=== PATIENT | female | born 1975 | race Caucasian/White ===

== ENCOUNTER 2020-04-14 15:10 | Outpatient (REF) | payer OTHER, SELFPAY ==
--- NOTE | ~2020-04-14 | MM_ITS ---
EXAMINATION: MM DIAGNOSTIC DIGITAL BREAST TOMOSYNTHESIS, LEFT US DIAGNOSTIC ULTRASOUND BREAST, LEFT CLINICAL INFORMATION: Short interval six-month follow-up left breast for hypoechoic nodule central 12:00 position mid depth and parenchymal asymmetry lower inner left breast. The lifetime risk of breast cancer based on the Tyrer-Cuzick Model is 17%. COMPARISON: Mammography: 10/15/2019, 10/07/2019 (BI-RADS 0), 10/01/2018; targeted left breast ultrasound 10/15/2019. TECHNIQUE: Digital breast tomosynthesis is performed in both the craniocaudal and mediolateral oblique views along with computer-aided detection (CAD). Synthesized 2D images are generated from the tomosynthesis. Ultrasound ultrasound left breast is targeted to the 12:00 position. Grayscale imaging and color Doppler are performed without and with harmonics. FINDINGS: There are scattered areas of fibroglandular density (ACR BI-RADS breast composition Category b). Parenchymal pattern is similar to prior studies. Nodularity mid central 12:00 left breast is similar to prior exams. There is no developing density or interval architectural abnormality. Parenchymal pattern lower inner left breast is stable as well. There is no interval architectural abnormality or developing density. Ultrasound again demonstrates a circumscribed oval subcentimeter hypoechoic nodule. There are some fine low-level internal echoes which clear on harmonics. There is trace increased through-transmission of sound and no associated color flow. Finding most likely represents a cyst and is stable. Results are discussed with the patient at time of visit. MM/MM tomosynthesis diagnostic LT IMPRESSION: 1. Left breast parenchymal pattern similar to prior exams. 2. Probable cyst mid 12:00 left breast stable. ASSESSMENT: BI-RADS 3: Probably Benign RECOMMENDATION: Diagnostic mammography and targeted left breast ultrasound at time of annual bilateral breast imaging, due in 6 months. This patient's information was entered into a reminder system with a target due date for their next mammogram.
== END 2020-04-14 15:11 | disposition home or self-care (01) ==
LOC: HO.MAMMO 15:10
PROVIDERS: Visit Provider Nurse Practitioner Family
DX: R92.2 Inconclusive mammogram (principal)
CPT/HCPCS: 76642; 77061; 77065

== ENCOUNTER 2020-05-03 20:51 | Emergency (ER) | payer OTHER, SELFPAY ==
--- NOTE | ~2020-05-03 | XR_ITS ---
EXAMINATION: XR CHEST CLINICAL INFORMATION: Chest pain COMPARISON: Chest x-ray 05/26/2017 TECHNIQUE: Frontal portable view of the chest was obtained. 9:18 PM FINDINGS: No significant abnormality is noted involving the heart, lungs, mediastinum, bony thorax or soft tissues. XR/XR chest 1V IMPRESSION: Unremarkable examination.
[2020-05-03 20:56] VITALS: BP 154/89; PULSE 84; RESP 20; TEMP 36.7; O2SAT 97; BMI 32.3
--- NOTE | 2020-05-03 21:01 | ECG_ITS ---
Test Reason : CP Blood Pressure : / mmHG Vent. Rate : 077 BPM Atrial Rate : 077 BPM P-R Int : 160 ms QRS Dur : 084 ms QT Int : 390 ms P-R-T Axes : 049 021 016 degrees QTc Int : 441 ms Normal sinus rhythm Normal ECG When compared with ECG of 03-MAY-2020 21:02, No significant change was found Referred By: Generic ED Physician Electronically Signed By:SERVANDO KATHLEEN
--- NOTE | 2020-05-03 21:02 | ECG_ITS ---
Test Reason : CHEST PAIN Blood Pressure : / mmHG Vent. Rate : 089 BPM Atrial Rate : 089 BPM P-R Int : 178 ms QRS Dur : 084 ms QT Int : 388 ms P-R-T Axes : 053 037 038 degrees QTc Int : 472 ms Normal sinus rhythm Normal ECG No previous ECGs available Referred By: Paul Evans Electronically Signed By:SERVANDO KATHLEEN
[2020-05-03 21:22] LABS: MANUAL DIFF FLAG NO
[2020-05-03 21:25] LABS: Basophils Absolute Auto 0.1 X10*3/uL (0.0-0.2); Basophils Percent Auto 0.7 % (0-2); Eosinophils Absolute Auto 0.2 X10*3/uL (0.0-0.4); Eosinophils Percent Auto 2.5 % (0-4); Hematocrit 41.9 % (37-47); Hemoglobin 14.3 g/dl (12.0-16.0); Imm Gran Abs Auto 0.02 X10*3/uL (0.00-0.03); Imm Gran Pct Auto 0.2 % (0.0-0.4); Lymphocytes Absolute Auto 2.6 X10*3/uL (1.2-4.9); Lymphocytes Percent Auto 28.3 % (20-40); Mean Corpuscular HGB Conc 34.1 g/dl (31.0-35.0); Mean Corpuscular Hemoglobin 29.5 pg (27.0-33.0); Mean Corpuscular Volume 86.4 fL (80-98); Mean Platelet Volume 9.7 fL (9.4-12.3); Monocytes Absolute Auto 0.8 X10*3/uL (0.1-1.2); Monocytes Percent Auto 8.4 % (2-11); Neutrophils Absolute Auto 5.5 X10*3/uL (2.0-8.3); Neutrophils Percent Auto 59.9 % (45-73); Platelet Count 313 X10*3/uL (160-400); Red Blood Count 4.85 X10*6/uL (4.20-5.50); Red Cell Distribution Width 11.6 % (11.0-16.0); White Blood Count 9.2 X10*3/uL (4.8-10.8)
[2020-05-03 21:43] LABS: Anion Gap 11 (12-20); Blood Urea Nitrogen 12 mg/dL (9-16); Calcium 9.7 mg/dL (8.4-10.2); Carbon Dioxide 23 mmol/L (22-29); Chloride 107 mmol/L (96-108); Creatinine Clr Calc Pharmacy 117.2; Estimated Glomerular Filt Rate > 60; Glucose Random 115 mg/dL (60-115); Potassium 3.9 mmol/L (3.3-5.1); Sodium 137 mmol/L (135-145)
[2020-05-03 21:48] LABS: Troponin-I High Sensitivity < 3.5 ng/L (<3.5-17.0)
--- NOTE | 2020-05-04 00:54 | ED.CHESTPAIN ---
HPI - Chest Pain General Chief Complaint: Chest Pain Stated Complaint: CP Time Seen by Provider: 05/04/20 00:53 Source: patient Mode of arrival: ambulatory Limitations: no limitations History of Present Illness HPI narrative: 44-year-old female who presents emergency department for evaluation of chest pain. Patient states that she has at home at around 7:00 p.m. sitting watching television when she had a sudden onset of left breast pain. She states that the pain was a sharp pain that was intermittent. The pain would last 5-10 seconds. She did have pain that radiated to her left shoulder and down her left arm. She had nausea with no vomiting. She felt short of breath. She denied diaphoresis but she did develop chills. She states she does feel short of breath when she walks around. She states that she has continued to have intermittent chest pains while she has been waiting to be seen. Patient did notice some left knee swelling 3-4 days prior but this resolved. She has not been on any long trips. She does not take control pills but she does have a Mirena IUD. Related Data Allergies Allergy/AdvReac Type Severity Reaction Status Date / Time levofloxacin [From LEVAQUIN] Allergy Intermediate RASH Unverified 05/03/20 21:44 morphine [MORPHINE] Allergy Intermediate RASH, hives Unverified 05/03/20 21:44 benzoin Allergy Unknown Unknown Verified 05/03/20 21:44 seasonal Allergy Unknown Unknown Uncoded 05/03/20 21:44 Cats Allergy Unknown Unknown Uncoded 05/03/20 21:44 Hydrocodone-Acetaminophen Allergy Unknown blisters, Uncoded 05/03/20 21:44 rash, swelling Review of Systems Review of Systems: Yes all other systems are reviewed and are negative Neurologic: Reports Abnormal speech present [facility] Past Medical History [facility] Narrative: Patient has history of neck injury and chronic migraines, she has a Mirena IUD, she does smoke cigarettes, she occasionally drinks alcohol, she denies drug use. Medical History (Updated 05/04/20 @ 02:06 by Paul Evans MD) No known health problems Social History Social History Advance Directives: No Advance Directives Information Provided: No Physical Exam Vital Signs: Vital Signs: Last Vital Signs Temp 98.1 F 05/03/20 20:56 Pulse 84 05/03/20 20:56 Resp 20 05/03/20 20:56 BP 154/89 H 05/03/20 20:56 Pulse Ox 97 05/03/20 20:56 Body Mass Index 32.3 Const: General: cooperative and healthy appearing Orientation/consciousness: oriented to person and oriented to place Limitations: no limitations HENMT: Head: Yes normal to inspection, Yes normocephalic and Yes atraumatic Ears: external ears normal General nose exam: Normal external nose present Face and sinus: Yes normal facial exam Mouth: Normal oral and palatal mucosa present Throat: Yes posterior oropharynx normal Eyes: Periorbital: periorbital findings normal Eyelids: Yes eyelids normal Conjunctivae: conjunctivae normal Sclerae: sclerae normal Corneas: corneas normal Pupils: Equal, round and reactive pupils present Direct Ophthalmoscopy: normal light reflex Neck: Neck: Yes full ROM, Yes no lymphadenopathy, Yes no meningeal signs, Yes trachea midline and Yes supple Chest: Chest palpation & inspection: normal inspection of the chest and normal palpation of entire chest wall Resp: Effort & Inspection: normal respiratory effort and able to speak in complete sentences Auscultation: clear to auscultation bilaterally Cardio: Rate: regular rate Rhythm: regular rhythm Heart sounds: S1 normal heart sound present, S2 normal heart sound present and no murmurs GI: Inspection: Yes normal to inspection Palpation (GI): Soft to palpation, nontender, no guarding, not rigid and No hepatosplenomegaly present : General: Yes no CVA tenderness Back/Spine/Pelvis: Back: no CVA tenderness Cervical Spine: normal cervical lordosis Thoracic/Lumbar Spine: thoracic and lumbar spine normal to inspection Skin: Lesions: no lesions Rashes: no rashes Wounds: no wounds Neuro: General: oriented to person, oriented to place and no meningeal signs Cranial nerves: Yes Equal, round and reactive pupils present Cognition (Neuro): normal cognition Speech: Abnormal speech present Motor exam (neuro): 5/5 motor strength present throughout Extrem: General: Yes normal to inspection and Yes full ROM Psych: Appearance: well kempt Mental Status: mental status grossly normal Speech and movement: Normal speech and movement present Affect: normal affect Attitude: cooperative Thought process: Normal thought process present Thought content: Normal thought content present Course Course Course Narrative: 44-year-old female who presents emergency department for evaluation of sudden onset of left-sided chest pain which occurred yesterday evening at 7:00 p.m., the pain is brief, episodic but she has had multiple episodes per hour. The pain does radiate to her left shoulder and left arm and she has associated shortness of breath, dyspnea on exertion and nausea. The patient's physical examination was unremarkable. The laboratory evaluation revealed a nondetectable troponin which is reassuring. The rest of her labs were normal. Chest x-ray was unremarkable. I did add a D-dimer to the patient's laboratory evaluation this is pending. 0203: The patient's D-dimer was below detectable limits. Patient's presentation is most likely consistent with costochondritis. Patient was ordered to get ibuprofen and Tylenol for pain. She was given printed and verbal instructions and discharged home. MDM - Chest Pain Lab Data Result diagrams: 05/03/20 21:06 05/03/20 21:06 Labs: Lab Results 05/03/20 05/03/20 05/03/20 Range/Units 21:06 21:06 21:06 WBC 9.2 (4.8-10.8) X10*3/uL RBC 4.85 (4.20-5.50) X10*6/uL Hgb 14.3 (12.0-16.0) g/dl Hct 41.9 (37-47) % MCV 86.4 (80-98) fL MCH 29.5 (27.0-33.0) pg MCHC 34.1 (31.0-35.0) g/dl RDW 11.6 (11.0-16.0) % Plt Count 313 (160-400) X10*3/uL MPV 9.7 (9.4-12.3) fL Immature Gran % (Auto) 0.2 (0.0-0.4) % Neut % (Auto) 59.9 (45-73) % Lymph % (Auto) 28.3 (20-40) % [place] % (Auto) 8.4 (2-11) % Eos % (Auto) 2.5 (0-4) % Baso % (Auto) 0.7 (0-2) % Lymph # (Auto) 2.6 (1.2-4.9) X10*3/uL [place] # (Auto) 0.8 (0.1-1.2) X10*3/uL Eos # (Auto) 0.2 (0.0-0.4) X10*3/uL Baso # (Auto) 0.1 (0.0-0.2) X10*3/uL Abs Immat Gran (auto) 0.02 (0.00-0.03) X10*3/uL Absolute Neuts (auto) 5.5 (2.0-8.3) X10*3/uL Absolute Nucleated RBC 0.000 (0.0-0.012) X10*3/uL Nucleated RBC % (auto) 0.0 (0.0-0.2) /100WBC D-Dimer < 200 NG/ML Hold Blue Top SEE NOTE Sodium 137 (135-145) mmol/L Potassium 3.9 (3.3-5.1) mmol/L Chloride 107 (96-108) mmol/L Carbon Dioxide 23 (22-29) mmol/L Anion Gap 11 L (12-20) BUN 12 (9-16) mg/dL Creatinine 0.80 (0.5-1.4) mg/dL Estim Creat Clear Calc 117.2 Estimated GFR > 60 Random Glucose 115 (60-115) mg/dL Calcium 9.7 (8.4-10.2) mg/dL Troponin I High Sens (<3.5-17.0) ng/L 05/03/20 Range/Units 21:06 WBC (4.8-10.8) X10*3/uL RBC (4.20-5.50) X10*6/uL Hgb (12.0-16.0) g/dl Hct (37-47) % MCV (80-98) fL MCH (27.0-33.0) pg MCHC (31.0-35.0) g/dl RDW (11.0-16.0) % Plt Count (160-400) X10*3/uL MPV (9.4-12.3) fL Immature Gran % (Auto) (0.0-0.4) % Neut % (Auto) (45-73) % Lymph % (Auto) (20-40) % [place] % (Auto) (2-11) % Eos % (Auto) (0-4) % Baso % (Auto) (0-2) % Lymph # (Auto) (1.2-4.9) X10*3/uL [place] # (Auto) (0.1-1.2) X10*3/uL Eos # (Auto) (0.0-0.4) X10*3/uL Baso # (Auto) (0.0-0.2) X10*3/uL Abs Immat Gran (auto) (0.00-0.03) X10*3/uL Absolute Neuts (auto) (2.0-8.3) X10*3/uL Absolute Nucleated RBC (0.0-0.012) X10*3/uL Nucleated RBC % (auto) (0.0-0.2) /100WBC D-Dimer NG/ML Hold Blue Top Sodium (135-145) mmol/L Potassium (3.3-5.1) mmol/L Chloride (96-108) mmol/L Carbon Dioxide (22-29) mmol/L Anion Gap (12-20) BUN (9-16) mg/dL Creatinine (0.5-1.4) mg/dL Estim Creat Clear Calc Estimated GFR Random Glucose (60-115) mg/dL Calcium (8.4-10.2) mg/dL Troponin I High Sens < 3.5 (<3.5-17.0) ng/L ECG Data ECG #1: Interpretation: Normal sinus rhythm, rate of 70, normal GA, QRS and QTC intervals no ST segment elevation or depression, no old EKG for comparison. This is a normal EKG. ECG #2: Interpretation: 0157: Normal sinus rhythm with a rate of 77, normal GA, QRS and QTC intervals, no ST segment elevation or depression, no T-wave abnormalities, compared to EKG 1., no change. This is a normal EKG Discharge Plan Discharge Clinical Impression: Acute costochondritis Patient Disposition: Home, Self-Care Instructions: Costochondritis (ED) Additional Instructions: Your blood work was unremarkable. Your troponin (marker of heart damage) was below detectable limits. Your D-dimer (marker of making too many blood clots) was blood detectable limits. Your chest x-ray was normal. Your EKG was normal. Your presentation is consistent with costochondritis (inflammation of your chest joints). Take ibuprofen 200 mg pills, 3 pills every 6 hours as needed for pain. Take Tylenol (acetaminophen) 500 mg pills, 2 pills every 4 to 6 hours as needed for pain. Follow-up with your doctor in 2 days. Please return to the emergency department if your symptoms get worse or if you develop any symptoms that are concerning to you.
[2020-05-04 01:24] LABS: D Dimer < 200 NG/ML
[2020-05-04] MEDS: Ibuprofen 600 MG TABLET PO (02:11)
[2020-05-04] MEDS: Acetaminophen 325 MG TABLET 975 MG PO (02:12)
== END 2020-05-04 02:19 | disposition home or self-care (01) ==
PROVIDERS: Emergency Provider Emergency Medicine Emergency Medical Services; PCP Nurse Practitioner Family
DX: M94.0 Chondrocostal junction syndrome [Tietze] (principal); F17.210 Nicotine dependence, cigarettes, uncomplicated; Z71.6 Tobacco abuse counseling; Z79.899 Other long term (current) drug therapy
CPT/HCPCS: 36415; 71045; 80048; 84484; 85025; 85379; 93005; 99283

== ENCOUNTER 2020-07-25 14:28 | Outpatient (REF) | payer OTHER, SELFPAY ==
--- NOTE | ~2020-07-25 | US_ITS ---
EXAMINATION: US VENOUS ULTRASOUND WITH DOPPLER LOWER EXTREMITY, LEFT CLINICAL INFORMATION: Pain COMPARISON: Previous exam August 2017 TECHNIQUE: Ultrasound of the deep veins is performed from the hip to the calf with compression sonography and color and pulse Doppler assessment. Spectral analysis with color-flow imaging is performed. FINDINGS: There is normal venous compression and respiratory variation and augmented flow. The visualized common femoral vein, superficial femoral vein, profunda femoral vein, popliteal vein, and the trifurcation region shows no evidence of deep venous thrombosis. There is no significant popliteal fossa cyst. US/US venous duplex LE LT IMPRESSION: No DVT demonstrated in the left lower extremity.
== END 2020-07-25 14:29 | disposition home or self-care (01) ==
LOC: HO.US 14:28
PROVIDERS: PCP Nurse Practitioner Family; Visit Provider Nurse Practitioner Family
DX: M79.606 Pain in leg, unspecified (principal)
CPT/HCPCS: 93971

== ENCOUNTER 2020-08-17 09:00 | Emergency (ER) | payer OTHER, SELFPAY ==
--- NOTE | ~2020-08-17 | XR_ITS ---
EXAMINATION: XR LUMBOSACRAL SPINE CLINICAL INFORMATION: Low back pain COMPARISON: None TECHNIQUE: Three views of the lumbosacral spine. FINDINGS: There is normal lumbar lordosis. There is minimal levoscoliosis lower lumbar spine The vertebral heights, alignment and disc heights are normal. There is no visible acute fracture, dislocation or subluxation. The soft tissues are normal. XR/XR lumbar spine 2-3V IMPRESSION: Minimal levoscoliosis lower lumbar spine. No visible acute fracture or dislocation seen.
[2020-08-17 09:19] VITALS: BP 140/93; PULSE 81; RESP 18; TEMP 36.6; O2SAT 95; BMI 31.5
--- NOTE | 2020-08-17 10:09 | ED.BACK ---
HPI - Back Pain/Injury General Chief Complaint: Back Pain/Injury Stated Complaint: Back pain No injury Time Seen by Provider: 08/17/20 09:48 Source: patient Mode of arrival: ambulatory Limitations: no limitations History of Present Illness HPI Narrative: Patient states on Friday she coughed real hard and think she blew out her back. Patient states ever since the hard cough he has had back pain radiating down to her legs. Patient states coughing resolved since Friday and denies any fever, chills, chest pain, or shortness of breath. Patient states history of disc herniations. Patient denies hearing any cracking or popping sound in her back after coughing hard. Patient states pain is worse on movement. Patient denies any dysuria, hematuria, flank pain, fever, or chills. Related Data Previous Rx's Medication Instructions Recorded cyclobenzaprine 10 mg PO TID PRN #18 tab 08/17/20 naproxen 500 mg PO BID PRN #20 tab 08/17/20 tramadol 50 mg PO Q8H PRN #9 tab 08/17/20 Allergies Allergy/AdvReac Type Severity Reaction Status Date / Time levofloxacin [From LEVAQUIN] Allergy Intermediate RASH Verified 08/17/20 09:22 morphine [MORPHINE] Allergy Intermediate RASH, hives Verified 08/17/20 09:22 benzoin Allergy Unknown Unknown Verified 08/17/20 09:22 seasonal Allergy Unknown Unknown Uncoded 05/03/20 21:44 Cats Allergy Unknown Unknown Uncoded 05/03/20 21:44 Hydrocodone-Acetaminophen Allergy Unknown blisters, Uncoded 05/03/20 21:44 rash, swelling Review of Systems Review of Systems: Yes all other systems are reviewed and are negative Constitutional: Constitutional: Reports as per HPI and Reports no additional constitutional complaints Eyes: Eyes: Reports as per HPI and Reports no additional eye complaints ENT: Reports system reviewed and no additional complaints, except as documented and Reports as per HPI Cardiovascular: Cardiovascular: Reports as per HPI, Reports no additional cardiovascular complaints and Denies chest pain Respiratory: Respiratory: Reports as per HPI, Reports no additional respiratory complaints and Reports cough (Resolved) Gastrointestinal: Gastrointestinal: Reports as per HPI and Reports no additional gastrointestinal complaints Musculoskeletal: Musculoskeletal: Reports no additional musculoskeletal complaints, Reports as per HPI and Reports back pain Neurologic: Reports system reviewed and no additional complaints, except as documented and Reports as per HPI Psychiatric: Psychiatric: Reports no additional psychiatric complaints and Reports as per HPI [facility] Past Medical History Medical History (Updated 08/17/20 @ 10:48 by BENJAMIN Lake) Migraines No known health problems Social History Social History Advance Directives: No Advance Directives Information Provided: Yes Patient : No Physical Exam Vital Signs: Vital Signs: Last Vital Signs Temp 97.9 F 08/17/20 09:19 Pulse 81 08/17/20 09:19 Resp 18 08/17/20 09:19 BP 140/93 H 08/17/20 09:19 Pulse Ox 95 08/17/20 09:19 Body Mass Index 31.5 Const: General: cooperative, healthy appearing, comfortable, no acute distress, well developed, alert, awake and Physically active Orientation/consciousness: patient oriented x3 HENMT: Head: Yes normal to inspection, Yes No palpable skull fracture present, Yes normocephalic, Yes atraumatic and No abrasion Eyes: General: appearance normal, both eyes and all related structures Neck: Neck: Yes normal visual inspection, Yes full ROM, Yes no lymphadenopathy, Yes no meningeal signs, Yes trachea midline, Yes supple and No tender Chest: Chest palpation & inspection: normal inspection of the chest and normal palpation of entire chest wall Resp: Effort & Inspection: normal respiratory effort and able to speak in complete sentences Auscultation: clear to auscultation bilaterally Cardio: Jugular venous distension: no JVD Heart sounds: S1 normal heart sound present and S2 normal heart sound present GI: Inspection: Yes normal to inspection and No abdominal wall ecchymosis Palpation (GI): Soft to palpation, not firm, nontender, no guarding and not rigid : General: No CVA tenderness and Yes no CVA tenderness Back/Spine/Pelvis: Back: no CVA tenderness, No CVA tenderness and back tenderness (Lumbar tenderness) Skin: General skin exam: no rashes or lesions noted and elasticity normal Neuro: General: patient oriented x3, gait normal, no meningeal signs and CN's II-XI intact bilaterally Cranial nerves: Yes CN's II-XII intact bilaterally Extrem: General: Yes normal to inspection and Yes full ROM Psych: Appearance: grossly normal, well kempt and not disheveled Course Course Course Narrative: Pain most likely muscular but due to spine tenderness was sent for x-ray to rule out any fracture. Patient given Toradol or Robaxin. Reevaluation(s) Reevaluation #1: Lumbar x-ray came back negative. Patient will be discharged with NSAIDs and muscle relaxer. Patient states she has taken tramadol in the past with no reaction. Patient requesting tramadol. Time: 10:47 MDM - Back Pain/Injury MDM Narrative Medical decision making narrative: Back strain Discharge Plan Discharge Clinical Impression: Back strain Patient Disposition: Home, Self-Care Instructions: Low Back Strain (ED) Additional Instructions: X-ray came back negative for any fracture. Return to the ED for worsening back pain, abdominal pain, nausea, vomiting, fever, chills, dysuria, hematuria, flank pain, urinary/bowel incontinence, paralysis of lower extremities, or any other concerning symptoms. Prescriptions: New naproxen 500 mg tablet 500 mg PO BID PRN (Reason: pain) Qty: 20 RF: 0 cyclobenzaprine 10 mg tablet 10 mg PO TID PRN (Reason: pain) Qty: 18 RF: 0 tramadol 50 mg tablet 50 mg PO Q8H PRN (Reason: pain) Qty: 9 RF: 0 Referrals: Jose Maria Lemons, LABORATORY OPERATIONS COORDINATOR-BC [Primary Care Provider] - 2 days (X-ray negative for any fractures or dislocation. Muscle strain from coughing hard) Stand Alone Forms: Work/School Release Interventions: ED Discharge Assessment Last Done: 08/17/20 10:58 Discharge Date/Time: 08/17/20 11:00 Print Language: Maltese
[2020-08-17] MEDS: Cyclobenzaprine HCl 10 MG TABLET PO (10:22)
[2020-08-17] MEDS: Ketorolac Tromethamine 30 MG/ML VIAL IM (10:23)
== END 2020-08-17 11:00 | disposition home or self-care (01) ==
PROVIDERS: Emergency Provider Emergency Medicine; PCP Nurse Practitioner Family
DX: S39.012A Strain of muscle, fascia and tendon of lower back, initial encounter (principal); X58.XXXA Exposure to other specified factors, initial encounter; Y93.9 Activity, unspecified; Y92.9 Unspecified place or not applicable; Y99.9 Unspecified external cause status
CPT/HCPCS: 72100; 96372; 99283; 99284; J1885

== ENCOUNTER 2021-02-02 18:45 | Outpatient (REF) | payer OTHER, SELFPAY ==
[2021-02-02 20:22] LABS: Influenza A PCR NEGATIVE (Negative); Influenza B PCR NEGATIVE (Negative); Resp Syncy Virus RNA Qual PCR NEGATIVE (Negative); SARS COV2 PCR INHOUSE NEGATIVE (Negative)
== END 2021-02-02 18:46 | disposition home or self-care (01) ==
LOC: HO.LNP 18:45
PROVIDERS: Visit Provider Internal Medicine
DX: Z20.822 Contact with and (suspected) exposure to COVID-19 (principal); J06.9 Acute upper respiratory infection, unspecified
CPT/HCPCS: 0241U; U0003; U0005

== ENCOUNTER 2021-02-07 16:45 | Outpatient (REF) | payer OTHER, SELFPAY ==
--- NOTE | ~2021-02-07 | XR_ITS ---
EXAMINATION: XR CHEST CLINICAL INFORMATION: Acute upper respiratory infection COMPARISON: CXR from 05/03/2020 TECHNIQUE: 2 views of the chest were obtained. FINDINGS: Lungs are well-inflated and clear. Trachea is midline in position. No interstitial disease, consolidation or mass. No pulmonary edema, pleural effusion or pneumothorax. Cardiac silhouette and pulmonary vessels are normal in size. The mediastinum and joanne have normal contour. The visualized bones, and upper abdomen, are unremarkable. XR/XR chest 2V IMPRESSION: No acute cardiopulmonary abnormality.
== END 2021-02-07 16:46 | disposition home or self-care (01) ==
LOC: HO.XRAY 16:45
PROVIDERS: PCP Nurse Practitioner Family; Visit Provider Nurse Practitioner Family
DX: J06.9 Acute upper respiratory infection, unspecified (principal)
CPT/HCPCS: 71046

== ENCOUNTER 2021-03-05 10:17 | Outpatient (REF) | payer OTHER, SELFPAY ==
--- NOTE | ~2021-03-05 | MM_ITS ---
EXAMINATION: MM DIAGNOSTIC DIGITAL BREAST TOMOSYNTHESIS, BILATERAL US DIAGNOSTIC ULTRASOUND BREAST, LEFT CLINICAL INFORMATION: Due for yearly exam. Also follow-up probable benign nodule 12:00 left breast and architectural changes lower inner left breast. No known family history breast cancer. The lifetime risk of breast cancer based on the Tyrer-Cuzick Model is 13%. COMPARISON: Mammography: 04/14/2020, 10/15/2019, 10/07/2019, 10/01/2018 (baseline); ultrasound left breast 10/15/2019, 04/14/2020. TECHNIQUE: Digital breast tomosynthesis is performed in both the craniocaudal and mediolateral oblique views along with computer-aided detection (CAD). Synthesized 2D images are generated from the tomosynthesis. Ultrasound left breast is targeted to the upper and outer quadrant. Patient is imaged supine and right posterior oblique. Grayscale imaging and color Doppler are performed without and with harmonics. FINDINGS: There are scattered areas of fibroglandular density (ACR BI-RADS breast composition Category b). The breast parenchymal pattern is similar to prior studies. There are no abnormal calcifications, or developing density, or interval architectural changes. Stromal markings inferior medial left breast are stable from prior exams, stable since initial baseline 2019 and now considered to be benign. The nodule central 12:30 o'clock position is slightly larger although still under 1 cm. Ultrasound left breast demonstrates hypoechoic nodule 12:00 position 6 cm from nipple. There is no increased or decreased through transmission of sound. No associated color flow. Nodule is slightly larger measuring approximately 0.9 x 0.8 x 0.6 cm. Results are discussed with the patient at time of visit. The nodule for follow-up is slightly larger. Management options discussed. MM/MM tomosynthesis diagnostic BI IMPRESSION: 1. Left: Architectural markings lower inner quadrant stable since baseline and considered to be benign. The nodule 12:00 position mid depth is slightly larger, suggest aspiration versus sampling. 2. Right: No mammographic evidence of malignancy. ASSESSMENT: BI-RADS 4: Suspicious (subcategory 4A: Low suspicion for malignancy) RECOMMENDATION: Ultrasound-guided aspiration left breast nodule to confirm a cyst. If lesion will not aspirate, then conversion to ultrasound-guided core biopsy at same appointment. This patient's information was entered into a reminder system with a target due date for their next mammogram.
== END 2021-03-05 10:18 | disposition home or self-care (01) ==
LOC: HO.MAMMO 10:17
PROVIDERS: Visit Provider Nurse Practitioner Family
DX: N63.25 Unspecified lump in the left breast, overlapping quadrants (principal)
CPT/HCPCS: 76642; 77062; 77066

== ENCOUNTER → 2021-03-09 08:52 | Outpatient (BNVA) | payer OTHER, SELFPAY | PROVIDERS: PCP Nurse Practitioner Family; Referring Provider Nurse Practitioner Family; Visit Provider Surgery ==

== ENCOUNTER 2021-03-19 07:56 | Outpatient (REF) | payer OTHER, SELFPAY ==
--- NOTE | ~2021-03-19 | MM_ITS ---
EXAMINATION: ULTRASOUND GUIDED CORE BIOPSY BREAST, LEFT POST PROCEDURE DIGITAL BREAST TOMOSYNTHESIS, LEFT CLINICAL INFORMATION: Nodule 12:00 position slightly larger, possibly cyst. COMPARISON: Mammography and targeted left breast ultrasound 03/05/2021, mammography 04/14/2020. FINDINGS: Proper informed consent is obtained from the patient after discussion of the procedure, potential risks and complications, and alternatives. Patient was given an opportunity for questions. The patient appeared to understand. The patient consented to the procedure and signed the consent form. GUIDANCE: Ultrasound-guided; aseptic technique. LESION: Hypoechoic avascular nodule 0.9 cm 12:00 position mid depth. No definite posterior increased through transmission of sound. Assess for cystic versus solid. APPROACH: Oblique lateral medial. ANESTHESIA: 18 mL 1% lidocaine. DERMATOTOMY: Single skin chari dermatotomy performed. NEEDLE ASPIRATION: 22-gauge and 20-gauge spinal needles were used to attempt aspiration. The nodule is compressible but did not aspirate or resolved with puncture. NEEDLE CORE: 14-gauge Achieve core biopsy device with 13.5-gauge co-axial guide needle. CORES: 6. CLIP: HydroMARK; shape: butterfly. POST PROCEDURE UNILATERAL DIGITAL BREAST TOMOSYNTHESIS, LEFT: The post biopsy mammogram is performed in separate room using separate digital breast tomosynthesis equipment from the biopsy procedure. CC and ML views are obtained. Synthesized images are generated from the tomography. There are scattered areas of fibroglandular density (breast composition category: b). The clip marker is in position and corresponds to the nodule on recent imaging. No gross hematoma. The patient tolerated the procedure well. No immediate complications. Home instructions reviewed with the patient. Final pathology results are pending. MM/MM diagnostic mammo unilat LT IMPRESSION: 1. Status post ultrasound-guided core biopsy left breast. 2. Clip placed: HydroMARK; shape: butterfly. 3. Pathology pending. An addendum report will be issued.
[2021-03-19] MEDS: Lidocaine HCl 1 % 20 ML VIAL 18 ML SUBCUT (09:45)
== END 2021-03-19 07:57 | disposition home or self-care (01) ==
LOC: HO.MAMMO 07:56
PROVIDERS: PCP Nurse Practitioner Family; Visit Provider Surgery
DX: N63.25 Unspecified lump in the left breast, overlapping quadrants (principal)
CPT/HCPCS: 19083; 77065; 88305

== ENCOUNTER → 2021-03-22 13:43 | Outpatient (BNVA) | payer OTHER, SELFPAY | PROVIDERS: PCP Nurse Practitioner Family; Referring Provider Nurse Practitioner Family; Visit Provider Surgery ==

== ENCOUNTER 2021-04-02 12:11 | Outpatient (REF) | payer OTHER, SELFPAY ==
--- NOTE | ~2021-04-02 | US_ITS ---
EXAMINATION: US RETROPERITONEAL COMPLETE (RENAL) CLINICAL INFORMATION: Hematuria. COMPARISON: None TECHNIQUE: Real-time imaging of the kidneys and bladder. FINDINGS: RIGHT KIDNEY: 10.7 x 4.4 x 5.1 cm (SAG x AP x TRV). The kidney is normal in size, contour, and echogenicity. Renal cortical thickness is normal. There is a small 5 mm cyst in the upper pole. No calculi or mass. No hydronephrosis. LEFT KIDNEY: 10 x 6.3 cm (SAG x AP). The kidney is normal in size, contour, and echogenicity. Renal cortical thickness is normal. There is mild left hydronephrosis. There are 2 stones measuring 3 mm and 4 mm in the lower pole. There is a 5 mm stone in the visualized left proximal ureter. No renal mass. BLADDER: Well distended and normal. Bilateral ureteral jets are demonstrated. Prevoid bladder volume is 336 mL. There is no post void bladder residual. US/US retroperitoneal comp IMPRESSION: Mild left hydronephrosis from a 5 mm left proximal ureteral stone. Left renal stones. Small right renal cyst.
== END 2021-04-02 12:12 | disposition home or self-care (01) ==
LOC: HO.US 12:11
PROVIDERS: PCP Nurse Practitioner Family; Visit Provider Physician Assistant
DX: R31.9 Hematuria, unspecified (principal)
CPT/HCPCS: 76770

== ENCOUNTER 2021-04-08 08:18 | Emergency (ER) | payer OTHER, MEDICAID, SELFPAY ==
--- NOTE | ~2021-04-08 | CT_ITS ---
EXAMINATION: CT ABDOMEN AND PELVIS WITH CONTRAST CLINICAL INFORMATION: Left flank pain. History of calculus disease. COMPARISON: Renal ultrasound done on 04/02/2021. TECHNIQUE: Multidetector volumetric images were obtained from the superior aspect of the liver through the pubic symphysis following administration 85 mL of Omnipaque 350 intravenous contrast. Sagittal and coronal reformatted images were obtained on the technologist's workstation. Oral contrast: No This CT examination was performed using dose optimization techniques as appropriate, variously including the following: *Automated exposure control *Adjustment of mA and/or kV according to patient size (this includes techniques or standardized protocols for targeted exams where dose is matched to indication/reason for exam; i.e. extremities or head) *Use of iterative reconstruction technique DLP: 970 mGy-cm FINDINGS: LUNG BASES: The visualized lung bases are unremarkable. LIVER, GALLBLADDER, AND BILIARY TREE: The liver is normal in size, shape, and attenuation. No focal hepatic lesion or biliary ductal dilatation is present. The gallbladder is unremarkable with no evidence of radiopaque gallstones, gallbladder wall thickening, or obvious pericholecystic inflammatory changes. PANCREAS: Unremarkable. SPLEEN: Unremarkable. ADRENAL GLANDS: The right adrenal gland is unremarkable. In the region of the left adrenal fossa, there is a 2 cm circumscribed solid-appearing mass identified which is abutting the superior surface of the right adrenal gland as well as the adjacent inferior aspect of the splenic parenchyma may represent splenule/accessory splenic tissue versus less likely possibility of exophytic adrenal mass (58:7 and 58:8 and 198:4). Follow-up technetium 99m labeled sulfur colloid or technetium 99m labeled heat damaged RBC scan is recommended for further clarification. KIDNEYS AND URETERS: The right kidney is normal in size, shape, and attenuation. No hydronephrosis, hydroureter, or calculi seen. No perinephric stranding. Left-sided moderate hydroureteronephrosis is present secondary to an obstructing calculus seen within the mid part of the left ureter at the level of the pelvic inlet (581:4) measuring approximately 0.6 cm with maximum Hounsfield value of 855. The remainder of the left ureter appear decompressed. There are phleboliths present within the pelvis. Additional left renal calculi are present, the largest seen within the inferior posterior calyx measuring 0.7 cm with Hounsfield value of 456 and skin to stone distance of 8.7 cm. In addition, a few punctate 1 to 2 mm loosely arranged scattered calculi are also noted within both anterior as well as mid and posterior inferior calyces (360-366:4). No evidence of any perinephric or periureteric stranding. BLADDER: Suboptimally distended, grossly unremarkable. GASTROINTESTINAL TRACT: Colonic diverticulosis related changes are noted within the splenic flexure as well as the descending and sigmoid colon without any CT features of superimposed acute diverticulitis. The small bowel loops are decompressed. The appendix is well-visualized and is unremarkable. The stomach is decompressed. ABDOMINAL WALL: No significant hernia is appreciated. LYMPH NODES: Normal. VASCULAR: Unremarkable. PELVIC VISCERA: The uterus is unremarkable. Specific note is made of presence of intrauterine contraceptive device, appear in good position. Bilateral adnexal hypodensities likely represent enlarged follicle. No evidence of any free fluid and/or free air. OSSEOUS STRUCTURES: Moderate diffuse osteopenia. No suspicious focal osseous lesion. CT/CT abdomen pelvis w con IMPRESSION: 1. Abnormal study showing evidence of moderate left-sided hydroureteronephrosis secondary to an obstructing radiopaque calculus seen within the mid part of the left ureter at the level of the pelvic inlet measuring approximately 0.6 cm at its maximum size with Hounsfield value of 855. Note is also made of presence of additional multiple nonobstructing left renal calculi seen within the inferior calyces, the largest measures 0.7 cm with Hounsfield value of 456 and skin to stone distance of 8.[address] evidence of any right renal, right ureteric or urinary bladder calculi. 3. Incidental note is made of a 2 cm circumscribed solid-appearing mass in the left adrenal fossa, abutting the inferior aspect of the spleen and superior aspect of the left adrenal gland, indeterminate site of organ origin. Differential includes splenule/accessory splenic tissue versus exophytic adrenal mass. Nonemergent follow-up technetium 99m labeled sulfur colloid or technetium 99m labeled heat damaged RBC scan including SPECT imaging is recommended for further clarification. If the radionuclide study is negative, follow-up CT scan per adrenal mass protocol may then be considered for further clarification.
[2021-04-08 08:19] VITALS: BP 163/81; PULSE 83; RESP 18; TEMP 36.7; O2SAT 98; BMI 32.5
[2021-04-08] MEDS: Ondansetron ODT 4 MG TAB.RAPDIS TRANSLINGU (08:24)
--- NOTE | 2021-04-08 08:27 | ED_ITS ---
HPI - General Adult General Chief complaint: Abdominal Pain Stated complaint: quest kidney infection Time Seen by Provider: 04/08/21 08:26 Source: patient Mode of arrival: ambulatory Limitations: no limitations History of Present Illness HPI narrative: 45-year-old female with past medical history of kidney stone, migraine, lithotripsy, kidney stone basket retreival, presents with worsening left flank pain. Five days ago, patient went to Urgent Care, ultrasound showed mild left hydronephrosis from a 5 mm left proximal ureteral stone and left renal stones. She was given Zofran, Flomax, oxycodone. For the last 2 days patient has had worsening bilateral flank pain if feels like someone is punching her in the back on both sides. No fevers. Intermittent upper abdominal pain with nausea. She has had gross hematuria with the back pain. No dysuria, no vaginal symptoms. No vomiting or diarrhea. No past abdominal surgeries. No chest pain, no shortness of breath, Related Data Home Medications Medication Instructions Recorded Confirmed gabapentin 600 mg tablet 600 mg PO DAILY@1700 03/09/21 04/08/21 Previous Rx's Medication Instructions Recorded ondansetron 4 mg disintegrating 4 mg PO Q8H PRN 3 Days #9 tab 04/08/21 tablet oxycodone 5 mg tablet 5 mg PO Q8H PRN 3 Days #9 tab 04/08/21 Allergies Allergy/AdvReac Type Severity Reaction Status Date / Time levofloxacin [From Allergy Intermediate RASH Verified 04/08/21 08:49 LEVAQUIN] morphine Allergy Intermediate RASH, hives Verified 04/02/21 09:17 [MORPHINE] benzoin Allergy Unknown Unknown Verified 04/08/21 08:49 seasonal Allergy Unknown Unknown Uncoded 04/08/21 08:49 Cats Allergy Unknown Unknown Uncoded 04/08/21 08:49 Review of Systems Verdana 4l Constitutional: Verdana 4d Constitutional: Verdana 4d Verdana 4d Denies body ache(s), Denies chills, Denies fatigue, Denies fever(s), Denies headache(s), Denies malaise and Denies weakness Verdana 4l Eyes: Verdana 4d Verdana 4d Eyes: Verdana 4d Denies diplopia Verdana 4l ENT: Verdana 4d Denies vertigo, Denies dizziness, Denies otalgia, Denies headache(s) and Denies throat swelling Verdana 4l Cardiovascular: Verdana 4d Cardiovascular: Verdana 4d Verdana 4d Denies chest pain, Denies syncope, Denies leg edema, Denies lightheadedness, Denies Loss of Consciousness, Denies palpitations and Denies dyspnea Verdana 4l Respiratory: Verdana 4d Verdana 4d Respiratory: Verdana 4d Denies chest congestion, Denies cough and Denies dyspnea Verdana 4l Gastrointestinal: Verdana 4d Gastrointestinal: Verdana 4d Verdana 4d Reports abdominal pain, Denies hematochezia, Denies constipation, Denies diarrhea, Reports nausea and Denies vomiting Verdana 4l Genitourinary: Verdana 4d Verdana 4d Genitourinary: Verdana 4d Reports hematuria, Denies dysuria, Denies pelvic pain, Reports flank pain, Denies urinary incontinence, Denies urinary hesitancy, Denies urinary urgency and Denies vaginal discharge Verdana 4l Musculoskeletal: Verdana 4d Musculoskeletal: Verdana 4d Verdana 4d Reports no additional musculoskeletal complaints Verdana 4l Neurologic: Verdana 4d Denies confusion, Denies vertigo, Denies dizziness, Denies syncope, Denies headache(s) and Denies weakness Verdana 4l Psychiatric: Verdana 4d Verdana 4d Psychiatric: Verdana 4d Denies anxiety, Denies confusion and Denies depression Verdana 4l Endocrine: Verdana 4d Verdana 4d Endocrine: Verdana 4d Denies fatigue and Denies palpitations Verdana 4l Allergic/Immunologic: Verdana 4d Allergic/Immunologic: Verdana 4d Verdana 4d Denies throat swelling PMFSH Past Medical History Medical History Kidney stone Migraines No known health problems Surgical History History of knee surgery History of lithotripsy History of lumpectomy of left breast (2007) Family History Family History Maternal Grandmother Cancer of abdominal organ Family/Other Breast cancer, Onset Age: 30 Social History Social History Alcohol intake: current Alcohol intake frequency: holidays/special occasions only Patient Tobacco Use Status: Never used Tobacco Advance Directives: No Advance Directives Information Provided: Yes Patient : No Physical Exam Verdana 4l Vital Signs: Verdana 4d Verdana 4d Vital Signs: Verdana 4d Verdana 4Bd Last Vital Signs Verdana 4d Atg Architect New 4d Atg Architect New 4d Temp 98.6 F 04/08/21 12:48 Atg Architect New 4d Pulse 69 04/08/21 12:48 Atg Architect New 4d Resp 18 04/08/21 13:46 BP 136/88 04/08/21 12:48 Pulse Ox 98 04/08/21 12:48 BMI result Body Mass Index 32.5 Const: General: No confusion Nutritional Appearance: well nourished Orientation/consciousness: No confusion Limitations: no limitations HENMT: Head: Yes normal to inspection, Yes normocephalic and Yes atraumatic Ears: hearing grossly normal bilaterally and external ears normal General nose exam: Normal external nose present Face and sinus: Yes normal facial exam Mouth: Normal oral and palatal mucosa present Throat: Yes posterior orop harynx normal Eyes: Conjunctivae: conjunctivae normal Pupils: Equal, round and reactive pupils present EOM: EOMs intact bilaterally Neck: Neck: Yes full ROM, Yes no lymphadenopathy and Yes supple Resp: Effort & Inspection: normal respiratory effort and able to speak in complete sentences Auscultation: clear to auscultation bilaterally, no crackles, no rales, no rhonchi and no wheezes Cardio: Rate: regular rate Rhythm: regular rhythm Heart sounds: S1 normal heart sound present and S2 normal heart sound present GI: Inspection: Yes normal to inspection Palpation (GI): Soft to palpation, Tenderness to palpation present (GI) (diffusely), no guarding and not rigid Percussion: Yes normal to percussion Auscultation: normal bowel sounds : General: Yes CVA tenderness bilateral Back/Spine/Pelvis: Back: CVA tenderness Skin: General skin exam: no rashes or lesions noted Neuro: General: No confusion Cranial nerves: Yes Equal, round and reactive pupils present Extrem: General: Yes normal to inspection and Yes full ROM Psych: Appearance: grossly normal Affect: normal affect Attitude: cooperative Thought process: Normal thought process present Course Course Course Narrative: 45-year-old female presents with bilateral flank pain and gross hematuria. Patient has had significant history of kidney stones, however she has not had a stone for the last 10 years. On exam, patient is afebrile, vitals were stable, patient has bilateral CVA tenderness, diffusely tender abdomen. Patient did have an ultrasound 5 days ago at urgent care which showed 5 mm ureteral stone in her left ureter and mild hydro. Will get labs, urine, CT. Patient given Zofran in triage, will give ketorolac and fluids. Patient did complete a course of Flomax prior to arrival Lab draw for CMP hemolyzed, pt refusing another lab draw, says it is too painful. I was able to talk to patient and convince her of necessity of assessing her kidney function prior to IV dye load with CT of abdomen Reevaluation(s) Reevaluation #1: Labs within normal limits, urine shows no evidence of infection, shows hematuria 1. Abnormal study showing evidence of moderate left-sided hydroureteronephrosis secondary to an obstructing radiopaque calculus seen within the mid part of the left ureter at the level of the pelvic inlet measuring approximately 0.6 cm at its maximum size with Hounsfield value of 855. Note is also made of presence of additional multiple nonobstructing left renal calculi seen within the inferior calyces, the largest measures 0.7 cm with Hounsfield value of 456 and skin to stone distance of 8.[address] evidence of any right renal, right ureteric or urinary bladder calculi. 3. Incidental note is made of a 2 cm circumscribed solid-appearing mass in the left adrenal fossa, abutting the inferior aspect of the spleen and superior aspect of the left adrenal gland, indeterminate site of organ origin. Differential includes splenule/accessory splenic tissue versus exophytic adrenal mass. Nonemergent follow-up technetium 99m labeled sulfur colloid or technetium 99m labeled heat damaged RBC scan including SPECT imaging is recommended for further clarification. If the radionuclide study is negative, follow-up CT scan per adrenal mass protocol may then be considered for further clarification. [place] text with Dr Jim, who would like Pt admitted for Uro eval and possible procedure tomorrow Discussed with patient incidental adrenal mass is finding, and the necessity of outpatient follow-up with her PCP Admitted to hospitalist service Reevaluation #2: Hospitalist said no medical reason for admission, pt will return to OR tomorrow, Dr Jim's office will arrange. Will send home with pain medication and anti-emetics Medical Decision Making Lab Data Result diagrams: 04/08/21 09:28 04/08/21 11:16 Labs: Lab Results 04/08/21 04/08/21 04/08/21 Range/Units 09:27 09:27 09:28 WBC 5.3 (4.8-10.8) X10*3/uL RBC 4.79 (4.20-5.50) X10*6/uL Hgb 14.0 (12.0-16.0) g/dl Hct 41.2 (37.0-47.0) % MCV 86.0 (80.0-98.0) fL MCH 29.2 (27.0-33.0) pg MCHC 34.0 (31.0-35.0) g/dl RDW 11.7 (11.0-16.0) % Plt Count 259 (160-400) X10*3/uL MPV 9.8 (9.4-12.3) fL Immature Gran % (Auto) 0.4 (0.0-0.4) % Neut % (Auto) 62.8 (45-73) % Lymph % (Auto) 24.7 (20-40) % [place] % (Auto) 8.0 (2-11) % Eos % (Auto) 3.2 (0-4) % Baso % (Auto) 0.9 (0-2) % Lymph # (Auto) 1.3 (1.2-4.9) X10*3/uL [place] # (Auto) 0.4 (0.1-1.2) X10*3/uL Eos # (Auto) 0.2 (0.0-0.4) X10*3/uL Baso # (Auto) 0.1 (0.0-0.2) X10*3/uL Abs Immat Gran (auto) 0.02 (0.00-0.03) X10*3/uL Absolute Neuts (auto) 3.3 (2.0-8.3) x10*3/uL Absolute Nucleated RBC 0.000 (0.0-0.012) X10*3/uL Nucleated RBC % (auto) 0.0 (0.0-0.2) /100WBC Sodium (135-145) mmol/L Potassium (3.3-5.1) mmol/L Chloride (96-108) mmol/L Carbon Dioxide (22-29) mmol/L Anion Gap (12-20) BUN (9-16) mg/dL Creatinine (0.5-1.4) mg/dL Estim Creat Clear Calc Estimated GFR Random Glucose (60-115) mg/dL Calcium (8.4-10.2) mg/dL Total Bilirubin (0.0-1.0) mg/dL AST (5-31) U/L ALT (0-31) U/L Alkaline Phosphatase (39-117) U/L Total Protein (6.5-8.0) g/dL Albumin (3.5-5.0) g/dL Urine Color YELLOW Urine Appearance CLEAR Urine pH 6.0 (5.0-8.0) Ur Specific [place] <= 1.005 (1.005-1.025) Urine Protein NEG (NEG-TRACE) MG/DL Urine Glucose (UA) NEG (NEG) MG/DL Urine Ketones NEG (NEG) MG/DL Urine Blood 3+ H (NEG) Urine Nitrite NEG (NEG) Ur Leukocyte Esterase NEG (NEG) Urine RBC 5-9 H (0) /HPF Urine WBC 0-2 (0-4) /HPF Ur Squamous Epith Cells 1+ /LPF Urine Bacteria NONE /LPF Urine Test NEGATIVE (NEGATIVE) 04/08/21 Range/Units 11:16 WBC (4.8-10.8) X10*3/uL RBC (4.20-5.50) X10*6/uL Hgb (12.0-16.0) g/dl Hct (37.0-47.0) % MCV (80.0-98.0) fL MCH (27.0-33.0) pg MCHC (31.0-35.0) g/dl RDW (11.0-16.0) % Plt Count (160-400) X10*3/uL MPV (9.4-12.3) fL Immature Gran % (Auto) (0.0-0.4) % Neut % (Auto) (45-73) % Lymph % (Auto) (20-40) % [place] % (Auto) (2-11) % Eos % (Auto) (0-4) % Baso % (Auto) (0-2) % Lymph # (Auto) (1.2-4.9) X10*3/uL [place] # (Auto) (0.1-1.2) X10*3/uL Eos # (Auto) (0.0-0.4) X10*3/uL Baso # (Auto) (0.0-0.2) X10*3/uL Abs Immat Gran (auto) (0.00-0.03) X10*3/uL Absolute Neuts (auto) (2.0-8.3) x10*3/uL Absolute Nucleated RBC (0.0-0.012) X10*3/uL Nucleated RBC % (auto) (0.0-0.2) /100WBC Sodium 140 (135-145) mmol/L Potassium 4.2 (3.3-5.1) mmol/L Chloride 109 H (96-108) mmol/L Carbon Dioxide 26 (22-29) mmol/L Anion Gap 9 L (12-20) BUN 9 (9-16) mg/dL Creatinine 0.77 (0.5-1.4) mg/dL Estim Creat Clear Calc 117.1 Estimated GFR > 60 Random Glucose 101 (60-115) mg/dL Calcium 8.9 D (8.4-10.2) mg/dL Total Bilirubin 0.6 (0.0-1.0) mg/dL AST 13 (5-31) U/L ALT 13 (0-31) U/L Alkaline Phosphatase 47 (39-117) U/L Total Protein 6.1 L (6.5-8.0) g/dL Albumin 3.9 (3.5-5.0) g/dL Urine Color Urine Appearance Urine pH (5.0-8.0) Ur Specific [place] (1.005-1.025) Urine Protein (NEG-TRACE) MG/DL Urine Glucose (UA) (NEG) MG/DL Urine Ketones (NEG) MG/DL Urine Blood (NEG) Urine Nitrite (NEG) Ur Leukocyte Esterase (NEG) Urine RBC (0) /HPF Urine WBC (0-4) /HPF Ur Squamous Epith Cells /LPF Urine Bacteria /LPF Urine Test (NEGATIVE) Discharge Plan Discharge Clinical Impression: Kidney stone on left side, Adrenal mass Patient Disposition: Home, Self-Care Additional Instructions: Please to not eat or drink anything after dinner tonight. Nothing by mouth after midnight The operating room we will call you tomorrow morning. I prescribed oxycodone and Zofran to her pharmacy. The phone number for urologist, Dr. Jim, is [phone] Please return if you have worsening pain, fevers, vomiting Prescriptions: New oxycodone 5 mg tablet 5 mg PO Q8H PRN (Reason: pain) 3 Days Qty: 9 0RF ondansetron 4 mg tablet,disintegrating 4 mg PO Q8H PRN (Reason: nausea and vomiting) 3 Days Qty: 9 0RF No Action gabapentin 600 mg tablet 600 mg PO DAILY@1700 0RF Referrals: Lonny Jim MD [Physician] - 2 days Interventions: ED Discharge Assessment Last Done: 04/08/21 14:39
[2021-04-08] MEDS: Ketorolac Tromethamine 30 MG/ML VIAL IVPUSH (09:11)
[2021-04-08] MEDS: 0.9 % Sodium Chloride 1,000 ML 999 ML IV (09:11)
[2021-04-08 09:36] LABS: Basophils Absolute Auto 0.1 X10*3/uL (0.0-0.2); Basophils Percent Auto 0.9 % (0-2); Eosinophils Absolute Auto 0.2 X10*3/uL (0.0-0.4); Eosinophils Percent Auto 3.2 % (0-4); Hematocrit 41.2 % (37.0-47.0); Imm Gran Abs Auto 0.02 X10*3/uL (0.00-0.03); Imm Gran Pct Auto 0.4 % (0.0-0.4); Lymphocytes Absolute Auto 1.3 X10*3/uL (1.2-4.9); Lymphocytes Percent Auto 24.7 % (20-40); Mean Corpuscular Hemoglobin 29.2 pg (27.0-33.0); Mean Platelet Volume 9.8 fL (9.4-12.3); Monocytes Absolute Auto 0.4 X10*3/uL (0.1-1.2); Neutrophils Absolute Auto 3.3 x10*3/uL (2.0-8.3); Neutrophils Percent Auto 62.8 % (45-73); Platelet Count 259 X10*3/uL (160-400); Red Blood Count 4.79 X10*6/uL (4.20-5.50); Red Cell Distribution Width 11.7 % (11.0-16.0); White Blood Count 5.3 X10*3/uL (4.8-10.8)
[2021-04-08 09:37] LABS: Appearance Urine CLEAR; Color Urine YELLOW; Glucose Urine UA NEG (NEG); Leukocyte Esterase Urine NEG (NEG); Nitrite Urine NEG (NEG); Specific Gravity - Urine <= 1.005 (1.005-1.025); UACC Culture Trigger NO; Urine Blood 3+ (NEG); Urine Ketones NEG (NEG); Urine Protein NEG (NEG-TRACE)
[2021-04-08 09:39] LABS: UPreg QC Valid YES; Urine Pregnancy NEGATIVE (NEGATIVE)
[2021-04-08 09:46] LABS: Squamous Epithelial Cell Urine 1+ /LPF; WBC Urine 0-2 /HPF (0-4)
--- NOTE | 2021-04-08 10:09 | PC.NURSE ---
pt reusing redraw of chemistry. pa aware.
[2021-04-08 11:43] LABS: Alanine Aminotransferase 13 U/L (0-31); Albumin Level 3.9 g/dL (3.5-5.0); Alkaline Phosphatase 47 U/L (39-117); Anion Gap 9 (12-20); Aspartate Amino Transferase 13 U/L (5-31); Bilirubin Total 0.6 mg/dL (0.0-1.0); Blood Urea Nitrogen 9 mg/dL (9-16); Calcium 8.9 mg/dL (8.4-10.2); Carbon Dioxide 26 mmol/L (22-29); Chloride 109 mmol/L (96-108); Creatinine Clr Calc Pharmacy 117.1; Estimated Glomerular Filt Rate > 60; Glucose Random 101 mg/dL (60-115); Potassium 4.2 mmol/L (3.3-5.1); Sodium 140 mmol/L (135-145); Total Protein 6.1 g/dL (6.5-8.0)
[2021-04-08] MEDS: iohexoL 350 MG/ML 100 ML INFUS..BTL 85 ML IV (11:59)
[2021-04-08 12:48] VITALS: BP 136/88; PULSE 69; RESP 16; TEMP 37; O2SAT 98
[2021-04-08 13:46] VITALS: RESP 18
[2021-04-08] MEDS: ondansetron HCL 4 MG/2 ML VIAL IVPUSH (13:46)
[2021-04-08] MEDS: Morphine Sulfate 4 MG/ML CARTRIDGE IVPUSH (13:46)
--- NOTE | 2021-04-08 14:16 | PHA.MEDREC ---
Pharmacy Consult ? Medication Reconciliation Pharmacy has completed the medication reconciliation.
--- NOTE | 2021-04-09 19:19 | MHC.SHP ---
Pre-Procedural Eval Section A Date of Service: 04/09/21 The patient is an INPATIENT: No Changes since office visit: No Cold of Flu in the past 2 weeks, No New Medical Problems, No Changes in Medication and No Patient answered all questions The History & Physical has been completed within 30 days and I have reviewed it.: No Section B Chief Complaint: quest kidney infection Details of Present Illness: presents with mid left ureteric stone. Had attended emergency room yesterday where she was given pain medication. Imaging shows mid to distal left stone with mild hydronephrosis. Normal creatinine. Plan today for left retrograde, ureteroscopy, laser lithotripsy and stent placement. Risks and benefits have been explained to the patient. She has had prior procedures Relevant Family History (Specify if Yes): No Relevant Social History: None Present Medications: see Short Stay Collaborative assessment Medical History: Significant History History of Previous Operations: Relevant previous surgery/procedure and date(s) Allergies: Allergies Allergy/AdvReac Type Severity Reaction Status Date / Time levofloxacin [From LEVAQUIN] Allergy Intermediate RASH Verified 04/08/21 08:49 morphine [MORPHINE] Allergy Intermediate RASH, hives Verified 04/02/21 09:17 benzoin Allergy Unknown Unknown Verified 04/08/21 08:49 seasonal Allergy Unknown Unknown Uncoded 04/08/21 08:49 Cats Allergy Unknown Unknown Uncoded 04/08/21 08:49 Review of Systems Sugical H&P ROS: Negative: Constitution, Cardiovascular, Respiratory, Neurological, Psychiatric, Hem-Onc, Allergic/Immunologic, Gastrointestinal, Genitourinary, Musculoskeletal, Integumentary, Endocrine and Eyes/Ears/Nose/Throat Exam Surgical H&P Exam: Normal: HEENT, Normal: Heart, Normal: Lungs, Normal: Extremities, Normal: Abdomen, Normal: Skin and Normal: Neurological Plan Diagnosis/Plan: Unchanged ( cystoscopy, left retrograde, left ureteroscopy laser lithotripsy stent placement) I have reviewed the history and physical and performed a pertinent physical examination on my patient. No changes have occurred unless specified.
== END 2021-04-08 14:48 | disposition home or self-care (01) ==
PROVIDERS: Physician Assistant; Emergency Provider Emergency Medicine; PCP Nurse Practitioner Family
DX: N20.0 Calculus of kidney (principal); Z79.899 Other long term (current) drug therapy
CPT/HCPCS: 36415; 74177; 80053; 81001; 81025; 85025; 96360; 96361; 99285; J1885; J2270; J2405; Q9967

== ENCOUNTER 2021-04-09 10:28 | Day surgery (SDC) | payer OTHER, MEDICAID, SELFPAY ==
[2021-04-09] VITALS (7 sets, daily range): BP systolic 141–152; BP diastolic 68–98; PULSE 62–72; RESP 16–18; TEMP 36.2–36.6; O2SAT 93–98; BMI 32.5
--- NOTE | ~2021-04-09 | FL_ITS ---
EXAMINATION: FLUOROSCOPY WITH IMAGES CLINICAL INFORMATION: Left kidney stone removal with stent placement. COMPARISON: Previous CT of the abdomen and pelvis from yesterday. TECHNIQUE: Fluoroscopy performed by Dr. Lonny Jim. Fluoroscopy time: 0.75 minutes Dose: 16 mGy Images: 4 FINDINGS: Wire in the left distal ureter and contrast injection. There is a filling defect in the left distal ureter projecting over the proximal left sacrum questionable for left ureteral stone. Second image demonstrates wire in the left ureter. Third image demonstrates the distal end of an internal ureteral stent projecting over the bladder. Fourth image demonstrates the proximal end of an internal ureteral stent that is not well-visualized and may be straightened in the ureter and contrast opacification of the left renal collecting system. FL/FL guidance in OR IMPRESSION: Fluoroscopy guidance for left-sided urologic procedure.
[2021-04-09] MEDS: oxyCODONE HCl Immed Release 5 MG TABLET PO (14:29)
--- NOTE | 2021-04-09 17:45 | P.CONAN_ITS ---
[facility] Active Problems Active Problems: All Active Problems (Updated 04/09/21 @ 00:00 by Yamileth Benoit) Leg pain (Acute) Upper respiratory tract infection (Acute) Left breast lump (Acute) Fibroadenoma (Acute) Past Medical History Medical History Kidney stone Migraines No known health problems Family History Family History Maternal Grandmother Cancer of abdominal organ Family/Other Breast cancer, Onset Age: 30 Family history of problems with anesthesia: No Surgical History Surgical History History of knee surgery History of lithotripsy History of lumpectomy of left breast (2007) History of Problems with Anesthesia: No Social History Social History Alcohol intake: current Alcohol intake frequency: holidays/special occasions only Patient Tobacco Use Status: Never used Tobacco Second Hand Smoke Exposure: No Use of substances other than those prescribed or required for medical reasons: No Are you DNR?: No Advance Directives: No Advance Directives Information Provided: Yes Advance Directives on File: No Meds Allergies Allergy/AdvReac Type Severity Reaction Status Date / Time levofloxacin [From LEVAQUIN] Allergy Intermediate RASH Verified 04/08/21 08:49 morphine [MORPHINE] Allergy Intermediate RASH, hives Verified 04/02/21 09:17 benzoin Allergy Unknown Unknown Verified 04/08/21 08:49 seasonal Allergy Unknown Unknown Uncoded 04/08/21 08:49 Cats Allergy Unknown Unknown Uncoded 04/08/21 08:49 Home Medications Medication Instructions Recorded Confirmed Last Taken Type gabapentin 600 mg tablet 600 mg PO DAILY@1700 03/09/21 04/08/21 04/07/21 History Exam Exam Date and Time: April 09, [id number] Height,Weight and Vital Signs: Height 5 ft 9 in Weight 99.79 kg Last Vital Signs Temp 97.2 F 04/09/21 14:24 Pulse 72 04/09/21 14:24 Resp 16 04/09/21 14:24 BP 145/98 H 04/09/21 14:24 Pulse Ox 98 02/07/22 14:24 Airway Mallampati Class: II TM Dist: >3cm Neck ROM: Full Loose/Missing/Broken Teeth: No Heart: RRR Lungs: CTA Assessment and Plan Assessment Anesthesia Assessment: Anesthesia Plan Discussed and Chart Reviewed Final Anesthetic Review Family History of Problems with Anesthesia: No History of Problems with Anesthesia: No NPO: Yes ASA Class: II Final Preanesthetic Review: No Changes in Pt Med Stat, Meds/Allgs Chart Reviewed, Consent Obtained/Reviewed and Anes Risks/Benef Reviewed Patient Risk: Low Procedure Risk: Low Anesthetic Plan Anesthetic Plan: GA Disposition: Standard PACU
[2021-04-09] MEDS: Scopolamine 1.5 MG PATCH.TD.3 EAR-BEHIND (18:11)
[2021-04-09] MEDS: Sulfamethox/Trimeth 800/160 TABLET 1 TAB PO (19:43)
--- NOTE | 2021-04-09 20:16 | W.PM.OPN ---
Operative Note Operative Note Date of Service: 04/09/21 Narrative: PreOperative Diagnosis: left distal ureteric stone with hydronephrosis Post Operative Diagnosis: left distal ureteric stone with hydronephrosis Procedure: - cystoscopy, left retrograde - left dilatation of ureteric orifice under fluoroscopy - left ureteroscopy, laser lithotripsy, stone basketing - left stent placement Surgeon: Dr Lonny Jim Anesthesia: General Indications for procedure: 45-year-old female presents emergency room at the weekend. Distal left ureteric stone with hydronephrosis. Controlled with oral pain medication and planned for procedure today. Has previously undergone ureteroscopy and understands the risks and benefits. Procedure: After informed consent was verified patient was brought to the operating placed in supine position. Anesthesia was administered per protocol. Patient was placed in modified dorsal lithotomy position and prepped and draped in a sterile fashion. Safety pause time-out and side of surgery confirmed. Antibiotics confirmed. A 22 Barbadian cystoscope was inserted per urethra. Bladder was normal in its entirety. Both ureteric orifices were in normal position. The Left ureteric orifice was cannulated and a retrograde examination was performed. filling defects seen a junction between mid and distal left ureter and proximal hydroureteronephrosis. . A Sensor guidewire was placed up to the level of the renal pelvis under fluoroscopy. The rigid cystoscope was removed. A [place] dilator was placed over the Sensor guidewire and used to dilate the ureteric orifice under fluoroscopy. The dilator was removed. The semi rigid ureteral scope was placed alongside the Sensor guidewire. Stone was encountered the junction between the mid and distal left ureter. Using a 370 micron holmium fiber the stone was broken into small pieces. Using a flat wire basket stone fragments were removed and were sent for analysis. At the completion of the procedure decision was made to leave a stent. A 6 Barbadian by 26 cm cm double-J stent was placed into the renal pelvis and bladder under a combination of fluoroscopy and direct visualization. The bladder was emptied. The patient tolerated the procedure well and was extubated in the operating room, and transferred in stable condition to the recovery area. Pathology: stones Drains: 6 Barbadian by 26 cm stent
[2021-04-09] MEDS: Ketorolac Tromethamine 30 MG/ML VIAL 15 MG IVPUSH (20:32)
[2021-04-09] MEDS: ondansetron HCL 4 MG/2 ML VIAL IVPUSH (20:32)
[2021-04-14 02:21] LABS: Stone Source STONE
== END 2021-04-09 21:30 | disposition home or self-care (01) ==
PROVIDERS: PCP Nurse Practitioner Family; Visit Provider Urology
PROC: (CPT 52356; principal; 2021-04-09 14:40)
DX: N13.2 Hydronephrosis with renal and ureteral calculous obstruction (principal); Z87.442 Personal history of urinary calculi; G43.909 Migraine, unspecified, not intractable, without status migrainosus; Z79.899 Other long term (current) drug therapy; Z88.8 Allergy status to other drugs, medicaments and biological substances
CPT/HCPCS: 52356; 82365; 88300; C1758; C1769; C2617; J1100; J1885; J2405; J2550; J3010; Q9967

== ENCOUNTER → 2021-04-17 13:44 | Outpatient (BNVA) | payer OTHER, MEDICAID, SELFPAY | PROVIDERS: PCP Nurse Practitioner Family; Visit Provider Urology | DX: N20.0 Calculus of kidney (principal) | CPT/HCPCS: 52310 ==

== ENCOUNTER 2021-04-26 11:17 | Outpatient (REF) | payer OTHER, MEDICAID, SELFPAY ==
[2021-04-26 12:01] LABS: MANUAL DIFF FLAG NO
[2021-04-26 12:17] LABS: Hematocrit 40.5 % (37.0-47.0); Hemoglobin 13.6 g/dl (12.0-16.0); Mean Corpuscular HGB Conc 33.6 g/dl (31.0-35.0); Mean Corpuscular Hemoglobin 29.2 pg (27.0-33.0); Mean Corpuscular Volume 86.9 fL (80.0-98.0); Mean Platelet Volume 9.6 fL (9.4-12.3); Neutrophils Percent Auto 62.2 % (45-73); Platelet Count 279 X10*3/uL (160-400); Red Blood Count 4.66 X10*6/uL (4.20-5.50); White Blood Count 6.3 X10*3/uL (4.8-10.8)
[2021-04-26 12:18] LABS: Basophils Percent Auto 0.6 % (0-2); Eosinophils Absolute Auto 0.2 X10*3/uL (0.0-0.4); Eosinophils Percent Auto 2.4 % (0-4); Imm Gran Abs Auto 0.02 X10*3/uL (0.00-0.03); Imm Gran Pct Auto 0.3 % (0.0-0.4); Lymphocytes Absolute Auto 1.7 X10*3/uL (1.2-4.9); Lymphocytes Percent Auto 27.1 % (20-40); Monocytes Absolute Auto 0.5 X10*3/uL (0.1-1.2); Monocytes Percent Auto 7.4 % (2-11); Neutrophils Absolute Auto 3.9 x10*3/uL (2.0-8.3)
[2021-04-26 12:32] LABS: Appearance Urine CLEAR; Color Urine YELLOW; Glucose Urine UA NEG (NEG); Leukocyte Esterase Urine NEG (NEG); Nitrite Urine NEG (NEG); Specific Gravity - Urine 1.025 (1.005-1.025); Urine Blood NEG (NEG); Urine Ketones NEG (NEG); Urine Protein NEG (NEG-TRACE)
[2021-04-26 12:47] LABS: Alanine Aminotransferase 10 U/L (0-31); Albumin Level 4.1 g/dL (3.5-5.0); Alkaline Phosphatase 48 U/L (39-117); Anion Gap 10 (12-20); Aspartate Amino Transferase 12 U/L (5-31); Bilirubin Total 0.9 mg/dL (0.0-1.0); Blood Urea Nitrogen 9 mg/dL (9-16); Calcium 9.1 mg/dL (8.4-10.2); Carbon Dioxide 26 mmol/L (22-29); Chloride 106 mmol/L (96-108); Cholesterol 152 mg/dL; Estimated Glomerular Filt Rate > 60; Glucose Fasting 95 mg/dL (60-99); HDL Cholesterol 33 mg/dL; LDL Cholesterol Calculated 103 mg/dl; Potassium 4.1 mmol/L (3.3-5.1); Sodium 138 mmol/L (135-145); Total Protein 6.3 g/dL (6.5-8.0); Triglycerides 84 mg/dL
[2021-04-26 13:08] LABS: TSH reflex Free T4 1.04 uIU/mL (0.32-4.0)
== END 2021-04-26 11:18 | disposition home or self-care (01) ==
LOC: HO.LAB 11:17
PROVIDERS: Absent Provider Urology; PCP Nurse Practitioner Family; Visit Provider Nurse Practitioner Family
DX: Z00.00 Encounter for general adult medical examination without abnormal findings (principal)
CPT/HCPCS: 36415; 80053; 80061; 81003; 84443; 85025

== ENCOUNTER → 2021-06-06 10:59 | Outpatient (BNVA) | payer OTHER, SELFPAY | PROVIDERS: PCP Nurse Practitioner Family; Visit Provider Physician Assistant | DX: Z77.21 Contact with and (suspected) exposure to potentially hazardous body fluids (principal) | CPT/HCPCS: 36415; 84450; 84460; 84702; 85025; 86704; 86706; 86803; 87340; 87389; 99203 ==

== ENCOUNTER → 2021-06-08 07:47 | Outpatient (BNVA) | payer OTHER, SELFPAY | PROVIDERS: PCP Nurse Practitioner Family; Visit Provider Internal Medicine | DX: Z77.21 Contact with and (suspected) exposure to potentially hazardous body fluids (principal) | CPT/HCPCS: 99213 ==

== ENCOUNTER → 2021-06-20 09:26 | Outpatient (BNVA) | payer OTHER, SELFPAY | PROVIDERS: PCP Nurse Practitioner Family | DX: Z77.21 Contact with and (suspected) exposure to potentially hazardous body fluids (principal) | CPT/HCPCS: 36415; 82150; 82565; 84450; 84460; 85025; 99213 ==

== ENCOUNTER → 2021-07-09 15:12 | Outpatient (BNVA) | payer OTHER, SELFPAY | PROVIDERS: PCP Nurse Practitioner Family | DX: Z77.21 Contact with and (suspected) exposure to potentially hazardous body fluids (principal) | CPT/HCPCS: 36415; 82150; 82565; 84450; 84460; 85025; 99213 ==

== ENCOUNTER → 2021-09-14 09:12 | Outpatient (BNVA) | payer OTHER, SELFPAY | PROVIDERS: PCP Nurse Practitioner Family | DX: Z77.21 Contact with and (suspected) exposure to potentially hazardous body fluids (principal) | CPT/HCPCS: 36415; 84450; 84460; 86803; 87389; 99211 ==

== ENCOUNTER 2021-10-08 09:15 | Outpatient (REF) | payer OTHER, SELFPAY ==
[2021-10-08 11:16] LABS: MANUAL DIFF FLAG NO
[2021-10-08 11:26] LABS: Basophils Percent Auto 0.6 % (0-2); Eosinophils Absolute Auto 0.2 X10*3/uL (0.0-0.4); Eosinophils Percent Auto 3.5 % (0-4); Hematocrit 43.4 % (37.0-47.0); Hemoglobin 14.6 g/dl (12.0-16.0); Imm Gran Abs Auto 0.01 X10*3/uL (0.00-0.03); Imm Gran Pct Auto 0.2 % (0.0-0.4); Lymphocytes Absolute Auto 1.5 X10*3/uL (1.2-4.9); Lymphocytes Percent Auto 23.1 % (20-40); Mean Corpuscular HGB Conc 33.6 g/dl (31.0-35.0); Mean Corpuscular Hemoglobin 28.8 pg (27.0-33.0); Mean Corpuscular Volume 85.6 fL (80.0-98.0); Mean Platelet Volume 10.2 fL (9.4-12.3); Monocytes Absolute Auto 0.6 X10*3/uL (0.1-1.2); Monocytes Percent Auto 9.9 % (2-11); Neutrophils Absolute Auto 3.9 x10*3/uL (2.0-8.3); Neutrophils Percent Auto 62.7 % (45-73); Platelet Count 298 X10*3/uL (160-400); Red Blood Count 5.07 X10*6/uL (4.20-5.50); Red Cell Distribution Width 11.9 % (11.0-16.0); White Blood Count 6.3 X10*3/uL (4.8-10.8)
[2021-10-08 11:36] LABS: Appearance Urine CLEAR; Color Urine YELLOW; Glucose Urine UA NEG (NEG); Leukocyte Esterase Urine NEG (NEG); Nitrite Urine NEG (NEG); Specific Gravity - Urine >= 1.030 (1.005-1.025); Urine Blood NEG (NEG); Urine Ketones NEG (NEG); Urine Protein NEG (NEG-TRACE)
[2021-10-08 11:42] LABS: Alanine Aminotransferase 13 U/L (0-31); Albumin Level 4.5 g/dL (3.5-5.0); Alkaline Phosphatase 65 U/L (39-117); Anion Gap 13 (12-20); Aspartate Amino Transferase 13 U/L (5-31); Bilirubin Total 0.5 mg/dL (0.0-1.0); Blood Urea Nitrogen 13 mg/dL (9-16); Calcium 9.4 mg/dL (8.4-10.2); Carbon Dioxide 26 mmol/L (22-29); Chloride 106 mmol/L (96-108); Estimated Glomerular Filt Rate > 60; Glucose Random 89 mg/dL (60-115); Potassium 4.4 mmol/L (3.3-5.1); Sodium 141 mmol/L (135-145); Total Protein 6.9 g/dL (6.5-8.0)
== END 2021-10-08 09:16 | disposition home or self-care (01) ==
LOC: HO.HMGCLDS 09:15
PROVIDERS: PCP Nurse Practitioner Family; Visit Provider Nurse Practitioner Family
DX: N20.0 Calculus of kidney (principal)
CPT/HCPCS: 36415; 80053; 81003; 85025

== ENCOUNTER 2022-05-11 10:29 | Outpatient (REF) | payer OTHER, SELFPAY ==
--- NOTE | ~2022-05-11 | MM_ITS ---
EXAMINATION: MM SCREENING DIGITAL BREAST TOMOSYNTHESIS, BILATERAL CLINICAL INFORMATION: Screening. Asymptomatic. Benign left breast biopsy 03/19/2021 (fibroadenoma). The lifetime risk of breast cancer based on the Tyrer-Cuzick Model is 11%. COMPARISON: Mammography: 03/19/2021, 03/05/2021, 04/14/2020, 10/15/2019, 10/07/2019 TECHNIQUE: Digital breast tomosynthesis is performed in both the craniocaudal and mediolateral oblique views along with computer-aided detection (CAD). Synthesized 2D images are generated from the tomosynthesis. FINDINGS: There are scattered areas of fibroglandular density (ACR BI-RADS breast composition Category b). Fine fibronodular parenchymal pattern is similar to prior studies. There is no developing density or interval architectural abnormality or abnormal calcifications. The left breast has biopsy clip marker overlying known fibroadenoma, stable to decreased in size. The axilla are unremarkable. No significant changes. MM/MM tomosynthesis screening BI IMPRESSION: No mammographic evidence of malignancy. ASSESSMENT: BI-RADS 1: Negative RECOMMENDATION: Routine annual mammography screening. This patient's information was entered into a reminder system with a target due date for their next mammogram.
== END 2022-05-11 10:30 | disposition home or self-care (01) ==
LOC: HO.MAMMO 10:29
PROVIDERS: PCP Nurse Practitioner Family; Visit Provider Nurse Practitioner Family
DX: Z12.31 Encounter for screening mammogram for malignant neoplasm of breast (principal)
CPT/HCPCS: 77063; 77067

== ENCOUNTER 2022-05-29 15:58 | Outpatient (REF) | payer OTHER, SELFPAY ==
--- NOTE | ~2022-05-29 | US_ITS ---
EXAMINATION: US RETROPERITONEAL COMPLETE (RENAL) CLINICAL INFORMATION: Calculus of kidney. COMPARISON: CT abdomen and pelvis with contrast 04/08/2021. Ultrasound retroperitoneal complete (renal) 04/02/2021. TECHNIQUE: Real-time imaging of the kidneys and bladder. FINDINGS: RIGHT KIDNEY: 10.8 x 5.5 x 5.4 cm (SAG x AP x TRV). The kidney is normal in size, contour, and echogenicity. Renal cortical thickness is normal. There is a tiny 6 mm cyst present in the right mid kidney laterally which may have some layering milk of calcium or an adjacent stone. There is another 3 mm echogenic focus present in the mid kidney consistent with a nonobstructing stone. No hydronephrosis. No solid renal masses. LEFT KIDNEY: 10.5 x 5.6 x 5.9 cm (SAG x AP x TRV). The kidney is normal in size, contour, and echogenicity. Renal cortical thickness is normal. There are 3 echogenic foci noted in the left kidney measuring 2, 3 and 7 mm in size consistent with nonobstructing stones. No focal parenchymal lesions. Previously seen left-sided hydronephrosis caused by obstructing mid ureteral calculus is no longer present. BLADDER: Well distended and normal. Bilateral ureteral jets are demonstrated. Prevoid bladder volume is 238.5 mL. Postvoid bladder volume is 46.1 mL. US/US retroperitoneal comp IMPRESSION: Bilateral nonobstructing renal calculi. Resolved left-sided hydronephrosis secondary to mid ureteral obstructing calculus.
== END 2022-05-29 15:59 | disposition home or self-care (01) ==
LOC: HO.US 15:58
PROVIDERS: PCP Nurse Practitioner Family; Visit Provider Nurse Practitioner Family
DX: N20.0 Calculus of kidney (principal)
CPT/HCPCS: 76770

== ENCOUNTER 2022-10-12 09:59 | Outpatient (AMB) | payer OTHER, MEDICAID, SELFPAY ==
--- NOTE | 2022-10-12 10:44 | MHC.OFFWIV ---
Intake Vital Signs 10/12/22 10:45 Height 5 ft 9 in BP 128/76 Blood Pressure Location Lt brachial Position Sitting Pulse 74 Pulse Source Pulse Oximeter Temp 97.7 F Temp Source Temporal Artery Scan Pulse Oximetry (%) 98 Oxygen Delivery Method Room Air Intake Visit Reasons: EST/poison kaylen on [phone] Intake Note: pt is here for c/o rash on chest Patient Tobacco Use Status: Never used Tobacco Allergies levofloxacin [From LEVAQUIN] Allergy (Intermediate, Verified 10/12/22 10:45) RASH benzoin Allergy (Unknown, Verified 10/12/22 10:45) Unknown seasonal Allergy (Unknown, Uncoded 02/23/22 10:03) Unknown Cats Allergy (Unknown, Uncoded 02/23/22 10:03) Unknown Do you need a note to return to daycare/school/sports/work: No HPI EST/poison kaylen on [phone] HPI Details Patient is a 46-year-old female comes to the walk-in clinic complaining of rash to her chest area that has persisted despite trying to keep it dry and she trialed [id number]-[id number] steroid ointment. No history of similar rashes except for what for the fungal infection once. No underlying immuno compromising issues. She states the symptoms started after she had been working outside in the heat and had been excessively sweaty. She believed it was a heat rash at 1st. No fever chills, cough, malaise or myalgias or underlying systemic symptoms. [facility]LY [facility] Medical History Asthma Kidney stone Migraines Surgical History History of cystoscopy History of knee surgery History of lithotripsy History of lumpectomy of left breast (2007) Family History Maternal Grandmother Cancer of abdominal organ Family/Other Breast cancer, Onset Age: 30 Social History Housing: Apartment Alcohol intake: current Alcohol intake frequency: holidays/special occasions only Patient Tobacco Use Status: Never used Tobacco e-Cigarette/Vaping Use: Never Used Second Hand Smoke Exposure: No service: No Current occupational status: employed Cognitive needs: No Hearing needs: No Vision needs: Yes Female Reproductive History Menstrual Age of Menarche: 14 Review of Systems Const All systems reviewed & are unremarkable except as noted in HPI and below Physical Exam Vital Signs: Last Vital Signs Temp 97.7 F 10/12/22 10:45 Pulse 74 10/12/22 10:45 BP 128/76 10/12/22 10:45 Pulse Ox 98 10/12/22 10:45 Oxygen Delivery Method Room Air 10/12/22 10:45 Assessment & Plan Assessment & Plan (1) Dermatitis fungal: Code(s): B36.9 - Superficial mycosis, unspecified Plan: Patient likely had excessive exposure to heat that caused a rash that is becoming persistent. Topical vcic-cqp-xkacjtq steroid has not resolved it, so I will write her for ketoconazole as antifungal. If symptoms do not improve with the cream alone, she can use nystatin powder which I also prescribed. She is to follow up if symptoms persist or worsen Medications: New nystatin 1 appl topical BID 30 grams 0RF ketoconazole 2% 1 appl topical BID 30 grams 0RF Coding Level of Care Code Est Pt Level 4 (84893) Diagnoses Dermatitis fungal B36.9
[2022-10-12 10:45] VITALS: BP 128/76; PULSE 74; TEMP 36.5; O2SAT 98
== END 2022-10-12 11:22 | disposition home or self-care (01) ==
PROVIDERS: PCP Nurse Practitioner Family; Visit Provider Physician Assistant Medical
DX: B36.9 Superficial mycosis, unspecified (principal)
CPT/HCPCS: 99051; 99214

== ENCOUNTER 2022-10-26 10:46 | Outpatient (AMB) | payer OTHER, MEDICAID, SELFPAY ==
--- OUTSIDE RECORDS SUMMARY | 2022-10-26 10:48 | XMS_ITS | Continuity of Care Document ---
Author Name Unknown Organization [facility] Address [address] [place] [phone]- Care Team Providers Care Extruder Tender Name Role Phone Cristo TOLENTINO, Jose Maria Paul Primary Care Physician [phone] [place] [facility] [place] 11[place]/20 [facility] [address] [place] [phone]- Attending Physician: Admmatt, [id number] Admitting Physician: AdmtrFaviola Referring Physician: Admtr, Ar8 Allergies, Adverse Reactions, Alerts Substance Reaction Severity Status morphine Active mirtazapine depression Vomitting Active Levaquin Active Immunizations Given and Recorded Vaccine Date Status Refusal Reason SARS-CoV-2 (COVID-19) mRNA BNT-162b2 vac 06/02/20 Given SARS-CoV-2 (COVID-19) mRNA BNT-162b2 vac 05/12/20 Given Medications CPAP Machine See Instructions, # 1 each, Refills 11, Tot. Refills 11, Maintenance, BHIRS: Resmed S10 APAP [id number], Ramp and EPR PRN, w/Humidifier, Data Card, Chinstrap, Climateline Tubing, Headgear, Filters, Mask, Liners, ALL SUPPLIES 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 Start Date: 06/18/16 Status: Ordered Fioricet oral capsule 2 capsule, By Mouth, Every 4 hours, PRN as needed, not to exceed 6 capsules/day, # 12 capsule, 0 Refills, Maintenance, 05/03/19 16:39:00 EST, Capsule, [id number], 2 capsule By Mouth Every 4 hours,PRN:as needed,Instr:not to exceed 6 capsules/da... Start Date: 05/03/19 Status: Ordered gabapentin 600 mg oral tablet 1 tablet, By Mouth, Daily at bedtime, # 90 tablet, 1 Refills, Maintenance, 08/10/20 12:57:00 EDT, [id number], 177, cm, 06/22/20 14:48:00 EDT, Height Start Date: 08/10/20 Status: Ordered Mirena 52 mg intrauteral device 1 each = 52 mg, Once, 0 Refills, Maintenance, 03/02/15 9:17:40 Start Date: 03/02/15 Status: Ordered prochlorperazine 10 mg oral tablet 1 tablet = 10 mg, By Mouth, 3 times a day, PRN Vomiting, # 30 tablet, 1 Refills, Maintenance, 11/23/19 16:49:00 EDT, [id number], 177, cm, 11/23/19 16:00:00 EDT, Height Start Date: 11/23/19 Status: Ordered Problem List Condition Effective Dates Status Health Status Inform ant Facet arthropathy, cervical(Confirmed) Active Cervical radiculitis(Confirmed) Active Myofascial pain(Confirmed) Active Social History Social History Type Response Smoking Status Never smoker entered on: 12/06/14 Sex
--- OUTSIDE RECORDS SUMMARY | 2022-10-26 10:48 | XMS_ITS | Continuity of Care Document ---
Author Name Unknown Organization [facility] Address [address] [place] [id number]- Care Team Providers Care Oil Well Shooter Name Role Phone Cristo TOLENTINO, Jose Maria Paul Primary Care Physician Encounter [facility] [place] 05/16/22 - 06/15/22 [facility] [address] [place] [phone]- Attending Physician: Admmatt, [id number] Admitting Physician: AdmtrFaviola [...] Refills 11, Maintenance, BHIRS: Resmed S10 APAP [id number], Ramp and EPR PRN, w/Humidifier, Data Card, Chinstrap, Climateline Tubing, Headgear, Filters, Mask, Liners, ALL SUPPLIES 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 Start Date: 06/18/16 Status: Ordered Fioricet oral capsule 2 capsule, By Mouth, Every 4 hours, PRN as needed, not to exceed 6 capsules/day, # 30 capsule, 0 Refills, Maintenance, 05/29/21 7:11:00 EDT, Capsule, [id number], 2 capsule By Mouth Every 4 hours,PRN:as needed,Instr:not to exceed 6 capsules/day... Start Date: 05/29/21 Status: Ordered gabapentin 600 mg oral tablet 1 tablet, By Mouth, Daily at bedtime, # 90 tablet, 5 Refills, [id number], 176, cm, 07/02/21 13:36:00 EDT, Height Start Date: 07/31/21 Status: Ordered Mirena 52 mg intrauteral device 1 each = 52 mg, Once, 0 Refills, Maintenance, 03/02/15 9:17:40 Start Date: 03/02/15 Status: Ordered prochlorperazine 10 mg oral tablet 1 tablet = 10 mg, By Mouth, 3 times a day, PRN Vomiting, # 90 tablet, 11 Refills, Maintenance, 02/05/21 16:38:00 EST, [id number], 176, cm, 02/05/21 16:14:00 EST, Height Start Date: 02/05/21 Status: Ordered Problem List Condition Confirmation Course Effective Dates Status Health St atus Informant Facet arthropathy, cervical Confirmed Active Cervical radiculitis Confirmed Active Myofascial pain Confirmed Active Myofascial pain syndrome, cervical Confirmed Active Obese class I Confirmed Active Social History Social History Type Response Smoking Status Never smoker entered on: 12/06/14 Sex Patient Care team information Care Team Personnel Name: Jose Maria Lemons NP Position: Reference Physician Member Role: PCP Address: Address: [address] [place] [phone]- Care Team Related Persons Name: ELLA HANLEY Address: home [address] [place] [id number]
--- OUTSIDE RECORDS SUMMARY | 2022-10-26 10:48 | XMS_ITS | Continuity of Care Document ---
Author Name Unknown Organization [facility] Address Unknown Care Team Providers Care Human Machine Interface Engineer Name Role Phone Cristo TOLENTINO, Jose Maria Paul Primary Care Physician [phone] Encounter [facility] Date(s): 05/28/21 - 06/27/21 [facility] Allergies, Adverse Reactions, Alerts Substance Reaction Severity Status morphine Active mirtazapine depression Vomitting Active Levaquin Active Immunizations Given and Recorded Vaccine Date Status Refusal Reason SARS-CoV-2 (COVID-19) mRNA BNT-162b2 vac 06/02/20 Given SARS-CoV-2 (COVID-19) mRNA BNT-162b2 vac 05/12/20 Given Medications CPAP Machine See Instructions, # 1 each, Refills 11, Tot. Refills 11, Maintenance, BHIRS: Resmed S10 APAP [id number], Ramp and EPR PRN, w/Humidifier, Data Card, [...] at bedtime, # 90 tablet, 1 Refills, [id number], 176, cm, 12/19/20 15:07:00 EDT, Height Start Date: 02/01/21 Status: Ordered Mirena 52 mg intrauteral device 1 each = 52 mg, Once, 0 Refills, Maintenance, 03/02/15 9:17:40 Start Date: 03/02/15 Status: Ordered Mirena 52 mg intrauterine device 1 each = 52 mg, Once, 0 Refills, Maintenance, 12/19/20 15:07:00 EDT, Partial fill upon patient request if the prescription is for a schedule II opioid drug. Start Date: 12/19/20 Status: Ordered prochlorperazine 10 mg oral tablet 1 tablet = 10 mg, By Mouth, 3 times a day, PRN Vomiting, # 90 tablet, 11 Refills, Maintenance, 02/05/21 16:38:00 EST, [id number], 176, cm, 02/05/21 16:14:00 EST, Height Start Date: 02/05/21 Status: Ordered Problem List Condition Effective Dates Status Health Status Inform ant Facet arthropathy, cervical(Confirmed) Active Cervical radiculitis(Confirmed) Active Myofascial pain(Confirmed) Active Myofascial pain syndrome, cervical(Confirmed) Active Obese class I(Confirmed) Active Social History Social History Type Response Smoking Status Never smoker entered on: 12/06/14 Sex
--- OUTSIDE RECORDS SUMMARY | 2022-10-26 10:48 | XMS_ITS | Continuity of Care Document ---
Author Name Unknown Organization [facility] Address [address] [facility], [address], [address] [place] [phone]- Care Team Providers Care Janitor Cleaner Name Role Phone Cristo TOLENTINO, Jose Maria Paul Primary Care Physician [place] [facility] [place] [facility] [address], [address], [address] [place] [id number] Allergies, Adverse Reactions, Alerts Substance Reaction Severity Status morphine Active mirtazapine depression Vomitting Active Levaquin Active Medications CPAP Machine See Instructions, # 1 each, Refills 11, Tot. Refills 11, Maintenance, BHIRS: Resmed S10 APAP [id number], Ramp and EPR PRN, w/Humidifier, Data Card, [...] Ordered gabapentin 600 mg oral tablet 1 tablet = 600 mg, By Mouth, Daily at bedtime, # 30 tablet, 5 Refills, Maintenance, 12/09/19 19:57:00 EDT, Tablet, [id number], 177, cm, 11/23/19 16:00:00 EDT, Height Start Date: 12/09/19 Status: Ordered Melatonin 3 mg oral tablet 2 tablet = 6 mg, By Mouth, Daily at bedtime, PRN for insomnia, # 60 tablet, 0 Refills, Maintenance,07/17/15 15:55:01, Tablet Start Date: 07/17/15 Status: Ordered Mirena 52 mg intrauteral device 1 each = 52 mg, Once, 0 Refills, Maintenance, 03/02/15 9:17:40 Start Date: 03/02/15 Status: Ordered prochlorperazine 10 mg oral tablet 1 tablet = 10 mg, By Mouth, 3 times a day, PRN Vomiting, # 30 tablet, 1 Refills, Maintenance, 11/23/19 16:49:00 EDT, [id number], 177, cm, 11/23/19 16:00:00 EDT, Height Start Date: 11/23/19 Status: Ordered Savella 25 mg oral tablet 1 tablet = 25 mg, By Mouth, 2 times a day, # 60 tablet, 2 Refills, Maintenance, 02/17/20 15:24:00 EST, [id number], 177, cm, 02/16/20 15:14:00 EST, Height Start Date: 02/17/20 Status: Ordered Social History Social History Type Response Smoking Status Never smoker entered on: 12/06/14 Sex
--- OUTSIDE RECORDS SUMMARY | 2022-10-26 10:48 | XMS_ITS | Continuity of Care Document ---
Author Name Unknown Organization [facility] Address [address] [place] [address], [address], [address] [place] [phone]- Care Team Providers Care Digital Computer Systems Analyst Name Role Phone Cristo TOLENTINO, Jose Maria Paul Primary Care Physician Encounter [facility] Date(s): 06/14/20 - 07/14/20 [facility] [address] [facility], [address]rd Floor, [address] [place] [id number]- Allergies, Adverse Reactions, Alerts Substance Reaction Severity Status morphine Active mirtazapine depression Vomitting Active Levaquin Active Immunizations Given and Recorded Vaccine Date Status Refusal Reason SARS-CoV-2 (COVID-19) mRNA BNT-162b2 vac 06/02/20 Given SARS-CoV-2 (COVID-19) mRNA BNT-162b2 vac 05/12/20 Given Medications CPAP Machine See Instructions, # 1 each, Refills 11, Tot. Refills 11, Maintenance, BHIRS: Resmed S10 APAP [id number], Ramp and EPR PRN, w/Humidifier, Data Card, [...] tablet, By Mouth, Daily at bedtime, # 30 tablet, 0 Refills, Maintenance, 06/22/20 12:18:00 EDT, [id number], 177, cm, 04/20/20 7:44:00 EST, Height Start Date: 06/22/20 Status: Ordered Mirena 52 mg intrauteral device 1 each = 52 mg, Once, 0 Refills, Maintenance, 03/02/15 9:17:40 Start Date: 03/02/15 Status: Ordered prochlorperazine 10 mg oral tablet 1 tablet = 10 mg, By Mouth, 3 times a day, PRN Vomiting, # 30 tablet, 1 Refills, Maintenance, 11/23/19 16:49:00 EDT, [id number], 177, cm, 11/23/19 16:00:00 EDT, Height Start Date: 11/23/19 Status: Ordered Savella 25 mg oral tablet See Instructions, TAKE 1 TABLET BY MOUTH EVERY DAY AT SUPPER, # 30 tablet, 1 Refills, Maintenance, [id number], 177, cm, 02/16/20 15:14:00 EST, Height Start Date: 02/21/20 Status: Ordered Problem List Condition Effective Dates Status Health Status Inform ant Facet arthropathy, cervical(Confirmed) Active Cervical radiculitis(Confirmed) Active Myofascial pain(Confirmed) Active Social History Social History Type Response Smoking Status Never smoker entered on: 12/06/14 Sex
--- OUTSIDE RECORDS SUMMARY | 2022-10-26 10:48 | XMS_ITS | Continuity of Care Document ---
Author Name Unknown Organization [facility] Address [address] [facility], 3r d Floor, [address] [place] [address]- Care Team Providers Care Middle School French Teacher Name Role Phone Cristo TOLENTINO, Jose Maria Paul Primary Care Physician Encounter [facility] Date(s): 03/06/20 - 04/05/20 [facility] [address], [address] Floor, [address] [place] [address]- Allergies, Adverse Reactions, Alerts Substance Reaction Severity Status morphine Active mirtazapine depression Vomitting Active Levaquin Active Medications CPAP Machine See Instructions, # 1 each, Refills 11, Tot. Refills 11, Maintenance, BHIRS: Resmed S10 APAP [id number], Ramp and EPR PRN, w/Humidifier, Data Card, [...] EDT, Height Start Date: 12/09/19 Status: Ordered Medrol Dosepak 4 mg oral tablet 1 pack/packet, By Mouth, Daily, for 6 days, as directed on package labeling, # 21 tablet, 0 Refills, Acute 04/11/20 17:11:00 EST, 04/05/20 17:11:00 EST, Tablet, [facility]/pharmacy #[id number], Partial fill upon patient request if the prescription is for a schedul... Start Date: 04/05/20 Stop Date: 04/11/20 Status: Ordered Melatonin 3 mg oral tablet [...] tablet, 1 Refills, Maintenance, 11/23/19 16:49:00 EDT, [facility]/pharmacy #0373, 177, cm, 11/23/19 16:00:00 EDT, Height Start Date: 11/23/19 Status: Ordered Savella 25 mg oral tablet See Instructions, TAKE 1 TABLET BY MOUTH EVERY DAY AT SUPPER, # 30 tablet, 1 Refills, Maintenance, [facility] STORE [facility], 177, cm, 02/16/20 15:14:00 EST, Height Start Date: 02/21/20 Status: Ordered Social History Social History Type Response Smoking Status Never smoker entered on: 12/06/14 Sex
--- OUTSIDE RECORDS SUMMARY | 2022-10-26 10:48 | XMS_ITS | Continuity of Care Document ---
Author Name Unknown Organization [facility] Address [address] [place] [address]- Care Team Providers Care Conservator Artifacts Name Role Phone Cristo TOLENTINO, Jose Maria Paul Primary Care Physician [phone] Encounter [facility] [place] Date(s): 04/24/20 - 05/24/20 [facility] [address] [place] [address]- Allergies, Adverse Reactions, Alerts Substance Reaction Severity Status morphine Active mirtazapine depression Vomitting Active Levaquin Active Immunizations Given and Recorded Vaccine Date Status Refusal Reason SARS-CoV-2 (COVID-19) mRNA BNT-162b2 vac 05/12/20 Given Medications CPAP Machine See Instructions, # 1 each, Refills 11, Tot. Refills 11, Maintenance, BHIRS: Resmed S10 APAP [id number], Ramp and EPR PRN, w/Humidifier, Data Card, [...] EDT, Height Start Date: 12/09/19 Status: Ordered Mirena 52 mg intrauteral device [...] SUPPER, # 30 tablet, 1 Refills, Maintenance, [facility], 177, cm, 02/16/20 15:14:00 EST, Height Start Date: 02/21/20 Status: Ordered Problem List Condition Effective Dates Status Health Status Inform ant Facet arthropathy, cervical(Confirmed) Active Cervical radiculitis(Confirmed) Active Myofascial pain(Confirmed) Active Social History Social History Type Response Smoking Status Never smoker entered on: 12/06/14 Sex
--- OUTSIDE RECORDS SUMMARY | 2022-10-26 10:48 | XMS_ITS | Continuity of Care Document ---
Author Name Unknown Organization [facility] Address [address] [facility], 3r d Floor, [address] [place] [address]- Care Team Providers Care Horse Riding Coach Or Instructor Name Role Phone Todd CHAUDHARI, Rambo Hicks Primary Care Physician [phone] [place] [facility] [place] - 12/02/19 [facility] [address], [address] Floor, [address] [place] [address]- [facility] Allergies, Adverse Reactions, Alerts Substance Reaction Severity Status morphine Active mirtazapine depression Vomitting Active Levaquin Active Medications baclofen 10 mg oral tablet 10 mg, 1, tablet, By Mouth, 3 times a day, # 90 tablet, Refills 2, Tot. Refills 2, Maintenance, 08/27/18 13:48:14 EDT, Route to Pharmacy Electronically, [id number], [facility]/pharmacy #[id number] Start Date: 08/27/18 Stop Date: 11/25/18 Status: Ordered CPAP Machine See Instructions, # 1 each, Refills 11, Tot. 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 Start Date: 06/18/16 Status: Ordered cyclobenzaprine 10 mg oral tablet 10 mg, 1, tablet, By Mouth, Daily at supper, # 30 tablet, Refills 1, Tot. Refills 1, Maintenance, 11/23/19 16:43:00 EDT, Route to Pharmacy Electronically, [facility], 177, cm, 11/23/19 16:00:00 EDT, Height Start Date: 11/23/19 Status: Ordered Fioricet oral capsule 2 capsule, By Mouth, Every 4 hours, PRN as needed, not to exceed 6 capsules/day, # 12 capsule, 0 Refills, Maintenance, 05/03/19 16:39:00 EST, Capsule, [facility]/pharmacy #0373, 2 capsule By Mouth Every 4 hours,PRN:as needed,Instr:not to exceed 6 capsules/da... Start Date: 05/03/19 Status: Ordered gabapentin 100 mg oral capsule 200 mg, 2, capsule, By Mouth, 2 times a day, # 120 capsule, Refills 6, Tot. Refills 6, Maintenance,11/11/18 19:08:47 EDT, Route to Pharmacy Electronically, [id number], [facility]/pharmacy #[id number] Start Date: 11/11/18 Stop Date: 06/09/19 Status: Ordered gabapentin 600 mg oral tablet 1 tablet = 600 mg, By Mouth, Daily at bedtime, # 30 tablet, 5 Refills, Maintenance, 11/13/18 19:05:00 EDT, Tablet Start Date: 11/13/18 Status: Ordered lamotrigine 100 mg oral tablet 100 mg, 1, tablet, By Mouth, 2 times a day, # 60 tablet, Refills 6, Tot. Refills 6, Maintenance, 04/15/18 19:08:17 EST, Route to Pharmacy Electronically, [id number], [facility]/pharmacy #0373 Start Date: 04/15/18 Stop Date: 11/11/18 Status: Ordered Melatonin 3 mg oral tablet [...] EDT, Height Start Date: 11/23/19 Status: Ordered Social History Social History Type Response Smoking Status Never smoker entered on: 12/06/14 Sex
--- OUTSIDE RECORDS SUMMARY | 2022-10-26 10:48 | XMS_ITS | Continuity of Care Document ---
Author Name Unknown Organization [facility] Address [address] [facility], 3r d Floor, [address] [place] [address]- Care Team Providers Care Cell Installer Name Role Phone Todd CHAUDHARI, Rambo Hicks Primary Care Physician [phone] [place] [facility] [place]): [place]14[place] 06/24/19 [facility] [address] [facility], 3rd Floor, [address] [place] [address]- [facility] Attending Physician: Admtr, Ar8 Admitting Physician: Admtr, Ar8 Referring Physician: Admtr, Ar8 Allergies, Adverse Reactions, Alerts Substance Reaction Severity Status morphine Active mirtazapine depression Vomitting Active Levaquin Active Medications baclofen 10 mg oral tablet 10 mg, 1, tablet, By Mouth, 3 times a day, # 90 tablet, Refills 2, Tot. Refills 2, Maintenance, 08/27/18 13:48:14 EDT, Route to Pharmacy Electronically, [id number], [facility]/pharmacy #[id number] Start Date: 08/27/18 Stop Date: 11/25/18 Status: Ordered CPAP Machine See Instructions, # 1 each, Refills 11, Tot. 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 Start Date: 06/18/16 Status: Ordered Fioricet oral capsule 2 capsule, By Mouth, Every 4 hours, PRN as needed, not to exceed 6 capsules/day, # 12 capsule, 0 Refills, Maintenance, 05/03/19 16:39:00 EST, Capsule, [facility]/pharmacy #[id number], 2 capsule By Mouth Every 4 hours,PRN:as needed,Instr:not to exceed 6 capsules/da... Start Date: 05/03/19 Status: Ordered gabapentin 100 mg oral capsule 200 mg, 2, capsule, By Mouth, 2 times a day, # 120 capsule, Refills 6, Tot. Refills 6, Maintenance,11/11/18 19:08:47 EDT, Route to Pharmacy Electronically, [id number], [facility]/pharmacy #[id number] Start Date: 11/11/18 Stop Date: [...] 04/15/18 19:08:17 EST, Route to Pharmacy Electronically, [id number], [facility]/pharmacy #[id number] Start Date: 04/15/18 Stop Date: 11/11/18 Status: Ordered Melatonin 3 mg oral tablet 2 tablet = 6 mg, By Mouth, Daily at bedtime, PRN for insomnia, # 60 tablet, 0 Refills, Maintenance,07/17/15 15:55:01, Tablet Start Date: 07/17/15 Status: Ordered Mirena 52 mg intrauteral device 1 each = 52 mg, Once, 0 Refills, Maintenance, 03/02/15 9:17:40 Start Date: 03/02/15 Status: Ordered Social History Social History Type Response Smoking Status Never smoker entered on: 12/06/14 Sex
--- OUTSIDE RECORDS SUMMARY | 2022-10-26 10:48 | XMS_ITS | Continuity of Care Document ---
Author Name Unknown Organization [facility] Address [address] [facility], 3r d Floor, [address] [place] [address]- Care Team Providers Care Drain Tile Press Operator Name Role Phone Todd CHAUDHARI, Rambo Hicks Primary Care Physician [phone] [id number] Date[facility]s): 05/03/19 - 06/16/19 [facility] [address] [facility], 3rd Floor, [address] [place] [address]- [facility] Attending Physician: Isauro Khan MD Admitting Physician: Isauro Khan MD Allergies, Adverse Reactions, Alerts Substance Reaction Severity Status morphine Active mirtazapine depression Vomitting Active Levaquin Active Medications baclofen 10 mg oral tablet 10 mg, 1, tablet, By Mouth, 3 times a day, # 90 tablet, Refills 2, Tot. Refills 2, Maintenance, 08/27/18 13:48:14 EDT, Route to Pharmacy Electronically, [id number], [facility]/pharmacy #[id number] Start Date: 08/27/18 Stop Date: 11/25/18 Status: Ordered CPAP Machine See Instructions, # 1 each, Refills 11, Tot. 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 Start Date: 06/18/16 Status: Ordered Fioricet oral capsule 2 capsule, By Mouth, Every 4 hours, PRN as needed, not to exceed 6 capsules/day, # 12 capsule, 0 Refills, Maintenance, 05/03/19 16:39:00 EST, Capsule, [facility]/pharmacy #[id number], 2 capsule By Mouth Every 4 hours,PRN:as needed,Instr:not to exceed 6 capsules/da... Start Date: 05/03/19 Status: Ordered gabapentin 100 mg oral capsule 200 mg, 2, capsule, By Mouth, 2 times a day, # 120 capsule, Refills 6, Tot. Refills 6, Maintenance,11/11/18 19:08:47 EDT, Route to Pharmacy Electronically, [id number], [facility]/pharmacy #[id number] Start Date: 11/11/18 Stop Date: 06/09/19 [...] 04/15/18 19:08:17 EST, Route to Pharmacy Electronically, [id number], [facility]/pharmacy #[id number] Start Date: 04/15/18 Stop Date: 11/11/18 [...]
--- OUTSIDE RECORDS SUMMARY | 2022-10-26 10:48 | XMS_ITS | Continuity of Care Document ---
Author Name Unknown Organization [facility] Address [address] [place] [address]- Care Team Providers Care Supervisor Money Room Name Role Phone Cristo TOLENTINO, Jose Maria Paul Primary Care Physician [phone] Encounter [facility] [place] Date(s): 05/02/20 - 06/22/20 [facility] [address] [place], [place] [address] Attending Physician: Kell Soares DO Admitting Physician: Kell Soares DO Referring Physician: Jose Maria Lemons NP Allergies, Adverse Reactions, Alerts Substance Reaction Severity Status morphine Active mirtazapine depression Vomitting Active Levaquin Active Immunizations Given and Recorded Vaccine Date Status Refusal Reason SARS-CoV-2 (COVID-19) mRNA BNT-162b2 vac 06/02/20 Given SARS-CoV-2 (COVID-19) mRNA BNT-162b2 vac 05/12/20 Given Medications CPAP Machine See Instructions, # 1 each, Refills 11, Tot. Refills 11, Maintenance, BHIRS: Resmed S10 APAP 4-77gsH4M, Ramp and EPR PRN, w/Humidifier, Data Card, [...] tablet, 0 Refills, Maintenance, 06/22/20 12:18:00 EDT, [facility], 177, cm, 04/20/20 7:44:00 EST, Height Start Date: 06/22/20 Status: Ordered Mirena 52 mg intrauteral device 1 each = 52 mg, Once, 0 Refills, Maintenance, 03/02/15 9:17:40 Start Date: 03/02/15 Status: Ordered prochlorperazine 10 mg oral tablet 1 tablet = 10 mg, By Mouth, 3 times a day, PRN Vomiting, # 30 tablet, 1 Refills, Maintenance, 11/23/19 16:49:00 EDT, [facility]/pharmacy #[id number], 177, cm, 11/23/19 16:00:00 EDT, Height Start Date: 11/23/19 Status: Ordered Savella 25 mg oral tablet See Instructions, TAKE 1 TABLET BY MOUTH EVERY DAY AT SUPPER, # 30 tablet, 1 Refills, Maintenance, [facility], 177, cm, 02/16/20 15:14:00 EST, Height Start Date: 02/21/20 Status: Ordered Problem List Condition Effective Dates Status Health Status Inform ant Facet arthropathy, cervical(Confirmed) Active Cervical radiculitis(Confirmed) Active Myofascial pain(Confirmed) Active Social History Social History Type Response Smoking Status Never smoker entered on: 12/06/14 Sex
--- OUTSIDE RECORDS SUMMARY | 2022-10-26 10:48 | XMS_ITS | Continuity of Care Document ---
Author Name Unknown Organization [facility] Address [address] [facility], 3r d Floor, [address] [place] [address]- Care Team Providers Care Skid Worker Name Role Phone Cristo TOLENTINO, Jose Maria Paul Primary Care Physician Encounter [facility] [place] Date(s): 09/23/22 - 10/23/22 [facility] [address], [address] Floor, [address] [place] [address] Attending Physician: Faviola Box Admitting Physician: AdmtrFaviola Referring Physician: Admtr, Faviola Allergies, Adverse Reactions, Alerts Substance Reaction Severity Status morphine Active mirtazapine depression Vomitting Active Levaquin Active Immunizations Given and Recorded Vaccine Date Status Refusal Reason SARS-CoV-2 (COVID-19) mRNA BNT-162b2 vac 06/02/20 Given SARS-CoV-2 (COVID-19) mRNA BNT-162b2 vac 05/12/20 Given Medications CPAP Machine See Instructions, # 1 each, Refills 11, Tot. 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 Start Date: 06/18/16 Status: Ordered Fioricet oral capsule 2 capsule, By Mouth, Every 4 hours, PRN as needed, not to exceed 6 capsules/day, # 30 capsule, 0 Refills, Maintenance, 08/09/22 11:31:00 EDT, Capsule, [facility], 2 capsule By Mouth Every 4 hours,PRN:as needed,Instr:not to exceed 6 capsules/da... Start Date: 08/09/22 Status: Ordered gabapentin 600 mg oral tablet 1 tablet, By Mouth, Daily at bedtime, # 90 tablet, 5 Refills, [facility], 176, cm, 07/02/21 13:36:00 EDT, Height Start Date: 07/31/21 Status: Ordered Mirena 52 mg intrauteral device 1 each = 52 mg, Once, 0 Refills, Maintenance, 03/02/15 9:17:40 Start Date: 03/02/15 Status: Ordered prochlorperazine 10 mg oral tablet 1 tablet = 10 mg, By Mouth, 3 times a day, PRN Vomiting, # 90 tablet, 11 Refills, Maintenance, 02/05/21 16:38:00 EST, [facility]/pharmacy #0373, 176, cm, 02/05/21 16:14:00 EST, Height Start Date: 02/05/21 Status: Ordered Symbicort 80mcg/4.5mcg Inhaler Refills 0, Maintenance, 09/30/22 11:21:00 EDT Start Date: 09/30/22 Status: Ordered Problem List Condition Confirmation Course [...] Reference Physician Member Role: PCP Address: Address: [address] [place] [address]- Care Team Related Persons Name: ELLA HANLEY Address: home [address] [place] [address]
--- OUTSIDE RECORDS SUMMARY | 2022-10-26 10:48 | XMS_ITS | Continuity of Care Document ---
Author Name Unknown Organization [facility] Address [address] [facility], 3r d Floor, [address] [place] [address]- Care Team Providers Care Oilfield Plant And Field Operator Name Role Phone Cristo TOLENTINO, Jose Maria Paul Primary Care Physician [place] [facility] [place]s): 11/02/19 - 01/08/20 [facility] [address], 3rd Floor, [address] [place] [address]- Attending Physician: Isauro Khan MD Admitting Physician: Isauro Khan MD Allergies, Adverse Reactions, Alerts Substance Reaction Severity Status morphine Active mirtazapine depression Vomitting Active Levaquin Active Medications CPAP Machine See Instructions, # 1 each, Refills 11, Tot. Refills 11, Maintenance, BHIRS: Resmed S10 APAP [id number], Ramp and EPR PRN, w/Humidifier, Data Card, [...] 120 capsule, Refills 6, Tot. Refills 6, Maintenance,12/09/19 19:56:00 EDT, Route to Pharmacy Electronically, [facility]/pharmacy #0373, 177, cm, 11/23/19 16:00:00 EDT, Height Start Date: 12/09/19 Stop Date: 07/06/20 Status: Ordered gabapentin 600 mg oral tablet 1 tablet = 600 mg, By Mouth, Daily at bedtime, # 30 tablet, 5 Refills, Maintenance, 12/09/19 19:57:00 EDT, Tablet, [facility]/pharmacy #0373, 177, cm, 11/23/19 16:00:00 EDT, Height Start Date: 12/09/19 Status: Ordered lamotrigine 100 mg oral tablet 100 mg, 1, tablet, By Mouth, 2 times a day, # 60 tablet, Refills 6, Tot. Refills 6, Maintenance, 12/09/19 19:57:00 EDT, Route to Pharmacy Electronically, [facility]/pharmacy #0373, 177, cm, 11/23/19 16:00:00 EDT, Height Start Date: 12/09/19 Status: Ordered Melatonin 3 mg oral tablet 2 tablet = 6 mg, By Mouth, Daily at bedtime, PRN for insomnia, # 60 tablet, 0 Refills, Maintenance,07/17/15 15:55:01, Tablet Start Date: 07/17/15 Status: Ordered milnacipran 25 mg oral tablet 1 tablet = 25 mg, By Mouth, Daily at supper, # 30 tablet, 1 Refills, Maintenance, 12/22/19 16:10:00EDT, [facility]/pharmacy #0373, 177, cm, 12/22/19 15:56:00 EDT, Height Start Date: 12/22/19 Status: Ordered Mirena 52 mg intrauteral device 1 each = 52 mg, Once, 0 Refills, Maintenance, 03/02/15 9:17:40 Start Date: 03/02/15 Status: Ordered prochlorperazine 10 mg oral tablet 1 tablet = 10 mg, By Mouth, 3 times a day, PRN Vomiting, # 30 tablet, 1 Refills, Maintenance, 11/23/19 16:49:00 EDT, [facility]/pharmacy #0373, 177, cm, 11/23/19 16:00:00 EDT, Height Start Date: 11/23/19 Status: Ordered Social History Social History Type Response Smoking Status Never smoker entered on: 12/06/14 Sex
--- OUTSIDE RECORDS SUMMARY | 2022-10-26 10:48 | XMS_ITS | Continuity of Care Document ---
Author Name Unknown Organization [facility] Address Unknown Care Team Providers Care Crew Person Name Role Phone Cristo TOLENTINO, Jose Maria Paul Primary Care Physician [phone] Encounter [facility] Date(s): 05/28/21 - 06/27/21 [facility] Allergies, Adverse Reactions, Alerts Substance Reaction Severity Status morphine Active mirtazapine depression Vomitting Active Levaquin Active Immunizations Given and Recorded Vaccine Date Status Refusal Reason SARS-CoV-2 (COVID-19) mRNA BNT-162b2 vac 06/02/20 Given SARS-CoV-2 (COVID-19) mRNA BNT-162b2 vac 05/12/20 Given Medications CPAP Machine See Instructions, # 1 each, Refills 11, Tot. Refills 11, Maintenance, BHIRS: Resmed S10 APAP [id number], Ramp and EPR PRN, w/Humidifier, Data Card, [...] # 90 tablet, 1 Refills, [facility], 176, cm, 12/19/20 15:07:00 EDT, Height Start [...] tablet, 11 Refills, Maintenance, 02/05/21 16:38:00 EST, [facility]/pharmacy #0373, 176, cm, 02/05/21 16:14:00 EST, Height Start Date: 02/05/21 Status: Ordered Problem List Condition Effective Dates Status Health Status Inform ant Facet arthropathy, cervical(Confirmed) Active Cervical radiculitis(Confirmed) Active Myofascial pain(Confirmed) Active Myofascial pain syndrome, cervical(Confirmed) Active Obese class I(Confirmed) Active Social History Social History Type Response Smoking Status Never smoker entered on: 12/06/14 Sex
--- OUTSIDE RECORDS SUMMARY | 2022-10-26 10:48 | XMS_ITS | Continuity of Care Document ---
Author Name Unknown Organization [facility] Address [address] [facility], [address]r [address] Floor, [address] [place] [address]- Care Team Providers Care Transistor Tester Name Role Phone Todd CHAUDHARI, Rambo Hicks Primary Care Physician [id number]s): [facility]/25/19 - 05/21/19 [facility] [address] [facility], 3rd Floor, [address] [place] [address]- [facility] Attending Physician: Isauro Khan MD Admitting Physician: Isauro Khan MD Allergies, Adverse Reactions, Alerts Substance Reaction Severity Status morphine Active mirtazapine depression Vomitting Active Levaquin Active Medications baclofen 10 mg oral tablet 10 mg, 1, tablet, By Mouth, 3 times a day, # 90 tablet, Refills 2, Tot. Refills 2, Maintenance, 08/27/18 13:48:14 EDT, Route to Pharmacy Electronically, [id number], [facility]/pharmacy #0373 Start Date: 08/27/18 Stop Date: 11/25/18 Status: Ordered CPAP Machine See Instructions, # 1 each, Refills 11, Tot. 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 Start Date: 06/18/16 Status: Ordered Fioricet oral capsule 2 capsule, By Mouth, Every 4 hours, PRN as needed, not to exceed 6 capsules/day, # 12 capsule, 0 Refills, Maintenance, 05/03/19 16:39:00 EST, Capsule, [facility]/pharmacy #0373, 2 capsule By Mouth Every 4 hours,PRN:as needed,Instr:not to exceed 6 capsules/da... Start Date: 05/03/19 Status: Ordered gabapentin 100 mg oral capsule 200 mg, 2, capsule, By Mouth, 2 times a day, # 120 capsule, Refills 6, Tot. Refills 6, Maintenance,11/11/18 19:08:47 EDT, Route to Pharmacy Electronically, [id number], [facility]/pharmacy #0373 Start Date: 11/11/18 Stop Date: 06/09/19 [...] 04/15/18 19:08:17 EST, Route to Pharmacy Electronically, [id number], [facility]/pharmacy #0373 Start Date: 04/15/18 Stop Date: 11/11/18 [...]
--- OUTSIDE RECORDS SUMMARY | 2022-10-26 10:48 | XMS_ITS | Continuity of Care Document ---
Author Name Unknown Organization [facility] Address Unknown Care Team Providers Care Sales Professional Name Role Phone Cristo TOLENTINO, Jose Maria Paul Primary Care Physician Encounter [facility] Date(s): 11/24/20 - 12/24/20 [facility] Allergies, Adverse Reactions, Alerts Substance Reaction Severity Status morphine Active mirtazapine depression Vomitting Active Levaquin Active Immunizations Given and Recorded Vaccine Date Status Refusal Reason SARS-CoV-2 (COVID-19) mRNA BNT-162b2 vac 06/02/20 Given SARS-CoV-2 (COVID-19) mRNA BNT-162b2 vac 05/12/20 Given Medications CPAP Machine See Instructions, # 1 each, Refills 11, Tot. Refills 11, Maintenance, BHIRS: Resmed S10 APAP [id number], Ramp and EPR PRN, w/Humidifier, Data Card, [...] tablet, 1 Refills, Maintenance, 11/23/19 16:49:00 EDT, [facility]/pharmacy #0373, 177, cm, 11/23/19 16:00:00 EDT, Height Start Date: 11/23/19 Status: Ordered Problem List Condition Effective Dates Status Health Status Inform ant Facet arthropathy, cervical(Confirmed) Active Cervical radiculitis(Confirmed) Active Myofascial pain(Confirmed) Active Social History Social History Type Response Smoking Status Never smoker entered on: 12/06/14 Sex
--- OUTSIDE RECORDS SUMMARY | 2022-10-26 10:49 | XMS_ITS | Continuity of Care Document ---
Author Name Unknown Organization [facility] Address Unknown Care Team Providers Care Nurse Instructor Name Role Phone Cristo TOLENTINO, Jose Maria Paul Primary Care Physician [place] [facility] [place] 05/29/21 - 07/18/21 [facility] Attending Physician: Isauro Khan MD Admitting Physician: [...] Refills 11, Maintenance, BHIRS: Resmed S10 APAP [id number], Ramp and EPR PRN, w/Humidifier, Data Card, [...] # 90 tablet, 1 Refills, [id number], 176, cm, 12/19/20 15:07:00 EDT, Height Start [...]
--- OUTSIDE RECORDS SUMMARY | 2022-10-26 10:49 | XMS_ITS | Continuity of Care Document ---
Author Name Unknown Organization [facility] Address [address] [place] [address]- Care Team Providers Care Oiler And Greaser Name Role Phone Cristo TOLENTINO, Jose Maria Paul Primary Care Physician Encounter [facility] [place] Date(s): 02/16/21 - 03/18/21 [facility] [address] [place] [address]- Attending Physician: Admmatt, Babar8 Admitting Physician: AdmtrFaviola [...] Refills 11, Maintenance, BHIRS: Resmed S10 APAP [id number], Ramp and EPR PRN, w/Humidifier, Data Card, Chinstrap, Climateline Tubing, Headgear, Filters, Mask, Liners, ALL SUPPLIES 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 Start Date: 06/18/16 Status: Ordered Fioricet oral capsule 2 capsule, By Mouth, Every 4 hours, PRN as needed, not to exceed 6 capsules/day, # 30 capsule, 0 Refills, Maintenance, 02/05/21 16:39:00 EST, Capsule, [id number], 2 capsule By Mouth Every 4 hours,PRN:as needed,Instr:not to exceed 6 capsules/da... Start Date: 02/05/21 Status: Ordered gabapentin 600 mg oral tablet 1 tablet, By Mouth, Daily at bedtime, # 90 tablet, 1 Refills, [facility], 176, cm, 12/19/20 15:07:00 EDT, Height Start [...] tablet, 11 Refills, Maintenance, 02/05/21 16:38:00 EST, [facility]/pharmacy #0373, 176, cm, 02/05/21 16:14:00 EST, Height Start Date: 02/05/21 Status: Ordered Problem List Condition Effective Dates Status Health Status Inform ant Facet arthropathy, cervical(Confirmed) Active Cervical radiculitis(Confirmed) Active Myofascial pain(Confirmed) Active Myofascial pain syndrome, cervical(Confirmed) Active Obese class I(Confirmed) Active Social History Social History Type Response Smoking Status Never smoker entered on: 12/06/14 Sex
--- OUTSIDE RECORDS SUMMARY | 2022-10-26 10:49 | XMS_ITS | Continuity of Care Document ---
Author Name Unknown Organization [facility] Address [address] [facility], [address] Floor, [address] [place] [address]- Care Team Providers Care Machine Shop Lead Man Name Role Phone Todd CHAUDHARI, Rambo Hicks Primary Care Physician [place] [facility] [place](s[place] 03/04/19 - 03/14/19 [facility] [address] [facility], [address] Floor, [address] [place] [address]- [facility] Attending Physician: Admtr, Ar8 Admitting Physician: Admtr, Ar8 Referring Physician: Admtr, Ar8 Allergies, Adverse Reactions, Alerts Substance Reaction Severity Status morphine Active mirtazapine depression Vomitting Active Levaquin Active Medications baclofen 10 mg oral tablet 10 mg, 1, tablet, By Mouth, 3 times a day, # 90 tablet, Refills 2, Tot. Refills 2, Maintenance, 08/27/18 13:48:14 EDT, Route to Pharmacy Electronically, [id number], [facility]/pharmacy #[id number] Start Date: 08/27/18 Stop Date: 11/25/18 Status: Ordered CPAP Machine See Instructions, # 1 each, Refills 11, Tot. 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 Start Date: 06/18/16 Status: Ordered gabapentin 100 mg oral capsule 200 mg, 2, capsule, By Mouth, 2 times a day, # 120 capsule, Refills 6, Tot. Refills 6, Maintenance,11/11/18 19:08:47 EDT, Route to Pharmacy Electronically, [id number], [facility]/pharmacy #[id number] Start Date: 11/11/18 Stop Date: [...] 04/15/18 19:08:17 EST, Route to Pharmacy Electronically, [id number], [facility]/pharmacy #[id number] Start Date: 04/15/18 Stop Date: 11/11/18 Status: Ordered Melatonin 3 mg oral tablet 2 tablet = 6 mg, By Mouth, Daily at bedtime, PRN for insomnia, # 60 tablet, 0 Refills, Maintenance,07/17/15 15:55:01, Tablet Start Date: 07/17/15 Status: Ordered Mirena 52 mg intrauteral device 1 each = 52 mg, Once, 0 Refills, Maintenance, 03/02/15 9:17:40 Start Date: 03/02/15 Status: Ordered Xanax Tablet See Instructions, Maintenance, By Mouth 3 times a day, 12/06/14 10:57:25 Start Date: 12/06/14 Status: Ordered Social History Social History Type Response Smoking Status Never smoker entered on: 12/06/14 Sex
--- OUTSIDE RECORDS SUMMARY | 2022-10-26 10:49 | XMS_ITS | Continuity of Care Document ---
Author Name Unknown Organization [facility] Address [address] [facility], [address] Floor, [address] [place] [address]- Care Team Providers Care Training Development Manager Name Role Phone Cristo TOLENTINO, Jose Maria Paul Primary Care Physician [phone] Encounter [facility] Date(s): 12/09/19 - 01/08/20 [facility] [address], [address] Floor, [address] [place] [address]- Allergies, Adverse Reactions, Alerts Substance Reaction Severity Status morphine Active mirtazapine depression Vomitting Active Levaquin Active Medications CPAP Machine See Instructions, # 1 each, Refills 11, Tot. Refills 11, Maintenance, BHIRS: Resmed S10 APAP [id number], Ramp and EPR PRN, w/Humidifier, Data Card, [...] Maintenance,12/09/19 19:56:00 EDT, Route to Pharmacy Electronically, [id number], 177, cm, 11/23/19 16:00:00 EDT, Height Start Date: 12/09/19 Stop Date: 07/06/20 Status: Ordered gabapentin 600 mg oral tablet 1 tablet = 600 mg, By Mouth, Daily at bedtime, # 30 tablet, 5 Refills, Maintenance, 12/09/19 19:57:00 EDT, Tablet, [facility]/pharmacy #0373, 177, cm, 11/23/19 16:00:00 EDT, Height Start Date: 12/09/19 Status: Ordered lamotrigine 100 mg oral tablet 100 mg, 1, tablet, By Mouth, 2 times a day, # 60 tablet, Refills 6, Tot. Refills 6, Maintenance, 12/09/19 19:57:00 EDT, Route to Pharmacy Electronically, [id number], [...] 30 tablet, 1 Refills, Maintenance, 12/22/19 16:10:00EDT, [facility], 177, cm, 12/22/19 15:56:00 EDT, Height [...]
--- OUTSIDE RECORDS SUMMARY | 2022-10-26 10:49 | XMS_ITS | Continuity of Care Document ---
Author Name Unknown Organization [facility] Address [address] [facility], 3[address] d Floor, [address] [place] [address]- Care Team Providers Care Client Solutions Specialist Name Role Phone Cristo TOLENTINO, Jose Maria Paul Primary Care Physician [phone] Encounter [facility] [place] Date(s): 01/17/20 - 02/16/20 [facility] [address], [address]rd Floor, [address] [place] [address]- Allergies, Adverse Reactions, Alerts Substance Reaction Severity Status morphine Active mirtazapine depression Vomitting Active Levaquin Active Medications CPAP Machine See Instructions, # 1 each, Refills 11, Tot. Refills 11, Maintenance, BHIRS: Resmed S10 APAP [id number], Ramp and EPR PRN, w/Humidifier, Data Card, [...] 5 Refills, Maintenance, 12/09/19 19:57:00 EDT, Tablet, [facility]/pharmacy #0373, 177, cm, 11/23/19 16:00:00 EDT, Height Start Date: 12/09/19 Status: Ordered lamotrigine 100 mg oral tablet 100 mg, 1, tablet, By Mouth, 2 times a day, # 60 tablet, Refills 6, Tot. Refills 6, Maintenance, 12/09/19 19:57:00 EDT, Route to Pharmacy Electronically, [facility]/pharmacy #0373, 177, cm, 11/23/19 16:00:00 EDT, Height [...] tablet, 1 Refills, Maintenance, 11/23/19 16:49:00 EDT, [facility]/pharmacy #0373, 177, cm, 11/23/19 16:00:00 EDT, Height Start Date: 11/23/19 Status: Ordered Savella 25 mg oral tablet See Instructions, TAKE 1 TABLET BY MOUTH EVERY DAY AT SUPPER, # 30 tablet, 1 Refills, Maintenance, [facility], 177, cm, 12/22/19 15:56:00 EDT, Height Start Date: 01/21/20 Status: Ordered Social History Social History Type Response Smoking Status Never smoker entered on: 12/06/14 Sex
--- OUTSIDE RECORDS SUMMARY | 2022-10-26 10:49 | XMS_ITS | Continuity of Care Document ---
Author Name Unknown Organization [facility] Address Unknown Care Team Providers Care Clay Grinder Name Role Phone Cristo TOLENTINO, Jose Maria Paul Primary Care Physician [place] [facility] [place](s[place] 02/05/21 - 03/07/21 [facility] Attending Physician: AdmFaviola gutierrez Admitting Physician: AdmtrFaviola Referring Physician: Admtr, Ar8 [...] Refills 11, Maintenance, BHIRS: Resmed S10 APAP [id number], Ramp and EPR PRN, w/Humidifier, Data Card, [...] # 90 tablet, 1 Refills, [facility], 176, cm, 12/19/20 15:07:00 EDT, Height Start [...] tablet, 11 Refills, Maintenance, 02/05/21 16:38:00 EST, [facility]/pharmacy #0373, 176, cm, 02/05/21 16:14:00 EST, Height Start Date: 02/05/21 Status: Ordered Problem List Condition Effective Dates Status Health Status Inform ant Facet arthropathy, cervical(Confirmed) Active Cervical radiculitis(Confirmed) Active Myofascial pain(Confirmed) Active Myofascial pain syndrome, cervical(Confirmed) Active Obese class I(Confirmed) Active Social History Social History Type Response Smoking Status Never smoker entered on: 12/06/14 Sex
--- OUTSIDE RECORDS SUMMARY | 2022-10-26 10:49 | XMS_ITS | Continuity of Care Document ---
Author Name Unknown Organization [facility] Address [address] [facility], [address]r d Floor, [address] [place] [address]- Care Team Providers Care Mobile Developer Name Role Phone Cristo TOLENTINO, Jose Maria Paul Primary Care Physician [phone] Encounter [facility] Date(s): 01/18/20 - 02/17/20 [facility] [address] [place], [address] Floor, [address] [place] [address] Allergies, Adverse Reactions, Alerts Substance Reaction Severity Status morphine Active mirtazapine depression Vomitting Active Levaquin Active Medications CPAP Machine See Instructions, # 1 each, Refills 11, Tot. Refills 11, Maintenance, BHIRS: Resmed S10 APAP [id number], Ramp and EPR PRN, w/Humidifier, Data Card, [...]
--- OUTSIDE RECORDS SUMMARY | 2022-10-26 10:49 | XMS_ITS | Continuity of Care Document ---
Author Name Unknown Organization [facility] Address [address] [place] [address], [address] d Floor, [address] [place] [address]- Care Team Providers Care Propeller Mechanic Name Role Phone Cristo TOLENTINO, Jose Maria Paul Primary Care Physician [phone] Encounter [facility] [place] Date(s): 03/27/20 - 04/26/20 [facility] [address] [facility], 3rd Floor, [address] [place] [address]- Allergies, Adverse Reactions, Alerts Substance Reaction Severity Status morphine Active mirtazapine depression Vomitting Active Levaquin Active Medications CPAP Machine See Instructions, # 1 each, Refills 11, Tot. Refills 11, Maintenance, BHIRS: Resmed S10 APAP [id number], Ramp and EPR PRN, w/Humidifier, Data Card, [...] tablet, 1 Refills, Maintenance, 11/23/19 16:49:00 EDT, [facility]/pharmacy #[id number], 177, cm, 11/23/19 16:00:00 EDT, Height Start Date: 11/23/19 Status: Ordered Savella 25 mg oral tablet See Instructions, TAKE 1 TABLET BY MOUTH EVERY DAY AT SUPPER, # 30 tablet, 1 Refills, Maintenance, [facility] 707[facility], 177, cm, 02/16/20 15:14:00 EST, Height Start Date: 02/21/20 Status: Ordered Problem List Condition Effective Dates Status Health Status Inform ant Facet arthropathy, cervical(Confirmed) Active Cervical radiculitis(Confirmed) Active Myofascial pain(Confirmed) Active Social History Social History Type Response Smoking Status Never smoker entered on: 12/06/14 Sex
--- OUTSIDE RECORDS SUMMARY | 2022-10-26 10:49 | XMS_ITS | Continuity of Care Document ---
Author Name Unknown Organization [facility] Address Unknown Care Team Providers Care Kiln Burner Helper Name Role Phone Cristo TOLENTINO, Jose Maria Paul Primary Care Physician [phone] Encounter [facility] [place] Date(s): 07/02/21 - 08/01/21 [facility] Attending Physician: AdmFaviola gutierrez Admitting Physician: [...] Refills 11, Maintenance, BHIRS: Resmed S10 APAP [id number], Ramp and EPR PRN, w/Humidifier, Data Card, [...] # 90 tablet, 5 Refills, [facility], 176, cm, 07/02/21 13:36:00 EDT, Height Start [...] tablet, 11 Refills, Maintenance, 02/05/21 16:38:00 EST, [facility]/pharmacy #0373, 176, cm, 02/05/21 16:14:00 EST, Height Start Date: 02/05/21 Status: Ordered Problem List Condition Effective Dates Status Health Status Inform ant Facet arthropathy, cervical(Confirmed) Active Cervical radiculitis(Confirmed) Active Myofascial pain(Confirmed) Active Myofascial pain syndrome, cervical(Confirmed) Active Obese class I(Confirmed) Active Social History Social History Type Response Smoking Status Never smoker entered on: 12/06/14 Sex
--- OUTSIDE RECORDS SUMMARY | 2022-10-26 10:49 | XMS_ITS | Continuity of Care Document ---
Author Name Unknown Organization [facility] Address [address] [place] [address]- Care Team Providers Care Car Bracer Name Role Phone Cristo TOLENTINO, Jose Maria Paul Primary Care Physician [phone] Encounter [facility] Date(s): 11/24/20 - 12/24/20 [facility] [address] [place] [address]- Allergies, Adverse Reactions, Alerts Substance Reaction Severity Status morphine Active mirtazapine depression Vomitting Active Levaquin Active Immunizations Given and Recorded Vaccine Date Status Refusal Reason SARS-CoV-2 (COVID-19) mRNA BNT-162b2 vac 06/02/20 Given SARS-CoV-2 (COVID-19) mRNA BNT-162b2 vac 05/12/20 Given Medications CPAP Machine See Instructions, # 1 each, Refills 11, Tot. Refills 11, Maintenance, BHIRS: Resmed S10 APAP [id number], Ramp and EPR PRN, w/Humidifier, Data Card, [...] tablet, 1 Refills, Maintenance, 08/10/20 12:57:00 EDT, [facility]/pharmacy #0373, 177, cm, 06/22/20 14:48:00 EDT, Height [...] tablet, 1 Refills, Maintenance, 11/23/19 16:49:00 EDT, [facility]/pharmacy #0373, 177, cm, 11/23/19 16:00:00 EDT, Height Start Date: 11/23/19 Status: Ordered Problem List Condition Effective Dates Status Health Status Inform ant Facet arthropathy, cervical(Confirmed) Active Cervical radiculitis(Confirmed) Active Myofascial pain(Confirmed) Active Social History Social History Type Response Smoking Status Never smoker entered on: 12/06/14 Sex
--- OUTSIDE RECORDS SUMMARY | 2022-10-26 10:49 | XMS_ITS | Continuity of Care Document ---
Author Name Unknown Organization [facility] Address [address] [facility], [address] Floor, [address] [place] [address]- Care Team Providers Care Customer Service Administrator Name Role Phone Todd CHAUDHARI, Rambo Hicks Primary Care Physician [place] [facility] [place] 05/01/19 [facility] [address] [facility], [address] Floor, [address] [place] [address] [facility] Attending Physician: Admtr, Ar8 Admitting Physician: Admtr, Ar8 Referring Physician: Admtr, Ar8 Allergies, Adverse Reactions, Alerts Substance Reaction Severity Status morphine Active mirtazapine depression Vomitting Active Levaquin Active Medications baclofen 10 mg oral tablet 10 mg, 1, tablet, By Mouth, 3 times a day, # 90 tablet, Refills 2, Tot. Refills 2, Maintenance, 08/27/18 13:48:14 EDT, Route to Pharmacy Electronically, [id number], [facility]/pharmacy #0373 Start Date: 08/27/18 Stop Date: 11/25/18 Status: Ordered CPAP Machine See Instructions, # 1 each, Refills 11, Tot. 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 Start Date: 06/18/16 Status: Ordered gabapentin 100 mg oral capsule 200 mg, 2, capsule, By Mouth, 2 times a day, # 120 capsule, Refills 6, Tot. Refills 6, Maintenance,11/11/18 19:08:47 EDT, Route to Pharmacy Electronically, [id number], [facility]/pharmacy #0373 Start Date: 11/11/18 Stop Date: 06/09/19 [...] 04/15/18 19:08:17 EST, Route to Pharmacy Electronically, [id number], [facility]/pharmacy #0373 Start Date: 04/15/18 Stop Date: 11/11/18 [...]
--- OUTSIDE RECORDS SUMMARY | 2022-10-26 10:49 | XMS_ITS | Continuity of Care Document ---
Author Name Unknown Organization [facility] Address [address] [place] [address], [address] d Floor, [address] [place] [address]- Care Team Providers Care Dean Of Admissions Name Role Phone Cristo TOLENTINO, Jose Maria Paul Primary Care Physician Encounter [facility] Date(s): 06/15/20 - 07/15/20 [facility] [address] [facility], 3rd Floor, [address] [place] [address]- Allergies, Adverse Reactions, Alerts Substance Reaction Severity Status morphine Active mirtazapine depression Vomitting Active Levaquin Active Immunizations Given and Recorded Vaccine Date Status Refusal Reason SARS-CoV-2 (COVID-19) mRNA BNT-162b2 vac 06/02/20 Given SARS-CoV-2 (COVID-19) mRNA BNT-162b2 vac 05/12/20 Given Medications CPAP Machine See Instructions, # 1 each, Refills 11, Tot. Refills 11, Maintenance, BHIRS: Resmed S10 APAP [id number], Ramp and EPR PRN, w/Humidifier, Data Card, [...] tablet, 0 Refills, Maintenance, 06/22/20 12:18:00 EDT, [facility] 18[facility], 177, cm, 04/20/20 7:44:00 EST, Height Start Date: 06/22/20 Status: Ordered Mirena 52 mg intrauteral device 1 each = 52 mg, Once, 0 Refills, Maintenance, 03/02/15 9:17:40 Start Date: 03/02/15 Status: Ordered prochlorperazine 10 mg oral tablet 1 tablet = 10 mg, By Mouth, 3 times a day, PRN Vomiting, # 30 tablet, 1 Refills, Maintenance, 11/23/19 16:49:00 EDT, [facility]/pharmacy #0373, 177, cm, 11/23/19 16:00:00 EDT, Height Start Date: 11/23/19 Status: Ordered Savella 25 mg oral tablet See Instructions, TAKE 1 TABLET BY MOUTH EVERY DAY AT SUPPER, # 30 tablet, 1 Refills, Maintenance, [facility] 14768, 177, cm, 02/16/20 15:14:00 EST, Height Start Date: 02/21/20 Status: Ordered Problem List Condition Effective Dates Status Health Status Inform ant Facet arthropathy, cervical(Confirmed) Active Cervical radiculitis(Confirmed) Active Myofascial pain(Confirmed) Active Social History Social History Type Response Smoking Status Never smoker entered on: 12/06/14 Sex
--- OUTSIDE RECORDS SUMMARY | 2022-10-26 10:49 | XMS_ITS | Continuity of Care Document ---
Author Name Unknown Organization [facility] Address [address] [place] [address]- Care Team Providers Care Seat Joiner Name Role Phone Cristo TOLENTINO, Jose Maria Paul Primary Care Physician Encounter [facility] [id number] Date(s): 04/07/20 - 06/02/20 [facility] [address] [place] [address]- Attending Physician: Not on Staff, Attending MD Referring Physician: Isauro hKan MD Allergies, Adverse Reactions, Alerts Substance Reaction Severity Status morphine Active mirtazapine depression Vomitting Active Levaquin Active Immunizations Given and Recorded Vaccine Date Status Refusal Reason SARS-CoV-2 (COVID-19) mRNA BNT-162b2 vac 06/02/20 Given SARS-CoV-2 (COVID-19) mRNA BNT-162b2 vac 05/12/20 Given Medications CPAP Machine See Instructions, # 1 each, Refills 11, Tot. Refills 11, Maintenance, BHIRS: Resmed S10 APAP [id number], Ramp and EPR PRN, w/Humidifier, Data Card, [...] 5 Refills, Maintenance, 12/09/19 19:57:00 EDT, Tablet, [facility]/pharmacy #0373, 177, cm, 11/23/19 16:00:00 EDT, Height Start Date: 12/09/19 Status: Ordered Mirena 52 mg intrauteral device 1 each = 52 mg, Once, 0 Refills, Maintenance, 03/02/15 9:17:40 Start Date: 03/02/15 Status: Ordered prochlorperazine 10 mg oral tablet 1 tablet = 10 mg, By Mouth, 3 times a day, PRN Vomiting, # 30 tablet, 1 Refills, Maintenance, 11/23/19 16:49:00 EDT, [facility]/pharmacy #0373, 177, cm, 11/23/19 16:00:00 EDT, Height Start Date: 11/23/19 Status: Ordered Savella 25 mg oral tablet See Instructions, TAKE 1 TABLET BY MOUTH EVERY DAY AT SUPPER, # 30 tablet, 1 Refills, Maintenance, [facility] 29023, 177, cm, 02/16/20 15:14:00 EST, Height Start Date: 02/21/20 Status: Ordered Problem List Condition Effective Dates Status Health Status Inform ant Facet arthropathy, cervical(Confirmed) Active Cervical radiculitis(Confirmed) Active Myofascial pain(Confirmed) Active Social History Social History Type Response Smoking Status Never smoker entered on: 12/06/14 Sex
--- OUTSIDE RECORDS SUMMARY | 2022-10-26 10:49 | XMS_ITS | Continuity of Care Document ---
Author Name Unknown Organization [facility] Address [address] [place] [address]- Care Team Providers Care Bar Helper Name Role Phone Cristo TOLENTINO, Jose Maria Paul Primary Care Physician [phone] [facility] [place]20 - 05/26/20 [facility] [address] [place] [address]- Allergies, Adverse Reactions, Alerts Substance Reaction Severity Status morphine Active mirtazapine depression Vomitting Active Levaquin Active Immunizations Given and Recorded Vaccine Date Status Refusal Reason SARS-CoV-2 (COVID-19) mRNA BNT-162b2 vac 05/12/20 Given Medications CPAP Machine See Instructions, # 1 each, Refills 11, Tot. Refills 11, Maintenance, BHIRS: Resmed S10 APAP [id number], Ramp and EPR PRN, w/Humidifier, Data Card, [...] SUPPER, # 30 tablet, 1 Refills, Maintenance, [facility] 49995, 177, cm, 02/16/20 15:14:00 EST, Height Start Date: 02/21/20 Status: Ordered Problem List Condition Effective Dates Status Health Status Inform ant Facet arthropathy, cervical(Confirmed) Active Cervical radiculitis(Confirmed) Active Myofascial pain(Confirmed) Active Social History Social History Type Response Smoking Status Never smoker entered on: 12/06/14 Sex
--- OUTSIDE RECORDS SUMMARY | 2022-10-26 10:49 | XMS_ITS | Continuity of Care Document ---
Author Name Unknown Organization [facility] Address [address] [place] [address]- Care Team Providers Care Planer Tailer Name Role Phone Cristo TOLENTINO, Jose Maria Paul Primary Care Physician Encounter [facility] [place] Date(s): 11/28/20 - 02/16/21 [facility] [address] [place] [address]- Attending Physician: Lesley Bridges MD Admitting Physician: Lesley Bridges MD Allergies, Adverse Reactions, Alerts Substance Reaction Severity Status morphine Active mirtazapine depression Vomitting Active Levaquin Active Immunizations Given and Recorded Vaccine Date Status Refusal Reason SARS-CoV-2 (COVID-19) mRNA BNT-162b2 vac 06/02/20 Given SARS-CoV-2 (COVID-19) mRNA BNT-162b2 vac 05/12/20 Given Medications CPAP Machine See Instructions, # 1 each, Refills 11, Tot. Refills 11, Maintenance, BHIRS: Resmed S10 APAP [id number], Ramp and EPR PRN, w/Humidifier, Data Card, [...] # 90 tablet, 1 Refills, [facility], 176, cm, 12/19/20 15:07:00 EDT, Height Start [...] tablet, 11 Refills, Maintenance, 02/05/21 16:38:00 EST, [facility]/pharmacy #[id number], 176, cm, 02/05/21 16:14:00 [...]
--- OUTSIDE RECORDS SUMMARY | 2022-10-26 10:49 | XMS_ITS | Continuity of Care Document ---
Author Name Unknown Organization [facility] Address [address] [facility], 3r d Floor, [address] [place] [address]- Care Team Providers Care Egg Pasteurizer Name Role Phone Cristo TOLENTINO, Jose Maria Paul Primary Care Physician [phone] Encounter [facility] Date(s): 01/18/20 - 02/17/20 [facility] [address] [place], 3rd Floor, [address] [place] [address]- Allergies, Adverse Reactions, Alerts Substance Reaction Severity Status morphine Active mirtazapine depression Vomitting Active Levaquin Active Medications CPAP Machine See Instructions, # 1 each, Refills 11, Tot. Refills 11, Maintenance, BHIRS: Resmed S10 APAP [id number], Ramp and EPR PRN, w/Humidifier, Data Card, [...]
--- OUTSIDE RECORDS SUMMARY | 2022-10-26 10:49 | XMS_ITS | Continuity of Care Document ---
Author Name Unknown Organization [facility] Address [address] [place] [address], [address]r d Floor, [address] [place] [address]- Care Team Providers Care Template Cutter Name Role Phone Cristo TOLENTINO, Jose Maria Paul Primary Care Physician [phone] Encounter [facility] Date(s): 05/29/22 - 06/28/22 [facility] [address] [facility], 3rd Floor, [address] [place] [address]- Allergies, Adverse Reactions, Alerts Substance Reaction Severity Status morphine Active mirtazapine depression Vomitting Active Levaquin Active Immunizations Given and Recorded Vaccine Date Status Refusal Reason SARS-CoV-2 (COVID-19) mRNA BNT-162b2 vac 06/02/20 Given SARS-CoV-2 (COVID-19) mRNA BNT-162b2 vac 05/12/20 Given Medications CPAP Machine See Instructions, # 1 each, Refills 11, Tot. Refills 11, Maintenance, BHIRS: Resmed S10 APAP [id number], Ramp and EPR PRN, w/Humidifier, Data Card, [...] # 90 tablet, 5 Refills, [facility], 176, cm, 07/02/21 13:36:00 EDT, Height Start [...] Reference Physician Member Role: PCP Address: Address: [address] [place] [address]- Care Team Related Persons Name: ELLA HANLEY Address: home [address] [place] [address]
--- OUTSIDE RECORDS SUMMARY | 2022-10-26 10:49 | XMS_ITS | Continuity of Care Document ---
Author Name Unknown Organization [facility] Address [address] [place] [address], 3r d Floor, [address] [place] [address]- Care Team Providers Care Improvement Spec Name Role Phone Cristo TOLENTINO, Jose Maria Paul Primary Care Physician Encounter [facility] [place] Date(s): 08/09/22 - 09/08/22 [facility] [address] [facility], 3rd Floor, [address] [place] [address]- Allergies, Adverse Reactions, Alerts Substance Reaction Severity Status morphine Active mirtazapine depression Vomitting Active Levaquin Active Immunizations Given and Recorded Vaccine Date Status Refusal Reason SARS-CoV-2 (COVID-19) mRNA BNT-162b2 vac 06/02/20 Given SARS-CoV-2 (COVID-19) mRNA BNT-162b2 vac 05/12/20 Given Medications CPAP Machine See Instructions, # 1 each, Refills 11, Tot. Refills 11, Maintenance, BHIRS: Resmed S10 APAP [id number], Ramp and EPR PRN, w/Humidifier, Data Card, [...] # 90 tablet, 5 Refills, [facility], 176, cm, 07/02/21 13:36:00 EDT, Height Start [...] Reference Physician Member Role: PCP Address: Address: [address] [place] [address]- Care Team Related Persons Name: ELLA HANLEY Address: home [address] [place] [address]
--- OUTSIDE RECORDS SUMMARY | 2022-10-26 10:49 | XMS_ITS | Continuity of Care Document ---
Author Name Unknown Organization [facility] Address [address] [facility], 3r d Floor, [address] [place] [address]- Care Team Providers Care Electrician Aircraft Name Role Phone Todd CHAUDHARI, Rambo Hicks Primary Care Physician Encounter [facility] [place] [facility] R [id number] Date(s): 03/04/19 - 03/11/19 [facility] [address] [facility], 3rd Floor, [address] [place] [address]- [facility] Attending Physician: Not on Staff, Attending MD Allergies, Adverse Reactions, Alerts Substance Reaction Severity Status morphine Active mirtazapine depression Vomitting Active Levaquin Active Medications baclofen 10 mg oral tablet 10 mg, 1, tablet, By Mouth, 3 times a day, # 90 tablet, Refills 2, Tot. Refills 2, Maintenance, 08/27/18 13:48:14 EDT, Route to Pharmacy Electronically, [id number], [facility]/pharmacy #0373 Start Date: 08/27/18 Stop Date: 11/25/18 Status: Ordered CPAP Machine See Instructions, # 1 each, Refills 11, Tot. 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 Start Date: 06/18/16 Status: Ordered gabapentin 100 mg oral capsule 200 mg, 2, capsule, By Mouth, 2 times a day, # 120 capsule, Refills 6, Tot. Refills 6, Maintenance,11/11/18 19:08:47 EDT, Route to Pharmacy Electronically, [id number], [facility]/pharmacy #[id number] Start Date: 11/11/18 Stop Date: 06/09/19 [...] 04/15/18 19:08:17 EST, Route to Pharmacy Electronically, [id number], [facility]/pharmacy #[id number] Start Date: 04/15/18 Stop Date: 11/11/18 [...]
--- OUTSIDE RECORDS SUMMARY | 2022-10-26 10:49 | XMS_ITS | Continuity of Care Document ---
Author Name Unknown Organization [facility] Address [address] [facility], 3r d Floor, [address] [place] [address]- Care Team Providers Care Abrasive Grader Name Role Phone Cristo TOLENTINO, Jose Maria Paul Primary Care Physician [phone] Encounter [facility] [place] Date(s): 07/01/22 - 10/23/22 [facility] [address] [place], 3rd Floor, [address] [place] [address] Attending Physician: Isauro Khan MD Admitting Physician: Isauro Khan MD Referring Physician: Jose Maria Lemons NP Allergies, Adverse Reactions, Alerts Substance Reaction Severity Status morphine Active mirtazapine depression Vomitting Active Levaquin Active Immunizations Given and Recorded Vaccine Date Status Refusal Reason SARS-CoV-2 (COVID-19) mRNA BNT-162b2 vac 06/02/20 Given SARS-CoV-2 (COVID-19) mRNA BNT-162b2 vac 05/12/20 Given Medications CPAP Machine See Instructions, # 1 each, Refills 11, Tot. Refills 11, Maintenance, BHIRS: Resmed S10 APAP [id number], Ramp and EPR PRN, w/Humidifier, Data Card, [...] # 90 tablet, 5 Refills, [facility], 176, cm, 07/02/21 13:36:00 EDT, Height Start Date: 07/31/21 Status: Ordered Mirena 52 mg intrauteral device 1 each = 52 mg, Once, 0 Refills, Maintenance, 03/02/15 9:17:40 Start Date: 03/02/15 Status: Ordered prochlorperazine 10 mg oral tablet 1 tablet = 10 mg, By Mouth, 3 times a day, PRN Vomiting, # 90 tablet, 11 Refills, Maintenance, 02/05/21 16:38:00 EST, [facility]/pharmacy #0373, 176, cm, 02/05/21 16:14:00 EST, Height [...] Physician Member Role: PCP Address: Address: [address] [place] [address]- Care Team Related Persons Name: ELLA HANLEY Address: home [address] [place] [address]
--- OUTSIDE RECORDS SUMMARY | 2022-10-26 10:49 | XMS_ITS | Continuity of Care Document ---
Author Name Unknown Organization [facility] Address [address] [place] [address]- Care Team Providers Care Lead Pressman Roto [employer] Printing Name Role Phone Cristo TOLENTINO, Jose Maria Paul Primary Care Physician [phone] Encounter [facility] [place] Date(s): 08/22/22 - 09/21/22 [facility] [address] [place] [address]- Allergies, Adverse Reactions, Alerts Substance Reaction Severity Status morphine Active mirtazapine depression Vomitting Active Levaquin Active Immunizations Given and Recorded Vaccine Date Status Refusal Reason SARS-CoV-2 (COVID-19) mRNA BNT-162b2 vac 06/02/20 Given SARS-CoV-2 (COVID-19) mRNA BNT-162b2 vac 05/12/20 Given Medications CPAP Machine See Instructions, # 1 each, Refills 11, Tot. Refills 11, Maintenance, BHIRS: Resmed S10 APAP [id number], Ramp and EPR PRN, w/Humidifier, Data Card, [...] # 90 tablet, 5 Refills, [facility], 176, cm, 07/02/21 13:36:00 EDT, Height Start [...] Care team information Care Team Personnel Name: Cristo TOLENTINO , Jose Maria Paul Position: Reference Physician Member Role: PCP Address: Address: [address] [place] [address]- Care Team Related Persons Name: ELLA HANLEY Address: home [address] [place] [address]
--- OUTSIDE RECORDS SUMMARY | 2022-10-26 10:49 | XMS_ITS | Continuity of Care Document ---
Author Name Unknown Organization [facility] Address Unknown Care Team Providers Care Pecan Sheller Name Role Phone Cristo TOLENTINO, Jose Maria Paul Primary Care Physician Encounter [facility] Date(s): 11/24/20 - 12/24/20 [facility] Allergies, Adverse Reactions, Alerts Substance Reaction Severity Status morphine Active mirtazapine depression Vomitting Active Levaquin Active Immunizations Given and Recorded Vaccine Date Status Refusal Reason SARS-CoV-2 (COVID-19) mRNA BNT-162b2 vac 06/02/20 Given SARS-CoV-2 (COVID-19) mRNA BNT-162b2 vac 05/12/20 Given Medications CPAP Machine See Instructions, # 1 each, Refills 11, Tot. Refills 11, Maintenance, BHIRS: Resmed S10 APAP [id number], Ramp and EPR PRN, w/Humidifier, Data Card, [...]
--- OUTSIDE RECORDS SUMMARY | 2022-10-26 10:49 | XMS_ITS | Continuity of Care Document ---
Author Name Unknown Organization [facility] Address [address] [facility], 3r d Floor, [address] [place] [address]- Care Team Providers Care Resource Development Director Name Role Phone Cristo TOLENTINO, Jose Maria Paul Primary Care Physician Encounter [facility] Date(s): 08/09/22 - 09/08/22 [facility] [address] [place], 3rd Floor, [address] [place] [address]- Allergies, Adverse Reactions, Alerts Substance Reaction Severity Status morphine Active mirtazapine depression Vomitting Active Levaquin Active Immunizations Given and Recorded Vaccine Date Status Refusal Reason SARS-CoV-2 (COVID-19) mRNA BNT-162b2 vac 06/02/20 Given SARS-CoV-2 (COVID-19) mRNA BNT-162b2 vac 05/12/20 Given Medications CPAP Machine See Instructions, # 1 each, Refills 11, Tot. Refills 11, Maintenance, BHIRS: Resmed S10 APAP [id number], Ramp and EPR PRN, w/Humidifier, Data Card, [...] # 90 tablet, 5 Refills, [facility], 176, cm, 07/02/21 13:36:00 EDT, Height Start [...] Reference Physician Member Role: PCP Address: Address: [address] [place] [address]- Care Team Related Persons Name: ELLA HANLEY Address: home [address] [place] [address]
--- OUTSIDE RECORDS SUMMARY | 2022-10-26 10:49 | XMS_ITS | Continuity of Care Document ---
Author Name Unknown Organization [facility] Address [address] [place] [address]- Care Team Providers Care Mri Supervisor Name Role Phone Cristo TOLENTINO, Jose Maria Paul Primary Care Physician Encounter [facility] [place] Date(s): 05/17/20 - 06/16/20 [facility] [address] [place] [address]- Allergies, Adverse Reactions, Alerts Substance Reaction Severity Status morphine Active mirtazapine depression Vomitting Active Levaquin Active Immunizations Given and Recorded Vaccine Date Status Refusal Reason SARS-CoV-2 (COVID-19) mRNA BNT-162b2 vac 06/02/20 Given SARS-CoV-2 (COVID-19) mRNA BNT-162b2 vac 05/12/20 Given Medications CPAP Machine See Instructions, # 1 each, Refills 11, Tot. Refills 11, Maintenance, BHIRS: Resmed S10 APAP [id number], Ramp and EPR PRN, w/Humidifier, Data Card, [...] SUPPER, # 30 tablet, 1 Refills, Maintenance, [facility] 67655, 177, cm, 02/16/20 15:14:00 EST, Height Start Date: 02/21/20 Status: Ordered Problem List Condition Effective Dates Status Health Status Inform ant Facet arthropathy, cervical(Confirmed) Active Cervical radiculitis(Confirmed) Active Myofascial pain(Confirmed) Active Social History Social History Type Response Smoking Status Never smoker entered on: 12/06/14 Sex
--- OUTSIDE RECORDS SUMMARY | 2022-10-26 10:49 | XMS_ITS | Continuity of Care Document ---
Author Name Unknown Organization [facility] Address [address] [facility], [address]r d Floor, [address] [place] [address]- Care Team Providers Care Commutator Undercutter Name Role Phone Todd CHAUDHARI, Rambo Hicks Primary [id number]): [facility] - 07[facility]14/19 [facility] [address] [facility], 3rd Floor, [address] [place] [address]- [facility] Attending Physician: Isauro Khan MD Admitting Physician: Isauro Khan MD Allergies, Adverse Reactions, Alerts Substance Reaction Severity Status morphine Active mirtazapine depression Vomitting Active Levaquin Active Medications baclofen 10 mg oral tablet 10 mg, 1, tablet, By Mouth, 3 times a day, # 90 tablet, Refills 2, Tot. Refills 2, Maintenance, 08/27/18 13:48:14 EDT, Route to Pharmacy Electronically, [id number], [facility]/pharmacy #0373 Start Date: 08/27/18 Stop Date: 11/25/18 Status: Ordered CPAP Machine See Instructions, # 1 each, Refills 11, Tot. 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 Start Date: 06/18/16 Status: Ordered Fioricet oral capsule 2 capsule, By Mouth, Every 4 hours, PRN as needed, not to exceed 6 capsules/day, # 12 capsule, 0 Refills, Maintenance, 05/03/19 16:39:00 EST, Capsule, [facility]/pharmacy #0373, 2 capsule By Mouth Every 4 hours,PRN:as needed,Instr:not to exceed 6 capsules/da... Start Date: 05/03/19 Status: Ordered gabapentin 100 mg oral capsule 200 mg, 2, capsule, By Mouth, 2 times a day, # 120 capsule, Refills 6, Tot. Refills 6, Maintenance,11/11/18 19:08:47 EDT, Route to Pharmacy Electronically, [id number], [facility]/pharmacy #0373 Start Date: 11/11/18 Stop Date: [...] 04/15/18 19:08:17 EST, Route to Pharmacy Electronically, [id number], [facility]/pharmacy #0373 Start Date: 04/15/18 Stop Date: [...]
--- OUTSIDE RECORDS SUMMARY | 2022-10-26 10:49 | XMS_ITS | Continuity of Care Document ---
Author Name Unknown Organization [facility] Address [address] [place] [address]- Care Team Providers Care Regional Sales Executive Name Role Phone Cristo TOLENTINO, Jose Maria Paul Primary Care Physician Encounter [facility] [place] Date(s): 09/18/20 - 11/09/20 [facility] [address] [place] [address]- Attending Physician: Kell Soares DO Admitting Physician: Kell Soarse DO Referring Physician: Jose Maria Lemons NP [...] Refills 11, Maintenance, BHIRS: Resmed S10 APAP [id number], Ramp and EPR PRN, w/Humidifier, Data Card, [...]
--- NOTE | 2022-10-26 11:47 | AM.OFFWIN_ITS ---
Intake Vital Signs 10/26/22 11:48 Height 5 ft 9 in Weight 228 lb 2 oz BMI 33.7 BP 130/82 Blood Pressure Location Lt brachial Position Sitting Pulse 95 Pulse Source Pulse Oximeter Temp 98.3 F Temp Source Oral Pulse Oximetry (%) 96 Oxygen Delivery Method Room Air Intake Visit Reasons: Follow up Infection/Walk in 10/12/22//[phone] Intake Note: Patient is here with rash, and was treated with antibiotics, still not better after 7 day course of antibiotics. Patient Tobacco Use Status: Never used Tobacco Allergies levofloxacin [From LEVAQUIN] Allergy (Intermediate, Verified 10/26/22 12:08) RASH benzoin Allergy (Unknown, Verified 10/26/22 12:08) Unknown seasonal Allergy (Unknown, Uncoded 10/26/22 12:08) Unknown Cats Allergy (Unknown, Uncoded 10/26/22 12:08) Unknown Do you need a note to return to daycare/school/sports/work: No HPI HPI Comments History of Present Illness Details This is a 46-year-old female who presents to the office today for sick visit. Patient complaining of persistent rash between and underneath her breasts. She states she was seen here approximately 2 weeks ago when she was diagnosed with a fungal infection and sent home on ketoconazole cream. She states the rash started to worsen and she made a tele doc appointment was diagn osed with a superimposed cellulitis and she was given p.o. cephalexin 500 mg 4 times daily x7 days. Patient is supposed to take her last dose of cephalexin today and she states the rash is still persisting. She otherwise feels well without fever/chills, chest pain, shortness of breath, abdominal pain, or nausea/vomiting/diarrhea. [facility] Medical History Asthma Kidney stone Migraines Surgical History History of cystoscopy History of knee surgery History of lithotripsy History of lumpectomy of left breast (2007) Family History Maternal Grandmother Cancer of abdominal organ Family/Other Breast cancer, Onset Age: 30 Social History Housing: Apartment Alcohol intake: current Alcohol intake frequency: holidays/special occasions only Patient Tobacco Use Status: Never used Tobacco e-Cigarette/Vaping Use: Never Used Second Hand Smoke Exposure: No service: No Current occupational status: employed Cognitive needs: No Hearing needs: No Vision needs: Yes Female Reproductive History Menstrual Age of Menarche: 14 Review of Systems Const All systems reviewed & are unremarkable except as noted in HPI and below Reports no additional complaints Eyes Reports no additional complaints ENT Reports no additional complaints Card Reports no additional complaints Resp Reports no additional complaints GI Reports no additional complaints Reports no additional complaints Musc Reports no additional complaints Skin/Breast Reports system reviewed and no additional complaints, except as documented Neuro Reports no additional complaints Psych Reports no additional complaints Endo Reports no additional complaints Ayo/Lymph Reports no additional complaints Aller/Immun Reports no additional complaints Physical Exam Vital Signs: Last Vital Signs Temp 98.3 F 10/26/22 11:48 Pulse 95 10/26/22 11:48 BP 130/82 10/26/22 11:48 Pulse Ox 96 10/26/22 11:48 Oxygen Delivery Method Room Air 10/26/22 11:48 BMI result Body Mass Index 33.7 Const General: cooperative, healthy appearing, no acute distress and well developed Orientation/consciousness: patient oriented x3 HEENT Head: Yes normal to inspection Ears: hearing grossly normal bilaterally General nose exam: Normal external nose present Face and sinus: Yes normal facial exam Mouth: Normal oral and palatal mucosa present Eyes General: appearance normal, both eyes and all related structures Pupils: Equal, round and reactive pupils present EOM: EOMs intact bilaterally Resp Effort & Inspection: normal respiratory effort and no respiratory distress Auscultation: clear to auscultation bilaterally Cardio Rate: regular rate Rhythm: regular rhythm Heart sounds: no gallops, no murmurs and no rubs Peripheral pulses: Peripheral pulses 2+ throughout GI Inspection: No distended Palpation (GI): Soft to palpation and nontender Auscultation: normal bowel sounds Skin Other: Diffuse maculopapular rash with surrounding poorly circumscribed erythema located between and underneath patient's breast. Neuro General: patient oriented x3 Cranial nerves: Yes CN's II-XII intact bilaterally and Yes Equal, round and reactive pupils present Gait exam (Neuro): Normal gait present Motor exam (neuro): 5/5 motor strength present throughout Extrem General: Yes normal to inspection, Yes full ROM and Yes no clubbing, cyanosis or edema Psych Appearance: grossly normal Mental Status: mental status grossly normal Assessment & Plan Assessment & Plan (1) Candidiasis, intertrigo: Code(s): B37.2 - Candidiasis of skin and nail (2) Cellulitis of chest wall: Code(s): L03.313 - Cellulitis of chest wall Plan This is a 46-year-old female who has recently been treated for intertrigo candidiasis with superimposed cellulitis of her chest wall who presents to the office complaining of persistent rash. She states the rash has not significantly improved at all. She also states is starting to slightly spread. On physical examination, she has a diffuse maculopapular rash with poorly circumscribed surrounding erythema of her chest wall in between her breasts and underneath her breast. History and physical most consistent with intertrigo candidiasis with superimposed cellulitis, which has not responded to first-line treatments. Patient's vital signs are stable, her physical exam is otherwise benign, and she is overall nontoxic appearing. No concerns for systemic infection at this time. Patient is safe to be discharged home. She was sent home on p.o. trimethoprim sulfamethoxazole twice daily x7 days for more coverage, topical mupirocin ointment, nystatin powder, as well as p.o. fluconazole 150 mg x2 doses in case she develops a yeast infection given 2 courses of oral antibiotics. Patient is utilizing a probiotic. Patient was advised to follow-up here or go directly to the emergency room if she were to de velop systemic symptoms including fever/chills, nausea/vomiting, or worsening symptoms. Patient verbalizes her understanding and she is in agreement with the plan. Medications: New fluconazole may repeat second dose 72 hrs after first dose if symptoms persist 150 mg PO Q3D 2 tabs 0RF 2 doses sulfamethoxazole-trimethoprim 800-160 mg 1 tab PO BID 14 tabs 0RF mupirocin 2% 1 appl topical TID 15 grams 0RF nystatin 1 appl topical BID 15 grams 0RF Coding Level of Care Code Est Pt Level 3 (19411) Diagnoses Candidiasis, intertrigo B37.2 Cellulitis of chest wall L03.313
[2022-10-26 11:48] VITALS: BP 130/82; PULSE 95; TEMP 36.8; O2SAT 96; BMI 33.7
== END 2022-10-26 12:44 | disposition home or self-care (01) ==
PROVIDERS: PCP Nurse Practitioner Family; Visit Provider Physician Assistant Medical
DX: B37.2 Candidiasis of skin and nail (principal); L03.313 Cellulitis of chest wall
CPT/HCPCS: 99051; 99213

== ENCOUNTER 2023-01-06 09:24 | Emergency (ER) | payer OTHER, MEDICAID, SELFPAY ==
--- NOTE | ~2023-01-06 | XR_ITS ---
EXAMINATION: XR CHEST CLINICAL INFORMATION: Shortness of breath COMPARISON: Previous chest x-ray most recent January 2021 TECHNIQUE: Frontal view of the chest was obtained. FINDINGS: No significant abnormality is noted involving the heart, lungs, mediastinum, bony thorax or soft tissues. XR/XR chest 1V IMPRESSION: Unremarkable examination.
--- NOTE | 2023-01-06 09:29 | ECG_ITS ---
Test Reason : SOB Blood Pressure : / mmHG Vent. Rate : 070 BPM Atrial Rate : 070 BPM P-R Int : 164 ms QRS Dur : 086 ms QT Int : 418 ms P-R-T Axes : 033 039 020 degrees QTc Int : 451 ms Normal sinus rhythm Normal ECG When compared with ECG of 04-MAY-2020 00:01, No significant change was found Referred By: Generic ED Physician Electronically Signed By:BHAVYA RAMIRES MD
[2023-01-06 09:31] VITALS: BP 138/72; BP 156/87; PULSE 70; PULSE 77; RESP 12; TEMP 36.8; O2SAT 97; O2SAT 99; BMI 33.8
--- NOTE | 2023-01-06 09:54 | ED_ITS ---
HPI - SOB/Dyspnea General Chief Complaint: Dyspnea Stated Complaint: SOB,DIZZY,OWN INHALER NOT WORKING PER EMS Time Seen by Provider: 01/06/23 09:39 Source: patient and RN notes reviewed Mode of arrival: ambulatory Limitations: no limitations History of Present Illness HPI Narrative: This is a 47-year-old female, the history of asthma, kidney stones, and migraines, presenting to the emergency department via EMS, for evaluation of shortness of breath, and dizziness. Patient reports that she was at work when she suddenly felt chest tightness, shortness of breath insert to cough. She took 2 puffs of her inhaler, and her symptoms do not resolve. She states that 20 minutes later she was approached by nurse, and went to the nurse's office and patient states that she was still continuing to have chest tightness and shortness of breath. She states that at that time she had lightheadedness and dizziness. She states that since this episode that occurred at approximately 08:20, she is still feeling ?not herself?. She feels dizzy and lightheaded. She admits that she has a stressful job. And she also states that she has been doing a lot of yard work. She denies any recent illness. Denies fevers, chills, chest pain, palpitations, abdominal pain, nausea, vomiting or diarrhea. She denies any recent travel, surgeries, hospitalizations. She states that her father has a history of DVTs, unsure if she has a history of clotting disorder. She admits to having some right-sided anterior rib pain with inspiration. No other complaints or concerns at this time. MD elicited complaint: shortness of breath and cough Timing: constant Treatment prior to arrival: none Related Data Home oxygen amount: none Home Medications Medication Instructions Recorded Confirmed gabapentin 600 mg tablet 600 mg PO DAILY@1700 03/09/21 09/04/22 levonorgestrel 21 mcg/24 hours (8 intrauterine 04/25/21 09/04/22 yrs) 52 mg intrauterine device (Mirena) albuterol sulfate 90 mcg/actuation 1 puff inhalation QID PRN wheezing 05/10/21 09/04/22 aerosol inhaler xmeulivqkc-bigtjohtphiuz-xczbazuj 2 cap PO Q4H PRN 10/12/22 50 mg-300 mg-40 mg capsule Previous Rx's Medication Instructions Recorded tamsulosin 0.4 mg capsule 0.4 mg PO DAILY 30 days #30 caps 01/28/22 tizanidine 4 mg capsule 4 mg PO BEDTIME PRN muscle 01/28/22 spasticity 30 days #30 caps meloxicam 15 mg tablet 15 mg PO DAILY #14 tabs 02/23/22 phenazopyridine 200 mg tablet 200 mg PO TID 3 days #9 tabs 02/23/22 (Pyridium) ketoconazole 2 % topical cream 1 appl topical BID #30 grams 10/12/22 nystatin 100,000 unit/gram topical 1 appl topical BID #30 grams 10/12/22 powder fluconazole 150 mg tablet 150 mg PO Q3D 2 doses #2 tabs 10/26/22 mupirocin 2 % topical ointment 1 appl topical TID #15 grams 10/26/22 nystatin 100,000 unit/gram topical 1 appl topical BID #15 grams 10/26/22 powder sulfamethoxazole 800 1 tab PO BID #14 tabs 10/26/22 mg-trimethoprim 160 mg tablet budesonide-formoterol HFA 80 1 inh inhalation BID #10.2 grams 12/30/22 mcg-4.5 mcg/actuation aerosol inhaler (Symbicort) Allergies Allergy/AdvReac Type Severity Reaction Status Date / Time levofloxacin [From LEVAQUIN] Allergy Intermediate RASH Verified 10/26/22 12:08 benzoin Allergy Unknown Unknown Verified 10/26/22 12:08 seasonal Allergy Unknown Unknown Uncoded 10/26/22 12:08 Cats Allergy Unknown Unknown Uncoded 10/26/22 12:08 Review of Systems 2 Review of Systems: Yes all other systems are reviewed and are negative Constitutional: Constitutional: Reports as per [facility] Past Medical History Attestation statement: The following information was validated with the patient. Medical History Asthma Kidney stone Migraines Surgical History History of cystoscopy History of knee surgery History of lithotripsy History of lumpectomy of left breast (2007) Family History Family History Maternal Grandmother Cancer of abdominal organ Family/Other Breast cancer, Onset Age: 30 Social History Social History Housing: Apartment Alcohol intake: current Alcohol intake frequency: a few times a month Patient Tobacco Use Status: Never used Tobacco Smoked in Last 30 Days: No e-Cigarette/Vaping Use: Never Used Second Hand Smoke Exposure: No Use of substances other than those prescribed or required for medical reasons: No Advance Directives: No Advance Directives Information Provided: Yes service: No Current occupational status: employed Cognitive needs: No Hearing needs: No Vision needs: Yes Physical Exam 2 Vital Signs: Vital Signs: Last Vital Signs Temp 98.2 F 01/06/23 09:31 Pulse 70 01/06/23 14:58 Resp 20 01/06/23 14:58 BP 146/86 H 01/06/23 14:58 Pulse Ox 97 01/06/23 14:58 O2 Del Method Room Air 01/06/23 14:58 BMI result Body Mass Index 33.8 Const: General: cooperative, comfortable and no acute distress O rientation/consciousness: patient oriented x3 Limitations: no limitations HEENT: Head: Yes normal to inspection, Yes normocephalic and Yes atraumatic Ears: hearing grossly normal bilaterally General nose exam: Normal external nose present Face and sinus: Yes normal facial exam Mouth: Normal oral and palatal mucosa present, oropharynx normal and moist mucous membranes Throat: Yes posterior oropharynx normal Eyes: General: appearance normal, both eyes and all related structures E yelids: Yes eyelids normal Conjunctivae: conjunctivae normal Sclerae: s clerae normal Pupils: Equal, round and reactive pupils present EOM: EOMs intact bilaterally Neck: Neck: Yes normal visual inspection, Yes full ROM and Yes no lymphadenopathy Lymphatic: no lymphadenopathy noted Chest: Chest palpation & inspection: normal inspection of the chest Resp: Effort & Inspection: normal respiratory effort and able to speak in complete sentences Auscultation: clear to auscultation bilaterally, no crackles, no rales, no rhonchi and no wheezes Cardio: Rate: regular rate Rhythm: regular rhythm Heart sounds: S1 normal heart sound present and S2 normal heart sound present GI: Other: Abdomen soft, nontender, nondistended Inspection: Yes normal to inspection Skin: General skin exam: no rashes or lesions noted Trauma: no lacerations or abrasions Wounds: no wounds Neuro: General: patient oriented x3 and moves all extremities Cranial nerves: Yes Equal, round and reactive pupils present Extrem: General: Yes normal to inspection Right upper extremity: normal to inspection Left upper extremity: normal to inspection Right lower extremity: normal to inspection Left lower extremity: normal to inspection Course Reevaluation(s) Reevaluation #1: Patient feeling well, no leukocytosis, stable H&H, 1st troponin negative. Negative for flu, RSV, COVID. Pending chest x-ray. EKG, sinus rhythm with no acute ischemic changes noted. Will await 2nd troponin to be down at 14:00 and chest x-ray report. Time: 13:26 Reevaluation #2: second troponin negative. Sxs likely due to reactive airway disease. Lungs still CTA bilaterally. Discussed negative workup with patient. No questions or concerns. Pt understands and agrees with plan. given return precautions. Stable for d/c/ Medical Decision Making Medical Decision Making [facility] Narrative: This is a 47-year-old female, with a history of asthma, presenting to the emergency department with complaints of sudden lightheadedness, chest tightness, and cough. Patient states that this started at 08:15 this morning. She has taken multiple puffs of her inhaler without any relief. She states that her chest tightness has improved however still reporting lightheadedness and dizziness. Patient denies any chest pain on arrival, mildly hypertensive at 156/87, all other vital signs within normal limits. Father has a history of clotting problems, patient has no history of blood clotting disorder. No calf tenderness, or any risk factors for blood clots. My suspicion for PE is low, will order D-dimer for further evaluation. Plan: X-ray, EKG, labs, viral swabs Differential Diagnosis Differential Diagnoses: The differential diagnosis associated with the presentation includes Reactive airway disease, asthma exacerbation, ACS Admission/Observation Consideration of admission/observation: Escalation of care including admission/observation considered Patient would have been admitted to the hospital had her work up had any findings where hospital admission was appropriate and her clinical presentation warranted hospital admission. Lab Data [facility] Lab Attestation statement: I reviewed the patient's lab results. 01/06/23 10:17 01/06/23 10:17 Labs: Lab Results 01/06/23 01/06/23 Range/Units 10:17 15:19 WBC 6.0 (4.8-10.8) X10*3/uL RBC 4.92 (4.20-5.50) X10*6/uL Hgb 14.3 (12.0-16.0) g/dl Hct 42.4 (37.0-47.0) % MCV 86.2 (80.0-98.0) fL MCH 29.1 (27.0-33.0) pg MCHC 33.7 (31.0-35.0) g/dl RDW 11.8 (11.0-16.0) % Plt Count 255 (160-400) X10*3/uL MPV 9.8 (9.4-12.3) fL Immature Gran % (Auto) 0.3 (0.0-0.4) % Neut % (Auto) 66.8 (45-73) % Lymph % (Auto) 21.9 (20-40) % [place] % (Auto) 8.5 (2-11) % Eos % (Auto) 1.7 (0-4) % Baso % (Auto) 0.8 (0-2) % Lymph # (Auto) 1.3 (1.2-4.9) X10*3/uL [place] # (Auto) 0.5 (0.1-1.2) X10*3/uL Eos # (Auto) 0.1 (0.0-0.4) X10*3/uL Baso # (Auto) 0.1 (0.0-0.2) X10*3/uL Abs Immat Gran (auto) 0.02 (0.00-0.03) X10*3/uL Absolute Neuts (auto) 4.0 (2.0-8.3) x10*3/uL Absolute Nucleated RBC 0.000 (0.0-0.012) X10*3/uL Nucleated RBC % (auto) 0.0 (0.0-0.2) /100WBC D-Dimer High Sensitivty < 150 NG/ML Sodium 140 (135-145) mmol/L Potassium 3.4 D (3.3-5.1) mmol/L Chloride 111 H (96-108) mmol/L Carbon Dioxide 24 (22-29) mmol/L Anion Gap 8 L (12-20) BUN 10 (9-16) mg/dL Creatinine 0.83 (0.5-1.4) mg/dL Estim Creat Clear Calc 108.5 Estimated GFR > 60 Random Glucose 133 H (60-115) mg/dL Calcium 9.3 (8.4-10.2) mg/dL Total Bilirubin 0.5 (0.0-1.0) mg/dL Direct Bilirubin 0.2 (0.0-0.5) mg/dL AST 14 (5-31) U/L ALT 12 (0-31) U/L Alkaline Phosphatase 55 (39-117) U/L Troponin I High Sens < 2.7 < 2.7 (<3.5-17.0) ng/L Total Protein 6.6 (6.5-8.0) g/dL Albumin 4.2 (3.5-5.0) g/dL Influenza Type A (PCR) NEGATIVE (Negative) Influenza Type B (PCR) NEGATIVE (Negative) RSV RNA Qual (PCR) NEGATIVE (Negative) SARS-CoV-2 RNA (RT-PCR) NEGATIVE (Negative) Independent Interpretation I performed an independent interpretation of an: EKG Interpretation: NSR with a ventricular rate of 70bpm, no st elevation or depression. Radiology Impression Discussion of test interpretation with radiology: I have reviewed the radiologist's reading. Radiologist Impression: EXAMINATION: XR CHEST CLINICAL INFORMATION: Shortness of breath COMPARISON: Previous chest x-ray most recent January 2021 TECHNIQUE: Frontal view of the chest was obtained. FINDINGS: No significant abnormality is noted involving the heart, lungs, mediastinum, bony thorax or soft tissues. XR/XR chest 1V IMPRESSION: Unremarkable examination. Dictated By: Kavya Santiago MD Discharge Plan Discharge Clinical Impression: Reactive airway disease Patient Disposition: Home, Self-Care Instructions: Asthma (ED), How Your Lungs Work (ED) Additional Instructions: You tested negative for COVID,RSV, flu today. Please continue using albuterol inhaler as needed. Your chest x-ray was normal. Your EKG was reassuring. Your labs were reassuring. It is unclear what caused you to have your symptoms today. Please follow up with your primary care physician regarding this visit. I am giving you a referral to a recovery operator helper, call to make an appointment. If any new or worsening symptoms occur, including chest pain, shortness of breath, please return for re-evaluation. Prescriptions: No Action tamsulosin 0.4 mg capsule 0.4 mg PO DAILY 30 Days Qty: 30 0RF tizanidine 4 mg capsule 4 mg PO BEDTIME PRN (Reason: muscle spasticity) 30 Days Qty: 30 0RF budesonide-formoterol [Symbicort] 80-4.5 mcg/actuation HFA aerosol inhaler 1 inh inhalation BID Qty: 10.2 1RF albuterol sulfate 90 mcg/actuation HFA aerosol inhaler 1 puff inhalation QID PRN (Reason: wheezing) Mirena 20 mcg/24 hours (7 yrs) 52 mg intrauterine device intrauterine figufxmwtk-njkulbjhpizcy-fudw 50-300-40 mg capsule 2 cap PO Q4H PRN nystatin 100,000 unit/gram powder 1 appl topical BID Qty: 30 0RF ketoconazole 2 % cream 1 appl topical BID Qty: 30 0RF phenazopyridine [Pyridium] 200 mg tablet 200 mg PO TID 3 Days Qty: 9 0RF meloxicam 15 mg tablet 15 mg PO DAILY Qty: 14 0RF fluconazole 150 mg tablet 150 mg PO Q3D Qty: 2 0RF Rx Instructions: may repeat second dose 72 hrs after first dose if symptoms persist sulfamethoxazole-trimethoprim 800-160 mg tablet 1 tab PO BID Qty: 14 0RF mupirocin 2 % ointment 1 appl topical TID Qty: 15 0RF nystatin 100,000 unit/gram powder 1 appl topical BID Qty: 15 0RF gabapentin 600 mg tablet 600 mg PO DAILY@1700 Referrals: [facility] [Provider Group]
[2023-01-06 10:29] LABS: MANUAL DIFF FLAG NO
[2023-01-06 10:30] LABS: Basophils Absolute Auto 0.1 X10*3/uL (0.0-0.2); Basophils Percent Auto 0.8 % (0-2); Eosinophils Absolute Auto 0.1 X10*3/uL (0.0-0.4); Eosinophils Percent Auto 1.7 % (0-4); Hematocrit 42.4 % (37.0-47.0); Hemoglobin 14.3 g/dl (12.0-16.0); Imm Gran Abs Auto 0.02 X10*3/uL (0.00-0.03); Imm Gran Pct Auto 0.3 % (0.0-0.4); Lymphocytes Absolute Auto 1.3 X10*3/uL (1.2-4.9); Lymphocytes Percent Auto 21.9 % (20-40); Mean Corpuscular HGB Conc 33.7 g/dl (31.0-35.0); Mean Corpuscular Hemoglobin 29.1 pg (27.0-33.0); Mean Corpuscular Volume 86.2 fL (80.0-98.0); Mean Platelet Volume 9.8 fL (9.4-12.3); Monocytes Absolute Auto 0.5 X10*3/uL (0.1-1.2); Monocytes Percent Auto 8.5 % (2-11); Neutrophils Percent Auto 66.8 % (45-73); Platelet Count 255 X10*3/uL (160-400); Red Blood Count 4.92 X10*6/uL (4.20-5.50); Red Cell Distribution Width 11.8 % (11.0-16.0)
[2023-01-06 10:44] LABS: D Dimer High Sensitivity < 150 NG/ML
[2023-01-06 10:47] VITALS: BP 127/76; BP 145/88; PULSE 67; PULSE 78
[2023-01-06 10:47] LABS: Alanine Aminotransferase 12 U/L (0-31); Albumin Level 4.2 g/dL (3.5-5.0); Alkaline Phosphatase 55 U/L (39-117); Anion Gap 8 (12-20); Aspartate Amino Transferase 14 U/L (5-31); Bilirubin Direct 0.2 mg/dL (0.0-0.5); Bilirubin Total 0.5 mg/dL (0.0-1.0); Blood Urea Nitrogen 10 mg/dL (9-16); Calcium 9.3 mg/dL (8.4-10.2); Carbon Dioxide 24 mmol/L (22-29); Chloride 111 mmol/L (96-108); Creatinine Clr Calc Pharmacy 108.5; Estimated Glomerular Filt Rate > 60; Glucose Random 133 mg/dL (60-115); Potassium 3.4 mmol/L (3.3-5.1); Sodium 140 mmol/L (135-145); Total Protein 6.6 g/dL (6.5-8.0)
[2023-01-06 10:49] VITALS: BP 145/82; PULSE 75
[2023-01-06 10:52] LABS: Troponin-I High Sensitivity < 2.7 ng/L (<3.5-17.0)
[2023-01-06 11:07] LABS: Influenza A PCR NEGATIVE (Negative); Influenza B PCR NEGATIVE (Negative); Resp Syncy Virus RNA Qual PCR NEGATIVE (Negative); SARS COV2 PCR INHOUSE NEGATIVE (Negative)
[2023-01-06 14:58] VITALS: BP 146/86; PULSE 70; RESP 20; O2SAT 97
[2023-01-06 16:00] LABS: Troponin-I High Sensitivity < 2.7 ng/L (<3.5-17.0)
== END 2023-01-06 17:22 | disposition home or self-care (01) ==
PROVIDERS: Physician Assistant Medical; Emergency Provider Emergency Medicine; PCP Nurse Practitioner Family
DX: J45.909 Unspecified asthma, uncomplicated (principal); R06.02 Shortness of breath; R42 Dizziness and giddiness; R07.89 Other chest pain; R07.81 Pleurodynia; R05.9 Cough, unspecified; Z20.822 Contact with and (suspected) exposure to COVID-19; Z20.828 Contact with and (suspected) exposure to other viral communicable diseases; Z79.899 Other long term (current) drug therapy
CPT/HCPCS: 0241U; 36415; 71045; 80048; 80076; 84484; 85025; 85379; 93005; 99283; 99285

== ENCOUNTER 2023-01-08 08:49 | Outpatient (AMB) | payer OTHER, MEDICAID, SELFPAY ==
[2023-01-08 09:29] VITALS: BP 130/90; PULSE 82; TEMP 36.5; O2SAT 97; BMI 33.6
--- NOTE | 2023-01-08 09:29 | AM.OFFWIN_ITS ---
Intake Vital Signs 01/08/23 09:29 Height 5 ft 9 in Weight 227 lb 6 oz BMI 33.6 BP 130/90 H Blood Pressure Location Rt brachial Position Sitting Pulse 82 Pulse Source Pulse Oximeter Temp 97.7 F Temp Source Temporal Artery Scan Pulse Oximetry (%) 97 Oxygen Delivery Method Room Air Intake Visit Reasons: EST/ chest tightness/ dizzy / headache(lobby) Intake Note: pt is here for c/o chest tightness, dizziness, headache. was at ER on friday and feels like they didnt do anything to help her Patient Tobacco Use Status: Never used Tobacco Allergies levofloxacin [From LEVAQUIN] Allergy (Intermediate, Verified 01/08/23 09:30) RASH benzoin Allergy (Unknown, Verified 01/08/23 09:30) Unknown seasonal Allergy (Unknown, Uncoded 10/26/22 12:08) Unknown Cats Allergy (Unknown, Uncoded 10/26/22 12:08) Unknown Do you need a note to return to daycare/school/sports/work: Yes HPI HPI Comments History of Present Illness Details Patient is a 47-year-old female in today for sick visit. Patient was recently seen in the emergency department 2 days prior to appointment. Patient states that prior to her emergency room visit she started to feel chest tightness, cough, shortness of breath. She used her coworkers albuterol inhaler with 4 puffs that had no effect. Patient was then sent to the emergency room. Patient was discharged from the emergency room with a pulmonary referral, no medication. She presents today with dry cough, headache, chest tightness, wheeze. Patient has not taken her Symbicort as she believes it set off her reaction that the center to the emergency room. Patient states son at home has not been feeling well. Patient offers subjective fever. Patient's head is normocephalic. Patient has slight expiratory wheeze, with some diminished breath sounds. Dry cough. Sinuses nontender. Normal heart rate rhythm. No lymphadenopathy. Patient likely has asthma exacerbation. Unlikely to be pulmonary embolism, pneumonia or pneumothorax. Will prescribe prednisone for 5 days, will prescribe benzonatate on today for cough, And will switch the patient's Symbicort to Advair Diskus. Patient is agreeable to these changes. She has been instructed to make her appointment with her executive communications manager in to complete her pulmonary function tests. Patient has been educated on signs of worsening symptoms and when to return to the walk-in clinic or when to present to the emergency room. [facility] Medical History Asthma Kidney stone Migraines Surgical History History of cystoscopy History of knee surgery History of lithotripsy History of lumpectomy of left breast (2007) Family History Maternal Grandmother Cancer of abdominal organ Family/Other Breast cancer, Onset Age: 30 Social History Housing: Apartment Alcohol intake: current Alcohol intake frequency: a few times a month Patient Tobacco Use Status: Never used Tobacco e-Cigarette/Vaping Use: Never Used Second Hand Smoke Exposure: No service: No Current occupational status: employed Cognitive needs: No Hearing needs: No Vision needs: Yes Female Reproductive History Menstrual Age of Menarche: 14 Review of Systems Const All systems reviewed & are unremarkable except as noted in HPI and below Reports headache(s) ENT Denies dizziness, Reports headache(s), Reports nasal congestion, Reports sinus pressure and Reports sore throat Card Denies chest pain and Denies dyspnea Resp Reports cough, Denies dyspnea and Reports wheezing Neuro Denies confusion, Denies dizziness and Reports headache(s) Psych Denies confusion Aller/Immun Reports wheezing Physical Exam Vital Signs: Last Vital Signs Temp 97.7 F 01/08/23 09:29 Pulse 82 01/08/23 09:29 BP 130/90 H 01/08/23 09:29 Pulse Ox 97 01/08/23 09:29 Oxygen Delivery Method Room Air 01/08/23 09:29 BMI result Body Mass Index 33.6 Vital signs reviewed and are stable Const General: cooperative and no acute distress; No confusion Orientation/consciousness: patient oriented x3 and No confusion Limitations: no limitations HEENT Head: Yes normocephalic Ears: external ears normal Face and sinus: Yes sinus tenderness Neck Neck: Yes no lymphadenopathy Resp Effort & Inspection: normal respiratory effort and Actively coughing Auscultation: wheezes expiratory wheezes ( bilaterally) and upper bilaterally Cardio Rate: regular rate Rhythm: regular rhythm Neuro General: patient oriented x3 and No confusion Cognition (Neuro): normal cognition Assessment & Plan Assessment & Plan (1) Asthma exacerbation: Code(s): J45.901 - Unspecified asthma with (acute) exacerbation Qualifiers: Asthma severity: moderate Asthma persistence: unspecified Qualified Code(s): J45.901 - Unspecified asthma with (acute) exacerbation Plan: patient will be prescribed prednisone 50 mg to be taken for 5 days. Patient will be prescribed benzonatate for dry cough. Will change for Symbicort inhaler to Advair Diskus. she will make an appointment with executive communications manager. She has been educated on signs of worsening symptoms and when to return to the walk-in or when to present to the emergency room. Patient is agreeable to this plan. Patient tolerated DuoNeb treatment well while in office. Orders: Orders SARS-CoV2/FLU/RSV Today J06.9 - Acute upper respiratory infection, unspecified AMB Nebulizer Treatment Today J45.909 - Unspecified asthma, uncomplicated Medications: New ipratropium-albuterol 0.5 mg-3 mg(2.5 mg base)/3 mL 3 mL inhalation ONCE 3 mL 0RF J45.909 - Unspecified asthma, uncomplicated benzonatate 100 mg PO BID PRN 10 caps 0RF cough fluticasone propion-salmeterol 100-50 mcg/dose (Advair Diskus) 1 inh inhalation Q12H 60 ea 0RF prednisone 50 mg PO DAILY 5 tabs 0RF albuterol sulfate for up to 3 doses 2.5 mg (0.5 mL) inhalation Q8H PRN 30 ea 0RF shortness of breath or wheezing Discontinued budesonide-formoterol 80-4.5 mcg/actuation (Symbicort) Discontinued Reason: Patient no longer taking 1 inh inhalation BID 10.2 grams 1RF Coding Level of Care Code Est Pt Level 3 (14249) Diagnoses Moderate asthma with exacerbation, unspecified whether persistent J45.901 Asthma severity: moderate Asthma persistence: unspecified Time Spent (min) 20
== END 2023-01-08 11:23 | disposition home or self-care (01) ==
PROVIDERS: PCP Nurse Practitioner Family; Visit Provider Nurse Practitioner Primary Care
DX: J45.901 Unspecified asthma with (acute) exacerbation (principal)
CPT/HCPCS: 94640; 99214; 99499; J7620

== ENCOUNTER 2023-01-08 11:02 | Outpatient (REF) | payer OTHER, MEDICAID, SELFPAY ==
[2023-01-08 14:37] LABS: Influenza A PCR NEGATIVE (Negative); Influenza B PCR NEGATIVE (Negative); Resp Syncy Virus RNA Qual PCR NEGATIVE (Negative); SARS COV2 PCR INHOUSE NEGATIVE (Negative)
== END 2023-01-08 11:03 | disposition home or self-care (01) ==
LOC: HO.LAB 11:02
PROVIDERS: Visit Provider Nurse Practitioner Primary Care
DX: Z11.52 Encounter for screening for COVID-19 (principal); J06.9 Acute upper respiratory infection, unspecified
CPT/HCPCS: 0241U

== ENCOUNTER 2023-02-03 16:39 | Outpatient (REF) | payer OTHER, SELFPAY ==
--- NOTE | ~2023-02-03 | XR_ITS ---
EXAMINATION: XR CHEST CLINICAL INFORMATION: Wheezing COMPARISON: 01/06/2023 TECHNIQUE: 2 views of the chest were obtained. FINDINGS: Lung volumes are slightly decreased compared to prior. There is a small area of left basilar atelectasis. No significant abnormality is noted involving the heart, lungs, mediastinum, bony thorax or soft tissues. XR/XR chest 2V IMPRESSION: No acute intrathoracic disease. Left basilar atelectasis.
== END 2023-02-03 16:40 | disposition home or self-care (01) ==
LOC: HO.XRAY 16:39
PROVIDERS: PCP Nurse Practitioner Family; Visit Provider Nurse Practitioner Family
DX: R06.2 Wheezing (principal)
CPT/HCPCS: 71046

== ENCOUNTER 2023-02-11 15:28 | Outpatient (AMB) | payer OTHER, MEDICAID, SELFPAY ==
[2023-02-11 15:44] VITALS: BP 126/72; PULSE 94; O2SAT 98; BMI 34.4
--- NOTE | 2023-02-11 15:44 | A.OFFVIS_ITS ---
Intake Vital Signs 02/11/23 15:44 Height 5 ft 9 in Weight 233 lb BMI 34.4 BP 126/72 Blood Pressure Location Rt brachial Position Sitting Pulse 94 Pulse Source Pulse Oximeter Pulse Oximetry (%) 98 Oxygen Delivery Method Room Air Intake Visit Reasons: Cough [employer]ing [employer] Supervisor Required: No Trimming Inspector: Trimming Inspector offered & declined Accompanied by: Self / Same As Patient Allergies levofloxacin [From LEVAQUIN] Allergy (Intermediate, Verified 02/11/23 15:51) RASH benzoin Allergy (Unknown, Verified 02/11/23 15:51) Unknown seasonal Allergy (Unknown, Uncoded 02/11/23 15:51) Unknown Cats Allergy (Unknown, Uncoded 02/11/23 15:51) Unknown lactose Adverse Reaction (Severe, Uncoded 02/11/23 15:57) leg cramping Medication List - Last Reconciled 02/11/23 by Harmony Townsend LPN albuterol sulfate 90 mcg/actuation 1 puff inhalation QID PRN albuterol sulfate 2.5 mg (3 mL) inhalation Q6H benzonatate 100 mg PO BID PRN etwvqcyham-mpviwijvoimby-piga 50-300-40 mg 2 caps PO Q4H PRN fluconazole 150 mg PO Q3D 2 doses fluticasone propionate 220 mcg/actuation (Flovent HFA) 2 puffs inhalation BID gabapentin 600 mg PO DAILY@1700 ketoconazole 2% 1 appl topical BID levonorgestrel (Mirena) intrauterine mupirocin 2% 1 appl topical TID nystatin 1 appl topical BID nystatin 1 appl topical BID phenazopyridine (Pyridium) 200 mg PO TID 3 days prednisone 4 tabl qd for 4 days, then 3 tabl qd for 4 days, then 2 tabl qd for 4 days, then 1 tabl qd for 4 days orally daily; prednisone 50 mg PO DAILY tamsulosin 0.4 mg PO DAILY 30 days tizanidine 4 mg PO BEDTIME PRN 30 days HPI Cough HPI Details Edi is a pleasant 47 year old female, never smoker, with underlying history of asthma. She was referred for pulmonary evaluation by [facility]. She was evaluated at the ED on 01/06/23 with sudden onset cough, chest tightness and dyspnea, examination, Respiratory panel negative and CXR unremarkable, so was discharged on albuterol PRN. She was seen yesterday at [facility] for continued symptoms and was started on prednisone. Reportedly CXR revealed bibasilar atelectasis. She contracted COVID in July and feels symptoms of reactive airway started shortly after. PCP recently prescribed Flovent, however due to insurance issues was only able to start yesterday. Previously she was on symbicort since August but developed adverse effects due to lactose intolerance. She notes her son has asthma and father, smoker, with COPD. She denies any occupational exposures. She does note as a child having a mold allergy that trigger respiratory symptoms. She denies any recent allergy testing. [facility] Medical History Asthma Kidney stone Migraines Surgical History History of cystoscopy History of knee surgery History of lithotripsy History of lumpectomy of left breast (2007) Family History Maternal Grandmother Cancer of abdominal organ Family/Other Breast cancer, Onset Age: 30 Social History (Updated 02/11/23 @ 15:56 by Harmony Townsend LPN) Housing: Apartment Alcohol intake: current Alcohol intake frequency: a few times a month Patient Tobacco Use Status: Never used Tobacco e-Cigarette/Vaping Use: Never Used Second Hand Smoke Exposure: No service: No Current occupational status: employed Cognitive needs: No Hearing needs: No Vision needs: Yes Female Reproductive History Menstrual Age of Menarche: 14 Review of Systems Const Denies chills, Denies excessive sweating, Denies fever(s), Denies headache(s) and Denies night sweats Eyes Denies dry eyes, Denies irritation and Denies itchy eyes ENT Reports Normal hearing present, Denies headache(s), Denies nasal congestion, Denies nasal discharge, Denies post nasal drip and Denies sore throat Card Denies chest pain, Denies chest pain at rest, Denies chest pain with activity, Denies claudication, Denies leg edema, Denies dyspnea, Denies dyspnea on exertion, Denies orthopnea and Denies paroxysmal nocturnal dyspnea Resp Reports chest congestion, Reports cough, Denies excessive phlegm production, Denies pain on inspiration, Denies pain with cough, Denies dyspnea, Denies dyspnea on exertion, Denies stridor and Denies wheezing Musc Denies myalgias Neuro Reports Normal hearing present and Denies headache(s) Endo Denies excessive sweating Ayo/Lymph Denies lymphadenopathy Aller/Immun Denies itchy eyes, Denies seasonal rhinorrhea and Denies wheezing Physical Exam Vital Signs: Last Vital Signs Pulse 94 02/11/23 15:44 BP 126/72 02/11/23 15:44 Pulse Ox 98 02/11/23 15:44 Oxygen Delivery Method Room Air 02/11/23 15:44 BMI result Body Mass Index 34.4 Const General: cooperative, healthy appearing, comfortable, no acute distress, well developed and alert Orientation/consciousness: patient oriented x3 Limitations: no limitations HEENT Head: Yes normal to inspection, Yes normocephalic and Yes atraumatic Ears: hearing grossly normal bilaterally and external ears normal Eyes General: appearance normal, both eyes and all related structures Eyelids: Yes eyelids normal Sclerae: sclerae normal EOM: EOMs intact bilaterally Neck Neck: Yes normal visual inspection and Yes no lymphadenopathy Lymphatic: no lymphadenopathy noted Chest Chest palpation & inspection: normal inspection of the chest Resp Other: persistent harsh cough throughout visit, mildly improved after duoneb Effort & Inspection: normal respiratory effort, able to speak in complete sentences, no audible wheezes, Actively coughing, no stridor, not tachypneic, no tripod positioning and no use of accessory muscles Auscultation: no crackles, no rhonchi, no wheezes and diminished lung sounds Cardio Jugular venous distension: no JVD Rate: regular rate Rhythm: regular rhythm Skin Other: warm, dry General skin exam: no rashes or lesions noted Neuro General: patient oriented x3 Cranial nerves: Yes Normal hearing present Cognition (Neuro): normal cognition Gait exam (Neuro): Normal gait present Extrem General: Yes normal to inspection, Yes capillary refill normal, Yes no clubbing, cyanosis or edema and Yes no pedal edema Psych Appearance: grossly normal and well kempt Speech and movement: Normal speech and movement present and Clear speech present Affect: normal affect Attitude: cooperative Thought process: Normal thought process present Thought content: Normal thought content present Insight: Good insight present (Psych) Judgement: Good judgement present (Psych) Office Procedures Nebulizer Treatment Nebulizer Treatment [id number]-Inyfhpbvn/MDI RX initial, or Nebulizer Subsequent Treatment Office Meds ipratropium 0.5 mg-albuterol 3 mg (2.5 mg base)/3 mL nebulization josen Performing Provider: Krystle Hood NP Performing Location: [facility] Administered by: Harmony Townsend LPN on 02/11/23 16:40 Dose Route Admin Location Dispensed Lot Number Expiration Date [facility] Marketing Database Coordinator 3 mL inhalation 3 mL [id number] 11/30/24 83339-621-76 [employer] Marketing Assessment & Plan Assessment & Plan (1) Cough: Code(s): R05.9 - Cough, unspecified (2) Asthma: Comment: has rescue inhaler only Code(s): J45.909 - Unspecified asthma, uncomplicated (3) Environmental allergies: Code(s): Z91.09 - Other allergy status, other than to drugs and biological substances Plan Edi's symptoms are likely related to underlying asthma with an allergic component. Will send for PFT and RAST to evaluate. Nebulizer treatment given in office, with symptomatic improvements. Nebulizer machine given in office and will send in duoneb to use PRN. Given patient has had continued symptoms despite prednisone, will empirically prescribe doxycycline. Patient reports inadequate effect with azithromycin in the past. Will also send in ICS/LABA. Patient with lactose intolerance and can not tolerate dry powder inhalers, will switch Flovent to Advair HFA. If symptoms persist after antibiotics and prednisone, will send for chest CT, All questions were answered and patient is in agreement of plan. Will follow up to review results. Orders: Orders Rast Allergen Today Z91.09 - Other allergy status, other than to drugs and biological substances AMB Nebulizer Treatment 02/11/23 J45.909 - Unspecified asthma, uncomplicated, R05.9 - Cough, unspecified Complete Blood Count Auto Diff Today Z91.09 - Other allergy status, other than to drugs and biological substances Immunoglobulin E Today Z91.09 - Other allergy status, other than to drugs and biological substances PFT pulmonary function test Today R05.9 - Cough, unspecified Medications: New doxycycline hyclate 100 mg PO BID 20 caps 0RF fluticasone propion-salmeterol 115-21 mcg/actuation (Advair HFA) 2 puffs inhalation Q12H 12 grams 3RF Coding Level of Care Code New Pt Level 4 (04761) Diagnoses Cough R05.9 Asthma J45.909 Environmental allergies Z91.09 CPT Codes Nebulizer Treatment - Nebulizer Treatment, initial or subsequent: 88995- Nebulizer/MDI RX initial, or Nebulizer Subsequent Treatment ([id number])
== END 2023-02-11 16:43 | disposition home or self-care (01) ==
PROVIDERS: PCP Nurse Practitioner Family; Referring Provider Nurse Practitioner Family; Visit Provider Nurse Practitioner Family
DX: R05.9 Cough, unspecified (principal); J45.909 Unspecified asthma, uncomplicated; Z91.09 Other allergy status, other than to drugs and biological substances
CPT/HCPCS: 99204

== ENCOUNTER → 2023-02-11 15:28 | Outpatient (BNVA) | payer OTHER, MEDICAID, SELFPAY | PROVIDERS: PCP Nurse Practitioner Family; Referring Provider Nurse Practitioner Family; Visit Provider Nurse Practitioner Family | DX: R05.9 Cough, unspecified (principal); J45.909 Unspecified asthma, uncomplicated; Z91.09 Other allergy status, other than to drugs and biological substances | CPT/HCPCS: 94640 ==

== ENCOUNTER 2023-02-27 16:02 | Outpatient (REF) | payer OTHER, MEDICAID, SELFPAY | END 2023-02-27 16:03 | disposition home or self-care (01) | LOC: HO.LAB 16:02 | PROVIDERS: PCP Nurse Practitioner Family; Visit Provider Nurse Practitioner Family | DX: Z91.09 Other allergy status, other than to drugs and biological substances (principal) | CPT/HCPCS: 36415; 82785; 86003 ==

== ENCOUNTER 2023-03-06 15:47 | Outpatient (AMB) | payer OTHER, MEDICAID, SELFPAY ==
--- NOTE | 2023-03-06 15:49 | MHC.PC.OV ---
Vital Signs 03/06/23 15:52 Height 5 ft 9 in Weight 236 lb BMI 34.8 BP 130/90 H Blood Pressure Location Rt brachial Position Sitting Pulse 102 H Pulse Source Pulse Oximeter Pulse Oximetry (%) 95 Oxygen Delivery Method Room Air Intake Visit Reasons: PE Intake Note: Patient here for physical exam. pt would like to talk about ongoing respiratory issues. Mammo: 2022 Pap: 2021-[facility] Allergies levofloxacin [From LEVAQUIN] Allergy (Intermediate, Verified 03/06/23 17:48) RASH benzoin Allergy (Unknown, Verified 03/06/23 17:48) Unknown seasonal Allergy (Unknown, Uncoded 03/06/23 17:48) Unknown Cats Allergy (Unknown, Uncoded 03/06/23 17:48) Unknown lactose Adverse Reaction (Severe, Uncoded 03/06/23 17:48) leg cramping Medication List - Last Reconciled 03/06/23 by Jose Maria Lemons, BUTTER GRADER- albuterol sulfate 90 mcg/actuation 1 puff inhalation QID PRN albuterol sulfate 2.5 mg (3 mL) inhalation Q6H pvnmrfklez-texululsvayks-rpes 50-300-40 mg 2 caps PO Q4H PRN cetirizine (Zyrtec) 10 mg PO DAILY PRN fluticasone propion-salmeterol 115-21 mcg/actuation (Advair HFA) 2 puffs inhalation Q12H gabapentin 600 mg PO DAILY@1700 ipratropium-albuterol 0.5 mg-3 mg(2.5 mg base)/3 mL 3 mL inhalation Q6H PRN ketoconazole 2% 1 appl topical BID levonorgestrel (Mirena) intrauterine mupirocin 2% 1 appl topical TID nystatin 1 appl topical BID nystatin 1 appl topical BID tamsulosin 0.4 mg PO DAILY 30 days tizanidine 4 mg PO BEDTIME PRN 30 days Tobacco use date assessed: 03/06/23 Dental Screening Dental Screen Date: 03/06/23 Did you have a dental visit in the last 12 months?: Yes Did you have a dental problem in the last 6 months where you did not have access to dental care?: No Was dental information given to patient?: Patient has dentist HPI PE HPI Details Pt is here for a PE. Will order labs. Mammo is up to date. 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 Pt reports ongoing muscle cramps, especially after starting symbicort, which stopped after stopping this inhaler. She started advair, and reported similar symptoms returning. She is following up with pulmonary next week. I will order a CPK level. Pt will call GI to reschedule a colonoscopy. For allergies, will have her increase cetirizine from 10mg daily to 20mg daily, up to 20mg BID depending on symptoms. Pt still has this barking cough, though lungs were clear, ? more upper airway spasms. Pt will follow up with pulmonary next week. left knee pain, ? arthritis, ordering a XR [facility] Medical History Asthma Kidney stone Migraines Surgical History History of cystoscopy History of lithotripsy History of knee surgery History of lumpectomy of left breast (2007) Family History Maternal Grandmother Cancer of abdominal organ Family/Other Breast cancer, Onset Age: 30 Father Parkinson disease Social History Housing: Apartment Alcohol intake: current Alcohol intake frequency: a few times a month Patient Tobacco Use Status: Never used Tobacco e-Cigarette/Vaping Use: Never Used Second Hand Smoke Exposure: No service: No Current occupational status: employed Cognitive needs: No Hearing needs: No Vision needs: Yes Female Reproductive History Menstrual Age of Menarche: 14 Questionnaire PHQ-9 Over the last 2 weeks, how often have you been bothered by any of the following problems? 1. Little interest or pleasure in doing things: not at all 2. Feeling down, depressed, or hopeless: not at all 3. Trouble falling or staying asleep, or sleeping too much: several days 4. Feeling tired or having little energy: several days 5. Poor appetite or overeating: not at all 6. Feeling bad about yourself - or that you are a failure or have let yourself or your family down: not at all 7. Trouble concentrating on things, such as reading the newspaper or watching television: not at all 8. Moving or speaking so slowly that other people could have noticed. Or the opposite - being so fidgety or restless that you have been moving around a lot more than usual: not at all 9. Thoughts that you would be better off or of hurting yourself in some way: not at all Total score: 2 Depression Screening Interpretation: Negative Depression Screening Done: Yes 56114 - PHQ-9 Billing: Yes Source: Developed by Drs. Yassine Rivera, Renee Abarca, Arnaud Riojas and colleagues, with an educational flaco from [employer]. Thrive Questionnaire Date Thrive assessed: 03/06/23 I am a: Patient What is your living situation today?: I have a steady place to live Within the past 12 months, did the food you bought not last and you didn't have the money to get more?: Never true Within the past 12 months, did you worry whether your food would run out before you got money to buy more?: Never true Do you have trouble paying for medicines?: No Do you have trouble getting transportation to medical appointments?: No Do you have trouble paying your heating and electricity bill?: No Do you have trouble taking care of your child, family member or friend?: No Do you have trouble with day-to-day activities such as bathing, preparing meals, shopping, managing finances, etc.?: No Are you currently unemployed and looking for a job?: No Are you interested in more education?: No AUDIT C Alcohol Use Questionnaire (AUDIT-C) 1. How often do you have a drink containing alcohol?: Monthly or less 2. How many drinks containing alcohol do you have on a typical day when you are drinking?: 1 or 2 3. How often do you have six or more drinks on one occasion?: Never Total Score: 1 Score Reviewed/Action Taken: No ZENAIDA-7 AMB Questionnaire ZENAIDA-7 Date ZENAIDA - 7 assessed: 03/06/23 Feeling nervous, anxious, or on edge: 0 = Not at all Not being able to stop or control worryin = Not at all Worrying too much about different things: 0 = Not at all Trouble relaxin = Not at all Being so restless that it is hard to sit still: 0 = Not at all Becoming easily annoyed or irritable: 0 = Not at all Feeling afraid as if something awful might happen: 0 = Not at all Total ZENAIDA-7 score (0-4 normal; 5-9 mild; 10-14 moderate; 15-21 severe): 0 Source: Developed by Drs. Yassine Rivera, Renee Abarca, Arnaud Riojas and colleagues, with an educational flaco from [employer]. ZENAIDA-7 Assessment Billing ZENAIDA-7 Assessment Tool: ZENAIDA-7 Assessment 05082 Review of Systems Const Denies chills and Denies fever(s) Eyes Denies blurry vision ENT Denies vertigo, Denies dizziness and Denies sore throat Card Denies chest pain at rest, Denies chest pain with activity, Denies diaphoresis, Denies dyspnea and Denies dyspnea on exertion Resp Denies cough, Denies dyspnea, Denies dyspnea on exertion and Denies wheezing GI Denies abdominal pain, Denies melena, Denies hematochezia, Denies constipation, Denies diarrhea and Denies loose stools Denies hematuria Musc Denies numbness and Denies tingling Skin/Breast Denies lesions Neuro Denies vertigo, Denies dizziness, Denies numbness and Denies tingling Psych Denies anxiety, Denies depression, Denies homicidal ideation, Denies suicidal ideation and Denies other (substance abuse) Aller/Immun Denies wheezing Physical exam (Primary Care) Vital Signs: Last Vital Signs Pulse 102 H 03/06/23 15:52 BP 130/90 H 03/06/23 15:52 Pulse Ox 95 03/06/23 15:52 Oxygen Delivery Method Room Air 03/06/23 15:52 BMI result Body Mass Index 34.8 Tobacco/Smoking Status: Tobacco use Status Tobacco use date assessed 03/06/23 03/06/23 16:00 Patient Tobacco Use Status Never used Tobacco 03/06/23 15:51 e-Cigarette/Vaping Use Never Used 03/06/23 15:51 Depression Screening Interpretation: Negative Const General: cooperative Nutritional Appearance: well nourished and obese Orientation/consciousness: patient oriented x3 HENMT Head: Yes normal to inspection, Yes normocephalic and Yes atraumatic Ears: TM's normal bilaterally Eyes General: appearance normal, both eyes and all related structures Alignment and Position: alignment normal and position normal Neck Neck: Yes normal visual inspection and Yes no lymphadenopathy Thyroid: Thyroid normal Resp Effort & Inspection: normal respiratory effort Auscultation: clear to auscultation bilaterally Cardio Rate: regular rate Rhythm: regular rhythm Heart sounds: S1 normal heart sound present, S2 normal heart sound present and no murmurs GI Palpation (GI): Soft to palpation and nontender Auscultation: normal bowel sounds Skin Rashes: no rashes Neuro General: patient oriented x3, moves all extremities, no focal motor deficits and deep tendon reflexes 2+ bilaterally Romberg Test: Negative Extrem Left lower extremity: knee (neg lachmans, able to flex and extend with minimal discomfort) Details: no tenderness, no swelling and Saleem's Test not performed Psych Appearance: grossly normal Mental Status: mental status grossly normal Speech and movement: Normal speech and movement present Affect: normal affect Attitude: cooperative Thought process: Normal thought process present Thought content: Normal thought content present Insight: Good insight present (Psych) Judgement: Good judgement present (Psych) Assessment and Plan Assessment & Plan (1) Encounter for routine adult physical exam with abnormal findings: Code(s): Z00. - Encounter for general adult medical examination with abnormal findings (2) Muscle pain: Code(s): M79.10 - Myalgia, unspecified site Plan: CPK ordered, following up with pulmonary (3) Left knee pain: Code(s): M25.562 - Pain in left knee Orders: Orders Comprehensive [place]. Panel Fast Today Z00. - Encounter for general adult medical examination with abnormal findings UA CC w/rflx Micro + Cult Today Z00. - Encounter for general adult medical examination with abnormal findings Lipid Panel Today Z00.01 - Encounter for general adult medical examination with abnormal findings XR knee LT 2V Today M25.562 - Pain in left knee Complete Blood Count Auto Diff Today Z00. - Encounter for general adult medical examination with abnormal findings TSH reflex Free T4 Today Z00.01 - Encounter for general adult medical examination with abnormal findings Creatine Kinase Total Today M79.10 - Myalgia, unspecified site Medications: Discontinued fluticasone propionate 220 mcg/actuation (Flovent HFA) Discontinued Reason: Doctor's Order 2 puffs inhalation BID 12 grams 0RF Coding Level of Care Code Est Pt Prev Care 40-64y(37342) Diagnoses Encounter for routine adult physical exam with abnormal findings Z00.01 Muscle pain M79.10 Left knee pain M25.562 Additional Codes ZENAIDA-7 Assessment Billing - ZENAIDA-7 Assessment Tool: ZENAIDA-7 Assessment 72097 ([id number])
[2023-03-06 15:52] VITALS: BP 130/90; PULSE 102; O2SAT 95; BMI 34.8
== END 2023-03-06 16:55 | disposition home or self-care (01) ==
PROVIDERS: PCP Nurse Practitioner Family; Visit Provider Nurse Practitioner Family
DX: Z00.01 Encounter for general adult medical examination with abnormal findings (principal); M79.10 Myalgia, unspecified site; M25.562 Pain in left knee
CPT/HCPCS: 99213; 99396

== ENCOUNTER 2023-03-12 15:27 | Outpatient (AMB) | payer OTHER, MEDICAID, SELFPAY ==
--- NOTE | 2023-03-12 15:31 | A.OFFVIS_ITS ---
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 Allergies levofloxacin [From LEVAQUIN] Allergy (Intermediate, Verified 03/17/23 13:33) RASH benzoin Allergy (Unknown, Verified 03/17/23 13:33) Unknown seasonal Allergy (Unknown, Uncoded 03/12/23 15:37) Unknown Cats Allergy (Unknown, Uncoded 03/12/23 15:37) Unknown lactose Adverse Reaction (Severe, Uncoded 03/12/23 15:37) leg cramping Medication List - Last Reconciled 03/12/23 by Harmony Townsend LPN albuterol sulfate 90 mcg/actuation 1 puff inhalation QID PRN albuterol sulfate 2.5 mg (3 mL) inhalation Q6H efvysyjwtj-dtufzbutomksj-fgyf 50-300-40 mg 2 caps PO Q4H PRN cetirizine (Zyrtec) 20 mg PO DAILY PRN fluticasone propion-salmeterol 115-21 mcg/actuation (Advair HFA) 2 puffs inhalation Q12H gabapentin 600 mg PO DAILY@1700 ipratropium-albuterol 0.5 mg-3 mg(2.5 mg base)/3 mL 3 mL inhalation Q6H PRN ketoconazole 2% 1 appl topical BID levonorgestrel (Mirena) intrauterine nystatin 1 appl topical BID nystatin 1 appl topical BID tamsulosin 0.4 mg PO DAILY 30 days tizanidine 4 mg PO BEDTIME PRN 30 days HPI cough: 4 week f/u HPI Details Edi is a pleasant 47 year old female, never smoker, with underlying history of asthma. She reports worsening asthma symptoms after contracted COVID in July. She was last seen in the ED on 01/06/23 with sudden onset cough, chest tightness and dyspnea and symptoms have persisted. Her PCP placed her on Flovent and at the last visit we switched to Advair. Unfortunately she reports muscle cramps which she attributes to Advair and reported same symptoms while on Symbicort. She continues with persistent dry cough and intermittent dyspnea, mildly improved from doxycyline prescribed at last visit. She denies wheezing. She denies fevers, chills. 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 [facility] Medical History Asthma Kidney stone Migraines Surgical History History of cystoscopy History of lithotripsy History of knee surgery History of lumpectomy of left breast (2007) Family History Maternal Grandmother Cancer of abdominal organ Family/Other Breast cancer, Onset Age: 30 Father Parkinson disease Social History Housing: Apartment Alcohol intake: current Alcohol intake frequency: a few times a month Patient Tobacco Use Status: Never used Tobacco e-Cigarette/Vaping Use: Never Used Second Hand Smoke Exposure: No service: No Current occupational status: employed Cognitive needs: No Hearing needs: No Vision needs: Yes Female Reproductive History Menstrual Age of Menarche: 14 Review of Systems Const Denies chills, Denies excessive sweating, Denies fever(s), Denies headache(s) and Denies night sweats Eyes Denies dry eyes, Denies irritation and Denies itchy eyes ENT Reports Normal hearing present, Denies headache(s), Denies nasal congestion, Denies nasal discharge, Denies post nasal drip and Denies sore throat Card Denies chest pain, Denies chest pain at rest, Denies chest pain with activity, Denies claudication, Denies leg edema, Denies orthopnea and Denies paroxysmal nocturnal dyspnea Resp Reports chest congestion, Reports cough, Denies excessive phlegm production, Denies pain on inspiration, Denies pain with cough, Denies stridor and Denies wheezing Musc Denies myalgias Neuro Reports Normal hearing present and Denies headache(s) Endo Denies excessive sweating Ayo/Lymph Denies lymphadenopathy Aller/Immun Denies itchy eyes, Denies seasonal rhinorrhea and Denies wheezing Physical Exam Vital Signs: Last Vital Signs Pulse 108 H 03/12/23 15:32 BP 140/80 H 03/12/23 15:32 Pulse Ox 96 03/12/23 15:32 Oxygen Delivery Method Room Air 03/12/23 15:32 BMI result Body Mass Index 35.3 Const General: cooperative, healthy appearing, comfortable, well developed and alert Orientation/consciousness: patient oriented x3 Limitations: no limitations HEENT Head: Yes normal to inspection, Yes normocephalic and Yes atraumatic Ears: hearing grossly normal bilaterally and external ears normal Eyes General: appearance normal, both eyes and all related structures Eyelids: Yes eyelids normal Sclerae: sclerae normal EOM: EOMs intact bilaterally Neck Neck: Yes normal visual inspection and Yes no lymphadenopathy Lymphatic: no lymphadenopathy noted Chest Chest palpation & inspection: normal inspection of the chest Resp Effort & Inspection: normal respiratory effort, able to speak in complete sentences, no audible wheezes, Actively coughing, no stridor, not tachypneic, no tripod positioning and no use of accessory muscles Auscultation: no crackles, no rhonchi, no wheezes and diminished lung sounds Cardio Jugular venous distension: no JVD Rate: regular rate Rhythm: regular rhythm Skin Other: warm, dry General skin exam: no rashes or lesions noted Neuro General: patient oriented x3 Cranial nerves: Yes Normal hearing present Cognition (Neuro): normal cognition Gait exam (Neuro): Normal gait present Extrem General: Yes normal to inspection, Yes capillary refill normal, Yes no clubbing, cyanosis or edema and Yes no pedal edema Psych Appearance: grossly normal and well kempt Speech and movement: Normal speech and movement present and Clear speech present Affect: normal affect Attitude: cooperative Thought process: Normal thought process present Thought content: Normal thought content present Insight: Good insight present (Psych) Judgement: Good judgement present (Psych) Assessment & Plan Assessment & Plan (1) Cough: Code(s): R05.9 - Cough, unspecified (2) Asthma: Comment: has rescue inhaler only Code(s): J45.909 - Unspecified asthma, uncomplicated (3) Environmental allergies: Code(s): Z91.09 - Other allergy status, other than to drugs and biological substances Plan Edi's symptoms are minimally changed since switching Flovent to Advair and finishing course of doxycycline. She continues to report persistent dry cough and intermittent dyspnea. Unfortunately she has developed significant muscle cramps with use of LABA, from Advair and previously with symbicort. Advised to trial discontinuing and if cramping resolves to switch back to high dose Flovent and use Duoneb PRN. CXR unremarkable, will send for chest CT. PFT has already been scheduled. All questions were answered and patient is in agreement of plan. Will follow up to review results. Orders: Orders CT chest wo IV con 03/12/23 R05.9 - Cough, unspecified Medications: Refilled ipratropium-albuterol 0.5 mg-3 mg(2.5 mg base)/3 mL 3 mL inhalation Q6H PRN 180 mL 0RF wheezing Discontinued fluticasone propion-salmeterol 115-21 mcg/actuation (Advair HFA) Discontinued Reason: Patient Completed Course 2 puffs inhalation Q12H 12 grams 3RF Coding Level of Care Code Est Pt Level 4 (50121) Diagnoses Cough R05.9 Asthma J45.909 Environmental allergies Z91.09
[2023-03-12 15:32] VITALS: BP 140/80; PULSE 108; O2SAT 96; BMI 35.3
== END 2023-03-12 16:14 | disposition home or self-care (01) ==
PROVIDERS: PCP Nurse Practitioner Family; Visit Provider Nurse Practitioner Family
DX: R05.9 Cough, unspecified (principal); J45.909 Unspecified asthma, uncomplicated; Z91.09 Other allergy status, other than to drugs and biological substances
CPT/HCPCS: 99214

== ENCOUNTER 2023-03-12 15:27 | Outpatient (REF) | payer OTHER, SELFPAY ==
--- NOTE | ~2023-03-12 | XR_ITS ---
EXAMINATION: XR KNEE, LEFT CLINICAL INFORMATION: Pain in the knee. COMPARISON: None available. TECHNIQUE: 2 views of the left knee. FINDINGS: Chondrocalcinosis is present. Screws from orthopedic tendon repair are seen. Mild tricompartmental narrowing is seen consistent with degenerative changes. No joint effusion, fractures or dislocations. XR/XR knee LT 2V IMPRESSION: Mild tricompartmental degenerative changes with chondrocalcinosis.
== END 2023-03-12 15:28 | disposition home or self-care (01) ==
LOC: HO.XRAY 15:27
PROVIDERS: Absent Provider Nurse Practitioner Family; PCP Nurse Practitioner Family; Visit Provider Nurse Practitioner Family
DX: M25.562 Pain in left knee (principal)
CPT/HCPCS: 73560

== ENCOUNTER 2023-03-14 06:41 | Outpatient (REF) | payer OTHER, SELFPAY ==
[2023-03-14 06:56] LABS: MANUAL DIFF FLAG NO
[2023-03-14 07:14] LABS: Basophils Absolute Auto 0.1 X10*3/uL (0.0-0.2); Basophils Percent Auto 0.9 % (0-2); Eosinophils Absolute Auto 0.2 X10*3/uL (0.0-0.4); Eosinophils Percent Auto 2.9 % (0-4); Hematocrit 44.2 % (37.0-47.0); Hemoglobin 14.9 g/dl (12.0-16.0); Imm Gran Abs Auto 0.01 X10*3/uL (0.00-0.03); Imm Gran Pct Auto 0.2 % (0.0-0.4); Mean Corpuscular HGB Conc 33.7 g/dl (31.0-35.0); Mean Platelet Volume 9.2 fL (9.4-12.3); Monocytes Absolute Auto 0.7 X10*3/uL (0.1-1.2); Neutrophils Absolute Auto 3.7 x10*3/uL (2.0-8.3); Platelet Count 305 X10*3/uL (160-400); Red Blood Count 5.14 X10*6/uL (4.20-5.50); Red Cell Distribution Width 12.3 % (11.0-16.0); White Blood Count 5.6 X10*3/uL (4.8-10.8)
[2023-03-14 07:42] LABS: Alanine Aminotransferase 28 U/L (0-31); Albumin Level 4.2 g/dL (3.5-5.0); Alkaline Phosphatase 76 U/L (39-117); Anion Gap 11 (12-20); Aspartate Amino Transferase 19 U/L (5-31); Bilirubin Total 0.4 mg/dL (0.0-1.0); Blood Urea Nitrogen 10 mg/dL (9-16); Calcium 9.1 mg/dL (8.4-10.2); Carbon Dioxide 24 mmol/L (22-29); Chloride 109 mmol/L (96-108); Cholesterol 180 mg/dL (<200); Estimated Glomerular Filt Rate > 60; Glucose Fasting 138 mg/dL (60-99); HDL Cholesterol 37 mg/dL (>40); LDL Cholesterol Calculated 125 mg/dL (<100); Sodium 140 mmol/L (135-145); Triglycerides 94 mg/dL (<150)
[2023-03-14 07:58] LABS: TSH reflex Free T4 1.16 uIU/mL (0.32-4.0)
[2023-03-14 08:59] LABS: Appearance Urine Clear; Color Urine Yellow; Glucose Urine UA Negative (Negative); Leukocyte Esterase Urine Moderate (2+) (Negative); Nitrite Urine Negative (Negative); PH 6.5 (5.0-9.0); UMIC TRIGGER UACC YES; Urine Blood Trace (Negative); Urine Ketones Negative (Negative); Urine Protein Negative (Neg-Trace)
[2023-03-14 09:04] LABS: Bacteria Urine Trace (None Seen); RBC Urine 0-2 /HPF (0-2); UACC Culture Trigger YES
[2023-03-24 23:24] LABS: Class Alternaria alternata 0; Class Aspergillus fumigatus 0; Class Bermuda Grass 0; Class Birch 0; Class Cat Dander 0/1; Class Cladosporium herbarum 0; Class Cockroach 0/1; Class Common Ragweed 0; Class Cottonwood 0; Class Derm. pterony 0; Class Dermatophagoides farinae 0; Class Dog Dander 0; Class Elm 0; Class Maple Box Elder 0; Class Mountain Cedar 0; Class Mouse Urine Protein 0; Class Mugwort 0; Class Oak 0; Class Penicillium crysogenum 0; Class Rough Pigweed 0; Class Sheep Sorrel 0; Class Sycamore 0; Class Timothy Grass 0; Class Walnut Tree 0; Class White Ash 0; Class White Mulberry 0; D001 IgE D pteronyssinus <0.10 kU/L; D002 - IgE D farinae <0.10 kU/L; E001 - IgE Cat Dander 0.16 kU/L; E005 - IgE Dog Dander <0.10 kU/L; E072-IgE Mouse Urine <0.10 kU/L; G002 IgE Bermuda Grass <0.10 kU/L; G006 - IgE Timothy Grass <0.10 kU/L; I006-IgE Cockroach, German 0.16 kU/L; Immunoglobulin E 14 kU/L (<OR=114); M001 IgE Penicillium chrysogen <0.10 kU/L; M002 - IgE Cladosporium herbar <0.10 kU/L; M003 - IgE Aspergillus fumigat <0.10 kU/L; M006 - IgE Alternaria alternat <0.10 kU/L; T001 IgE Maple/Box Elder <0.10 kU/L; T003 IgE Common Silver Birch <0.10 kU/L; T006 - IgE Cedar, Mountain <0.10 kU/L; T007 - IgE Oak, White <0.10 kU/L; T008 IgE Elm, American <0.10 kU/L; T010 - IgE Walnut <0.10 kU/L; T011 - IgE Maple Leaf Sycamore <0.10 kU/L; T014 - IgE Cottonwood <0.10 kU/L; T015 - IgE Ash, White <0.10 kU/L; T070 - IgE White Mulberry <0.10 kU/L; W001 - IgE Ragweed, Short <0.10 kU/L; W006 - IgE Mugwort <0.10 kU/L; W014 IgE Pigweed, Common <0.10 kU/L; W018 IgE Sheep Sorrel <0.10 kU/L
== END 2023-03-14 06:42 | disposition home or self-care (01) ==
LOC: HO.LAB 06:41
PROVIDERS: Nurse Practitioner Family; PCP Nurse Practitioner Family; Visit Provider Nurse Practitioner Family
DX: Z00.01 Encounter for general adult medical examination with abnormal findings (principal); M79.10 Myalgia, unspecified site; Z91.09 Other allergy status, other than to drugs and biological substances; R31.29 Other microscopic hematuria
CPT/HCPCS: 36415; 80053; 80061; 81001; 82550; 82785; 84443; 85025; 86003; 87086

== ENCOUNTER 2023-03-17 11:36 | Outpatient (AMB) | payer OTHER, MEDICAID, SELFPAY ==
[2023-03-17 13:25] VITALS: BP 140/96; PULSE 98; TEMP 36.3; O2SAT 96; BMI 34.7
--- NOTE | 2023-03-17 13:25 | MHC.OFFWIV ---
Intake Vital Signs 03/17/23 13:25 Height 5 ft 9 in Weight 106.594 kg BMI 34.7 BP 140/96 H Blood Pressure Location Rt brachial Position Sitting Pulse 98 Pulse Source Pulse Oximeter Temp 97.4 F Temp Source Oral Pulse Oximetry (%) 96 Oxygen Delivery Method Room Air Intake Visit Reasons: Asthma/Respiratory Intake Note: Pt is here today for cough, asthma and respiratory concerns Patient Tobacco Use Status: Never used Tobacco Allergies levofloxacin [From LEVAQUIN] Allergy (Intermediate, Verified 03/17/23 13:33) RASH benzoin Allergy (Unknown, Verified 03/17/23 13:33) Unknown seasonal Allergy (Unknown, Uncoded 03/12/23 15:37) Unknown Cats Allergy (Unknown, Uncoded 03/12/23 15:37) Unknown lactose Adverse Reaction (Severe, Uncoded 03/12/23 15:37) leg cramping Do you need a note to return to daycare/school/sports/work: No HPI HPI Comments History of Present Illness Details 1352 47-year-old female presents with fatigue, malaise, sinus pressure, cough, wheezing patient has a significant history of asthma and is followed by pulmonology, has nebulizing treatments at home do not seem to be making a difference. The symptoms started approximately 4-5 days ago. 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 Denies chest pain, shortness of breath, nausea, vomiting, abdominal pain, diarrhea, headache, vision changes, dizziness and weakness Physical exam benign History and physical exam concerning for sinusitis versus asthma versus viral illness. Unlikely PE, pneumonia, ACS, acute respiratory distress. Patient PERC negative Plan at this time will discharge on Augmentin for sinusitis, prednisone. Patient has inhalers and nebulizing treatments at home. Educated patient on diagnosis and treatment plan, answered all question, patient verbalizes understanding. At this time patient will be discharged home, advised to return with new or worsening symptoms. Educated on worrisome signs and symptoms and when to return. At this time I feel comfortable discharge home. [facility] Medical History Asthma Kidney stone Migraines Surgical History History of cystoscopy History of lithotripsy History of knee surgery History of lumpectomy of left breast (2007) Family History Maternal Grandmother Cancer of abdominal organ Family/Other Breast cancer, Onset Age: 30 Father Parkinson disease Social History Housing: Apartment Alcohol intake: current Alcohol intake frequency: a few times a month Patient Tobacco Use Status: Never used Tobacco e-Cigarette/Vaping Use: Never Used Second Hand Smoke Exposure: No service: No Current occupational status: employed Cognitive needs: No Hearing needs: No Vision needs: Yes Female Reproductive History Menstrual Age of Menarche: 14 Review of Systems Const All systems reviewed & are unremarkable except as noted in HPI and below Physical Exam Vital Signs: Last Vital Signs Temp 97.4 F 03/17/23 13:25 Pulse 98 03/17/23 13:25 BP 140/96 H 03/17/23 13:25 Pulse Ox 96 03/17/23 13:25 Oxygen Delivery Method Room Air 03/17/23 13:25 BMI result Body Mass Index 34.7 vss Appearance: Alert.? Oriented X3.? No acute distress.? Head: Normocephalic, atraumatic, no step-offs or deformities Eyes: Pupils equal, round and reactive to light.? Neck: Normal inspection.? Neck supple.? CVS: Normal heart rate and rhythm.? Pulses normal.? Respiratory: No respiratory distress.? Breath sounds normal.? Abdomen: Soft and nontender.? Skin: Skin warm and dry.? Normal skin color.? Normal skin turgor.? Extremities: No lower extremity edema.? No calf ttp. 5/5 strength to bilateral upper and lower extremities Neuro: Oriented X 3.? No motor deficit.? No sensory deficit. CN 2-12 intact Assessment & Plan Assessment & Plan (1) Sinusitis: Code(s): J32.9 - Chronic sinusitis, unspecified Plan Take your medications as prescribed. If you were prescribed antibiotics today, it is important that you take your medication to their entirety, do not skip any doses, do not finish them early. Follow-up with your primary care provider this week. Return to the emergency department with new or worsening symptoms. Such as fevers, chills, chest pain, shortness of breath, nausea, vomiting, dizziness, headache, vision changes, lethargy In case of emergency call 911 Medications: New prednisone 40 mg (2 x 20 mg) PO DAILY 10 tabs 0RF 5 days amoxicillin-pot clavulanate 875-125 mg 1 tab PO BID 20 tabs 0RF 10 days Coding Level of Care Code Est Pt Level 3 (66270) Diagnoses Sinusitis J32.9
== END 2023-03-17 13:51 | disposition home or self-care (01) ==
PROVIDERS: PCP Nurse Practitioner Family; Visit Provider Physician Assistant
DX: J32.9 Chronic sinusitis, unspecified (principal)
CPT/HCPCS: 99213

== ENCOUNTER 2023-03-17 13:09 | Outpatient (REF) | payer OTHER, SELFPAY ==
[2023-03-17 15:44] LABS: Urine Cytology See Pathology rpt
[2023-03-17 15:46] LABS: MANUAL DIFF FLAG NO
[2023-03-17 15:48] LABS: Basophils Absolute Auto 0.1 X10*3/uL (0.0-0.2); Eosinophils Absolute Auto 0.3 X10*3/uL (0.0-0.4); Eosinophils Percent Auto 4.9 % (0-4); Hemoglobin 15.5 g/dl (12.0-16.0); Imm Gran Abs Auto 0.01 X10*3/uL (0.00-0.03); Imm Gran Pct Auto 0.2 % (0.0-0.4); Lymphocytes Absolute Auto 1.7 X10*3/uL (1.2-4.9); Lymphocytes Percent Auto 28.8 % (20-40); Mean Corpuscular HGB Conc 33.7 g/dl (31.0-35.0); Mean Corpuscular Hemoglobin 29.1 pg (27.0-33.0); Mean Corpuscular Volume 86.3 fL (80.0-98.0); Mean Platelet Volume 9.8 fL (9.4-12.3); Monocytes Absolute Auto 0.7 X10*3/uL (0.1-1.2); Monocytes Percent Auto 10.9 % (2-11); Neutrophils Absolute Auto 3.2 x10*3/uL (2.0-8.3); Neutrophils Percent Auto 54.2 % (45-73); Platelet Count 327 X10*3/uL (160-400); Red Blood Count 5.33 X10*6/uL (4.20-5.50)
[2023-03-17 15:49] LABS: Appearance Urine Clear; Color Urine Yellow; Glucose Urine UA Negative (Negative); Leukocyte Esterase Urine Small (1+) (Negative); Nitrite Urine Negative (Negative); Specific Gravity - Urine 1.025 (1.005-1.025); UMIC TRIGGER UACC YES; Urine Blood Negative (Negative); Urine Ketones Negative (Negative); Urine Protein Negative (Neg-Trace)
[2023-03-17 16:14] LABS: Bacteria Urine 1+ (None Seen); Calcium Oxalate Crystals Urine Present; Hyaline Casts Urine 0-2 /LPF (0-2); RBC Urine 0-2 /HPF (0-2); UACC Culture Trigger YES; WBC Urine 0-5 /HPF (0-5)
== END 2023-03-17 13:10 | disposition home or self-care (01) ==
LOC: HO.HMGCLDS 13:09
PROVIDERS: PCP Nurse Practitioner Family; Visit Provider Nurse Practitioner Family
DX: Z00.01 Encounter for general adult medical examination with abnormal findings (principal); R31.29 Other microscopic hematuria
CPT/HCPCS: 36415; 81001; 85025; 87086; 88112

== ENCOUNTER 2023-03-22 | Outpatient (REF) | payer OTHER, SELFPAY ==
--- NOTE | 2023-03-22 14:24 | PFT_ITS ---
Flows: FEV1: 97 % of predicted at 3.26 L FVC: 96 % of predicted at 4.05 L FEV1/FVC: 80 % Bronchodilator response: Absent Volumes: Total lung capacity: 88 % of predicted at 5.42 L Residual volume: 74 % of predicted at 1.25 L Slow vital capacity: 93 % of predicted at 4.17 L Expiratory reserve volume: 54 % of predicted at 0.74 L Diffusion capacity: Normal Impression: No obstructive or restrictive ventilatory defect. No bronchodilator response. Decreased expiratory reserve volume suggests extrathoracic restriction likely secondary to abdominal obesity. MTDD
== END 2023-03-22 00:01 | disposition home or self-care (01) ==
LOC: HO.RESP
PROVIDERS: PCP Nurse Practitioner Family; Visit Provider Nurse Practitioner Family
DX: R05.9 Cough, unspecified (principal)
CPT/HCPCS: 94010; 94727; 94729

== ENCOUNTER → 2023-03-22 14:24 | Outpatient (BNV) | payer OTHER, SELFPAY | PROVIDERS: PCP Nurse Practitioner Family; Visit Provider Internal Medicine Pulmonary Disease | DX: R05.9 Cough, unspecified (principal) | CPT/HCPCS: 94060; 94727; 94729 ==

== ENCOUNTER 2023-03-24 11:56 | Emergency (ER) | payer OTHER, SELFPAY ==
--- NOTE | ~2023-03-24 | CT_ITS ---
EXAMINATION: CT ANGIOGRAM OF THE CHEST WITH CONTRAST (CT PULMONARY ANGIOGRAM FOR PE) CT ABDOMEN PELVIS WITH CONTRAST CLINICAL INFORMATION: Reason for Exam shortness of breath. Left adrenal mass, accelerated htn COMPARISON: CT abdomen pelvis dated 04/08/2021 TECHNIQUE: Multidetector volumetric imaging was performed from the thoracic inlet to the pubic symphysis through the chest, abdomen, and pelvis following the administration of 85 mL Omnipaque 350 intravenous contrast. No contrast reaction reported Sagittal, coronal, and MIP oblique sagittal (through the chest only) reformatted images were obtained on the CT workstation, uploaded to PACS, and reviewed. Total exam dose-length product: 788 mGy-cm This CT examination was performed using dose optimization techniques as appropriate, variously including the following: *Automated exposure control *Adjustment of mA and/or kV according to patient size (this includes techniques or standardized protocols for targeted exams where dose is matched to indication/reason for exam; i.e. extremities or head) *Use of iterative reconstruction technique FINDINGS: QUALITY OF STUDY/CONTRAST BOLUS: Satisfactory. PULMONARY ARTERIES: No central or segmental pulmonary emboli. THORACIC AORTA: No aneurysm or dissection. LUNG: No focal consolidation, nodules or masses. Dependent atelectasis is present in both lungs. Central airways are clear. PLEURA: No pleural effusion or pneumothorax. MEDIASTINUM: Normal heart size. No pericardial effusion. No hilar or mediastinal lymphadenopathy. No evidence of septal bowing or right heart strain. CHEST WALL/AXILLA: No axillary or internal mammary lymphadenopathy. ABDOMEN/PELVIS: LIVER, GALLBLADDER AND BILIARY TREE: The liver measures 21 cm craniocaudal, consistent with cardiomegaly. Liver is otherwise normal in contour.. No focal lesions. The gallbladder is unremarkable with no evidence of radiopaque gallstones, gallbladder wall thickening, or obvious pericholecystic inflammatory changes. PANCREAS: Normal; no mass or surrounding fluid. SPLEEN: Normal size. No focal lesion. ADRENAL GLANDS: The right adrenal gland is normal in appearance. Adjacent to the left adrenal gland is a 2 mm nodule which is isointense to the adjacent spleen on both the CTA chest images and the subsequent portal venous phase abdominal images, most consistent with a splenule. This is unchanged as compared to the prior CT from 2021. No recommended imaging follow-up. KIDNEYS AND URETERS: The kidneys are normal in size, shape, and attenuation. Multiple bilateral nonobstructing renal calculi are noted, the majority of which is situated in the lower pole calyces in the left kidney. There is a dominant cluster of multiple calculi within a left lower pole calyx measuring 6 mm in aggregate, though each individual calculus likely measures no more than 3 mm. In the right kidney, there are 2 nonobstructing calculi within a calyx in the interpolar region. Small subcentimeter focus of cortical hypoattenuation in the left kidney is too small to characterize, though statistically favored to correspond to a simple cyst. No recommended imaging follow-up. GASTROINTESTINAL TRACT: Stomach, small bowel, and colon are normal in caliber. No bowel wall thickening or surrounding inflammatory changes. Appendix is normal. No intraperitoneal free fluid or free air. Minimal colonic diverticulosis without evidence of acute diverticulitis. ABDOMINAL WALL: Small fat-containing umbilical hernia. No bowel involvement. LYMPHOVASCULAR STRUCTURES: No lymphadenopathy. The aorta is unremarkable. BLADDER: No focal mass or wall thickening seen. No bladder calculi. PELVIC VISCERA: An IUD is appropriately situated within the uterus. Uterus is normal in size. No adnexal lesions. OSSEOUS STRUCTURES: Yzmt-oz-dssaoozv multilevel degenerative disc disease is present in the thoracic spine. More mild degenerative disc disease is present in the lumbar spine. 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 No aggressive osseous lesions. CT/CT abdomen pelvis w IV con IMPRESSION: 1. No acute abnormalities are identified in chest, abdomen, and pelvis. 2. Unchanged 2 cm nodule between the spleen and left adrenal gland is strongly favored to correspond to a splenule as opposed to primary adrenal nodule. 3. Bilateral nonobstructing renal calculi. 4. Mild hepatomegaly. 5. Minimal colonic diverticulosis without evidence of acute diverticulitis. VTE: negative.
--- NOTE | ~2023-03-24 | XR_ITS ---
EXAMINATION: XR CHEST CLINICAL INFORMATION: Shortness of breath COMPARISON: 02/03/2023 TECHNIQUE: 2 views of the chest were obtained. FINDINGS: No significant abnormality is noted involving the heart, lungs, mediastinum, bony thorax or soft tissues. 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 XR/XR chest 2V IMPRESSION: No acute intrathoracic disease.
[2023-03-24 12:14] VITALS: BP 191/112; PULSE 100; RESP 19; TEMP 36.6; O2SAT 99; BMI 35.3
--- NOTE | 2023-03-24 12:14 | ED.GENADULT ---
HPI - General Adult General Chief complaint: General Medical Stated complaint: HBP/Asthma Time Seen by Provider: 03/24/23 21:21 Source: patient Mode of arrival: ambulatory Limitations: no limitations History of Present Illness HPI narrative: Patient history of asthma recent COVID about 11 weeks ago been sick since then taken 2 courses of antibiotics and prednisone noticed to have blood pressure fluctuating between 191/112, 173/119 and when examined was 145/98 patient had incidental left adrenal mass in 2021 plan to see a specialist for further evaluation also complaining of increased shortness of breath and cough 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 Patient does have a family history of hypertension in her mother Related Data Home Medications Medication Instructions Recorded Confirmed gabapentin 600 mg tablet 600 mg PO DAILY@1700 03/09/21 03/12/23 levonorgestrel 21 mcg/24 hours (8 intrauterine 04/25/21 03/12/23 yrs) 52 mg intrauterine device (Mirena) albuterol sulfate 90 mcg/actuation 1 puff inhalation QID PRN wheezing 05/10/21 03/12/23 aerosol inhaler lbdgytforn-gkxmkjpjrgntt-ebnsvwzo 2 cap PO Q4H PRN 10/12/22 03/12/23 50 mg-300 mg-40 mg capsule cetirizine 10 mg tablet (Zyrtec) 20 mg PO DAILY PRN 03/12/23 03/12/23 Previous Rx's Medication Instructions Recorded tamsulosin 0.4 mg capsule 0.4 mg PO DAILY 30 days #30 caps 01/28/22 tizanidine 4 mg capsule 4 mg PO BEDTIME PRN muscle 01/28/22 spasticity 30 days #30 caps ketoconazole 2 % topical cream 1 appl topical BID #30 grams 10/12/22 nystatin 100,000 unit/gram topical 1 appl topical BID #30 grams 10/12/22 powder nystatin 100,000 unit/gram topical 1 appl topical BID #15 grams 10/26/22 powder albuterol sulfate 2.5 mg/3 mL 2.5 mg (3 mL) inhalation Q6H #75 mL 01/14/23 (0.083 %) solution for nebulization amoxicillin 875 mg-potassium 1 tab PO BID 10 days #20 tabs 03/17/23 clavulanate 125 mg tablet prednisone 20 mg tablet 40 mg (2 x 20 mg) PO DAILY 5 days 03/17/23 #10 tabs ipratropium 0.5 mg-albuterol 3 mg 3 ml inhalation Q6H PRN wheezing 03/18/23 (2.5 mg base)/3 mL nebulization #180 mL soln losartan 50 mg-hydrochlorothiazide 1 tab PO DAILY #30 tabs 03/25/23 12.5 mg tablet Allergies Allergy/AdvReac Type Severity Reaction Status Date / Time levofloxacin [From LEVAQUIN] Allergy Intermediate RASH Verified 03/24/23 12:14 benzoin Allergy Unknown Unknown Verified 03/24/23 12:14 seasonal Allergy Unknown Unknown Uncoded 03/24/23 12:14 Cats Allergy Unknown Unknown Uncoded 03/24/23 12:14 lactose AdvReac Severe leg Uncoded 03/24/23 12:14 cramping Review of Systems Review of Systems: Yes all other systems are reviewed and are negative PMFSH Past Medical History Medical History Left adrenal mass Asthma Kidney stone Migraines Surgical History History of cystoscopy History of lithotripsy History of knee surgery History of lumpectomy of left breast (2007) Family History Family History Maternal Grandmother Cancer of abdominal organ Family/Other Breast cancer, Onset Age: 30 Father Parkinson disease Social History Social History Housing: Apartment Alcohol intake: current Alcohol intake frequency: holidays/special occasions only Patient Tobacco Use Status: Never used Tobacco e-Cigarette/Vaping Use: Never Used Second Hand Smoke Exposure: No service: No Current occupational status: employed Cognitive needs: No Hearing needs: No Vision needs: Yes Physical Exam ED Vital Signs: Vital Signs - 24 hr 03/24/23 12:14 03/24/23 18:12 03/24/23 19:44 Temperature 98 F 97.6 F 96.9 F Pulse Rate 100 94 96 Respiratory Rate 19 18 18 Blood Pressure 191/112 H 161/102 H 149/94 H Pulse Oximetry 99 98 98 Oxygen Delivery Method Room Air Room Air Room Air 03/24/23 21:36 03/24/23 23:39 03/25/23 00:58 Temperature 97.7 F 97.9 F Pulse Rate 93 86 89 Respiratory Rate 18 18 16 Blood Pressure 145/98 H 145/89 H 122/70 Pulse Oximetry 97 95 97 Oxygen Delivery Method Room Air Room Air Room Air BMI result Body Mass Index 35.3 Appearance: Alert. Oriented X3. No acute distress. Eyes: PERRLA, No Nystagmus ENT: Pharynx normal. Oral Mucosa moist Neck: Normal inspection. Neck supple. CVS: Normal heart rate and rhythm. Pulses normal. Respiratory: No respiratory distress. Equal air entry bilateral, no wheezing/rales/rhonchi Abdomen: Soft and nontender. Bowel sounds are present, no mass palpable, no CVA tenderness Skin: Skin warm and dry. Normal skin color. Normal skin turgor. Extremities: No lower extremity edema. No calf tenderness Neuro: Oriented X 3. No motor deficit. No sensory deficit.No cerebellar signs , cranial nerves II-XII intact Course Course Course Narrative: RME performed by Laura Altamirano PA-C. Patient is a 47 year old assigned female at presenting to the emergency department with high blood pressure. Detailed physical exam and review of systems are deferred to the kayak maker. Labs ordered. Patient placed back in the waiting room pending room availability and results. Medications Administered Discontinued Medications Generic Name Dose Route Start Last Admin Trade Name Freq PRN Reason Stop Dose Admin Iohexol 85 ml 03/24/23 23:20 03/24/23 23:21 Iohexol 350 Mg/Ml 100 Ml Infus..Btl IV 03/24/23 23:21 85 ml ONCE ONE Administration Losartan Potassium 50 mg 03/24/23 21:38 03/24/23 21:45 Losartan Potassium 50 Mg Tablet PO 03/24/23 21:39 50 mg ONCE ONE Administration Protocol Medical Decision Making Medical Decision Making [facility] Narrative: Patient does have elevated blood pressure , will start on losartan and advised to follow with PCP. Patient did have CT scan of the abdomen and chest which is negative except for unchanged L adrenal mass blood pressure improved after losartan was given in the ER Differential Diagnosis Differential Diagnoses: The differential diagnosis associated with the presentation includes Essential Hypertension/ secondary hypertension Lab Data [facility] Lab Attestation statement: I reviewed the patient's lab results. 03/24/23 14:03 03/24/23 14:03 Labs: Lab Results 03/24/23 Range/Units 14:03 WBC 10.1 (4.8-10.8) X10*3/uL RBC 5.31 (4.20-5.50) X10*6/uL Hgb 15.7 (12.0-16.0) g/dl Hct 46.9 (37.0-47.0) % MCV 88.3 (80.0-98.0) fL MCH 29.6 (27.0-33.0) pg MCHC 33.5 (31.0-35.0) g/dl RDW 12.4 (11.0-16.0) % Plt Count 404 H (160-400) X10*3/uL MPV 9.1 L (9.4-12.3) fL Immature Gran % (Auto) 0.7 H (0.0-0.4) % Neut % (Auto) 68.5 (45-73) % Lymph % (Auto) 21.4 (20-40) % [place] % (Auto) 6.2 (2-11) % Eos % (Auto) 2.3 (0-4) % Baso % (Auto) 0.9 (0-2) % Lymph # (Auto) 2.2 (1.2-4.9) X10*3/uL [place] # (Auto) 0.6 (0.1-1.2) X10*3/uL Eos # (Auto) 0.2 (0.0-0.4) X10*3/uL Baso # (Auto) 0.1 (0.0-0.2) X10*3/uL Abs Immat Gran (auto) 0.07 H (0.00-0.03) X10*3/uL Absolute Neuts (auto) 6.9 (2.0-8.3) x10*3/uL Absolute Nucleated RBC 0.000 (0.0-0.012) X10*3/uL Nucleated RBC % (auto) 0.0 (0.0-0.2) /100WBC Sodium 143 (135-145) mmol/L Potassium 4.1 (3.3-5.1) mmol/L Chloride 102 (96-108) mmol/L Carbon Dioxide 30 H (22-29) mmol/L Anion Gap 15 (12-20) BUN 14 (9-16) mg/dL Creatinine 0.88 (0.5-1.4) mg/dL Estim Creat Clear Calc 104.7 Estimated GFR > 60 Random Glucose 107 (60-115) mg/dL Calcium 9.7 D (8.4-10.2) mg/dL Magnesium 2.2 (1.6-2.6) mg/dL Total Bilirubin 0.5 (0.0-1.0) mg/dL AST 18 (5-31) U/L ALT 29 (0-31) U/L Alkaline Phosphatase 69 (39-117) U/L Troponin I High Sens < 2.7 (<3.5-17.0) ng/L Total Protein 7.3 (6.5-8.0) g/dL Albumin 4.4 (3.5-5.0) g/dL TSH 1.28 (0.32-4.0) uIU/mL Beta HCG, Quant < 2 mIU/mL COVID-19 (GAL) Negative (Negative) COVID-19 Clin Com See Note Influenza Type A ([facility]ONOR) Negative (Negative) Influenza Type B ([facility]ON[facility]) Negative (Negative) Influenza A & B Note See Note Independent Interpretation I performed an independent interpretation of an: EKG, Plain X-Ray and CT Scan Interpretation: Normal sinus rhythm heart rate 90 beats normal axis no acute ST-T changes no acute ischemia Radiology Impression Discussion of test interpretation with radiology: I have reviewed the radiologist's reading. Discharge Plan Discharge Clinical Impression: Hypertension Patient Disposition: Home, Self-Care Instructions: Hypertension (ED) Additional Instructions: Likely you have hypertension Decrease the salt intake Start taking losartan HCTZ 1 tablet daily Check blood pressure before taking the medicine before point it should be less than 135/85 Follow with PCP for further management Prescriptions: New losartan-hydrochlorothiazide 50-12.5 mg tablet 1 tab PO DAILY Qty: 30 0RF No Action tamsulosin 0.4 mg capsule 0.4 mg PO DAILY 30 Days Qty: 30 0RF tizanidine 4 mg capsule 4 mg PO BEDTIME PRN (Reason: muscle spasticity) 30 Days Qty: 30 0RF albuterol sulfate 2.5 mg /3 mL (0.083 %) solution for nebulization 2.5 mg inhalation Q6H Qty: 75 0RF albuterol sulfate 90 mcg/actuation HFA aerosol inhaler 1 puff inhalation QID PRN (Reason: wheezing) Mirena 20 mcg/24 hours (7 yrs) 52 mg intrauterine device intrauterine catrtzfryi-showhdkkzvedg-unnj 50-300-40 mg capsule 2 cap PO Q4H PRN nystatin 100,000 unit/gram powder 1 appl topical BID Qty: 30 0RF ketoconazole 2 % cream 1 appl topical BID Qty: 30 0RF cetirizine [Zyrtec] 10 mg tablet 20 mg PO DAILY PRN nystatin 100,000 unit/gram powder 1 appl topical BID Qty: 15 0RF prednisone 20 mg tablet 40 mg PO DAILY 5 Days Qty: 10 0RF amoxicillin-pot clavulanate 875-125 mg tablet 1 tab PO BID 10 Days Qty: 20 0RF gabapentin 600 mg tablet 600 mg PO DAILY@1700 ipratropium-albuterol 0.5 mg-3 mg(2.5 mg base)/3 mL solution for nebulization 3 ml inhalation Q6H PRN (Reason: wheezing) Qty: 180 0RF Interventions: ED Discharge Assessment Last Done: 03/25/23 01:45 Discharge Date/Time: 03/25/23 01:49
--- NOTE | 2023-03-24 12:15 | ECG_ITS ---
Test Reason : HTN Blood Pressure : / mmHG Vent. Rate : 090 BPM Atrial Rate : 090 BPM P-R Int : 156 ms QRS Dur : 078 ms QT Int : 374 ms P-R-T Axes : 037 006 007 degrees QTc Int : 457 ms Normal sinus rhythm Normal ECG When compared with ECG of 06-JAN-2023 09:32, No significant change was found Referred By: Laura Altamirano Electronically Signed By:Idris Thomson
[2023-03-24 14:10] LABS: MANUAL DIFF FLAG NO
[2023-03-24 14:11] LABS: Basophils Absolute Auto 0.1 X10*3/uL (0.0-0.2); Basophils Percent Auto 0.9 % (0-2); Eosinophils Absolute Auto 0.2 X10*3/uL (0.0-0.4); Eosinophils Percent Auto 2.3 % (0-4); Hematocrit 46.9 % (37.0-47.0); Hemoglobin 15.7 g/dl (12.0-16.0); Imm Gran Abs Auto 0.07 X10*3/uL (0.00-0.03); Imm Gran Pct Auto 0.7 % (0.0-0.4); Lymphocytes Absolute Auto 2.2 X10*3/uL (1.2-4.9); Lymphocytes Percent Auto 21.4 % (20-40); Mean Corpuscular HGB Conc 33.5 g/dl (31.0-35.0); Mean Corpuscular Hemoglobin 29.6 pg (27.0-33.0); Mean Corpuscular Volume 88.3 fL (80.0-98.0); Mean Platelet Volume 9.1 fL (9.4-12.3); Monocytes Absolute Auto 0.6 X10*3/uL (0.1-1.2); Monocytes Percent Auto 6.2 % (2-11); Neutrophils Absolute Auto 6.9 x10*3/uL (2.0-8.3); Neutrophils Percent Auto 68.5 % (45-73); Platelet Count 404 X10*3/uL (160-400); Red Blood Count 5.31 X10*6/uL (4.20-5.50); Red Cell Distribution Width 12.4 % (11.0-16.0); White Blood Count 10.1 X10*3/uL (4.8-10.8)
[2023-03-24 14:26] LABS: Alanine Aminotransferase 29 U/L (0-31); Albumin Level 4.4 g/dL (3.5-5.0); Alkaline Phosphatase 69 U/L (39-117); Anion Gap 15 (12-20); Aspartate Amino Transferase 18 U/L (5-31); Bilirubin Total 0.5 mg/dL (0.0-1.0); Blood Urea Nitrogen 14 mg/dL (9-16); Calcium 9.7 mg/dL (8.4-10.2); Carbon Dioxide 30 mmol/L (22-29); Chloride 102 mmol/L (96-108); Creatinine Clr Calc Pharmacy 104.7; Estimated Glomerular Filt Rate > 60; Glucose Random 107 mg/dL (60-115); Magnesium 2.2 mg/dL (1.6-2.6); Potassium 4.1 mmol/L (3.3-5.1); Sodium 143 mmol/L (135-145); Total Protein 7.3 g/dL (6.5-8.0)
[2023-03-24 14:31] LABS: Troponin-I High Sensitivity < 2.7 ng/L (<3.5-17.0)
[2023-03-24 14:35] LABS: COVID-19 Test Negative (Negative); IDNOW Serial# 08D9AD1C
[2023-03-24 14:37] LABS: IDNOW Serial# 9DB6401D; Influenza A Negative (Negative); Influenza B2 Negative (Negative)
[2023-03-24 14:46] LABS: HCG Quantitative < 2 mIU/mL; TSH reflex Free T4 1.28 uIU/mL (0.32-4.0)
[2023-03-24 18:12] VITALS: BP 161/102; PULSE 94; RESP 18; TEMP 36.4; O2SAT 98
[2023-03-24 19:44] VITALS: BP 149/94; PULSE 96; RESP 18; TEMP 36.1; O2SAT 98
[2023-03-24 21:36] VITALS: BP 145/98; PULSE 93; RESP 18; TEMP 36.5; O2SAT 97
[2023-03-24] MEDS: Losartan Potassium 50 MG TABLET PO (21:45)
--- NOTE | 2023-03-24 21:59 | PC.NURSE ---
Pt ca&ox4, no signs of distress. Pt medicated per may. IV placed. Pt ambulated to the restroom with a steady gait. Pt repositioned back into bed. Plan of care ongoing.
[2023-03-24] MEDS: iohexoL 350 MG/ML 100 ML INFUS..BTL 85 ML IV (23:21)
[2023-03-24 23:39] VITALS: BP 145/89; PULSE 86; RESP 18; TEMP 36.6; O2SAT 95
[2023-03-25 00:58] VITALS: BP 122/70; PULSE 89; RESP 16; O2SAT 97
== END 2023-03-25 01:49 | disposition home or self-care (01) ==
PROVIDERS: Physician Assistant Medical; Emergency Provider Internal Medicine; PCP Nurse Practitioner Family
DX: I10 Essential (primary) hypertension (principal); R06.02 Shortness of breath; Z11.52 Encounter for screening for COVID-19; E27.9 Disorder of adrenal gland, unspecified
CPT/HCPCS: 36415; 71046; 71275; 74177; 80053; 83735; 84443; 84484; 84702; 85025; 87502; 87635; 93005; 99284; Q9967

== ENCOUNTER → 2023-03-24 12:15 | Outpatient (BNV) | payer OTHER, SELFPAY | PROVIDERS: PCP Nurse Practitioner Family; Visit Provider Internal Medicine Cardiovascular Disease | DX: I10 Essential (primary) hypertension (principal) | CPT/HCPCS: 93010 ==

== ENCOUNTER 2023-03-25 10:04 | Outpatient (AMB) | payer OTHER, MEDICAID, SELFPAY ==
--- NOTE | 2023-03-25 10:08 | MHC.OFFVIS ---
Intake Vital Signs 03/25/23 10:09 Height 5 ft 9 in Weight 232 lb BMI 34.3 BP 112/68 Blood Pressure Location Lt brachial Position Sitting Pulse 108 H Pulse Source Pulse Oximeter Pulse Oximetry (%) 97 Oxygen Delivery Method Room Air Intake Visit Reasons: increased shortness of breath, cough Baccarat Dealer Required: No Hunter: Hunter offered & declined Accompanied by: Self / Same As Patient Allergies levofloxacin [From LEVAQUIN] Allergy (Intermediate, Verified 03/25/23 10:14) RASH benzoin Allergy (Unknown, Verified 03/25/23 10:14) Unknown seasonal Allergy (Unknown, Uncoded 03/25/23 10:14) Unknown Cats Allergy (Unknown, Uncoded 03/25/23 10:14) Unknown lactose Adverse Reaction (Severe, Uncoded 03/25/23 10:14) leg cramping Medication List - Last Reconciled 03/25/23 by Harmony Townsend LPN albuterol sulfate 90 mcg/actuation 1 puff inhalation QID PRN albuterol sulfate 2.5 mg (3 mL) inhalation Q6H amoxicillin-pot clavulanate 875-125 mg 1 tab PO BID 10 days pkzdfnkbot-tzpgugqvbjeas-nrsr 50-300-40 mg 2 caps PO Q4H PRN cetirizine (Zyrtec) 20 mg PO DAILY PRN gabapentin 600 mg PO DAILY@1700 ipratropium-albuterol 0.5 mg-3 mg(2.5 mg base)/3 mL 3 mL inhalation Q6H PRN ketoconazole 2% 1 appl topical BID levonorgestrel (Mirena) intrauterine losartan-hydrochlorothiazide 50-12.5 mg 1 tab PO DAILY nystatin 1 appl topical BID nystatin 1 appl topical BID tamsulosin 0.4 mg PO DAILY 30 days tizanidine 4 mg PO BEDTIME PRN 30 days HPI increased shortness of breath, cough HPI Details Edi is a pleasant 47 year old female, never smoker, with underlying history of asthma. She reports worsening asthma symptoms after cassidy COVID in July. At the last visit she was placed on Advair and developed significant muscle cramping so was switched to Flovent. She continues with persistent dry cough and intermittent dyspnea, initially improved with doxy/predn however developed sinusitis last week and was treated with augmentin and prednisone. Nasal drainage now clear, prior yellow but dry cough still present. She feels as though her PND is triggering cough. She denies wheezing, fevers, or chills. 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 Today she presents to review chest CT. [facility] Medical History Left adrenal mass Asthma Kidney stone Migraines Surgical History History of cystoscopy History of lithotripsy History of knee surgery History of lumpectomy of left breast (2007) Family History Maternal Grandmother Cancer of abdominal organ Family/Other Breast cancer, Onset Age: 30 Father Parkinson disease Social History (Updated 03/25/23 @ 10:16 by Harmony Townsend LPN) Housing: Apartment Alcohol intake: current Alcohol intake frequency: holidays/special occasions only Patient Tobacco Use Status: Never used Tobacco e-Cigarette/Vaping Use: Never Used Second Hand Smoke Exposure: No service: No Current occupational status: employed Cognitive needs: No Hearing needs: No Vision needs: Yes Female Reproductive History Menstrual Age of Menarche: 14 Review of Systems Const Denies chills, Denies excessive sweating, Denies fever(s), Denies headache(s) and Denies night sweats Eyes Denies dry eyes, Denies irritation and Denies itchy eyes ENT Reports Normal hearing present, Denies headache(s), Denies nasal congestion and Denies sore throat Card Denies chest pain, Denies chest pain at rest, Denies chest pain with activity, Denies claudication, Denies leg edema, Denies orthopnea and Denies paroxysmal nocturnal dyspnea Resp Reports cough, Denies excessive phlegm production, Denies pain on inspiration, Denies stridor and Denies wheezing Musc Denies myalgias Neuro Reports Normal hearing present and Denies headache(s) Endo Denies excessive sweating Ayo/Lymph Denies lymphadenopathy Aller/Immun Denies itchy eyes, Denies seasonal rhinorrhea and Denies wheezing Physical Exam Vital Signs: Last Vital Signs Pulse 108 H 03/25/23 10:09 BP 112/68 03/25/23 10:09 Pulse Ox 97 03/25/23 10:09 Oxygen Delivery Method Room Air 03/25/23 10:09 BMI result Body Mass Index 34.3 Const General: cooperative, healthy appearing, comfortable, well developed and alert Orientation/consciousness: patient oriented x3 Limitations: no limitations HEENT Head: Yes normal to inspection, Yes normocephalic and Yes atraumatic Ears: hearing grossly normal bilaterally and external ears normal Eyes General: appearance normal, both eyes and all related structures Eyelids: Yes eyelids normal Sclerae: sclerae normal EOM: EOMs intact bilaterally Neck Neck: Yes normal visual inspection and Yes no lymphadenopathy Lymphatic: no lymphadenopathy noted Chest Chest palpation & inspection: normal inspection of the chest Resp Effort & Inspection: normal respiratory effort, able to speak in complete sentences, no audible wheezes, Actively coughing, no stridor, not tachypneic, no tripod positioning and no use of accessory muscles Auscultation: no crackles, no rhonchi and no wheezes Cardio Jugular venous distension: no JVD Rate: regular rate Rhythm: regular rhythm Skin Other: warm, dry General skin exam: no rashes or lesions noted Neuro General: patient oriented x3 Cranial nerves: Yes Normal hearing present Cognition (Neuro): normal cognition Gait exam (Neuro): Normal gait present Extrem General: Yes normal to inspection, Yes capillary refill normal, Yes no clubbing, cyanosis or edema and Yes no pedal edema Psych Appearance: grossly normal and well kempt Speech and movement: Normal speech and movement present and Clear speech present Affect: normal affect Attitude: cooperative Thought process: Normal thought process present Thought content: Normal thought content present Insight: Good insight present (Psych) Judgement: Good judgement present (Psych) Results Reviewed Results Reviewed: [address] [address] [address] Scan Report Signed Patient: Edi Han MR#: [id number] : 1975 Acct:[id number] Age/Sex: 47 / F ADM Date: 03/24/23 Loc: HO.ED Attending Dr: Ordering Physician: Oswaldo Pisano MD Date of Service: 03/24/23 Procedure(s): CT angio chest PE protocol Accession Number(s): [id number] cc: Jose Maria Lemons-BC; Oswaldo Pisano MD~ EXAMINATION: CT ANGIOGRAM OF THE CHEST WITH CONTRAST (CT PULMONARY ANGIOGRAM FOR PE) CT ABDOMEN PELVIS WITH CONTRAST CLINICAL INFORMATION: Reason for Exam shortness of breath. Left adrenal mass, accelerated htn COMPARISON: CT abdomen pelvis dated 04/08/2021 TECHNIQUE: Multidetector volumetric imaging was performed from the thoracic inlet to the pubic symphysis through the chest, abdomen, and pelvis following the administration of 85 mL Omnipaque 350 intravenous contrast. No contrast reaction reported Sagittal, coronal, and MIP oblique sagittal (through the chest only) reformatted images were obtained on the CT workstation, uploaded to PACS, and reviewed. Total exam dose-length product: 788 mGy-cm This CT examination was performed using dose optimization techniques as appropriate, variously including the following: *Automated exposure control *Adjustment of mA and/or kV according to patient size (this includes techniques or standardized protocols for targeted exams where dose is matched to indication/reason for exam; i.e. extremities or head) *Use of iterative reconstruction technique FINDINGS: QUALITY OF STUDY/CONTRAST BOLUS: Satisfactory. PULMONARY ARTERIES: No central or segmental pulmonary emboli. THORACIC AORTA: No aneurysm or dissection. LUNG: No focal consolidation, nodules or masses. Dependent atelectasis is present in both lungs. Central airways are clear. PLEURA: No pleural effusion or pneumothorax. MEDIASTINUM: Normal heart size. No pericardial effusion. No hilar or mediastinal lymphadenopathy. No evidence of septal bowing or right heart strain. CHEST WALL/AXILLA: No axillary or internal mammary lymphadenopathy. ABDOMEN/PELVIS: LIVER, GALLBLADDER AND BILIARY TREE: The liver measures 21 cm craniocaudal, consistent with cardiomegaly. Liver is otherwise normal in contour.. No focal lesions. The gallbladder is unremarkable with no evidence of radiopaque gallstones, gallbladder wall thickening, or obvious pericholecystic inflammatory changes. PANCREAS: Normal; no mass or surrounding fluid. SPLEEN: Normal size. No focal lesion. ADRENAL GLANDS: The right adrenal gland is normal in appearance. Adjacent to the left adrenal gland is a 2 mm nodule which is isointense to the adjacent spleen on both the CTA chest images and the subsequent portal venous phase abdominal images, most consistent with a splenule. This is unchanged as compared to the prior CT from 2021. No recommended imaging follow-up. KIDNEYS AND URETERS: The kidneys are normal in size, shape, and attenuation. Multiple bilateral nonobstructing renal calculi are noted, the majority of which is situated in the lower pole calyces in the left kidney. There is a dominant cluster of multiple calculi within a left lower pole calyx measuring 6 mm in aggregate, though each individual calculus likely measures no more than 3 mm. In the right kidney, there are 2 nonobstructing calculi within a calyx in the interpolar region. Small subcentimeter focus of cortical hypoattenuation in the left kidney is too small to characterize, though statistically favored to correspond to a simple cyst. No recommended imaging follow-up. GASTROINTESTINAL TRACT: Stomach, small bowel, and colon are normal in caliber. No bowel wall thickening or surrounding inflammatory changes. Appendix is normal. No intraperitoneal free fluid or free air. Minimal colonic diverticulosis without evidence of acute diverticulitis. ABDOMINAL WALL: Small fat-containing umbilical hernia. No bowel involvement. LYMPHOVASCULAR STRUCTURES: No lymphadenopathy. The aorta is unremarkable. BLADDER: No focal mass or wall thickening seen. No bladder calculi. PELVIC VISCERA: An IUD is appropriately situated within the uterus. Uterus is normal in size. No adnexal lesions. OSSEOUS STRUCTURES: Qzif-jm-vbtgjkoy multilevel degenerative disc disease is present in the thoracic spine. More mild degenerative disc disease is present in the lumbar spine. 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 No aggressive osseous lesions. CT/CT angio chest PE protocol IMPRESSION: 1. No acute abnormalities are identified in chest, abdomen, and pelvis. 2. Unchanged 2 cm nodule between the spleen and left adrenal gland is strongly favored to correspond to a splenule as opposed to primary adrenal nodule. 3. Bilateral nonobstructing renal calculi. 4. Mild hepatomegaly. 5. Minimal colonic diverticulosis without evidence of acute diverticulitis. VTE: negative. Dictated By: n Signed By: <Electronically signed by n in OV> 03/25/23 0009 DD/ 2310 TD/TT: Press Operator Automatic: CESAR Assessment & Plan Assessment & Plan (1) Cough: Code(s): R05.9 - Cough, unspecified (2) Asthma: Code(s): J45.909 - Unspecified asthma, uncomplicated (3) Environmental allergies: Code(s): Z91.09 - Other allergy status, other than to drugs and biological substances Plan Patient continues with persistent cough despite Flovent and duoneb BID. She was recently prescribed antibiotics and prednisone for sinusitis as well as bronchitic symptoms. She notes sinus symptoms are improved however continues with constant clear nasal drainage and PND. Will trial nasal spray. Will also send in prednisone as patient had improvements on prednisone prior and still with persistent cough as well as post exhalation cough on exam. Also notable inflammation on chest CT. She is aware if symptoms persist to call office or if worsen seek emergent care. All questions were answered and patient is in agreement of plan. Will follow up in 3 months or sooner if needed. Medications: New ipratropium bromide administer into each nostril 2 sprays intranasal BID 30 mL 1RF prednisone see taper instructions Take 4 pills daily for 5 days, then go down by 1 pill every 5 days; 20 days 50 tabs 0RF 10 mg PO DIRECTED 50 tabs 0RF Coding Level of Care Code Est Pt Level 4 (01778) Diagnoses Cough R05.9 Asthma J45.909 Environmental allergies Z91.09
[2023-03-25 10:09] VITALS: BP 112/68; PULSE 108; O2SAT 97; BMI 34.3
== END 2023-03-25 11:00 | disposition home or self-care (01) ==
PROVIDERS: PCP Nurse Practitioner Family; Visit Provider Nurse Practitioner Family
DX: R05.9 Cough, unspecified (principal); J45.909 Unspecified asthma, uncomplicated; Z91.09 Other allergy status, other than to drugs and biological substances
CPT/HCPCS: 99214

== ENCOUNTER → 2023-03-25 10:04 | Outpatient (BNVA) | payer OTHER, SELFPAY | PROVIDERS: PCP Nurse Practitioner Family; Visit Provider Nurse Practitioner Family ==

== ENCOUNTER 2023-04-15 08:44 | Outpatient (AMB) | payer OTHER, MEDICAID, SELFPAY ==
--- NOTE | 2023-04-15 08:47 | MHC.OFFVIS ---
Intake Vital Signs 04/15/23 08:49 BP 134/68 Blood Pressure Location Rt brachial Position Sitting Pulse 97 Pulse Source Pulse Oximeter Pulse Oximetry (%) 97 Oxygen Delivery Method Room Air Intake Visit Reasons: cough: f/u on results Portable Track Line Marker Required: No Certified Neurodiagnostic Technologist: Certified Neurodiagnostic Technologist offered & declined Accompanied by: Self / Same As Patient Allergies levofloxacin [From LEVAQUIN] Allergy (Intermediate, Verified 04/15/23 08:53) RASH benzoin Allergy (Unknown, Verified 04/15/23 08:53) Unknown seasonal Allergy (Unknown, Uncoded 04/15/23 08:53) Unknown Cats Allergy (Unknown, Uncoded 04/15/23 08:53) Unknown lactose Adverse Reaction (Severe, Uncoded 04/15/23 08:53) leg cramping Medication List - Last Reconciled 04/15/23 by Harmony Townsend LPN albuterol sulfate 90 mcg/actuation 1 puff inhalation QID PRN albuterol sulfate 2.5 mg (3 mL) inhalation Q6H amlodipine 2.5 mg PO DAILY [id number]-yloflvxdzgopq-tyyb 50-300-40 mg 2 caps PO Q4H PRN cetirizine (Zyrtec) 20 mg PO DAILY PRN gabapentin 600 mg PO DAILY@1700 ipratropium bromide 2 sprays intranasal BID ipratropium-albuterol 0.5 mg-3 mg(2.5 mg base)/3 mL 3 mL inhalation Q6H PRN ketoconazole 2% 1 appl topical BID levonorgestrel (Mirena) intrauterine losartan-hydrochlorothiazide 50-12.5 mg 1 tab PO DAILY nystatin 1 appl topical BID nystatin 1 appl topical BID tamsulosin 0.4 mg PO DAILY 30 days tizanidine 4 mg PO BEDTIME PRN 30 days HPI cough: f/u on results HPI Details Edi is a pleasant 47 year old female, never smoker, with underlying history of asthma. She reports worsening asthma symptoms after cassidy COVID in July. At the last visit she was placed on Advair and developed significant muscle cramping so was switched to Flovent. She continues with persistent dry cough and intermittent dyspnea, initially improved with doxy/predn however developed sinusitis then treated with augmentin and prednisone, with minimal improvement in symptoms. She does report occasional productive cough with yellow to green sputum and wheezing. [facility] Medical History Left adrenal mass Asthma Kidney stone Migraines Surgical History History of cystoscopy History of lithotripsy History of knee surgery History of lumpectomy of left breast (2007) Family History Maternal Grandmother Cancer of abdominal organ Family/Other Breast cancer, Onset Age: 30 Father Parkinson disease Social History (Updated 04/15/23 @ 08:55 by Harmony Townsend LPN) Housing: Apartment Alcohol intake: current Alcohol intake frequency: holidays/special occasions only Patient Tobacco Use Status: Never used Tobacco Smoked in Last 30 Days: No e-Cigarette/Vaping Use: Never Used Second Hand Smoke Exposure: No service: No Current occupational status: employed Cognitive needs: No Hearing needs: No Vision needs: Yes Female Reproductive History Menstrual Age of Menarche: 14 Review of Systems Const Denies chills, Denies excessive sweating, Denies fever(s), Denies headache(s) and Denies night sweats Eyes Denies dry eyes, Denies irritation and Denies itchy eyes ENT Reports Normal hearing present, Denies headache(s), Denies nasal congestion and Denies sore throat Card Denies chest pain, Denies chest pain at rest, Denies chest pain with activity, Denies claudication, Denies leg edema, Denies orthopnea and Denies paroxysmal nocturnal dyspnea Resp Reports cough, Denies excessive phlegm production, Denies pain on inspiration and Denies stridor Musc Denies myalgias Neuro Reports Normal hearing present and Denies headache(s) Endo Denies excessive sweating Ayo/Lymph Denies lymphadenopathy Aller/Immun Denies itchy eyes and Denies seasonal rhinorrhea Physical Exam Vital Signs: Last Vital Signs Pulse 97 04/15/23 08:49 BP 134/68 04/15/23 08:49 Pulse Ox 97 04/15/23 08:49 Oxygen Delivery Method Room Air 04/15/23 08:49 Const General: cooperative, healthy appearing, comfortable, well developed and alert Orientation/consciousness: patient oriented x3 Limitations: no limitations HEENT Head: Yes normal to inspection, Yes normocephalic and Yes atraumatic Ears: hearing grossly normal bilaterally and external ears normal Eyes General: appearance normal, both eyes and all related structures Eyelids: Yes eyelids normal Sclerae: sclerae normal EOM: EOMs intact bilaterally Neck Neck: Yes normal visual inspection and Yes no lymphadenopathy Lymphatic: no lymphadenopathy noted Chest Chest palpation & inspection: normal inspection of the chest Resp Effort & Inspection: normal respiratory effort, able to speak in complete sentences, no audible wheezes, Actively coughing, no stridor, not tachypneic, no tripod positioning and no use of accessory muscles Auscultation: no crackles, no rhonchi and no wheezes Cardio Jugular venous distension: no JVD Rate: regular rate Rhythm: regular rhythm Skin Other: warm, dry General skin exam: no rashes or lesions noted Neuro General: patient oriented x3 Cranial nerves: Yes Normal hearing present Cognition (Neuro): normal cognition Gait exam (Neuro): Normal gait present Extrem General: Yes normal to inspection, Yes capillary refill normal, Yes no clubbing, cyanosis or edema and Yes no pedal edema Psych Appearance: grossly normal and well kempt Speech and movement: Normal speech and movement present and Clear speech present Affect: normal affect Attitude: cooperative Thought process: Normal thought process present Thought content: Normal thought content present Insight: Good insight present (Psych) Judgement: Good judgement present (Psych) Assessment & Plan Assessment & Plan (1) Cough: Code(s): R05.9 - Cough, unspecified (2) Asthma: Code(s): J45.909 - Unspecified asthma, uncomplicated Plan Will treat bronchitic symptoms with bactrim. She is aware if symptoms persist to call office or if worsen seek emergent care. All questions were answered and patient is in agreement of plan. Will follow up in 4-6 weeks or sooner if needed. Medications: New sulfamethoxazole-trimethoprim 800-160 mg (Bactrim DS) 1 tab PO BID 14 tabs 0RF albuterol sulfate 90 mcg/actuation 1 puff inhalation QID PRN 1 ea 3RF wheezing fluticasone propionate 220 mcg/actuation 2 puffs inhalation BID 12 grams 6RF Refilled ipratropium-albuterol 0.5 mg-3 mg(2.5 mg base)/3 mL 3 mL inhalation Q6H PRN 180 mL 0RF wheezing Coding Level of Care Code Est Pt Level 4 (23960) Diagnoses Cough R05.9 Asthma J45.909
[2023-04-15 08:49] VITALS: BP 134/68; PULSE 97; O2SAT 97
== END 2023-04-15 09:27 | disposition home or self-care (01) ==
PROVIDERS: PCP Nurse Practitioner Family; Visit Provider Nurse Practitioner Family
DX: R05.9 Cough, unspecified (principal); J45.909 Unspecified asthma, uncomplicated
CPT/HCPCS: 99214

== ENCOUNTER → 2023-04-15 08:44 | Outpatient (BNVA) | payer OTHER, SELFPAY | PROVIDERS: PCP Nurse Practitioner Family; Visit Provider Nurse Practitioner Family ==

== ENCOUNTER 2023-05-02 08:34 | Outpatient (AMB) | payer OTHER, MEDICAID, SELFPAY ==
--- NOTE | 2023-05-02 08:37 | A.OFFVIS_ITS ---
Intake Vital Signs 05/02/23 08:49 Height 5 ft 9 in Weight 242 lb 8.136 oz BMI 35.8 BP 135/77 Blood Pressure Location Lt brachial Position Sitting Pulse 86 Intake Visit Reasons: Colonscopy Screening Intake Note: Patient presents to in office today as a new patient for colonoscopy screening. CC: Patient report abdominal bloating and gas. Per patient she recently had imaging done that showed something about her intestines being lifted or compressing her diaphragm . Pt reports shortness of breath and cough since January. Stone Decorator Required: No Allergies levofloxacin [From LEVAQUIN] Allergy (Intermediate, Verified 05/09/23 11:49) RASH benzoin Allergy (Unknown, Verified 05/09/23 11:49) Unknown seasonal Allergy (Unknown, Uncoded 04/15/23 08:53) Unknown Cats Allergy (Unknown, Uncoded 04/15/23 08:53) Unknown lactose Adverse Reaction (Severe, Uncoded 04/15/23 08:53) leg cramping HPI Colonscopy Screening HPI Details 47-year-old female here for preprocedura l meeting to discuss a screening colonoscopy. She is referred by Jose Maria Lemons of [facility] [place] [place] primary care. PMX Asthma Hypertension Left adrenal mass Nephrolithiasis Migraines Chronic UTI Fibroadenomas Allergic rhinitis * SURGICAL HISTORY Cystoscopy Lithotripsy Bilateral knee surgery - meniscus repair and hardware/reconstuctions osteochondritis desicans Lumpectomy of the left breast * ALLERGIES Levaquin Benzoin Lactose - intolerance * Image Socket LABS: Laboratory Tests 03/24/23 14:03 WBC 10.1 Hgb 15.7 Hct 46.9 Plt Count 404 H Estimated GFR > 60 Total Bilirubin 0.5 AST 18 ALT 29 Alkaline Phosphata se 69 CXR 03/24/23 FINDINGS: No significant abnormality is noted involving the heart, lungs, mediastinum, bony thorax or soft tissues. 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 XR/XR chest 2V IMPRESSION: No acute intrathoracic disease. i CT ABD AND PELVIS 03/25/23 FINDINGS: QUALITY OF STUDY/CONTRAST BOLUS: Satisfactory. PULMONARY ARTERIES: No central or segmental pulmonary emboli. THORACIC AORTA: No aneurysm or dissection. LUNG: No focal consolidation, nodules or masses. Dependent atelectasis is present in both lungs. Central airways are clear. PLEURA: No pleural effusion or pneumothorax. MEDIASTINUM: Normal heart size. No pericardial effusion. No hilar or mediastinal lymphadenopathy. No evidence of septal bowing or right heart strain. CHEST WALL/AXILLA: No axillary or internal mammary lymphadenopathy. ABDOMEN/PELVIS: LIVER, GALLBLADDER AND BILIARY TREE: The liver measures 21 cm craniocaudal, consistent with cardiomegaly. Liver is otherwise normal in contour.. No focal lesions. The gallbladder is unremarkable with no evidence of radiopaque gallstones, gallbladder wall thickening, or obvious pericholecystic inflammatory changes. PANCREAS: Normal; no mass or surrounding fluid. SPLEEN: Normal size. No focal lesion. ADRENAL GLANDS: The right adrenal gland is normal in appearance. Adjacent to the left adrenal gland is a 2 mm nodule which is isointense to the adjacent spleen on both the CTA chest images and the subsequent portal venous phase abdominal images, most consistent with a splenule. This is unchanged as compared to the prior CT from 2021. No recommended imaging follow-up. KIDNEYS AND URETERS: The kidneys are normal in size, shape, and attenuation. Multiple bilateral nonobstructing renal calculi are noted, the majority of which is situated in the lower pole calyces in the left kidney. There is a dominant cluster of multiple calculi within a left lower pole calyx measuring 6 mm in aggregate, though each individual calculus likely measures no more than 3 mm. In the right kidney, there are 2 nonobstructing calculi within a calyx in the interpolar region. Small subcentimeter focus of cortical hypoattenuation in the left kidney is too small to characterize, though statistically favored to correspond to a simple cyst. No recommended imaging follow-up. GASTROINTESTINAL TRACT: Stomach, small bowel, and colon are normal in caliber. No bowel wall thickening or surrounding inflammatory changes. Appendix is normal. No intraperitoneal free fluid or free air. Minimal colonic diverticulosis without evidence of acute diverticulitis. ABDOMINAL WALL: Small fat-containing umbilical hernia. No bowel involvement. LYMPHOVASCULAR STRUCTURES: No lymphadenopathy. The aorta is unremarkable. BLADDER: No focal mass or wall thickening seen. No bladder calculi. PELVIC VISCERA: An IUD is appropriately situated within the uterus. Uterus is normal in size. No adnexal lesions. OSSEOUS STRUCTURES: [id number] multilevel degenerative disc disease is present in the thoracic spine. More mild degenerative disc disease is present in the lumbar spine. 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 No aggressive osseous lesions. CT/CT abdomen pelvis w IV con IMPRESSION: 1. No acute abnormalities are identifie d in chest, abdomen, and pelvis. 2. Unchanged 2 cm nodule between the sp sarah and left adrenal gland is strongly favored to correspond to a splenule as opposed to primary adrenal nodule. 3. Bilateral nonobstructing renal calcu li. 4. Mild hepatomegaly. 5. Minimal colonic diverticulosis witho ut evidence of acute diverticulitis. VTE: negative. CHEST CT 03/25/23 FINDINGS: QUALITY OF STUDY/CONTRAST BOLUS: Satisfactory. PULMONARY ARTERIES: No central or segmental pulmonary emboli. THORACIC AORTA: No aneurysm or dissection. LUNG: No focal consolidation, nodules or masses. Dependent atelectasis is present in both lungs. Central airways are clear. PLEURA: No pleural effusion or pneumothorax. MEDIASTINUM: Normal heart size. No pericardial effusion. No hilar or mediastinal lymphadenopathy. No evidence of septal bowing or right heart strain. CHEST WALL/AXILLA: No axillary or internal mammary lymphadenopathy. ABDOMEN/PELVIS: LIVER, GALLBLADDER AND BILIARY TREE: The liver measures 21 cm craniocaudal, consistent with cardiomegaly. Liver is otherwise normal in contour.. No focal lesions. The gallbladder is unremarkable with no evidence of radiopaque gallstones, gallbladder wall thickening, or obvious pericholecystic inflammatory changes. PANCREAS: Normal; no mass or surrounding fluid. SPLEEN: Normal size. No focal lesion. ADRENAL GLANDS: The right adrenal gland is normal in appearance. Adjacent to the left adrenal gland is a 2 mm nodule which is isointense to the adjacent spleen on both the CTA chest images and the subsequent portal venous phase abdominal images, most consistent with a splenule. This is unchanged as compared to the prior CT from 2021. No recommended imaging follow-up. KIDNEYS AND URETERS: The kidneys are normal in size, shape, and attenuation. Multiple bilateral nonobstructing renal calculi are noted, the majority of which is situated in the lower pole calyces in the left kidney. There is a dominant cluster of multiple calculi within a left lower pole calyx measuring 6 mm in aggregate, though each individual calculus likely measures no more than 3 mm. In the right kidney, there are 2 nonobstructing calculi within a calyx in the interpolar region. Small subcentimeter focus of cortical hypoattenuation in the left kidney is too small to characterize, though statistically favored to correspond to a simple cyst. No recommended imaging follow-up. GASTROINTESTINAL TRACT: Stomach, small bowel, and colon are normal in caliber. No bowel wall thickening or surrounding inflammatory changes. Appendix is normal. No intraperitoneal free fluid or free air. Minimal colonic diverticulosis without evidence of acute diverticulitis. ABDOMINAL WALL: Small fat-containing umbilical hernia. No bowel involvement. LYMPHOVASCULAR STRUCTURES: No lymphadenopathy. The aorta is unremarkable. BLADDER: No focal mass or wall thickening seen. No bladder calculi. PELVIC VISCERA: An IUD is appropriately situated within the uterus. Uterus is normal in size. No adnexal lesions. OSSEOUS STRUCTURES: [id number]-[id number] multilevel degenerative disc disease is present in the thoracic spine. More mild degenerative disc disease is present in the lumbar spine. 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 No aggressive osseous lesions. CT/CT angio chest PE protocol IMPRESSION: 1. No acute abnormalities are identifie d in chest, abdomen, and pelvis. 2. Unchanged 2 cm nodule between the sp sarah and left adrenal gland is strongly favored to correspond to a splenule as opposed to primary adrenal nodule. 3. Bilateral nonobstructing renal calcu li. 4. Mild hepatomegaly. 5. Minimal colonic diverticulosis witho ut evidence of acute diverticulitis. VTE: negative. TODAY'S VISIT She has ongoing nausea and discomfort with gurgling in the right UQ with deep breath. She has ongoing SOB over the past year with persistent cough. CXR showing Chilaiditi anatomy - Occasional diarrhea no CIC but a lot of bloating and gas. She may be lactose intolerance. Son has food allergies, but this seems to run in her son's fathers family BUT there is a allergy to crab in her family. No med changes before this, no diet changes, she had COVID before this no other illness. She has gained wt recently, 15-20lbs. Has been on prednisone, however. Because Chilaiditi can cause scope problems needs to tease this out and the cardiac status prior to procedures. Her industrial boilermaker wants us to explore possible GERD in diff dx for SOB. ? definitive study Small bowel follow through. Certainly the chest CT and the CT scan of the abdomen and pelvis did not seem to verify the proposed anatomic abnormality. She has N/V from general anesthesia no other problems. She has ongoing asthma ? SOB and source, She has recent HTN and palpitations/tachycardia - she has not yet seen a financial services internship. No ID problems. There is polyps on both sides mother and father, maternal grandmother passed with abdomen full of ca of undetermined origin. [facility] Medical History (Updated 05/14/23 @ 10:08 by WILLIAM Bolden) Upper respiratory tract infection Viral illness Left knee pain Muscle pain Encounter for routine adult physical exam with abnormal findings Environmental allergies Cough Wheezing Screening for colon cancer Pharyngitis Physical exam Kidney stone Leg pain Left adrenal mass Asthma Migraines Surgical History History of cystoscopy History of lithotripsy History of knee surgery History of lumpectomy of left breast (2007) Family History Maternal Grandmother Cancer of abdominal organ Family/Other Breast cancer, Onset Age: 30 Father Parkinson disease Squamous cell skin cancer Social History Housing: Apartment Alcohol intake: current Alcohol intake frequency: holidays/special occasions only Patient Tobacco Use Status: Never used Tobacco e-Cigarette/Vaping Use: Never Used Second Hand Smoke Exposure: No service: No Current occupational status: employed Cognitive needs: No Hearing needs: No Vision needs: Yes Female Reproductive History Menstrual Age of Menarche: 14 Review of Systems Const Denies fatigue, Denies fever(s), Reports headache(s), Denies night sweats, Denies poor appetite, Reports weight gain and Denies weight loss ENT Reports Normal hearing present, Denies dental pain, Denies dysphagia, Reports headache(s), Denies hearing loss, Denies mouth pain, Denies odynophagia, Denies throat swelling, Denies tongue swelling and Reports other (Dentition adequate) Card Reports palpitations and Reports dyspnea Resp Reports cough and Reports dyspnea GI Details: Reports abdominal pain, Denies melena, Reports bloating, Denies hematochezia, Denies constipation, Denies GI cramping, Denies dysphagia, Reports excessive fla tus, Denies early satiety, Reports heartburn, Denies diarrhea, Reports loose stools, Reports nausea, Denies odynophagia, Denies vomiting and Denies hematemesis Musc Reports myalgias and Reports arthralgias Skin/Breast Denies pruritus, Denies lesions, Denies rash and Denies jaundice Neuro Reports Normal hearing present, Denies Abnormal speech present and Reports headache(s) Endo Denies fatigue and Reports palpitations Aller/Immun Denies throat swelling and Denies tongue swelling Physical Exam Vital Signs: Last Vital Signs Pulse 86 05/02/23 08:49 BP 135/77 05/02/23 08:49 BMI result Body Mass Index 35.8 Const General: cooperative, no acute distress, well developed and well groomed Nutritional Appearance: well nourished and obese Orientation/consciousness: oriented to person, oriented to place and oriented to time Limitations: No language barrier HEENT Head: Yes normocephalic and Yes atraumatic Eyes General: appearance normal, both eyes and all related structures Pupils: Equal, round and reactive pupils present Neck Neck: Yes normal visual inspection and Yes no lymphadenopathy Thyroid: Thyroid normal Resp Effort & Inspection: normal respiratory effort and able to speak in complete sentences Auscultation: clear to auscultation bilaterally Cardio Rate: regular rate Rhythm: regular rhythm Heart sounds: Normal, physiologic split S2 sound present Peripheral pulses: radial pulses present and posterior tibial pulses present GI Inspection: No distended, No Abdominal panniculus present and Yes obesity Palpation (GI): Soft to palpation, nontender, no guarding, not rigid and No hepatosplenomegaly present Percussion: Yes normal to percussion Auscultation: normal bowel sounds Rectal Exam - Female: deferred Skin General skin exam: no rashes or lesions noted, turgor normal, skin not dry, no jaundice, No spider nevi and no striae Rashes: no rashes Nails: normal Neuro General: oriented to person, oriented to place and oriented to time Cranial nerves: Yes Equal, round and reactive pupils present and Yes Normal hearing present Speech: No Abnormal speech present Extrem General: Yes normal to inspection, No clubbing, No cyanosis and No edema Psych Appearance: grossly normal and well kempt Mental Status: mental status grossly normal Speech and movement: Normal speech and movement present Affect: normal affect Attitude: cooperative Thought process: Normal thought process present and not confabulating Thought content: Normal thought content present Insight: Fair insight present (Psych) Judgement: Fair judgement present (Psych) Results Reviewed Results Reviewed: Laboratory Tests 03/24/23 14:03 WBC 10.1 Hgb 15.7 Hct 46.9 Plt Count 404 H Estimated GFR > 60 Total Bilirubin 0.5 AST 18 ALT 29 Alkaline Phosphatase 69 CXR 03/24/23 FINDINGS: No significant abnormality is noted involving the heart, lungs, mediastinum, bony thorax or soft tissues. 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 XR/XR chest 2V IMPRESSION: No acute intrathoracic disease. i CT ABD AND PELVIS 03/25/23 FINDINGS: QUALITY OF STUDY/CONTRAST BOLUS: Satisfactory. PULMONARY ARTERIES: No central or segmental pulmonary emboli. THORACIC AORTA: No aneurysm or dissection. LUNG: No focal consolidation, nodules or masses. Dependent atelectasis is present in both lungs. Central airways are clear. PLEURA: No pleural effusion or pneumothorax. MEDIASTINUM: Normal heart size. No pericardial effusion. No hilar or mediastinal lymphadenopathy. No evidence of septal bowing or right heart strain. CHEST WALL/AXILLA: No axillary or internal mammary lymphadenopathy. ABDOMEN/PELVIS: LIVER, GALLBLADDER AND BILIARY TREE: The liver measures 21 cm craniocaudal, consistent with cardiomegaly. Liver is otherwise normal in contour.. No focal lesions. The gallbladder is unremarkable with no evidence of radiopaque gallstones, gallbladder wall thickening, or obvious pericholecystic inflammatory changes. PANCREAS: Normal; no mass or surrounding fluid. SPLEEN: Normal size. No focal lesion. ADRENAL GLANDS: The right adrenal gland is normal in appearance. Adjacent to the left adrenal gland is a 2 mm nodule which is isointense to the adjacent spleen on both the CTA chest images and the subsequent portal venous phase abdominal images, most consistent with a splenule. This is unchanged as compared to the prior CT from 2021. No recommended imaging follow-up. KIDNEYS AND URETERS: The kidneys are normal in size, shape, and attenuation. Multiple bilateral nonobstructing renal calculi are noted, the majority of which is situated in the lower pole calyces in the left kidney. There is a dominant cluster of multiple calculi within a left lower pole calyx measuring 6 mm in aggregate, though each individual calculus likely measures no more than 3 mm. In the right kidney, there are 2 nonobstructing calculi within a calyx in the interpolar region. Small subcentimeter focus of cortical hypoattenuation in the left kidney is too small to characterize, though statistically favored to correspond to a simple cyst. No recommended imaging follow-up. GASTROINTESTINAL TRACT: Stomach, small bowel, and colon are normal in caliber. No bowel wall thickening or surrounding inflammatory changes. Appendix is normal. No intraperitoneal free fluid or free air. Minimal colonic diverticulosis without evidence of acute diverticulitis. ABDOMINAL WALL: Small fat-containing umbilical hernia. No bowel involvement. LYMPHOVASCULAR STRUCTURES: No lymphadenopathy. The aorta is unremarkable. BLADDER: No focal mass or wall thickening seen. No bladder calculi. PELVIC VISCERA: An IUD is appropriately situated within the uterus. Uterus is normal in size. No adnexal lesions. OSSEOUS STRUCTURES: [id number] multilevel degenerative disc disease is present in the thoracic spine. More mild degenerative disc disease is present in the lumbar spine. 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 No aggressive osseous lesions. CT/CT abdomen pelvis w IV con IMPRESSION: 1. No acute abnormalities are identified in chest, abdomen, and pelvis. 2. Unchanged 2 cm nodule between the spleen and left adrenal gland is strongly favored to correspond to a splenule as opposed to primary adrenal nodule. 3. Bilateral nonobstructing renal calculi. 4. Mild hepatomegaly. 5. Minimal colonic diverticulosis without evidence of acute diverticulitis. VTE: negative. CHEST CT 03/25/23 FINDINGS: QUALITY OF STUDY/CONTRAST BOLUS: Satisfactory. PULMONARY ARTERIES: No central or segmental pulmonary emboli. THORACIC AORTA: No aneurysm or dissection. LUNG: No focal consolidation, nodules or masses. Dependent atelectasis is present in both lungs. Central airways are clear. PLEURA: No pleural effusion or pneumothorax. MEDIASTINUM: Normal heart size. No pericardial effusion. No hilar or mediastinal lymphadenopathy. No evidence of septal bowing or right heart strain. CHEST WALL/AXILLA: No axillary or internal mammary lymphadenopathy. ABDOMEN/PELVIS: LIVER, GALLBLADDER AND BILIARY TREE: The liver measures 21 cm craniocaudal, consistent with cardiomegaly. Liver is otherwise normal in contour.. No focal lesions. The gallbladder is unremarkable with no evidence of radiopaque gallstones, gallbladder wall thickening, or obvious pericholecystic inflammatory changes. PANCREAS: Normal; no mass or surrounding fluid. SPLEEN: Normal size. No focal lesion. ADRENAL GLANDS: The right adrenal gland is normal in appearance. Adjacent to the left adrenal gland is a 2 mm nodule which is isointense to the adjacent spleen on both the CTA chest images and the subsequent portal venous phase abdominal images, most consistent with a splenule. This is unchanged as compared to the prior CT from 2021. No recommended imaging follow-up. KIDNEYS AND URETERS: The kidneys are normal in size, shape, and attenuation. Multiple bilateral nonobstructing renal calculi are noted, the majority of which is situated in the lower pole calyces in the left kidney. There is a dominant cluster of multiple calculi within a left lower pole calyx measuring 6 mm in aggregate, though each individual calculus likely measures no more than 3 mm. In the right kidney, there are 2 nonobstructing calculi within a calyx in the interpolar region. Small subcentimeter focus of cortical hypoattenuation in the left kidney is too small to characterize, though statistically favored to correspond to a simple cyst. No recommended imaging follow-up. GASTROINTESTINAL TRACT: Stomach, small bowel, and colon are normal in caliber. No bowel wall thickening or surrounding inflammatory changes. Appendix is normal. No intraperitoneal free fluid or free air. Minimal colonic diverticulosis without evidence of acute diverticulitis. ABDOMINAL WALL: Small fat-containing umbilical hernia. No bowel involvement. LYMPHOVASCULAR STRUCTURES: No lymphadenopathy. The aorta is unremarkable. BLADDER: No focal mass or wall thickening seen. No bladder calculi. PELVIC VISCERA: An IUD is appropriately situated within the uterus. Uterus is normal in size. No adnexal lesions. OSSEOUS STRUCTURES: [id number] multilevel degenerative disc disease is present in the thoracic spine. More mild degenerative disc disease is present in the lumbar spine. 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 No aggressive osseous lesions. CT/CT angio chest PE protocol IMPRESSION: 1. No acute abnormalities are identified in chest, abdomen, and pelvis. 2. Unchanged 2 cm nodule between the spleen and left adrenal gland is strongly favored to correspond to a splenule as opposed to primary adrenal nodule. 3. Bilateral nonobstructing renal calculi. 4. Mild hepatomegaly. 5. Minimal colonic diverticulosis without evidence of acute diverticulitis. VTE: negative. 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 She has ongoing SOB over the past year with persistent cough. CXR showing Chilaiditi anatomy - Occasional diarrhea no CIC but a lot of bloating and gas. She may be lactose intolerance. Son has food allergies, but this seems to run in her son's fathers family BUT there is a allergy to crab in her family. No med changes before this, no diet changes, she had COVID before this no other illness. She has gained wt recently, 15-20lbs. Has been on prednisone, however. Because Chilaiditi can cause scope problems needs to tease this out and the cardiac status prior to procedures. Her industrial boilermaker wants us to explore possible GERD in diff dx for SOB. ? definitive study Small bowel follow through. Certainly the chest CT and the CT scan of the abdomen and pelvis did not seem to verify the proposed anatomic abnormality. She has N/V from general anesthesia no other problems. She has ongoing asthma ? SOB and source, She has recent HTN and palpitations/tachycardia - she has not yet seen a financial services internship. No ID problems. There is polyps on both sides mother and father, maternal grandmother passed with abdomen full of ca of undetermined origin. Orders: Orders Colonoscopy - GI Use Only 05/02/23 Z01.818 - Encounter for other preprocedural examination, J45.909 - Unspecified asthma, uncomplicated, I10 - Essential (primary) hypertension Referrals Cardiology Referral R00.0 - Tachycardia, unspecified, Z01.818 - Encounter for other preprocedural examination, R06.02 - Shortness of breath Medications: New bisacodyl (Dulcolax (bisacodyl)) 10 mg (2 x 5 mg) PO BEDTIME 4 tabs 0RF 2 days sodium,potassium,mag sulfates 17.5-3.13-1.6 gram (Suprep Bowel Prep Kit) 480 mL PO ONCE 354 mL 0RF Z01.818 - Encounter for other preprocedural examination Coding Level of Care Code New Pt Level 3 (39300) Diagnoses Pre-op examination Z01.818 Asthma J45.909 Uncontrolled hypertension I10 Tachycardia R00.0 SOB (shortness of breath) 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
[2023-05-02 08:49] VITALS: BP 135/77; PULSE 86; BMI 35.8
== END 2023-05-02 09:45 | disposition home or self-care (01) ==
PROVIDERS: PCP Nurse Practitioner Family; Visit Provider Nurse Practitioner
DX: Z01.818 Encounter for other preprocedural examination (principal); J45.909 Unspecified asthma, uncomplicated; I10 Essential (primary) hypertension; R00.0 Tachycardia, unspecified; R06.02 Shortness of breath; Q43.3 Congenital malformations of intestinal fixation
CPT/HCPCS: 99203

== ENCOUNTER → 2023-05-02 08:34 | Outpatient (BNVA) | payer OTHER, SELFPAY | PROVIDERS: PCP Nurse Practitioner Family; Visit Provider Nurse Practitioner ==

== ENCOUNTER 2023-05-06 09:49 | Outpatient (AMB) | payer OTHER, SELFPAY ==
[2023-05-06 10:51] VITALS: BP 120/70; PULSE 99; TEMP 36.5; O2SAT 98; BMI 36.0
--- NOTE | 2023-05-06 10:51 | MHC.OFFWIV ---
Intake Vital Signs 05/06/23 10:51 Height 5 ft 9 in Weight 244 lb BMI 36.0 BP 120/70 Blood Pressure Location Lt brachial Position Sitting Pulse 99 Pulse Source Pulse Oximeter Temp 97.7 F Temp Source Temporal Artery Scan Pulse Oximetry (%) 98 Oxygen Delivery Method Room Air Intake Visit Reasons: EST/body ache sore throat ([phone] ) Intake Note: pt is here today for body aches sore throat started yesterday Patient Tobacco Use Status: Never used Tobacco Allergies levofloxacin [From LEVAQUIN] Allergy (Intermediate, Verified 05/06/23 10:52) RASH benzoin Allergy (Unknown, Verified 05/06/23 10:52) Unknown seasonal Allergy (Unknown, Uncoded 04/15/23 08:53) Unknown Cats Allergy (Unknown, Uncoded 04/15/23 08:53) Unknown lactose Adverse Reaction (Severe, Uncoded 04/15/23 08:53) leg cramping Do you need a note to return to daycare/school/sports/work: Yes HPI HPI Comments History of Present Illness Details Patient is a 47-year-old female in today for sick visit. Patient has a past medical history significant for recurrent asthma exacerbations, migraines. She has a of pulmonary appointment next week. She states that for the past several days she has developed symptoms of cough, malaise, sore throat, headache. She has sick contacts at home. Denies chest pain, shortness a breath, dizziness, numbness, nausea, vomiting, diarrhea. Will obtain upper respiratory swab, will obtain in office strep test [facility] Medical History (Updated 05/06/23 @ 11:45 by DALILA Shen) Upper respiratory tract infection Viral illness Left knee pain Muscle pain Encounter for routine adult physical exam with abnormal findings Environmental allergies Cough Wheezing Screening for colon cancer Pharyngitis Physical exam Kidney stone Leg pain Left adrenal mass Asthma Migraines Surgical History History of cystoscopy History of lithotripsy History of knee surgery History of lumpectomy of left breast (2007) Family History Maternal Grandmother Cancer of abdominal organ Family/Other Breast cancer, Onset Age: 30 Father Parkinson disease Squamous cell skin cancer Social History Housing: Apartment Alcohol intake: current Alcohol intake frequency: holidays/special occasions only Patient Tobacco Use Status: Never used Tobacco e-Cigarette/Vaping Use: Never Used Second Hand Smoke Exposure: No service: No Current occupational status: employed Cognitive needs: No Hearing needs: No Vision needs: Yes Female Reproductive History Menstrual Age of Menarche: 14 Review of Systems Const Details: Constitutional : No Weight loss, No Fever, Admits Chills, No Fatigue, Admits Malaise ENT/Mouth : Admits sore throat, No Rhinorrhea Eyes: No Eye Pain, No Swelling, No Redness Cardiovascular : No Chest Pain, No SOB, No Dyspnea on Exertion, No Orthopnea, No Edema, No Palpitations Respiratory : Admits Cough, No Sputum, No Wheezing Gastrointestinal : No Nausea, No Vomiting, No Diarrhea, No Constipation, No abdominal Pain, No Hematochezia, No Melena Genitourinary : No Dysuria, No Urinary Frequency, No Hematuria, Musculoskeletal : No joint pain, No Myalgias, No Joint Swelling Skin : No Skin Lesions, No rash Neuro : No Weakness, No Numbness, No Dizziness, No Headache Psych : No Anxiety/Panic, No Depression Heme/Lymph: No Bruising, No Bleeding,No Lymphadenopathy Endocrine : No Polyuria, No Polydipsia All other systems reviewed and are negative Physical Exam Vital Signs: Last Vital Signs Temp 97.7 F 05/06/23 10:51 Pulse 99 05/06/23 10:51 BP 120/70 05/06/23 10:51 Pulse Ox 98 05/06/23 10:51 Oxygen Delivery Method Room Air 05/06/23 10:51 BMI result Body Mass Index 36.0 Patient's vital signs reviewed and stable. Const Other: Appearance: Alert.? Oriented X3.? No acute distress.? Head: Normocephalic, atraumatic. Eyes: Pupils equal, round and reactive to light.? ENT: Pharynx cobblestoned. TM intact and pearly rico. ? Neck: Normal inspection.? Neck supple.? CVS: Normal heart rate and rhythm.? Pulses normal.? Respiratory: No respiratory distress.? Breath sounds normal.? Neuro: Oriented X 3.? No motor deficit.? No sensory deficit. CN 2-12 intact Results AMB Rapid Strep AMB Rapid Strep Negative Last Edit by Purnima James on 05/06/23 11:24 Results Reviewed Results Reviewed: Laboratory Last Values Strep Scn Rapid Clinic Negative 05/06/23 11:24 Assessment & Plan Assessment & Plan (1) Upper respiratory tract infection: Comment: Patient likely has upper respiratory tract infection, viral. Will give patient codeine guanfacine cough medicine to be taken at night. Patient has been educated not take this with gabapentin or tizanidine. Patient was educated not to take this prior to driving motor vehicle. She has been educated on side effects of this medication Code(s): J06.9 - Acute upper respiratory infection, unspecified Qualifiers: URI type: unspecified URI Qualified Code(s): J06.9 - Acute upper respiratory infection, unspecified Plan: Take your medications as prescribed. If you were prescribed antibiotics today, it is important that you take your medication to their entirety, do not skip any doses, do not finish them early. Follow-up with your primary care provider this week. Return to the emergency department with new or worsening symptoms. Such as fevers, chills, chest pain, shortness of breath, nausea, vomiting, dizziness, headache, vision changes, lethargy In case of emergency call 911 Orders: Orders SARS-CoV2/FLU/RSV Today J06.9 - Acute upper respiratory infection, unspecified Medications: New codeine-guaifenesin 10-100 mg/5 mL Do not taking currently with tizanidine or gabapentin. Do not take prior to driving motor vehicle 5 mL PO Q6H PRN 118 mL 0RF allergy symptoms Patient Instructions: Follow-up with PCP. Coding Level of Care Code Est Pt Level 3 (02384) Diagnoses Upper respiratory tract infection, unspecified type J06.9 URI type: unspecified URI Time Spent (min) 23
== END 2023-05-06 11:47 | disposition home or self-care (01) ==
PROVIDERS: PCP Nurse Practitioner Family; Visit Provider Nurse Practitioner Primary Care
DX: J06.9 Acute upper respiratory infection, unspecified (principal); J02.9 Acute pharyngitis, unspecified
CPT/HCPCS: 87880; 99213

== ENCOUNTER 2023-05-06 13:51 | Outpatient (REF) | payer OTHER, SELFPAY ==
[2023-05-06 14:38] LABS: Influenza A PCR NEGATIVE (Negative); Influenza B PCR NEGATIVE (Negative); Resp Syncy Virus RNA Qual PCR NEGATIVE (Negative); SARS COV2 PCR INHOUSE NEGATIVE (Negative)
== END 2023-05-06 13:52 | disposition home or self-care (01) ==
LOC: HO.HMGCLNP 13:51
PROVIDERS: Visit Provider Nurse Practitioner Primary Care
DX: Z11.52 Encounter for screening for COVID-19 (principal); Z20.822 Contact with and (suspected) exposure to COVID-19; J06.9 Acute upper respiratory infection, unspecified
CPT/HCPCS: 0241U

== ENCOUNTER 2023-05-09 10:40 | Outpatient (AMB) | payer OTHER, SELFPAY ==
--- NOTE | 2023-05-09 11:43 | MHC.OFFWIV ---
Intake Vital Signs 05/09/23 11:44 Height 5 ft 9 in Weight 241 lb BMI 35.6 BP 110/76 Blood Pressure Location Lt brachial Position Sitting Pulse 98 Pulse Source Pulse Oximeter Temp 97.0 F Temp Source Temporal Artery Scan Pulse Oximetry (%) 98 Oxygen Delivery Method Room Air Intake Visit Reasons: EST/weak/ nausea (lobby masked) Intake Note: pt is here today for weak nausea started Friday Patient Tobacco Use Status: Never used Tobacco Allergies levofloxacin [From LEVAQUIN] Allergy (Intermediate, Verified 05/09/23 11:49) RASH benzoin Allergy (Unknown, Verified 05/09/23 11:49) Unknown seasonal Allergy (Unknown, Uncoded 04/15/23 08:53) Unknown Cats Allergy (Unknown, Uncoded 04/15/23 08:53) Unknown lactose Adverse Reaction (Severe, Uncoded 04/15/23 08:53) leg cramping Do you need a note to return to daycare/school/sports/work: Yes HPI HPI Comments History of Present Illness Details 47 y/o female pt who presents to walk in clinic with c/o generalized weakness, fatigue and nausea. Pt was seen last Friday for similar symptoms. SARs was negative. [facility] Medical History (Updated 05/09/23 @ 12:13 by Kathi Hopkins NP) Upper respiratory tract infection Viral illness Left knee pain Muscle pain Encounter for routine adult physical exam with abnormal findings Environmental allergies Cough Wheezing Screening for colon cancer Pharyngitis Physical exam Kidney stone Leg pain Left adrenal mass Asthma Migraines Surgical History History of cystoscopy History of lithotripsy History of knee surgery History of lumpectomy of left breast (2007) Family History Maternal Grandmother Cancer of abdominal organ Family/Other Breast cancer, Onset Age: 30 Father Parkinson disease Squamous cell skin cancer Social History Housing: Apartment Alcohol intake: current Alcohol intake frequency: holidays/special occasions only Patient Tobacco Use Status: Never used Tobacco e-Cigarette/Vaping Use: Never Used Second Hand Smoke Exposure: No service: No Current occupational status: employed Cognitive needs: No Hearing needs: No Vision needs: Yes Female Reproductive History Menstrual Age of Menarche: 14 Review of Systems Const All systems reviewed & are unremarkable except as noted in HPI and below Physical Exam Vital Signs: Last Vital Signs Temp 97.0 F 05/09/23 11:44 Pulse 98 05/09/23 11:44 BP 110/76 05/09/23 11:44 Pulse Ox 98 05/09/23 11:44 Oxygen Delivery Method Room Air 05/09/23 11:44 BMI result Body Mass Index 35.6 Const General: comfortable and no acute distress Nutritional Appearance: obese Orientation/consciousness: patient oriented x3 HEENT Head: Yes normocephalic Ears: external ears normal and TM's normal bilaterally General nose exam: Normal nasal mucous membranes and turbinates present Face and sinus: Yes sinuses nontender Mouth: moist mucous membranes Throat: Yes posterior oropharynx normal GI Inspection: Yes normal to inspection and No distended Palpation (GI): Soft to palpation, not firm, nontender, no guarding, not rigid and No hepatosplenomegaly present Auscultation: normal bowel sounds Rectal Exam - Female: deferred Neuro General: patient oriented x3 Assessment & Plan Assessment & Plan (1) Upper respiratory tract infection: Code(s): J06.9 - Acute upper respiratory infection, unspecified Qualifiers: URI type: unspecified URI Qualified Code(s): J06.9 - Acute upper respiratory infection, unspecified Plan: - Rest and hydrate with warm fluids - Acetaminophen for pain relief (2) Nausea: Code(s): R11.0 - Nausea Plan: -BLAND diet - Take medicine as prescribed. Orders: Orders SARS-CoV2/FLU/RSV Today J06.9 - Acute upper respiratory infection, unspecified AMB Ondansetron Adult Dose Today R11.0 - Nausea Medications: New ondansetron 8 mg PO Q8H 30 tabs 0RF R11.0 - Nausea ondansetron 4 mg translingual ONCE 1 tab 0RF nausea and vomiting R11.0 - Nausea metoclopramide HCl (Reglan) 10 mg PO Q6H PRN 30 tabs 0RF nausea and vomiting R11.0 - Nausea Coding Level of Care Code Est Pt Level 3 (65032) Diagnoses Upper respiratory tract infection, unspecified type J06.9 URI type: unspecified URI Nausea R11.0 Time Spent (min) 15
[2023-05-09 11:44] VITALS: BP 110/76; PULSE 98; TEMP 36.1; O2SAT 98; BMI 35.6
== END 2023-05-09 12:20 | disposition home or self-care (01) ==
PROVIDERS: PCP Nurse Practitioner Family; Visit Provider Nurse Practitioner Family
DX: J06.9 Acute upper respiratory infection, unspecified (principal); R11.0 Nausea
CPT/HCPCS: 99213

== ENCOUNTER 2023-05-09 12:14 | Outpatient (REF) | payer OTHER, SELFPAY ==
[2023-05-09 16:08] LABS: Influenza A PCR NEGATIVE (Negative); Influenza B PCR NEGATIVE (Negative); Resp Syncy Virus RNA Qual PCR NEGATIVE (Negative); SARS COV2 PCR INHOUSE NEGATIVE (Negative)
== END 2023-05-09 12:15 | disposition home or self-care (01) ==
LOC: HO.LAB 12:14
PROVIDERS: Visit Provider Nurse Practitioner Family
DX: Z11.52 Encounter for screening for COVID-19 (principal); Z20.822 Contact with and (suspected) exposure to COVID-19; J06.9 Acute upper respiratory infection, unspecified
CPT/HCPCS: 0241U

== ENCOUNTER 2023-05-14 15:36 | Outpatient (AMB) | payer OTHER, MEDICAID, SELFPAY ==
[2023-05-14 15:46] VITALS: BP 134/80; PULSE 91; O2SAT 96; BMI 36.6
--- NOTE | 2023-05-14 15:46 | MHC.OFFVIS ---
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 Operator Required: No Peanut Blancher: Peanut Blancher offered & declined Accompanied by: Self / Same As Patient Allergies levofloxacin [From LEVAQUIN] Allergy (Intermediate, Verified 05/16/23 08:19) RASH benzoin Allergy (Unknown, Verified 05/16/23 08:19) Unknown seasonal Allergy (Unknown, Uncoded 05/16/23 08:19) Unknown Cats Allergy (Unknown, Uncoded 05/16/23 08:19) Unknown lactose Adverse Reaction (Severe, Uncoded 05/16/23 08:19) leg cramping Medication List - Last Reconciled 05/14/23 by Harmony Townsend LPN albuterol sulfate 2.5 mg (3 mL) inhalation Q6H albuterol sulfate 90 mcg/actuation 1 puff inhalation QID PRN benzonatate 200 mg PO BID PRN bisacodyl (Dulcolax (bisacodyl)) 10 mg (2 x 5 mg) PO BEDTIME 2 days swznuinbvv-kljzhdsalgeyj-eqlq 50-300-40 mg 2 caps PO Q4H PRN cetirizine (Zyrtec) 20 mg PO DAILY PRN codeine-guaifenesin 10-100 mg/5 mL 5 mL PO Q6H PRN gabapentin 600 mg PO DAILY@1700 ipratropium bromide 2 sprays intranasal BID ipratropium-albuterol 0.5 mg-3 mg(2.5 mg base)/3 mL 3 mL inhalation Q6H PRN ketoconazole 2% 1 appl topical BID levonorgestrel (Mirena) intrauterine losartan-hydrochlorothiazide 50-12.5 mg 1 tab PO DAILY metoprolol succinate ER 25 mg PO DAILY nystatin 1 appl topical BID sodium,potassium,mag sulfates 17.5-3.13-1.6 gram (Suprep Bowel Prep Kit) 480 mL PO ONCE tamsulosin 0.4 mg PO DAILY 30 days tizanidine 4 mg PO BEDTIME PRN 30 days HPI asthma 4 wk follow up HPI Details Edi is a pleasant 47 year old female, never smoker, with underlying history of asthma. She reports worsening asthma symptoms after cassidy COVID in July. She has had multiple URI since January and once symptoms begin to improve symptoms return. PFT normal and Chest CT unremarkable. She was placed on Advair and developed significant muscle cramping so was switched to Flovent, thought to be related to the LABA. After last visit, she seemed to have improvements in dry cough and intermittent dyspnea, however last week started with worsening symptoms, flu like in nature. 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 She was seen in urgent care on 05/05 given cough medicine, COVID,RSV,FLU negative. She reports slowly resolving symptoms continues with productive cough and wheezing. Of note, patient has been without Flovent due to insurance coverage. [facility] Medical History Upper respiratory tract infection Viral illness Left knee pain Muscle pain Encounter for routine adult physical exam with abnormal findings Environmental allergies Cough Wheezing Screening for colon cancer Pharyngitis Physical exam Kidney stone Leg pain Left adrenal mass Asthma Migraines Surgical History History of cystoscopy History of lithotripsy History of knee surgery History of lumpectomy of left breast (2007) Family History (Updated 05/16/23 @ 10:41 by Pauly Fagan, OPERATIONS RECRUITER-C) Maternal Grandmother Cancer of abdominal organ Family/Other Breast cancer, Onset Age: 30 Father Parkinson disease Squamous cell skin cancer Atrial fibrillation Mother Hypertension Social History Housing: Apartment Alcohol intake: current Alcohol intake frequency: holidays/special occasions only Patient Tobacco Use Status: Never used Tobacco e-Cigarette/Vaping Use: Never Used Second Hand Smoke Exposure: No service: No Current occupational status: employed Cognitive needs: No Hearing needs: No Vision needs: Yes Female Reproductive History Menstrual Age of Menarche: 14 Review of Systems Const Denies chills, Denies excessive sweating, Denies fever(s), Denies headache(s) and Denies night sweats Eyes Denies dry eyes, Denies irritation and Denies itchy eyes ENT Reports Normal hearing present, Denies headache(s), Denies nasal congestion, Denies nasal discharge, Denies post nasal drip and Denies sore throat Card Denies chest pain, Denies chest pain at rest, Denies chest pain with activity, Denies claudication, Denies leg edema, Denies orthopnea and Denies paroxysmal nocturnal dyspnea Resp Denies chest congestion, Denies pain on inspiration, Denies pain with cough and Denies stridor Musc Denies myalgias Neuro Reports Normal hearing present and Denies headache(s) Endo Denies excessive sweating Ayo/Lymph Denies lymphadenopathy Aller/Immun Denies itchy eyes and Denies seasonal rhinorrhea Physical Exam Vital Signs: Last Vital Signs Pulse 91 05/14/23 15:46 BP 134/80 05/14/23 15:46 Pulse Ox 96 05/14/23 15:46 Oxygen Delivery Method Room Air 05/14/23 15:46 BMI result Body Mass Index 36.6 Const General: cooperative, healthy appearing, comfortable, no acute distress, well developed and alert Nutritional Appearance: obese Orientation/consciousness: patient oriented x3 Limitations: no limitations HEENT Head: Yes normal to inspection, Yes normocephalic and Yes atraumatic Ears: hearing grossly normal bilaterally and external ears normal Eyes General: appearance normal, both eyes and all related structures Eyelids: Yes eyelids normal Sclerae: sclerae normal EOM: EOMs intact bilaterally Neck Neck: Yes normal visual inspection and Yes no lymphadenopathy Lymphatic: no lymphadenopathy noted Chest Chest palpation & inspection: normal inspection of the chest Resp Effort & Inspection: normal respiratory effort, able to speak in complete sentences, no audible wheezes, no stridor, not tachypneic, no tripod positioning and no use of accessory muscles Auscultation: clear to auscultation bilaterally Cardio Jugular venous distension: no JVD Rate: regular rate Rhythm: regular rhythm Skin Other: warm, dry General skin exam: no rashes or lesions noted Neuro General: patient oriented x3 Cranial nerves: Yes Normal hearing present Cognition (Neuro): normal cognition Gait exam (Neuro): Normal gait present Extrem General: Yes normal to inspection, Yes capillary refill normal, Yes no clubbing, cyanosis or edema and Yes no pedal edema Psych Appearance: grossly normal and well kempt Speech and movement: Normal speech and movement present and Clear speech present Affect: normal affect Attitude: cooperative Thought process: Normal thought process present Thought content: Normal thought content present Insight: Good insight present (Psych) Judgement: Good judgement present (Psych) Assessment & Plan Assessment & Plan (1) Cough: Code(s): R05.9 - Cough, unspecified (2) Asthma: Code(s): J45.909 - Unspecified asthma, uncomplicated Plan Nakaia with recent URI with resolving symptoms without antibiotics or prednisone. At this time would hold off on any antibiotics. Respiratory exam unremarkable. She is aware to call the office if symptoms begin to worsen. She has been without Flovent due to insurance coverage and has noticed an increase in symptoms. Will send in Alvesco, as patient can not tolerate dry powder inhalers. All questions were answered and patient is in agreement of plan. Will follow up in 6-8 weeks or sooner if needed. Medications: New ciclesonide 160 mcg/actuation (Alvesco) 1 puff inhalation BID 6.1 grams 6RF Coding Level of Care Code Est Pt Level 4 (23761) Diagnoses Cough R05.9 Asthma J45.909
== END 2023-05-14 16:37 | disposition home or self-care (01) ==
PROVIDERS: PCP Nurse Practitioner Family; Visit Provider Nurse Practitioner Family
DX: R05.9 Cough, unspecified (principal); J45.909 Unspecified asthma, uncomplicated
CPT/HCPCS: 99214

== ENCOUNTER → 2023-05-14 15:36 | Outpatient (BNVA) | payer OTHER, SELFPAY | PROVIDERS: PCP Nurse Practitioner Family; Visit Provider Nurse Practitioner Family ==

== ENCOUNTER 2023-05-16 08:10 | Outpatient (AMB) | payer OTHER, MEDICAID, SELFPAY ==
[2023-05-16 08:16] VITALS: BP 120/90; PULSE 87; BMI 36.1
--- NOTE | 2023-05-16 08:16 | A.OFFVIS_ITS ---
Intake Vital Signs 05/16/23 08:16 Height 5 ft 9 in Weight 244 lb 4.355 oz BMI 36.1 BP 120/90 H Blood Pressure Location Lt brachial Position Sitting Pulse 87 Pulse Source Pulse Oximeter Intake Visit Reasons: / June Sarkar/ Tachy Operations Officer Required: No Allergies levofloxacin [From LEVAQUIN] Allergy (Intermediate, Verified 05/16/23 08:19) RASH benzoin Allergy (Unknown, Verified 05/16/23 08:19) Unknown seasonal Allergy (Unknown, Uncoded 05/16/23 08:19) Unknown Cats Allergy (Unknown, Uncoded 05/16/23 08:19) Unknown lactose Adverse Reaction (Severe, Uncoded 05/16/23 08:19) leg cramping Medication List - Last Reconciled 05/16/23 by LUCA Mendiola albuterol sulfate 2.5 mg (3 mL) inhalation Q6H albuterol sulfate 90 mcg/actuation 1 puff inhalation QID PRN benzonatate 200 mg PO BID PRN bisacodyl (Dulcolax (bisacodyl)) 10 mg (2 x 5 mg) PO BEDTIME 2 days qckzaxzjnn-wtetpallmsizl-hwqj 50-300-40 mg 2 caps PO Q4H PRN cetirizine (Zyrtec) 20 mg PO DAILY PRN ciclesonide 160 mcg/actuation (Alvesco) 1 puff inhalation BID gabapentin 600 mg PO DAILY@1700 ipratropium bromide 2 sprays intranasal BID ipratropium-albuterol 0.5 mg-3 mg(2.5 mg base)/3 mL 3 mL inhalation Q6H PRN ketoconazole 2% 1 appl topical BID levonorgestrel (Mirena) intrauterine losartan-hydrochlorothiazide 50-12.5 mg 1 tab PO DAILY metoprolol succinate ER 25 mg PO DAILY nystatin 1 appl topical BID sodium,potassium,mag sulfates 17.5-3.13-1.6 gram (Suprep Bowel Prep Kit) 480 mL PO ONCE tamsulosin 0.4 mg PO DAILY 30 days tizanidine 4 mg PO BEDTIME PRN 30 days HPI / June Mello/ Geni HPI Details Edi is a 47-year-old female with past medical history of asthma who presents for cardiology consultation for tachycardia and preop cardiovascular clearance for colonoscopy. Today she presents for cardiology consultation. She reports that she has no known history of heart disease. She does not experience any chest discomfort at rest or with activity. She does have a history of asthma with issues this past year following COVID infection July 2022. She has been on various inhalers however continues to have issues with wheezing and shortness of breath. No PND, orthopnea or edema. She does notice heart palpitations, rapid heartbeats. No lightheadedness, presyncope, syncope, falls. 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 She does not engage in routine exercise. Her blood pressure had been running mildly elevated then in March she presented to the ER with report of not feeling well and blood pressure was as high as 170/120. At that time she was put on losartan and hydrochlorothiazide. More recently she was started on metoprolol for elevated heart rates. She did not notice a worsening of her breathing after starting low-dose metoprolol. Her father has a history of atrial fibrillation, mother has history of hypertension. No history of smoking and occasional alcohol use. No personal history of hyperlipidemia, diabetes, obesity with BMI 36. PFSH Medical History Upper respiratory tract infection Viral illness Left knee pain Muscle pain Encounter for routine adult physical exam with abnormal findings Environmental allergies Cough Wheezing Screening for colon cancer Pharyngitis Physical exam Kidney stone Leg pain Left adrenal mass Asthma Migraines Surgical History History of cystoscopy History of lithotripsy History of knee surgery History of lumpectomy of left breast (2007) Family History (Updated 05/16/23 @ 10:41 by Pauly Fagan, RANDA-C) Maternal Grandmother Cancer of abdominal organ Family/Other Breast cancer, Onset Age: 30 Father Parkinson disease Squamous cell skin cancer Atrial fibrillation Mother Hypertension Social History Housing: Apartment Alcohol intake: current Alcohol intake frequency: holidays/special occasions only Patient Tobacco Use Status: Never used Tobacco e-Cigarette/Vaping Use: Never Used Second Hand Smoke Exposure: No service: No Current occupational status: employed Cognitive needs: No Hearing needs: No Vision needs: Yes Female Reproductive History Menstrual Age of Menarche: 14 Review of Systems Const All systems reviewed & are unremarkable except as noted in HPI and below ENT Denies dizziness Card Denies chest pain, Denies chest pain at rest, Denies chest pain with activity, Reports rapid heart rate, Denies pedal edema, Denies edema, Denies leg edema, Denies lightheadedness, Denies palpitations, Reports dyspnea, Reports dyspnea on exertion and Denies orthopnea Resp Denies cough, Reports dyspnea and Reports dyspnea on exertion GI Denies hematochezia and Denies change in stool character Musc Denies abnormal gait, Denies limited range of motion, Denies muscle cramps, Denies muscle weakness, Denies numbness, Denies radiating pain into limb, Denies stiffness and Denies tingling Neuro Denies abnormal gait, Denies dizziness, Denies numbness and Denies tingling Endo Denies palpitations Physical Exam Vital Signs: Last Vital Signs Pulse 87 05/16/23 08:16 BP 120/90 H 05/16/23 08:16 BMI result Body Mass Index 36.1 Const General: cooperative, healthy appearing, comfortable and no acute distress Orientation/consciousness: patient oriented x3 Neck Neck: Yes normal visual inspection and Yes no JVD Resp Effort & Inspection: normal respiratory effort Auscultation: clear to auscultation bilaterally, no crackles, no rales, no rhonchi and no wheezes Cardio Jugular venous distension: no JVD Rate: regular rate Rhythm: regular rhythm Heart sounds: S1 normal heart sound present, S2 normal heart sound present, no murmurs and no rubs Neuro General: patient oriented x3 Extrem General: Yes normal to inspection, No no pedal edema and No calf tenderness Psych Appearance: grossly normal Mental Status: mental status grossly normal Speech and movement: Normal speech and movement present Assessment & Plan Assessment & Plan (1) Tachycardia: Comment: intermittent at rest, needs this clarified before colonoscopy/egd Code(s): R00.0 - Tachycardia, unspecified Plan: Reports of intermittent heart palpitations and elevated heart rates. She does have a history of asthma and has been using albuterol and other inhalers. EKG done 03/24/2023 showed normal sinus rhythm, rate 90. For her symptom of palpitation and elevated rates her PCP started metoprolol XL 25 mg daily. She has not noticed a change in her breathing with the addition of this medication. She continues to report heart palpitations. She may need higher dose rate slowing agent to help control symptoms. At this time will change her over to diltiazem as she has had recent history asthma that is not well controlled. Would prefer to avoid medications that can add to bronchospasm. Will check a Holter monitor to assess average heart rate and for any arrhythmia. Will check echocardiogram to assess for any structural heart disease. Her father does have history of atrial fibrillation. Heart rate is in normal range today time pulse is regular on exam. Recommend reduction in caffeinated beverages. Informed that use of asthma treatment including albuterol and updrafts can cause sinus tachycardia. Cardiology follow up in 4-6 weeks, sooner if needed. Emergency care if ever needed for any sustained rapid heart palpitations. (2) SOB (shortness of breath): Code(s): R06.02 - Shortness of breath Plan: Asthma as above. Follows with pulmonology. No signs of heart failure on examination (3) Hypertension: Code(s): I10 - Essential (primary) hypertension Plan: Newer finding of elevated blood pressures and diagnosis of hypertension. She is currently on losartan and hydrochlorothiazide. Will be changing her metoprolol over to diltiazem. Being followed by PCP. Plan for recheck next visit as well (4) Pre-op examination: Code(s): Z01.818 - Encounter for other preprocedural examination Plan: Preop for a colonoscopy. No date yet. Will be checking echo and Holter. Then cardiology clearance will be addressed. Plan Time spent on chart review, documentation, interview and assessment Orders: Orders ECG 3 day holter monitor Today R00.0 - Tachycardia, unspecified, R00.2 - Palpitations CA echo transthoracic complete Today R00.0 - Tachycardia, unspecified, R00.2 - Palpitations, R06.02 - Shortness of breath Medications: New diltiazem HCl 120 mg PO DAILY 30 caps 2RF Discontinued metoprolol succinate ER Discontinued Reason: Doctor's Order 25 mg PO DAILY 30 tabs 1RF Coding Level of Care Code New Pt Level 4 (75840) Diagnoses Tachycardia R00.0 SOB (shortness of breath) R06.02 Hypertension I10 Pre-op examination Z01.818 Time Spent (min) 30
== END 2023-05-16 08:54 | disposition home or self-care (01) ==
PROVIDERS: PCP Nurse Practitioner Family; Visit Provider Nurse Practitioner Family
DX: R00.0 Tachycardia, unspecified (principal); R06.02 Shortness of breath; I10 Essential (primary) hypertension; Z01.818 Encounter for other preprocedural examination
CPT/HCPCS: 99204

== ENCOUNTER → 2023-05-16 08:10 | Outpatient (BNVA) | payer OTHER, SELFPAY | PROVIDERS: PCP Nurse Practitioner Family; Visit Provider Nurse Practitioner Family ==

== ENCOUNTER → 2023-05-29 15:01 | Outpatient (REF) | payer OTHER, SELFPAY ==
--- NOTE | 2023-05-29 15:04 | HM_ITS ---
* Total monitoring time 3 days. * Underlying rhythm is sinus with an average rate of 89/Min. * Occasional ventricular ectopy with a burden of 1.2%. Rare couplets, trigeminy. One morphology. * Rare supraventricular ectopy. * No significant pauses or high-grade AV blocks. * Patient marker used several times in association with PVCs. * Palpitations in patient diary correlates with sinus PVCs. MTDD
== END ==
LOC: HO.CARD 15:01
PROVIDERS: PCP Nurse Practitioner Family; Visit Provider Nurse Practitioner Family
DX: R00.2 Palpitations (principal); R00.0 Tachycardia, unspecified
CPT/HCPCS: 93242

== ENCOUNTER → 2023-05-29 15:04 | Outpatient (BNV) | payer OTHER, MEDICAID, SELFPAY | PROVIDERS: PCP Nurse Practitioner Family; Visit Provider Internal Medicine | DX: I49.3 Ventricular premature depolarization (principal); R00.0 Tachycardia, unspecified | CPT/HCPCS: 93244 ==

== ENCOUNTER → 2023-06-12 14:58 | Outpatient (REF) | payer OTHER, SELFPAY ==
--- NOTE | 2023-06-12 15:01 | CA_ITS ---
Transthoracic Echocardiogram Patient (Last, First, Middle): Edi Han E Gender: Female Date of : 1975 Age: 47 Procedure Date: 06/12/2023 Procedure Type: Transthoracic Echocardiogram Location: OP Height: 175.26 cm Weight: 108.86 kg BSA: 2.23 m2 Heart Rate: 63 bpm BP: 105 / 75 mmHg Quality Cloth Tester: NA Referring MD: Pauly Fagan [employer] Symptoms: R00.0 - Tachycardia, unspecified Study Quality: Adequate ECG Rhythm: Sinus Conclusions: - Normal left ventricular cavity size. There is mildly increased left ventricular wall thickness. The left ventricular systolic function is low normal. The visually estimated ejection fraction is between 50-55%. There is no evidence of regional wall motion abnormalities. Diastolic function is normal for age. - Normal right ventricular cavity size. There is low normal right ventricular systolic function. - There is mild dilatation of the sinuses of Valsalva measuring 3.80 cm and mild dilatation of the ascending aorta measuring 3.60 cm. - Mildly reduced GLS -17%. Findings Left Ventricle Normal left ventricular cavity size. There is mildly increased left ventricular wall thickness. The left ventricular systolic function is low normal. The visually estimated ejection fraction is between 50-55%. There is no evidence of regional wall motion abnormalities. Diastolic function is normal for age. Right Ventricle Normal right ventricular cavity size. There is low normal right ventricular systolic function. Atria The left atrium is normal in size. Aortic Valve Normal aortic valve structure and function. There is no aortic valve stenosis. There is no aortic valve regurgitation. Mitral Valve The mitral valve appears normal. There is no mitral valve regurgitation. There is no mitral valve stenosis. Pulmonic Valve The pulmonic valve is normal. There is no pulmonic valve regurgitation. Tricuspid Valve Normal tricuspid valve structure. There is no tricuspid valve regurgitation. Normal right atrial pressure. There is no evidence of pulmonary hypertension. Great Vessels There is mild dilatation of the sinuses of Valsalva measuring 3.80 cm and mild dilatation of the ascending aorta measuring 3.60 cm. The visualized portions of the pulmonary artery and branches are normal. Venous The inferior vena cava is normal in size and collapses greater than 50% with inspiration. Pericardium/Pleural There is no evidence of pericardial effusion. Prior Study Comparison No prior study available for comparison. Measurements 2D Linear Measurements IVSd: 1.09 0.6-0.9/0.6-1.0 cm LVIDd: 4.82 3.9-5.3/4.2-5.9 cm LVIDd Index: 2.16 2.4-3.2/2.2-3.1 cm/m2 LVIDs: 3.00 2.0-3.6 cm LVPWd: 1.10 0.7-1.1 cm LA Diam: 3.20 2.7-3.8/3.0-4.0 cm LAIDs Index: 1.43 1.5-2.3 cm/m2 LV Mass: 241.79 67-162/88-224 g LV Mass Index: 108.43 43-95/49-115 g/m2 LVOT Diam: 2.50 3.0+(-)1.3 cm 2D Systolic Function EF 4C: 48.60 >55% EF 2C: 60.30 >55% EF BiP: 55.40 >55% Mitral Valve MV Pk E: 0.55 MV PK A: 0.70 MV Decel Time: 313.00 E/A: 0.80 E'Lateral: 7.94 E'Medial: 6.96 E/E' Med: 7.90 E/E' Lat: 6.90 PHT: 92.00 MVA PHT: 2.39 Decel [place]: 1.75 Aortic Valve AoV Pk Gilson: 1.12 AoV Mn Gilson: 0.83 AoV VTI: 0.23 AoV Pk Grad: 5.00 Aov Mn Grad: 3.00 SIMRAN Cont.VTI: 4.28 LVOT LVOT Pk Gilson: 0.97 LVOT Mn Gilson: 0.69 LVOT VTI: 0.20 LVOT Pk Grad: 4.00 LVOT Mn Grad: 2.00 LVOT Diam: 2.50 LVOT Area: 4.91 Diastolic Function MV Pk E: 0.55 MV Pk A: 0.70 E/A: 0.80 E'Medial: 6.96 E/E' Med: 7.90 E' Laterial: 7.94 E/E' Lat: 6.90 Right Ventricle TAPSE (mm): 24.00 TVS' Gilson: 9.90 Tricuspid Valve TR Pk Gilson: 1.99 TR Pk Grad: 16.00 RA Press: 3.00 RVSP: 19.00 Great Vessels Aorta Sinus of Valsalva: 3.80 2.0-3.5 cm Ao Asc: 3.60 2.1-3.4 cm Pulmonary Valve PV Pk Gilson: 0.65 Peak PV Grad: 2.00 Updated in Other Vendor System with Status of Final Idris Thomson MD electronically signed on 06/12/2023 7:25:37 PM with status of Final
== END ==
LOC: HO.CARD 14:58
PROVIDERS: PCP Nurse Practitioner Family; Visit Provider Nurse Practitioner Family
DX: R00.0 Tachycardia, unspecified (principal); R00.2 Palpitations; R06.02 Shortness of breath
CPT/HCPCS: 93306

== ENCOUNTER → 2023-06-12 15:01 | Outpatient (BNV) | payer OTHER, MEDICAID, SELFPAY | PROVIDERS: PCP Nurse Practitioner Family; Visit Provider Internal Medicine Cardiovascular Disease | DX: I71.21 Aneurysm of the ascending aorta, without rupture (principal); R93.1 Abnormal findings on diagnostic imaging of heart and coronary circulation | CPT/HCPCS: 93306; 93356 ==

== ENCOUNTER 2023-06-13 08:19 | Outpatient (AMB) | payer OTHER, MEDICAID, SELFPAY ==
[2023-06-13 08:33] VITALS: BP 114/82; PULSE 86; BMI 35.8
--- NOTE | 2023-06-13 08:33 | MHC.OFFVIS ---
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: No Allergies levofloxacin [From LEVAQUIN] Allergy (Intermediate, Verified 06/13/23 08:36) RASH benzoin Allergy (Unknown, Verified 06/13/23 08:36) Unknown seasonal Allergy (Unknown, Uncoded 06/13/23 08:36) Unknown Cats Allergy (Unknown, Uncoded 06/13/23 08:36) Unknown lactose Adverse Reaction (Severe, Uncoded 06/13/23 08:36) leg cramping Medication List - Last Reconciled 06/13/23 by Pauly Fagan NP-C albuterol sulfate 2.5 mg (3 mL) inhalation Q6H albuterol sulfate 90 mcg/actuation 1 puff inhalation QID PRN benzonatate 200 mg PO BID PRN bisacodyl (Dulcolax (bisacodyl)) 10 mg (2 x 5 mg) PO BEDTIME 2 days zeervwheru-ibnkixljwwmet-pedd 50-300-40 mg 2 caps PO Q4H PRN cetirizine (Zyrtec) 20 mg PO DAILY PRN ciclesonide 160 mcg/actuation (Alvesco) 1 puff inhalation BID diltiazem HCl CD 180 mg PO DAILY gabapentin 600 mg PO DAILY@1700 ipratropium bromide 2 sprays intranasal BID ketoconazole 2% 1 appl topical BID levonorgestrel (Mirena) intrauterine losartan-hydrochlorothiazide 50-12.5 mg 1 tab PO DAILY nystatin 1 appl topical BID sodium,potassium,mag sulfates 17.5-3.13-1.6 gram (Suprep Bowel Prep Kit) 480 mL PO ONCE tamsulosin 0.4 mg PO DAILY 30 days tizanidine 4 mg PO BEDTIME PRN 30 days HPI 4 week follow up HPI Details Edi is a 47-year-old female with past medical history of asthma, hypertension who is being evaluated for shortness of breath and tachycardia. She underwent a Holter monitor and echocardiogram and now presents for follow-up. Today she reports that she continues to have some mild shortness of breath. She does have a history of asthma and does use her inhalers with improvement. She says she was diagnosed with sleep apnea in 2016. She was not set up with CPAP at that time and it was never addressed further. She can feel her heart palpitations mostly when she lays down to rest. She describes it as a thump and a pause. No presyncope, syncope, falls. No chest discomfort at rest or with activity. No PND, orthopnea or edema. She did not notice improvement in her breathing when changing from metoprolol to diltiazem. She tells me her diltiazem dose was recently increased by her PCP. [facility] Medical History Upper respiratory tract infection Viral illness Left knee pain Muscle pain Encounter for routine adult physical exam with abnormal findings Environmental allergies Cough Wheezing Screening for colon cancer Pharyngitis Physical exam Kidney stone Leg pain Left adrenal mass Asthma Migraines Surgical History History of cystoscopy History of lithotripsy History of knee surgery History of lumpectomy of left breast (2007) Family History Maternal Grandmother Cancer of abdominal organ Family/Other Breast cancer, Onset Age: 30 Father Parkinson disease Squamous cell skin cancer Atrial fibrillation Mother Hypertension Social History Housing: Apartment Alcohol intake: current Alcohol intake frequency: holidays/special occasions only Patient Tobacco Use Status: Never used Tobacco e-Cigarette/Vaping Use: Never Used Second Hand Smoke Exposure: No service: No Current occupational status: employed Cognitive needs: No Hearing needs: No Vision needs: Yes Female Reproductive History Menstrual Age of Menarche: 14 Review of Systems Const All systems reviewed & are unremarkable except as noted in HPI and below ENT Denies dizziness Card Denies chest pain, Denies chest pain at rest, Denies chest pain with activity, Denies rapid heart rate, Denies pedal edema, Denies edema, Denies leg edema, Denies lightheadedness, Denies palpitations, Reports dyspnea, Reports dyspnea on exertion and Denies orthopnea Resp Denies cough, Reports dyspnea and Reports dyspnea on exertion GI Denies hematochezia and Denies change in stool character Musc Denies abnormal gait, Denies limited range of motion, Denies muscle cramps, Denies muscle weakness, Denies numbness, Denies radiating pain into limb, Denies stiffness and Denies tingling Neuro Denies abnormal gait, Denies dizziness, Denies numbness and Denies tingling Endo Denies palpitations Physical Exam Vital Signs: Last Vital Signs Pulse 86 06/13/23 08:33 BP 114/82 06/13/23 08:33 BMI result Body Mass Index 35.8 Const General: cooperative, healthy appearing, comfortable and no acute distress Orientation/consciousness: patient oriented x3 Neck Neck: Yes normal visual inspection and Yes no JVD Resp Effort & Inspection: normal respiratory effort Auscultation: clear to auscultation bilaterally, no crackles, no rales, no rhonchi and no wheezes Cardio Jugular venous distension: no JVD Rate: regular rate Rhythm: regular rhythm Heart sounds: S1 normal heart sound present, S2 normal heart sound present, no murmurs and no rubs Neuro General: patient oriented x3 Extrem General: Yes normal to inspection, No no pedal edema and No calf tenderness Psych Appearance: grossly normal Mental Status: mental status grossly normal Speech and movement: Normal speech and movement present Assessment & Plan Assessment & Plan (1) Tachycardia: Comment: intermittent at rest, needs this clarified before colonoscopy/egd Code(s): R00.0 - Tachycardia, unspecified Plan: Reports of intermittent heart palpitations and elevated heart rates. She does have a history of asthma and has been using albuterol and other inhalers. EKG done 03/24/2023 showed normal sinus rhythm, rate 90. For her symptom of palpitation and elevated rates her PCP started metoprolol XL 25 mg daily which was changed over to diltiazem on last visit. Since then her dose has been increased up to 180 mg daily. At this time she continues to report some heart palpitations. A Holter monitor was done on 05/29/2023 for 3 days which showed sinus rhythm with average heart rate 89, occasional PVCs, 1.2%, her symptoms correlated with PVCs. An echocardiogram was done on 06/12/2023 showing EF 50-55%, mild LVH, sinus of Valsalva dilated 3.8 cm, ascending aorta dilated at 3.6 cm . Test results reviewed with her in detail. Pathophysiology of PVCs discussed. She does have low normal EF for unclear reason. She does mention possibility of sleep apnea. Will order home sleep study for further evaluation. Will also order an exercise stress test to evaluate for any ischemia. At present no anginal sounding symptoms. Continue to recommend reduction in caffeinated beverages. Informed that use of asthma treatment including albuterol and updrafts can cause sinus tachycardia and increased PVC. Cardiology follow up in 4-6 weeks, sooner if needed. Emergency care if ever needed for symptoms. (2) SOB (shortness of breath): Code(s): R06.02 - Shortness of breath Plan: Asthma as above. Follows with pulmonology. No signs of heart failure on examination (3) Hypertension: Code(s): I10 - Essential (primary) hypertension Plan: Newer finding of elevated blood pressures and diagnosis of hypertension. She is currently on losartan/ hydrochlorothiazide and diltiazem. Echo does show mild LVH. The importance of this finding reviewed with her. Blood pressure well controlled at present. No med changes made. (4) Pre-op examination: Code(s): Z01.818 - Encounter for other preprocedural examination Plan: Preop for a colonoscopy. No date yet. Based on echo and Holter she can proceed with colonoscopy which is a low risk procedure. Low cardiac risk. Exercise stress test is pending however she has no anginal symptoms. It is being done due to low normal EF and will likely be completed prior to a colonoscopy being scheduled. Plan Time spent on chart review, documentation, interview and assessment Orders: Orders RT home sleep study Today G47.10 - Hypersomnia, unspecified, G47.30 - Sleep apnea, unspecified CA stress test Today R06.02 - Shortness of breath, R93.1 - Abnormal findings on diagnostic imaging of heart and coronary circulation Coding Level of Care Code Est Pt Level 4 (29369) Diagnoses Tachycardia R00.0 SOB (shortness of breath) R06.02 Hypertension I10 Pre-op examination Z01.818 Time Spent (min) 28
== END 2023-06-13 09:07 | disposition home or self-care (01) ==
PROVIDERS: PCP Nurse Practitioner Family; Visit Provider Nurse Practitioner Family
DX: R00.0 Tachycardia, unspecified (principal); R06.02 Shortness of breath; I10 Essential (primary) hypertension; Z01.818 Encounter for other preprocedural examination
CPT/HCPCS: 99214

== ENCOUNTER → 2023-06-13 08:19 | Outpatient (BNVA) | payer OTHER, SELFPAY | PROVIDERS: PCP Nurse Practitioner Family; Visit Provider Nurse Practitioner Family ==

== ENCOUNTER 2023-06-19 14:49 | Outpatient (AMB) | payer OTHER, MEDICAID, SELFPAY ==
--- NOTE | 2023-06-19 14:56 | MHC.PC.OV ---
Vital Signs 06/19/23 15:04 Weight 241 lb BP 124/80 Blood Pressure Location Lt brachial Position Sitting Pulse 78 Pulse Source Pulse Oximeter Pulse Oximetry (%) 97 Oxygen Delivery Method Room Air Intake Visit Reasons: 3 Month follow up Intake Note: Patient here to f/u on arthritis,knee pain and hip pain, pt states pain has been about the same Allergies levofloxacin [From LEVAQUIN] Allergy (Intermediate, Verified 06/19/23 15:05) RASH benzoin Allergy (Unknown, Verified 06/19/23 15:05) Unknown seasonal Allergy (Unknown, Uncoded 06/19/23 15:05) Unknown Cats Allergy (Unknown, Uncoded 06/19/23 15:05) Unknown lactose Adverse Reaction (Severe, Uncoded 06/19/23 15:05) leg cramping Tobacco use date assessed: 03/06/23 Dental Screening Dental Screen Date: 03/06/23 HPI 3 Month follow up HPI Details HTN: Blood pressure is stable. Pt reports that it is stable at home as well. BP is managed with diltiazem 180mg and losartan-hydrochlorothiazide 50-12.5mg. Will continue to monitor BP. Denies chest pain, shortness of breath, headache, dizziness, and blurred vision. Pt is following up with pulmonology. [facility] Medical History Upper respiratory tract infection Viral illness Left knee pain Muscle pain Encounter for routine adult physical exam with abnormal findings Environmental allergies Cough Wheezing Screening for colon cancer Pharyngitis Physical exam Kidney stone Leg pain Left adrenal mass Asthma Migraines Surgical History History of cystoscopy History of lithotripsy History of knee surgery History of lumpectomy of left breast (2007) Family History Maternal Grandmother Cancer of abdominal organ Family/Other Breast cancer, Onset Age: 30 Father Parkinson disease Squamous cell skin cancer Atrial fibrillation Mother Hypertension Social History Housing: Apartment Alcohol intake: current Alcohol intake frequency: holidays/special occasions only Patient Tobacco Use Status: Never used Tobacco e-Cigarette/Vaping Use: Never Used Second Hand Smoke Exposure: No service: No Current occupational status: employed Cognitive needs: No Hearing needs: No Vision needs: Yes Female Reproductive History Menstrual Age of Menarche: 14 Questionnaire Thrive Questionnaire Date Thrive assessed: 03/06/23 ZENAIDA-7 AMB Questionnaire ZENAIDA-7 Date ZENAIDA - 7 assessed: 03/06/23 Source: Developed by Drs. Yassine Rivera, Renee Abarca, Arnaud Riojas and colleagues, with an educational flaco from [employer]. Review of Systems Const Reports as per HPI Physical exam (Primary Care) Vital Signs: Last Vital Signs Pulse 78 06/19/23 15:04 BP 124/80 06/19/23 15:04 Pulse Ox 97 06/19/23 15:04 Oxygen Delivery Method Room Air 06/19/23 15:04 Tobacco/Smoking Status: Tobacco use Status Tobacco use date assessed 03/06/23 06/19/23 14:56 Patient Tobacco Use Status Never used Tobacco 06/19/23 14:56 e-Cigarette/Vaping Use Never Used 06/19/23 14:56 Thrive Assessment: Date of Thrive Assessment Date Thrive assessed 03/06/23 06/19/23 14:56 Const General: cooperative Nutritional Appearance: obese Orientation/consciousness: patient oriented x3 Resp Effort & Inspection: normal respiratory effort Auscultation: clear to auscultation bilaterally Cardio Rate: regular rate Rhythm: regular rhythm Heart sounds: S1 normal heart sound present and S2 normal heart sound present Neuro General: patient oriented x3 Psych Appearance: grossly normal Mental Status: mental status grossly normal Speech and movement: Normal speech and movement present Affect: normal affect Attitude: cooperative Thought process: Normal thought process present Thought content: Normal thought content present Insight: Good insight present (Psych) Judgement: Good judgement present (Psych) Assessment and Plan Assessment & Plan (1) Uncontrolled hypertension: Code(s): I10 - Essential (primary) hypertension Plan: Stable, continue current meds, labs ordered (2) Uncontrolled hypertension: Code(s): I10 - Essential (primary) hypertension Plan: stable Plan The patient agreed to the use of a medical technologist prn for this encounter. Scribed for DEEJAY Monique by kayy Sharp scribe, on 06/19/2023 at 15:25 EST. Orders: Orders Complete Blood Count Auto Diff Today I10 - Essential (primary) hypertension Lipid Panel Today I10 - Essential (primary) hypertension Comprehensive [place]. Panel Fast Today I10 - Essential (primary) hypertension TSH reflex Free T4 Today I10 - Essential (primary) hypertension UA CC w/rflx Micro + Cult Today I10 - Essential (primary) hypertension Follicle Stimulating Hormone Today I10 - Essential (primary) hypertension Lutenizing Hormone Today I10 - Essential (primary) hypertension Estradiol Ultra Sensitive Today I10 - Essential (primary) hypertension Coding Level of Care Code Est Pt Level 3 (14314) Diagnoses Uncontrolled hypertension I10
[2023-06-19 15:04] VITALS: BP 124/80; PULSE 78; O2SAT 97
== END 2023-06-19 16:06 | disposition home or self-care (01) ==
PROVIDERS: PCP Nurse Practitioner Family; Visit Provider Nurse Practitioner Family
DX: I10 Essential (primary) hypertension (principal)
CPT/HCPCS: 99213

== ENCOUNTER 2023-06-20 10:40 | Outpatient (REF) | payer OTHER, SELFPAY ==
[2023-06-20 10:57] LABS: MANUAL DIFF FLAG NO
[2023-06-20 11:55] LABS: Basophils Percent Auto 0.8 % (0-2); Eosinophils Absolute Auto 0.2 X10*3/uL (0.0-0.4); Eosinophils Percent Auto 3.6 % (0-4); Hematocrit 42.6 % (37.0-47.0); Hemoglobin 14.5 g/dl (12.0-16.0); Imm Gran Abs Auto 0.01 X10*3/uL (0.00-0.03); Imm Gran Pct Auto 0.2 % (0.0-0.4); Lymphocytes Absolute Auto 1.7 X10*3/uL (1.2-4.9); Mean Corpuscular Hemoglobin 29.1 pg (27.0-33.0); Mean Corpuscular Volume 85.4 fL (80.0-98.0); Mean Platelet Volume 9.8 fL (9.4-12.3); Monocytes Absolute Auto 0.5 X10*3/uL (0.1-1.2); Monocytes Percent Auto 8.9 % (2-11); Neutrophils Absolute Auto 2.9 x10*3/uL (2.0-8.3); Neutrophils Percent Auto 54.5 % (45-73); Platelet Count 318 X10*3/uL (160-400); Red Blood Count 4.99 X10*6/uL (4.20-5.50); Red Cell Distribution Width 11.9 % (11.0-16.0); White Blood Count 5.3 X10*3/uL (4.8-10.8)
[2023-06-20 12:30] LABS: Alanine Aminotransferase 30 U/L (0-31); Albumin Level 4.2 g/dL (3.5-5.0); Alkaline Phosphatase 53 U/L (39-117); Anion Gap 12 (12-20); Aspartate Amino Transferase 21 U/L (5-31); Bilirubin Total 0.6 mg/dL (0.0-1.0); Blood Urea Nitrogen 11 mg/dL (9-16); Calcium 9.6 mg/dL (8.4-10.2); Carbon Dioxide 25 mmol/L (22-29); Chloride 109 mmol/L (96-108); Cholesterol 174 mg/dL (<200); Estimated Glomerular Filt Rate > 60; Glucose Fasting 118 mg/dL (60-99); HDL Cholesterol 31 mg/dL (>40); LDL Cholesterol Calculated 112 mg/dL (<100); Potassium 3.7 mmol/L (3.3-5.1); Sodium 142 mmol/L (135-145); Total Protein 6.8 g/dL (6.5-8.0); Triglycerides 156 mg/dL (<150)
[2023-06-20 12:33] LABS: Monotest Negative (Negative)
[2023-06-20 12:48] LABS: Appearance Urine Clear; Color Urine Yellow; Glucose Urine UA Negative (Negative); Leukocyte Esterase Urine Small (1+) (Negative); Nitrite Urine Negative (Negative); PH 6.5 (5.0-9.0); UMIC TRIGGER UACC YES; Urine Blood Trace (Negative); Urine Ketones Negative (Negative); Urine Protein Negative (Neg-Trace)
[2023-06-20 12:52] LABS: TSH reflex Free T4 1.16 uIU/mL (0.32-4.0)
[2023-06-20 12:58] LABS: Bacteria Urine 1+ (None Seen); Hyaline Casts Urine 0-2 /LPF (0-2); RBC Urine 0-2 /HPF (0-2); UACC Culture Trigger YES
[2023-06-20 15:15] LABS: Cortisol Random 9.6 ug/dL
[2023-06-21 09:04] LABS: Follicle Stimulating Hormone 7.7 mIU/mL; Lutenizing Hormone 5.5 mIU/mL
[2023-06-27 01:14] LABS: Estradiol Ultra Sensitive 23 pg/mL
== END 2023-06-20 10:41 | disposition home or self-care (01) ==
LOC: HO.LAB 10:40
PROVIDERS: PCP Nurse Practitioner Family; Visit Provider Nurse Practitioner Family
DX: B34.9 Viral infection, unspecified (principal); I10 Essential (primary) hypertension; R31.29 Other microscopic hematuria
CPT/HCPCS: 36415; 80053; 80061; 81001; 82533; 82670; 83001; 83002; 84443; 85025; 86308; 87086

== ENCOUNTER → 2023-06-25 08:10 | Outpatient (REF) | payer OTHER, SELFPAY ==
--- NOTE | 2023-06-25 09:59 | CA_ITS ---
Acquisition Time: 2023-06-25 08:21:22 Total Exercise Time: 00:06:34 Test Indications: SOB, PREOP Medications: SEE H Protocol: TINY Max HR: 155 BPM 89% of Pred: 174 BPM Max BP: 174/074 mmHG Max Work Load: 7.8 METS Exercise stress test exercise 6 min 34 sec of Tiny protocol achieving 91% MPHR and 7.8 METS, with mild to moderate SOB, no chest discomfort, without arrhythmias, with normotensive resposne to exercise, without EKG changes. Breathing returned to baseline with rest. Test reviewed with Dr. Bauer Referred By: Pauly Fagan Overread By: Yessy Reeves
== END ==
LOC: HO.CARD 08:10
PROVIDERS: PCP Nurse Practitioner Family; Visit Provider Nurse Practitioner Family
DX: R06.02 Shortness of breath (principal); R93.1 Abnormal findings on diagnostic imaging of heart and coronary circulation
CPT/HCPCS: 93017

== ENCOUNTER → 2023-06-25 09:59 | Outpatient (BNV) | payer OTHER, MEDICAID, SELFPAY | PROVIDERS: PCP Nurse Practitioner Family; Visit Provider Nurse Practitioner | DX: R06.02 Shortness of breath (principal) | CPT/HCPCS: 93016; 93018 ==

== ENCOUNTER 2023-07-15 15:23 | Outpatient (AMB) | payer OTHER, MEDICAID, SELFPAY ==
--- NOTE | 2023-07-15 15:24 | A.OFFVIS_ITS ---
Vital Signs 07/15/23 15:25 Height 5 ft 9 in Weight 244 lb 8 oz BMI 36.1 BP 120/68 Blood Pressure Location Rt brachial Position Sitting Pulse 86 Pulse Source Pulse Oximeter Pulse Oximetry (%) 97 Oxygen Delivery Method Room Air Intake Visit Reasons: asthma 8 week f/u Allergies levofloxacin [From LEVAQUIN] Allergy (Intermediate, Verified 07/15/23 15:28) RASH benzoin Allergy (Unknown, Verified 07/15/23 15:28) Unknown seasonal Allergy (Unknown, Uncoded 07/15/23 15:28) Unknown Cats Allergy (Unknown, Uncoded 07/15/23 15:28) Unknown lactose Adverse Reaction (Severe, Uncoded 07/15/23 15:28) leg cramping HPI HPI asthma 8 week f/u: Details: Edi is a pleasant 47 year old female, never smoker, with underlying history of asthma. She reports worsening asthma symptoms after cassidy COVID in July 2022 then developed URI since January. Today she presents for routine follow up. She has been suboptimally controlled on Alvesco 1 inhalation twice daily and albuterol MDI. She reports allergens triggering symptoms, moderately controlled on zyrtec. She continues to report dyspnea on exertion, moderately improved with regimen and occasional dry cough. Denies wheezing or chest tightness. Since the last visit, she underwent cardiology evaluation, stress test unremarkable, echo revealed EF of 50-55% and mild LVH. She has had difficulty with BP control and reports prior sleep study revealed moderate BRIDGET. Cardiology has placed order for home sleep study which is scheduled for next week. [facility] Medical History Upper respiratory tract infection Viral illness Left knee pain Muscle pain Encounter for routine adult physical exam with abnormal findings Environmental allergies Cough Wheezing Screening for colon cancer Pharyngitis Physical exam Kidney stone Leg pain Left adrenal mass Asthma Migraines Surgical History History of cystoscopy History of lithotripsy History of knee surgery History of lumpectomy of left breast (2007) Family History Maternal Grandmother Cancer of abdominal organ Family/Other Breast cancer, Onset Age: 30 Father Parkinson disease Squamous cell skin cancer Atrial fibrillation Mother Hypertension Social History Housing: Apartment Alcohol intake: current Alcohol intake frequency: holidays/special occasions only Patient Tobacco Use Status: Never used Tobacco e-Cigarette/Vaping Use: Never Used Second Hand Smoke Exposure: No service: No Current occupational status: employed Cognitive needs: No Hearing needs: No Vision needs: Yes Female Reproductive History Menstrual Age of Menarche: 14 Review of Systems Const Denies chills, Denies excessive sweating, Denies fever(s), Denies headache(s) and Denies night sweats Eyes Denies dry eyes, Denies irritation and Denies itchy eyes ENT Reports Normal hearing present, Denies headache(s), Denies nasal congestion, Denies nasal discharge and Denies sore throat Card Denies chest pain, Denies chest pain at rest, Denies chest pain with activity, Denies claudication, Denies leg edema, Denies orthopnea and Denies paroxysmal nocturnal dyspnea Resp Denies chest congestion, Denies pain on inspiration, Denies pain with cough and Denies stridor Musc Denies myalgias Neuro Reports Normal hearing present and Denies headache(s) Endo Denies excessive sweating Ayo/Lymph Denies lymphadenopathy Aller/Immun Denies itchy eyes and Denies seasonal rhinorrhea Physical Exam Vital Signs: Last Vital Signs Pulse 86 07/15/23 15:25 BP 120/68 07/15/23 15:25 Pulse Ox 97 07/15/23 15:25 Oxygen Delivery Method Room Air 07/15/23 15:25 BMI result Body Mass Index 36.1 Const General: cooperative, healthy appearing, comfortable, no acute distress, well developed and alert Nutritional Appearance: obese Orientation/consciousness: patient oriented x3 Limitations: no limitations HEENT Head: Yes normal to inspection, Yes normocephalic and Yes atraumatic Ears: hearing grossly normal bilaterally and external ears normal Eyes General: appearance normal, both eyes and all related structures Eyelids: Yes eyelids normal Sclerae: sclerae normal EOM: EOMs intact bilaterally Neck Neck: Yes normal visual inspection and Yes no lymphadenopathy Lymphatic: no lymphadenopathy noted Chest Chest palpation & inspection: normal inspection of the chest Resp Effort & Inspection: normal respiratory effort, able to speak in complete sentences, no audible wheezes, no stridor, not tachypneic, no tripod positioning and no use of accessory muscles Auscultation: clear to auscultation bilaterally Cardio Jugular venous distension: no JVD Rate: regular rate Rhythm: regular rhythm Skin Other: warm, dry General skin exam: no rashes or lesions noted Neuro General: patient oriented x3 Cranial nerves: Yes Normal hearing present Cognition (Neuro): normal cognition Gait exam (Neuro): Normal gait present Extrem General: Yes normal to inspection, Yes capillary refill normal, Yes no clubbing, cyanosis or edema and Yes no pedal edema Psych Appearance: grossly normal and well kempt Speech and movement: Normal speech and movement present and Clear speech present Affect: normal affect Attitude: cooperative Thought process: Normal thought process present Thought content: Normal thought content present Insight: Good insight present (Psych) Judgement: Good judgement present (Psych) Assessment & Plan Assessment & Plan (1) Cough: Code(s): R05.9 - Cough, unspecified Category: Medical (2) Asthma: Code(s): J45.909 - Unspecified asthma, uncomplicated Category: Medical (3) Allergic rhinitis: Code(s): J30.9 - Allergic rhinitis, unspecified Category: Medical Plan Edi reports suboptimal control with Alvesco 1 inhalation twice daily, will increase to 2 inhalations twice daily, as she can not tolerate the LAMA component of inhalers. Will also trial singulair. Will follow up after home sleep study. All questions were answered and patient is in agreement of plan. Will follow up in 3 months or sooner if needed. Medications: New montelukast (Singulair) 10 mg PO BEDTIME 30 tabs 3RF Changed From ciclesonide 160 mcg/actuation (Alvesco) 1 puff inhalation BID 6.1 grams 6RF To ciclesonide 160 mcg/actuation (Alvesco) 2 puffs inhalation BID 6.1 grams 3RF Coding Level of Care Code Est Pt Level 4 (06277) Diagnoses Cough R05.9 Asthma J45.909 Allergic rhinitis J30.9
[2023-07-15 15:25] VITALS: BP 120/68; PULSE 86; O2SAT 97; BMI 36.1
== END 2023-07-15 16:06 | disposition home or self-care (01) ==
PROVIDERS: PCP Nurse Practitioner Family; Visit Provider Nurse Practitioner Family
DX: R05.9 Cough, unspecified (principal); J45.909 Unspecified asthma, uncomplicated; J30.9 Allergic rhinitis, unspecified
CPT/HCPCS: 99214

== ENCOUNTER → 2023-07-15 15:23 | Outpatient (BNVA) | payer OTHER, SELFPAY | PROVIDERS: PCP Nurse Practitioner Family; Visit Provider Nurse Practitioner Family ==

== ENCOUNTER → 2023-07-22 07:44 | Outpatient (REF) | payer OTHER, MEDICAID, SELFPAY | LOC: HO.SL 07:44 | PROVIDERS: PCP Nurse Practitioner Family; Visit Provider Nurse Practitioner Family | DX: G47.10 Hypersomnia, unspecified (principal); G47.30 Sleep apnea, unspecified | CPT/HCPCS: 95806 ==

== ENCOUNTER → 2023-07-22 07:59 | Outpatient (BNV) | payer OTHER, MEDICAID, SELFPAY | PROVIDERS: PCP Nurse Practitioner Family; Visit Provider Internal Medicine | DX: G47.33 Obstructive sleep apnea (adult) (pediatric) (principal) | CPT/HCPCS: 95806 ==

== ENCOUNTER 2023-08-05 15:33 | Outpatient (AMB) | payer OTHER, MEDICAID, SELFPAY ==
[2023-08-05 15:36] VITALS: BP 108/64; PULSE 85; O2SAT 97; BMI 35.3
--- NOTE | 2023-08-05 15:36 | A.OFFVIS_ITS ---
Vital Signs 08/05/23 15:36 Height 5 ft 9 in Weight 239 lb 2 oz BMI 35.3 BP 108/64 Blood Pressure Location Rt brachial Position Sitting Pulse 85 Pulse Source Pulse Oximeter Pulse Oximetry (%) 97 Oxygen Delivery Method Room Air Intake Visit Reasons: Asthma/Discuss CPAP Allergies levofloxacin [From LEVAQUIN] Allergy (Intermediate, Verified 08/05/23 15:38) RASH benzoin Allergy (Unknown, Verified 08/05/23 15:38) Unknown seasonal Allergy (Unknown, Uncoded 08/05/23 15:38) Unknown Cats Allergy (Unknown, Uncoded 08/05/23 15:38) Unknown lactose Adverse Reaction (Severe, Uncoded 08/05/23 15:38) leg cramping HPI HPI Asthma/Discuss CPAP: Details: Edi is a pleasant 47 year old female, never smoker, with underlying asthma. Since the last visit, patient reports significant improvement in respiratory symptoms with alvesco BID and singulair. She reports decrease in dry cough as well as chest tightness and denies dyspnea and wheezing. Today she presents to review recent home sleep study ordered by cardiology. [facility] Medical History Upper respiratory tract infection Viral illness Left knee pain Muscle pain Encounter for routine adult physical exam with abnormal findings Environmental allergies Cough Wheezing Screening for colon cancer Pharyngitis Physical exam Kidney stone Leg pain Left adrenal mass Asthma Migraines Surgical History History of cystoscopy History of lithotripsy History of knee surgery History of lumpectomy of left breast (2007) Family History Maternal Grandmother Cancer of abdominal organ Family/Other Breast cancer, Onset Age: 30 Father Parkinson disease Squamous cell skin cancer Atrial fibrillation Mother Hypertension Social History Housing: Apartment Alcohol intake: current Alcohol intake frequency: holidays/special occasions only Patient Tobacco Use Status: Never used Tobacco e-Cigarette/Vaping Use: Never Used Second Hand Smoke Exposure: No service: No Current occupational status: employed Cognitive needs: No Hearing needs: No Vision needs: Yes Female Reproductive History Menstrual Age of Menarche: 14 Review of Systems Const Denies chills, Denies excessive sweating, Denies fever(s), Denies headache(s) and Denies night sweats Eyes Denies dry eyes, Denies irritation and Denies itchy eyes ENT Reports Normal hearing present and Denies headache(s) Card Denies chest pain, Denies chest pain at rest, Denies chest pain with activity, Denies claudication, Denies leg edema, Denies orthopnea and Denies paroxysmal nocturnal dyspnea Resp Denies chest congestion, Denies pain on inspiration, Denies pain with cough and Denies stridor Musc Denies myalgias Neuro Reports Normal hearing present and Denies headache(s) Endo Denies excessive sweating Ayo/Lymph Denies lymphadenopathy Aller/Immun Denies itchy eyes and Denies seasonal rhinorrhea Physical Exam Vital Signs: Last Vital Signs Pulse 85 08/05/23 15:36 BP 108/64 08/05/23 15:36 Pulse Ox 97 08/05/23 15:36 Oxygen Delivery Method Room Air 08/05/23 15:36 BMI result Body Mass Index 35.3 Const General: cooperative, healthy appearing, comfortable, no acute distress, well developed and alert Nutritional Appearance: obese Orientation/consciousness: patient oriented x3 Limitations: no limitations HEENT Head: Yes normal to inspection, Yes normocephalic and Yes atraumatic Ears: hearing grossly normal bilaterally and external ears normal Eyes General: appearance normal, both eyes and all related structures Eyelids: Yes eyelids normal Sclerae: sclerae normal EOM: EOMs intact bilaterally Neck Neck: Yes normal visual inspection and Yes no lymphadenopathy Lymphatic: no lymphadenopathy noted Chest Chest palpation & inspection: normal inspection of the chest Resp Effort & Inspection: normal respiratory effort, able to speak in complete sentences, no audible wheezes, no stridor, not tachypneic, no tripod positioning and no use of accessory muscles Auscultation: clear to auscultation bilaterally Cardio Jugular venous distension: no JVD Rate: regular rate Rhythm: regular rhythm Skin Other: warm, dry General skin exam: no rashes or lesions noted Neuro General: patient oriented x3 Cranial nerves: Yes Normal hearing present Cognition (Neuro): normal cognition Gait exam (Neuro): Normal gait present Extrem General: Yes normal to inspection, Yes capillary refill normal, Yes no clubbing, cyanosis or edema and Yes no pedal edema Psych Appearance: grossly normal and well kempt Speech and movement: Normal speech and movement present and Clear speech present Affect: normal affect Attitude: cooperative Thought process: Normal thought process present Thought content: Normal thought content present Insight: Good insight present (Psych) Judgement: Good judgement present (Psych) Assessment & Plan Assessment & Plan (1) Cough: Code(s): R05.9 - Cough, unspecified Category: Medical (2) Asthma: Code(s): J45.909 - Unspecified asthma, uncomplicated Category: Medical (3) Allergic rhinitis: Code(s): J30.9 - Allergic rhinitis, unspecified Category: Medical (4) Obstructive sleep apnea: Code(s): G47.33 - Obstructive sleep apnea (adult) (pediatric) Category: Medical (5) Nocturnal hypoxemia: Code(s): G47.34 - Idiopathic sleep related nonobstructive alveolar hypoventilation Category: Medical Plan Tamikorodriguez reports good control of respiratory symptoms using Alvesco and singulair. Advised to continue. Reviewed sleep study results with patient which revealed an AHI of 11 with nocturnal hypoxemia for 20 minutes. Since patient is quite symptomatic, will start CPAP therapy. Will send in prescription for APAP mode and pressure settings of 6-20 cm with close monitoring for compliance and benefi ts. Sleep hygiene education reviewed. She is aware if there are any issues with the mask or CPAP machine, she will call the office. Once patient has been using regularly, will send for overnight oximetry to ensure hypoxemia has been corrected. All questions were answered and patient is in agreement of plan. Will follow up in 8-10 weeks or sooner if needed. Coding Level of Care Code Est Pt Level 4 (77880) Diagnoses Cough R05.9 Asthma J45.909 Allergic rhinitis J30.9 Obstructive sleep apnea G47.33 Nocturnal hypoxemia G47.34
== END 2023-08-05 16:01 | disposition home or self-care (01) ==
PROVIDERS: PCP Nurse Practitioner Family; Visit Provider Nurse Practitioner Family
DX: R05.9 Cough, unspecified (principal); J45.909 Unspecified asthma, uncomplicated; J30.9 Allergic rhinitis, unspecified; G47.33 Obstructive sleep apnea (adult) (pediatric); G47.34 Idiopathic sleep related nonobstructive alveolar hypoventilation
CPT/HCPCS: 99214

== ENCOUNTER → 2023-08-05 15:33 | Outpatient (BNVA) | payer OTHER, SELFPAY | PROVIDERS: PCP Nurse Practitioner Family; Visit Provider Nurse Practitioner Family ==

== ENCOUNTER 2023-08-29 08:21 | Outpatient (AMB) | payer OTHER, SELFPAY ==
[2023-08-29 08:23] VITALS: BP 120/60; PULSE 91; BMI 35.4
--- NOTE | 2023-08-29 08:23 | A.OFFVIS_ITS ---
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 Accompanied by: Self / Same As Patient Allergies levofloxacin [From LEVAQUIN] Allergy (Intermediate, Verified 08/05/23 15:38) RASH benzoin Allergy (Unknown, Verified 08/05/23 15:38) Unknown seasonal Allergy (Unknown, Uncoded 08/05/23 15:38) Unknown Cats Allergy (Unknown, Uncoded 08/05/23 15:38) Unknown lactose Adverse Reaction (Severe, Uncoded 08/05/23 15:38) leg cramping Medication List - Last Reconciled 08/29/23 by Pauly Fagan LEAD CUSTODIAN-C albuterol sulfate 2.5 mg (3 mL) inhalation Q6H albuterol sulfate 90 mcg/actuation 1 puff inhalation QID PRN bisacodyl (Dulcolax (bisacodyl)) 10 mg (2 x 5 mg) PO BEDTIME 2 days uhiwcrvsvv-yarpntulbgrai-ufds 50-300-40 mg 2 caps PO Q4H PRN cetirizine (Zyrtec) 20 mg PO DAILY PRN ciclesonide 160 mcg/actuation ([place]) 2 puffs inhalation BID diltiazem HCl CD 180 mg PO DAILY gabapentin 600 mg PO DAILY@1700 ipratropium bromide 2 sprays intranasal BID ketoconazole 2% 1 appl topical BID levonorgestrel (Mirena) intrauterine losartan-hydrochlorothiazide 50-12.5 mg 1 tab PO DAILY montelukast (Singulair) 10 mg PO BEDTIME nystatin 1 appl topical BID sodium,potassium,mag sulfates 17.5-3.13-1.6 gram (Suprep Bowel Prep Kit) 480 mL PO ONCE tamsulosin 0.4 mg PO DAILY 30 days tizanidine 4 mg PO BEDTIME PRN 30 days HPI HPI f/u after sleep study ETT: Details: Edi is a 47-year-old female with past medical history of asthma, hypertension who underwent cardiac evaluation for symptoms of shortness of breath and tachycardia, with findings of PVCs and low normal EF. She recently had an exercise stress test and sleep study and now presents for follow-up. Today she reports that she continues to have some mild shortness of breath. She does have a history of asthma and does use her inhalers with improvement. 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 She is waiting for her CPAP mask to get approved. She also was diagnosed with sleep apnea in 2016. She was not set up with CPAP at that time and it was never addressed further on till now. Her heart palpitations have lessened over time. She has not had any lightheadedness, presyncope, syncope, falls. No chest discomfort at rest or with activity. No PND, orthopnea or edema. Taking meds as directed. Trying to increase her physical activity but is limited by chronic issues with neck pain. [facility] Medical History Upper respiratory tract infection Viral illness Left knee pain Muscle pain Encounter for routine adult physical exam with abnormal findings Environmental allergies Cough Wheezing Screening for colon cancer Pharyngitis Physical exam Kidney stone Leg pain Left adrenal mass Asthma Migraines Surgical History History of cystoscopy History of lithotripsy History of knee surgery History of lumpectomy of left breast (2007) Family History Maternal Grandmother Cancer of abdominal organ Family/Other Breast cancer, Onset Age: 30 Father Parkinson disease Squamous cell skin cancer Atrial fibrillation Mother Hypertension Social History Housing: Apartment Alcohol intake: current Alcohol intake frequency: holidays/special occasions only Patient Tobacco Use Status: Never used Tobacco e-Cigarette/Vaping Use: Never Used Second Hand Smoke Exposure: No service: No Current occupational status: employed Cognitive needs: No Hearing needs: No Vision needs: Yes Female Reproductive History Menstrual Age of Menarche: 14 Review of Systems Const All systems reviewed & are unremarkable except as noted in HPI and below Denies chills, Denies fatigue, Denies fever(s), Denies frequent falls, Denies weakness, Denies weight gain and Denies weight loss ENT Denies dizziness Card Details: occassional palpitations - less than prior Denies chest pain, Denies leg edema, Denies lightheadedness, Denies p alpitations, Denies dyspnea and Reports dyspnea on exertion Resp Denies cough, Denies dyspnea and Reports dyspnea on exertion GI Denies hematochezia Musc Denies abnormal gait, Denies muscle weakness, Denies numbness, Denies radiating pain into limb and Denies tingling Neuro Denies abnormal gait, Denies dizziness, Denies frequent falls, Denies numbness, Denies tingling and Denies weakness Endo Denies fatigue and Denies palpitations Physical Exam Vital Signs: Last Vital Signs Pulse 91 08/29/23 08:23 BP 120/60 08/29/23 08:23 BMI result Body Mass Index 35.4 Const General: cooperative, healthy appearing, comfortable and no acute distress Orientation/consciousness: patient oriented x3 Neck Neck: Yes normal visual inspection and Yes no JVD Resp Effort & Inspection: normal respiratory effort Auscultation: clear to auscultation bilaterally, no crackles, no rales, no rhonchi and no wheezes Cardio Jugular venous distension: no JVD Rate: regular rate Rhythm: regular rhythm Heart sounds: S1 normal heart sound present, S2 normal heart sound present, no murmurs and no rubs Neuro General: patient oriented x3 Extrem General: Yes normal to inspection, No no pedal edema and No calf tenderness Psych Appearance: grossly normal Mental Status: mental status grossly normal Speech and movement: Normal speech and movement present Assessment & Plan Assessment & Plan (1) Tachycardia: Comment: intermittent at rest, needs this clarified before colonoscopy/egd Code(s): R00.0 - Tachycardia, unspecified Category: Medical Plan: Prior Reports of intermittent heart palpitations and elevated heart rates. She does have a history of asthma and has been using albuterol and other inhalers which can contribute. EKG done 03/24/2023 showed normal sinus rhythm, rate 90. For her symptom of palpitation and elevated rates her PCP started metoprolol XL 25 mg daily which was changed over to diltiazem on follow-up visit. A Holter monitor was done on 05/29/2023 for 3 days which showed sinus rhythm with average heart rate 89, occasional PVCs, 1.2%, her symptoms correlated with PVCs. An echocardiogram was done on 06/12/2023 showing EF 50-55%, mild LVH, sinus of Valsalva dilated 3.8 cm, ascending aorta dilated at 3.6 cm . Her diltiazem dose was then increased due to ongoing palpitations. She does have low normal EF. For further evaluation she underwent a exercise stress test on 06/25/2023 with exercise 6.5 minutes with [id number] shortness of breath, no EKG changes of ischemia. A sleep study was done on 07/29/2023 showing mild obstructive sleep apnea with hypoxemia, lowest sat 81%. CPAP was recommended. She does follow with pulmonology and has already bed at evaluated for CPAP mask and is waiting its arrival. Today she reports that she has been feeling generally well. Her palpitations have now lessened. Her breathing has been stable. No reports of anginal sounding symptoms. She continues to follow a reduction in caffeinated beverages. Will plan for repeat echo in 1 year prior to a 1 year follow-up. Instructed to call if any concerning symptoms over the next year. Emergency care if ever needed for symptoms. (2) SOB (shortness of breath): Code(s): R06.02 - Shortness of breath Category: Medical Plan: Asthma as above. Follows with pulmonology. No signs of heart failure on exami nation (3) Hypertension: Code(s): I10 - Essential (primary) hypertension Category: Medical Plan: Newer finding of elevated blood pressures and diagnosis of hypertension. She is currently on losartan/ hydrochlorothiazide and diltiazem. Echo does show mild LVH. The importance of this finding reviewed with her. Blood pressure well controlled at present. No med changes made. (4) Pre-op examination: Code(s): Z01.818 - Encounter for other preprocedural examination Category: Medical Plan: Preop for a colonoscopy. No date yet. She can proceed with Low cardiac risk. Plan Time spent on chart review, documentation, interview and assessment Orders: Orders CA echo transthoracic complete 08/01/24 R00.0 - Tachycardia, unspecified, R0 6.02 - Shortness of breath, R93.1 - Abnormal findings on diagnostic imaging of heart and coronary circulation Coding Level of Care Code Est Pt Level 3 (25862) Diagnoses Tachycardia R00.0 SOB (shortness of breath) R06.02 Hypertension I10 Pre-op examination Z01.818 Time Spent (min) 24
== END 2023-08-29 09:30 | disposition home or self-care (01) ==
PROVIDERS: PCP Nurse Practitioner Family; Visit Provider Nurse Practitioner Family
DX: R00.0 Tachycardia, unspecified (principal); R06.02 Shortness of breath; I10 Essential (primary) hypertension; Z01.818 Encounter for other preprocedural examination
CPT/HCPCS: 99213

== ENCOUNTER → 2023-08-29 08:21 | Outpatient (BNVA) | payer OTHER, SELFPAY | PROVIDERS: PCP Nurse Practitioner Family; Visit Provider Nurse Practitioner Family ==

== ENCOUNTER 2023-11-05 12:22 | Outpatient (AMB) | payer BC, SELFPAY ==
[2023-11-05 12:32] VITALS: BP 118/70; PULSE 86; O2SAT 95; BMI 34.6
--- NOTE | 2023-11-05 12:32 | MHC.PC.OV ---
Vital Signs 11/05/23 12:32 Height 5 ft 9 in Weight 234 lb 4 oz BMI 34.6 BP 118/70 Blood Pressure Location Rt brachial Position Sitting Pulse 86 Pulse Source Pulse Oximeter Pulse Oximetry (%) 95 Intake Visit Reasons: 4M F/U Intake Note: pt is here for 4 month follow up [employer] Consultant Required: No Accompanied by: Self / Same As Patient Allergies levofloxacin [From LEVAQUIN] Allergy (Intermediate, Verified 11/05/23 13:15) RASH benzoin Allergy (Unknown, Verified 11/05/23 13:15) Unknown seasonal Allergy (Unknown, Uncoded 11/05/23 13:15) Unknown Cats Allergy (Unknown, Uncoded 11/05/23 13:15) Unknown lactose Adverse Reaction (Severe, Uncoded 11/05/23 13:15) leg cramping Medication List - Last Reconciled 11/05/23 by Jose Maria Lemons, EARLY CHILDHOOD COORDINATOR- albuterol sulfate 2.5 mg (3 mL) inhalation Q6H albuterol sulfate 90 mcg/actuation 1 puff inhalation QID PRN cylsnxvjwu-lzuqparzefvtm-rgoi 50-300-40 mg 2 caps PO Q4H PRN cetirizine (Zyrtec) 20 mg PO DAILY PRN diltiazem HCl CD 180 mg PO DAILY fluticasone propionate 220 mcg/actuation 2 puffs inhalation BID gabapentin 600 mg PO DAILY@1700 ipratropium bromide 2 sprays intranasal BID ketoconazole 2% 1 appl topical BID levonorgestrel (Mirena) intrauterine losartan-hydrochlorothiazide 50-12.5 mg 1 tab PO DAILY montelukast (Singulair) 10 mg PO BEDTIME nystatin 1 appl topical BID tamsulosin 0.4 mg PO DAILY 30 days tizanidine 4 mg PO BEDTIME PRN 30 days Tobacco use date assessed: 03/06/23 Dental Screening Dental Screen Date: 03/06/23 HPI 4M F/U HPI Details HTN: Blood pressure is stable, managed with losartan-hydrochlorothiazide 50-12.5mg. Denies chest pain, shortness of breath, headache, dizziness, and blurred vision. Pt is following up with pulmonology due to asthma and sleep apnea. She reports that she has not been needing her fluticasone inhaler as well, she does use it for approximately 2 days when her symptoms worsen, though she knows it is a maintenance inhaler. [facility] Medical History Screening for colon cancer Upper respiratory tract infection Viral illness Left knee pain Muscle pain Encounter for routine adult physical exam with abnormal findings Environmental allergies Cough Wheezing Pharyngitis Physical exam Kidney stone Leg pain Left adrenal mass Asthma Migraines Surgical History History of cystoscopy History of lithotripsy History of knee surgery History of lumpectomy of left breast (2007) Family History Maternal Grandmother Cancer of abdominal organ Family/Other Breast cancer, Onset Age: 30 Father Parkinson disease Squamous cell skin cancer Atrial fibrillation Mother Hypertension Social History Housing: Apartment Alcohol intake: current Alcohol intake frequency: holidays/special occasions only Patient Tobacco Use Status: Never used Tobacco e-Cigarette/Vaping Use: Never Used Second Hand Smoke Exposure: No service: No Current occupational status: employed Cognitive needs: No Hearing needs: No Vision needs: Yes Female Reproductive History Menstrual Age of Menarche: 14 Questionnaire PHQ-9 Over the last 2 weeks, how often have you been bothered by any of the following problems? 1. Little interest or pleasure in doing things: not at all 2. Feeling down, depressed, or hopeless: not at all 3. Trouble falling or staying asleep, or sleeping too much: not at all 4. Feeling tired or having little energy: not at all 5. Poor appetite or overeating: not at all 6. Feeling bad about yourself - or that you are a failure or have let yourself or your family down: not at all 7. Trouble concentrating on things, such as reading the newspaper or watching television: not at all 8. Moving or speaking so slowly that other people could have noticed. Or the opposite - being so fidgety or restless that you have been moving around a lot more than usual: not at all 9. Thoughts that you would be better off or of hurting yourself in some way: not at all Total score: 0 Depression Screening Interpretation: Negative Depression Screening Done: Yes 98926 - PHQ-9 Billing: Yes Source: Developed by Drs. Yassine Rivera, Renee Abarca, Arnaud Riojas and colleagues, with an educational flaco from [employer]. Thrive Questionnaire Date Thrive assessed: 11/05/23 I am a: Patient What is your living situation today?: I have a steady place to live Within the past 12 months, did the food you bought not last and you didn't have the money to get more?: Never true Within the past 12 months, did you worry whether your food would run out before you got money to buy more?: Never true Do you have trouble paying for medicines?: No Do you have trouble getting transportation to medical appointments?: No Do you have trouble paying your heating and electricity bill?: No Do you have trouble taking care of your child, family member or friend?: No Do you have trouble with day-to-day activities such as bathing, preparing meals, shopping, managing finances, etc.?: No Are you currently unemployed and looking for a job?: No Are you interested in more education?: No Please select the resources that you would like help with: None Currently or been in a relationship where the following occur: No concerns reported THRIVE Score: 0 AUDIT C Alcohol Use Questionnaire (AUDIT-C) 1. How often do you have a drink containing alcohol?: Monthly or less 2. How many drinks containing alcohol do you have on a typical day when you are drinking?: 1 or 2 3. How often do you have six or more drinks on one occasion?: Never Total Score: 1 Score Reviewed/Action Taken: Yes ZENAIDA-7 AMB Questionnaire ZENAIDA-7 Date ZENAIDA - 7 assessed: 11/05/23 Feeling nervous, anxious, or on edge: 0 = Not at all Not being able to stop or control worryin = Not at all Worrying too much about different things: 0 = Not at all Trouble relaxin = Not at all Being so restless that it is hard to sit still: 0 = Not at all Becoming easily annoyed or irritable: 0 = Not at all Feeling afraid as if something awful might happen: 0 = Not at all Total ZENAIDA-7 score (0-4 normal; 5-9 mild; 10-14 moderate; 15-21 severe): 0 Source: Developed by Drs. Yassine Rivera, Renee Abarca, Arnaud Riojas and colleagues, with an educational flaco from [employer]. ZENAIDA-7 Assessment Billing ZENAIDA-7 Assessment Tool: ZENAIDA-7 Assessment 22270 Review of Systems Const Reports as per HPI Physical exam (Primary Care) Vital Signs: Last Vital Signs Pulse 86 11/05/23 12:32 BP 118/70 11/05/23 12:32 Pulse Ox 95 11/05/23 12:32 BMI result Body Mass Index 34.6 Tobacco/Smoking Status: Tobacco use Status Tobacco use date assessed 03/06/23 11/05/23 12:37 Patient Tobacco Use Status Never used Tobacco 11/05/23 12:37 e-Cigarette/Vaping Use Never Used 11/05/23 12:37 PHQ-9: PHQ-9 Score PHQ-9: Total score 0 11/05/23 12:49 Depression Screening Interpretation: Negative Thrive Assessment: Date of Thrive Assessment Date Thrive assessed 11/05/23 11/05/23 12:37 Currently or been in a relationship where the following occur: No concerns reported Const General: cooperative Nutritional Appearance: obese Orientation/consciousness: patient oriented x3 Resp Effort & Inspection: normal respiratory effort Auscultation: clear to auscultation bilaterally Cardio Rate: regular rate Rhythm: regular rhythm Heart sounds: S1 normal heart sound present and S2 normal heart sound present Neuro General: patient oriented x3 Extrem Left lower extremity: edema (trace) Psych Appearance: grossly normal Mental Status: mental status grossly normal Speech and movement: Normal speech and movement present Affect: normal affect Attitude: cooperative Thought process: Normal thought process present Thought content: Normal thought content present Insight: Good insight present (Psych) Judgement: Good judgement present (Psych) Assessment and Plan Assessment & Plan (1) Asthma: Code(s): J45.909 - Unspecified asthma, uncomplicated Plan: Following up with pulmonology (2) Hypertension: Code(s): I10 - Essential (primary) hypertension Plan: Continue current med Plan The patient agreed to the use of a mobile paramedical examiner for this encounter. Scribed for DEEJAY Monique by kayy Sharp scribe, on 11/05/2023 at 12:45 EST. Orders: Orders TSH reflex Free T4 Today I10 - Essential (primary) hypertension, J45.909 - Unspecified asthma, uncomplicated UA CC w/rflx Micro + Cult Today I10 - Essential (primary) hypertension, J45.909 - Unspecified asthma, uncomplicated Lipid Panel Today I10 - Essential (primary) hypertension, J45.909 - Unspecified asthma, uncomplicated MM screening mammo BI Today Z12.31 - Encounter for screening mammogram for malignant neoplasm of breast Complete Blood Count Auto Diff Today I10 - Essential (primary) hypertension, J45.909 - Unspecified asthma, uncomplicated Comprehensive [place]. Panel Fast Today I10 - Essential (primary) hypertension, J45.909 - Unspecified asthma, uncomplicated Coding Level of Care Code Est Pt Level 3 (84560) Diagnoses Asthma J45.909 Hypertension I10 Additional Codes ZENAIDA-7 Assessment Billing - ZENAIDA-7 Assessment Tool: ZENAIDA-7 Assessment 12981 ([id number])
== END 2023-11-05 13:05 | disposition home or self-care (01) ==
PROVIDERS: PCP Nurse Practitioner Family; Visit Provider Nurse Practitioner Family
DX: J45.909 Unspecified asthma, uncomplicated (principal); I10 Essential (primary) hypertension
CPT/HCPCS: 99213

== ENCOUNTER 2023-11-12 16:05 | Outpatient (AMB) | payer BC, SELFPAY ==
--- NOTE | 2023-11-12 16:06 | MHC.OFFVIS ---
Vital Signs 11/12/23 16:07 Height 5 ft 9 in Weight 235 lb 4 oz BMI 34.7 BP 108/76 Blood Pressure Location Rt brachial Position Sitting Pulse 89 Pulse Source Pulse Oximeter Pulse Oximetry (%) 95 Oxygen Delivery Method Room Air Intake Visit Reasons: Asthma Allergies levofloxacin [From LEVAQUIN] Allergy (Intermediate, Verified 11/12/23 16:09) RASH benzoin Allergy (Unknown, Verified 11/12/23 16:09) Unknown seasonal Allergy (Unknown, Uncoded 11/12/23 16:09) Unknown Cats Allergy (Unknown, Uncoded 11/12/23 16:09) Unknown lactose Adverse Reaction (Severe, Uncoded 11/12/23 16:09) leg cramping HPI HPI Asthma: Details: Edi is a pleasant 47 year old female, never smoker, with underlying asthma. She has been well controlled on current regimen, denying any respiratory symptoms at this time. At the last visit, she was started on CPAP therapy and reports some difficulty adjusting but is motivated to be compliant. Today she presents to review compliance report. [facility] Medical History Screening for colon cancer Upper respiratory tract infection Viral illness Left knee pain Muscle pain Encounter for routine adult physical exam with abnormal findings Environmental allergies Cough Wheezing Pharyngitis Physical exam Kidney stone Leg pain Left adrenal mass Asthma Migraines Surgical History History of cystoscopy History of lithotripsy History of knee surgery History of lumpectomy of left breast (2007) Family History Maternal Grandmother Cancer of abdominal organ Family/Other Breast cancer, Onset Age: 30 Father Parkinson disease Squamous cell skin cancer Atrial fibrillation Mother Hypertension Social History Housing: Apartment Alcohol intake: current Alcohol intake frequency: holidays/special occasions only Patient Tobacco Use Status: Never used Tobacco e-Cigarette/Vaping Use: Never Used Second Hand Smoke Exposure: No service: No Current occupational status: employed Cognitive needs: No Hearing needs: No Vision needs: Yes Female Reproductive History Menstrual Age of Menarche: 14 Review of Systems Const Denies chills, Denies excessive sweating, Denies fever(s), Denies headache(s) and Denies night sweats Eyes Denies dry eyes, Denies irritation and Denies itchy eyes ENT Reports Normal hearing present, Denies headache(s), Denies nasal congestion, Denies nasal discharge, Denies post nasal drip and Denies sore throat Card Denies chest pain, Denies chest pain at rest, Denies chest pain with activity, Denies claudication, Denies leg edema, Denies dyspnea, Denies dyspnea on exertion, Denies orthopnea and Denies paroxysmal nocturnal dyspnea Resp Denies chest congestion, Denies cough, Denies excessive phlegm production, Denies pain on inspiration, Denies pain with cough, Denies dyspnea, Denies dyspnea on exertion, Denies stridor and Denies wheezing Musc Denies myalgias Neuro Reports Normal hearing present and Denies headache(s) Endo Denies excessive sweating Ayo/Lymph Denies lymphadenopathy Aller/Immun Denies itchy eyes, Denies seasonal rhinorrhea and Denies wheezing Physical Exam Vital Signs: Last Vital Signs Pulse 89 11/12/23 16:07 BP 108/76 11/12/23 16:07 Pulse Ox 95 11/12/23 16:07 Oxygen Delivery Method Room Air 11/12/23 16:07 BMI result Body Mass Index 34.7 Const General: cooperative, healthy appearing, comfortable, no acute distress, well developed and alert Nutritional Appearance: obese Orientation/consciousness: patient oriented x3 Limitations: no limitations HEENT Head: Yes normal to inspection, Yes normocephalic and Yes atraumatic Ears: hearing grossly normal bilaterally and external ears normal Eyes General: appearance normal, both eyes and all related structures Eyelids: Yes eyelids normal Sclerae: sclerae normal EOM: EOMs intact bilaterally Neck Neck: Yes normal visual inspection and Yes no lymphadenopathy Lymphatic: no lymphadenopathy noted Chest Chest palpation & inspection: normal inspection of the chest Resp Effort & Inspection: normal respiratory effort, able to speak in complete sentences, no audible wheezes, no cough, no stridor, not tachypneic, no tripod positioning and no use of accessory muscles Auscultation: clear to auscultation bilaterally Cardio Jugular venous distension: no JVD Rate: regular rate Rhythm: regular rhythm Skin Other: warm, dry General skin exam: no rashes or lesions noted Neuro General: patient oriented x3 Cranial nerves: Yes Normal hearing present Cognition (Neuro): normal cognition Gait exam (Neuro): Normal gait present Extrem General: Yes normal to inspection, Yes capillary refill normal, Yes no clubbing, cyanosis or edema and Yes no pedal edema Psych Appearance: grossly normal and well kempt Speech and movement: Normal speech and movement present and Clear speech present Affect: normal affect Attitude: cooperative Thought process: Normal thought process present Thought content: Normal thought content present Insight: Good insight present (Psych) Judgement: Good judgement present (Psych) Assessment & Plan Assessment & Plan (1) Asthma: Code(s): J45.909 - Unspecified asthma, uncomplicated Category: Medical (2) Allergic rhinitis: Code(s): J30.9 - Allergic rhinitis, unspecified Category: Medical (3) Obstructive sleep apnea: Code(s): G47.33 - Obstructive sleep apnea (adult) (pediatric) Category: Medical Plan Edi reports good control of respiratory symptoms on current regimen, advised to continue. Reviewed compliance report which revealed AHI 3.1, using >4 hours for 73% of the time. There was some leaking noted advised to trial different mask. She is in the process of this. All questions were answered and patient is in agreement of plan. Will follow up in three months or sooner if needed. Coding Level of Care Code Est Pt Level 3 (08280) Diagnoses Asthma J45.909 Allergic rhinitis J30.9 Obstructive sleep apnea G47.33
[2023-11-12 16:07] VITALS: BP 108/76; PULSE 89; O2SAT 95; BMI 34.7
== END 2023-11-12 16:32 | disposition home or self-care (01) ==
PROVIDERS: PCP Nurse Practitioner Family; Visit Provider Nurse Practitioner Family
DX: J45.909 Unspecified asthma, uncomplicated (principal); J30.9 Allergic rhinitis, unspecified; G47.33 Obstructive sleep apnea (adult) (pediatric)
CPT/HCPCS: 99213

== ENCOUNTER → 2023-11-12 16:05 | Outpatient (BNVA) | payer BC, SELFPAY | PROVIDERS: PCP Nurse Practitioner Family; Visit Provider Nurse Practitioner Family ==

== ENCOUNTER 2023-12-02 08:09 | Outpatient (AMB) | payer BC, SELFPAY ==
--- NOTE | 2023-12-02 08:16 | A.OFFVIS_ITS ---
Intake Visit Reasons: bilateral nephrolithiasis Intake Note: Patient presents today for follow up on: nephrolithiasis Urology Medications: tamsulosin (prn) Blood Thinner: none Weights And Measures Sealer Required: No Accompanied by: Self / Same As Patient Allergies levofloxacin [From LEVAQUIN] Allergy (Intermediate, Verified 12/02/23 08:37) RASH benzoin Allergy (Unknown, Verified 12/02/23 08:37) Unknown seasonal Allergy (Unknown, Uncoded 12/02/23 08:37) Unknown Cats Allergy (Unknown, Uncoded 12/02/23 08:37) Unknown lactose Adverse Reaction (Severe, Uncoded 12/02/23 08:37) leg cramping Medication List - Last Reconciled 12/02/23 by DALILA Danielle- albuterol sulfate 2.5 mg (3 mL) inhalation Q6H albuterol sulfate 90 mcg/actuation 1 puff inhalation QID PRN rbdgfbxznk-egnrvvqwpauap-iugb 50-300-40 mg 2 caps PO Q4H PRN cetirizine (Zyrtec) 20 mg PO DAILY PRN diltiazem HCl CD 180 mg PO DAILY fluticasone propionate 220 mcg/actuation 2 puffs inhalation BID gabapentin 600 mg PO DAILY@1700 ipratropium bromide 2 sprays intranasal BID ketoconazole 2% 1 appl topical BID levonorgestrel (Mirena) intrauterine losartan-hydrochlorothiazide 50-12.5 mg 1 tab PO DAILY montelukast (Singulair) 10 mg PO BEDTIME nystatin 1 appl topical BID tamsulosin 0.4 mg PO DAILY 30 days tizanidine 4 mg PO BEDTIME PRN 30 days HPI Comments Details: Edi is a pleasant 47-year-old female patient of Dr. Vasquez. She has a past medical history of nephrolithiasis, left adrenal mass, asthma, and migraines. She presents to the office today for follow-up of her nephrolithiasis. In discussion with the patient today she reports to be doing and feeling well. She discusses having lost her follow-up here due to insurance reasons however has since reestablish insurance and would like to continue to follow-up regarding her nephrolithiasis. She reports having seeked emergency room care earlier this year for blood pressure issues she had been having in the setting of a left adrenal mass at which time a CT was ordered and performed and patient was noted to have nonobstructing nephrolithiasis and therefore recommendations was made for urology referral. She currently denies any bothersome urinary issues or concerns. She discusses her longstanding history of nephrolithiasis since the age of 19. She does have a history of a left distal ureteroscopy with Dr. Jim in 01/2021. Recent CT results reviewed with the patient today. Multiple bilateral nonobstructing renal calculi are noted. There is a dominant cluster of multiple calculi within the left lower pole of the calyx measuring 6 mm, the each individual calculus measures no more than 3 mm. In the right there is a 2 mm nonobstructing calculi. She reports having had multiple 24 hour urine collections and despite increase in fluid intake as well as diet modifications she continues with nephrolithiasis. When asked she denies urinary urgency, urinary frequency, incontinence, nocturia, hematuria, dysuria, foul smelling urine, changes to urinary stream, flank pain, fever, and or chills. She is happy with her current voiding parameters. In office urinalysis results reviewed with the patient today 2+ leukocytes. When asked she denies any UTI like symptoms. She otherwise offers no other issues or concerns at this time. [facility] Medical History Screening for colon cancer Upper respiratory tract infection Viral illness Left knee pain Muscle pain Encounter for routine adult physical exam with abnormal findings Environmental allergies Cough Wheezing Pharyngitis Physical exam Kidney stone Leg pain Left adrenal mass Asthma Migraines Surgical History History of cystoscopy History of lithotripsy History of knee surgery History of lumpectomy of left breast (2007) Family History Maternal Grandmother Cancer of abdominal organ Family/Other Breast cancer, Onset Age: 30 Father Parkinson disease Squamous cell skin cancer Atrial fibrillation Mother Hypertension Social History Housing: Apartment Alcohol intake: current Alcohol intake frequency: holidays/special occasions only Patient Tobacco Use Status: Never used Tobacco e-Cigarette/Vaping Use: Never Used Second Hand Smoke Exposure: No service: No Current occupational status: employed Cognitive needs: No Hearing needs: No Vision needs: Yes Female Reproductive History Menstrual Age of Menarche: 14 Review of Systems Const All systems reviewed & are unremarkable except as noted in HPI and below Physical Exam Const General: cooperative, healthy appearing, comfortable, no acute distress, well developed, alert and awake Orientation/consciousness: patient oriented x3 Limitations: no limitations HEENT Head: Yes normal to inspection, Yes normocephalic and Yes atraumatic Ears: hearing grossly normal bilaterally Eyes General: appearance normal, both eyes and all related structures Neck Neck: Yes normal visual inspection and Yes trachea midline Chest Chest palpation & inspection: normal inspection of the chest Resp Effort & Inspection: normal respiratory effort and able to speak in complete sentences Cardio Rate: regular rate GI Inspection: Yes normal to inspection General: Yes no CVA tenderness Back/Spine/Pelvis Back: no CVA tenderness Skin General skin exam: no rashes or lesions noted Neuro General: patient oriented x3 Extrem General: Yes normal to inspection Psych Appearance: grossly normal and well kempt Mental Status: mental status grossly normal Speech and movement: Normal speech and movement present and Clear speech present Affect: normal affect Attitude: cooperative Thought process: Normal thought process present Thought content: Normal thought content present Insight: Fair insight present (Psych) Judgement: Fair judgement present (Psych) Results AMB Urinalysis, Automated UA Leukoctes 125 Cade/uL Last Edit by Marla Frias on 12/02/23 08:29 UA Nitrite Last Edit by Marla Frias on 12/02/23 08:29 UA Urobilinogen 0.2 mg/dL Last Edit by Marla Frias on 12/02/23 08:29 UA Protein 15 mg/dL Last Edit by Marla Frias on 12/02/23 08:29 UA pH 6.0 Last Edit by Marla Frias on 12/02/23 08:29 UA Blood 0 Kahlil/uL Last Edit by Marla Frias on 12/02/23 08:29 UA Specific Pettigrew 1.020 Last Edit by [place] Miriamholly on 12/02/23 08:29 UA Ketone Last Edit by [place] Miriamholly on 12/02/23 08:29 UA Bilirubin 0 mg/dL Last Edit by Marla Miriamholly on 12/02/23 08:29 UA Glucose 0 mg/dL Last Edit by Marla Miriamholly on 12/02/23 08:29 Results Reviewed Results Reviewed: Laboratory Last Values Urine pH (Auto) 6.0 12/02/23 08:27 Specific Pettigrew (Auto) 1.020 12/02/23 08:27 Urine Protein (Auto) 15 mg/dL 12/02/23 08:27 Glucose (UA)(Auto) 0 mg/dL 12/02/23 08:27 Urine Blood (Auto) 0 Kahlil/uL 12/02/23 08:27 Urine Bilirubin (Auto) 0 mg/dL 12/02/23 08:27 Urine Urobilinogen (Auto) 0.2 mg/dL 12/02/23 08:27 Leukocyte Esterase (Auto) 125 Cade/uL 12/02/23 08:27 Date of Service: 03/24/23 EXAMINATION: CT ANGIOGRAM OF THE CHEST WITH CONTRAST (CT PULMONARY ANGIOGRAM FOR PE) CT ABDOMEN PELVIS WITH CONTRAST FINDINGS: QUALITY OF STUDY/CONTRAST BOLUS: Satisfactory. PULMONARY ARTERIES: No central or segmental pulmonary emboli. THORACIC AORTA: No aneurysm or dissection. LUNG: No focal consolidation, nodules or masses. Dependent atelectasis is present in both lungs. Central airways are clear. PLEURA: No pleural effusion or pneumothorax. MEDIASTINUM: Normal heart size. No pericardial effusion. No hilar or mediastinal lymphadenopathy. No evidence of septal bowing or right heart strain. CHEST WALL/AXILLA: No axillary or internal mammary lymphadenopathy. ABDOMEN/PELVIS: LIVER, GALLBLADDER AND BILIARY TREE: The liver measures 21 cm craniocaudal, consistent with cardiomegaly. Liver is otherwise normal in contour.. No focal lesions. The gallbladder is unremarkable with no evidence of radiopaque gallstones, gallbladder wall thickening, or obvious pericholecystic inflammatory changes. PANCREAS: Normal; no mass or surrounding fluid. SPLEEN: Normal size. No focal lesion. ADRENAL GLANDS: The right adrenal gland is normal in appearance. Adjacent to the left adrenal gland is a 2 mm nodule which is isointense to the adjacent spleen on both the CTA chest images and the subsequent portal venous phase abdominal images, most consistent with a splenule. This is unchanged as compared to the prior CT from 2021. No recommended imaging follow-up. KIDNEYS AND URETERS: The kidneys are normal in size, shape, and attenuation. Multiple bilateral nonobstructing renal calculi are noted, the majority of which is situated in the lower pole calyces in the left kidney. There is a dominant cluster of multiple calculi within a left lower pole calyx measuring 6 mm in aggregate, though each individual calculus likely measures no more than 3 mm. In the right kidney, there are 2 nonobstructing calculi within a calyx in the interpolar region. Small subcentimeter focus of cortical hypoattenuation in the left kidney is too small to characterize, though statistically favored to correspond to a simple cyst. No recommended imaging follow-up. GASTROINTESTINAL TRACT: Stomach, small bowel, and colon are normal in caliber. No bowel wall thickening or surrounding inflammatory changes. Appendix is normal. No intraperitoneal free fluid or free air. Minimal colonic diverticulosis without evidence of acute diverticulitis. ABDOMINAL WALL: Small fat-containing umbilical hernia. No bowel involvement. LYMPHOVASCULAR STRUCTURES: No lymphadenopathy. The aorta is unremarkable. BLADDER: No focal mass or wall thickening seen. No bladder calculi. PELVIC VISCERA: An IUD is appropriately situated within the uterus. Uterus is normal in size. No adnexal lesions. OSSEOUS STRUCTURES: Cmia-pq-holdbgae multilevel degenerative disc disease is present in the thoracic spine. More mild degenerative disc disease is present in the lumbar spine. 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 No aggressive osseous lesions. IMPRESSION: 1. No acute abnormalities are identified in chest, abdomen, and pelvis. 2. Unchanged 2 cm nodule between the spleen and left adrenal gland is strongly favored to correspond to a splenule as opposed to primary adrenal nodule. 3. Bilateral nonobstructing renal calculi. 4. Mild hepatomegaly. 5. Minimal colonic diverticulosis without evidence of acute diverticulitis. VTE: negative. Assessment & Plan Assessment & Plan (1) Nephrolithiasis: Code(s): N20.0 - Calculus of kidney Category: Medical Plan In office urinalysis results reviewed with the patient today; as noted above. We discussed at length potential causes of nephrolithiasis as well as further workup Will continue with surveillance monitoring at this time. Patient currently denies any bothersome urinary issues or concerns. She reports be happy with current voiding parameters. Will obtain renal ultrasound. Continue drinking plenty of water daily. Continue adding 1 oz of lemon juice to water daily. Previous CT results reviewed with the patient today; as noted above. Follow-up in 6 months with imaging to be completed prior; or sooner with any issues, concerns, and or questions. Orders: Orders AMB Urinalysis Automated Today Z13.9 - Encounter for screening, unspecified US renal BI 6 Months N20.0 - Calculus of kidney Medications: New ondansetron HCl 4 mg PO Q8H 9 tabs 0RF 3 days Discontinued ondansetron Discontinued Reason: Order 4 mg translingual ONCE 1 tab 0RF nausea and vomiting R11.0 - Nausea Patient Instructions: The patient had an opportunity to ask questions regarding the treatment plan. All questions were answered. Physical exam, labs, and imaging were discussed and reviewed in detail. As well as risks, benefits, and discussion of treatment choices. No major barriers to understanding were identified. The patient expressed understanding and agreement with the above treatment plan. The patient was made aware they should contact our office by phone for worsening of their current condition, the appearance of new symptoms, or with any questions or concerns. Compliance is encouraged with any medications and follow up testing that is ordered. It is a privilege to be allowed the opportunity to participate in? your urological care.? Again, if you have any questions or concerns If you have any questions or concerns please do not hesitate to contact me. The office is [phone]. This note is constructed using voice recognition software. While every effort has been made to ensure accuracy supervisor pipe joints errors may have been included. Yours sincerely, DEEJAY Danielle Coding Level of Care Code Est Pt Level 3 (61879) Diagnoses Nephrolithiasis N20.0
== END 2023-12-02 08:37 | disposition home or self-care (01) ==
PROVIDERS: PCP Nurse Practitioner Family; Visit Provider Nurse Practitioner Family
DX: N20.0 Calculus of kidney (principal); Z13.9 Encounter for screening, unspecified
CPT/HCPCS: 99213

== ENCOUNTER → 2023-12-02 08:09 | Outpatient (BNVA) | payer BC, SELFPAY | PROVIDERS: PCP Nurse Practitioner Family; Visit Provider Nurse Practitioner Family | DX: N20.0 Calculus of kidney (principal) | CPT/HCPCS: 81003 ==

== ENCOUNTER → 2023-12-19 16:00 | Outpatient (BNV) | payer BC, SELFPAY | PROVIDERS: PCP Nurse Practitioner Family; Visit Provider Internal Medicine | DX: Z12.31 Encounter for screening mammogram for malignant neoplasm of breast (principal) | CPT/HCPCS: 77063; 77067 ==

== ENCOUNTER 2023-12-19 16:11 | Outpatient (REF) | payer BC, SELFPAY ==
--- NOTE | ~2023-12-19 | MM_ITS ---
EXAMINATION: MM SCREENING DIGITAL BREAST TOMOSYNTHESIS, BILATERAL CLINICAL INFORMATION: Screening. Asymptomatic. COMPARISON: Mammography: Comparison is made with available priors TECHNIQUE: Digital breast mammography with tomosynthesis is performed in both the craniocaudal and mediolateral oblique views along with computer-aided detection (CAD). FINDINGS: There are scattered areas of fibroglandular density (ACR BI-RADS breast composition Category b). Left marker clip. Bilateral circumscribed oval masses which wax and wane consistent with benign fibrocystic changes. There are no significant masses, abnormal calcifications, or other abnormalities. MM/MM tomosynthesis screening BI IMPRESSION: No mammographic evidence of malignancy. ASSESSMENT: BI-RADS BI-RADS 2 - Benign Findings RECOMMENDATION: Routine annual mammography screening. 1 year F/U This examination should not preclude the clinical evaluation of a suspicious palpable abnormality. This patient's information was entered into a reminder system with a target due date for their next mammogram. Electronically signed by: Vera Ceja DO 12/31/2023 04:03 PM EDT
== END 2023-12-19 16:12 | disposition home or self-care (01) ==
LOC: HO.MAMMO 16:11
PROVIDERS: PCP Nurse Practitioner Family; Visit Provider Nurse Practitioner Family
DX: Z12.31 Encounter for screening mammogram for malignant neoplasm of breast (principal)
CPT/HCPCS: 77063; 77067

== ENCOUNTER 2023-12-23 12:19 | Outpatient (AMB) | payer BC, SELFPAY ==
--- NOTE | 2023-12-23 12:23 | MHC.OFFVIS ---
Vital Signs 12/23/23 12:35 Height 5 ft 9 in Weight 233 lb 11.04 oz BMI 34.5 BP 103/68 Blood Pressure Location Rt brachial Position Sitting Pulse 93 Intake Visit Reasons: wants to speak with june Intake Note: Edi presents to in office visit today in follow up cardiac clearance for colonoscopy. CC: Per patient her blood pressure is more controlled and she is on two medications for BP now. She states that she is doing better overall but sometimes she still feels like air moving inside of her mostly, when she is seating. 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 Accompanied by: Self / Same As Patient Allergies levofloxacin [From LEVAQUIN] Allergy (Intermediate, Verified 12/02/23 08:37) RASH benzoin Allergy (Unknown, Verified 12/02/23 08:37) Unknown seasonal Allergy (Unknown, Uncoded 12/02/23 08:37) Unknown Cats Allergy (Unknown, Uncoded 12/02/23 08:37) Unknown lactose Adverse Reaction (Severe, Uncoded 12/02/23 08:37) leg cramping HPI HPI wants to speak with ruthann: Details: Assessment & Plan (1) Pre-op examination: Code(s): Z01.818 - Encounter for other preprocedural examination (2) Asthma: Code(s): J45.909 - Unspecified asthma, uncomplicated (3) Uncontrolled hypertension: Code(s): I10 - Essential (primary) hypertension (4) Tachycardia: Comment: intermittent at rest, needs this clarified before colonoscopy/egd Code(s): R00.0 - Tachycardia, unspecified (5) SOB (shortness of breath): Code(s): R06.02 - Shortness of breath (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 She has ongoing SOB over the past year with persistent cough. CXR showing Chilaiditi anatomy - Occasional diarrhea no CIC but a lot of bloating and gas. She may be lactose intolerance. Son has food allergies, but this seems to run in her son's fathers family BUT there is a allergy to crab in her family. No med changes before this, no diet changes, she had COVID before this no other illness. She has gained wt recently, 15-20lbs. Has been on prednisone, however. Because Chilaiditi can cause scope problems needs to tease this out and the cardiac status prior to procedures. Her mental health specialist wants us to explore possible GERD in diff dx for SOB. ? definitive study Small bowel follow through. Certainly the chest CT and the CT scan of the abdomen and pelvis did not seem to verify the proposed anatomic abnormality. She has N/V from general anesthesia no other problems. She has ongoing asthma ? SOB and source, She has recent HTN and palpitations/tachycardia - she has not yet seen a pc technician. No ID problems. There is polyps on both sides mother and father, maternal grandmother passed with abdomen full of ca of undetermined origin. Orders: Orders Colonoscopy - GI Use Only 05/02/23 Z01.818 - Encounter for other preprocedural examination, J45.909 - Unspecified asthma, uncomplicated, I10 - Essential (primary) hypertension Referrals Cardiology Referral R00.0 - Tachycardia, unspecified, Z01.818 - Encounter for other preprocedural examination, R06.02 - Shortness of breath Medications: New bisacodyl (Dulcolax (bisacodyl)) 10 mg (2 x 5 mg) PO BEDTIME 4 tabs 0RF 2 days sodium,potassium,mag sulfates 17.5-3.13-1.6 gram (Suprep Bowel Prep Kit) 480 mL PO ONCE 354 mL 0RF Z01.818 - Encounter for other preprocedural examination COLONOSCOPY Awaiting Cardiology clearance BIOPSY CORRESPONDENCE On 05/29/23 @ 08:07 Ruthann Sarkar Wrote To Edi Han Yes I think it makes sense to push this out a bit. I will be eager to find out what cardiology thinks of this. On 05/28/23 @ 19:42 Edi Han (Regarding Self / Same As Patient) Wrote To Ruthann Sarkar Paulo Whittaker, [employer] to let you know that I saw Cardiology on the . She switched up one of my BP meds and put in an order for a Holter and Echo. Just got a call today from scheduling. Does it make sense to push my follow up with you out a bit? I?m due to see you again on the . Picking up the Holter tomorrow, Echo is on the and follow up with Cardio on the . TODAY'S VISIT She had a fairly normal work up, her BP is now controlled on 2 meds and she also was dx with BRIDGET and she started on CPAP which is going okay. Her ROUSE's are improved as is her fatigue. Her PCP is working on medication adjustments jaret with jarocho. Her SOB is also improved. She is ready to progress to EGD/colonoscopy Because Chilaiditi syndrome? definitive study Small bowel follow through. Certainly the chest CT and the CT scan of the abdomen and pelvis did not seem to verify the proposed anatomic abnormality. She has N/V from general anesthesia no other problems. She has ongoing asthma now controlled and a new dx of BRIDGET, she has a mildly reduced EF and has had a cardiac work up. . No ID problems. There is polyps on both sides mother and father, maternal grandmother passed with abdomen full of ca of undetermined origin. ROV after colonoscopy [facility] Medical History (Updated 12/23/23 @ 13:35 by WILLIAM Bolden) Uncontrolled hypertension Chronic UTI (urinary tract infection) Palpitation Upper respiratory tract infection Sleep apnea Screening for colon cancer Viral illness Left knee pain Muscle pain Encounter for routine adult physical exam with abnormal findings Environmental allergies Cough Wheezing Pharyngitis Physical exam Kidney stone Leg pain Left adrenal mass Asthma Migraines Surgical History History of cystoscopy History of lithotripsy History of knee surgery History of lumpectomy of left breast (2007) Family History Maternal Grandmother Cancer of abdominal organ Family/Other Breast cancer, Onset Age: 30 Father Parkinson disease Squamous cell skin cancer Atrial fibrillation Mother Hypertension Social History Housing: Apartment Alcohol intake: current Alcohol intake frequency: holidays/special occasions only Patient Tobacco Use Status: Never used Tobacco e-Cigarette/Vaping Use: Never Used Second Hand Smoke Exposure: No service: No Current occupational status: employed Cognitive needs: No Hearing needs: No Vision needs: Yes Female Reproductive History Menstrual Age of Menarche: 14 Review of Systems Const Denies fatigue, Denies fever(s), Denies night sweats, Denies poor appetite, Reports snoring and Denies weight loss ENT Reports Normal hearing present, Denies dental pain, Denies dysphagia, Denies hearing loss, Denies mouth pain, Denies odynophagia, Denies throat swelling, Denies tongue swelling and Reports other (Dentition adequate) Card Reports no additional complaints Resp Reports snoring GI Details: Denies abdominal pain, Denies melena, Denies bloating, Denies hematochezia, Denies constipation, Denies GI cramping, Denies dysphagia, Denies excessive flatus, Denies early satiety, Denies heartburn, Denies diarrhea, Denies nausea, Denies odynophagia, Denies vomiting and Denies hematemesis Skin/Breast Denies pruritus, Denies lesions, Denies rash and Denies jaundice Neuro Reports Normal hearing present and Denies Abnormal speech present Endo Denies fatigue Aller/Immun Denies throat swelling and Denies tongue swelling Physical Exam Vital Signs: Last Vital Signs Pulse 93 12/23/23 12:35 BP 103/68 12/23/23 12:35 BMI result Body Mass Index 34.5 Const General: cooperative, no acute distress, well developed and well groomed Nutritional Appearance: well nourished and obese Orientation/consciousness: oriented to person, oriented to place and oriented to time Limitations: No language barrier HEENT Head: Yes normocephalic and Yes atraumatic Eyes General: appearance normal, both eyes and all related structures Pupils: Equal, round and reactive pupils present Neck Neck: Yes normal visual inspection and Yes no lymphadenopathy Thyroid: Thyroid normal Resp Effort & Inspection: normal respiratory effort and able to speak in complete sentences Auscultation: clear to auscultation bilaterally Cardio Rate: regular rate Rhythm: regular rhythm Heart sounds: Normal, physiologic split S2 sound present Peripheral pulses: radial pulses present and posterior tibial pulses present GI Inspection: No distended, No Abdominal panniculus present and Yes obesity Palpation (GI): Soft to palpation, nontender, no guarding, not rigid and No hepatosplenomegaly present Percussion: Yes normal to percussion Auscultation: normal bowel sounds Rectal Exam - Female: deferred Skin General skin exam: no rashes or lesions noted, turgor normal, skin not dry, no jaundice, No spider nevi and no striae Rashes: no rashes Nails: normal Neuro General: oriented to person, oriented to place and oriented to time Cranial nerves: Yes Equal, round and reactive pupils present and Yes Normal hearing present Speech: No Abnormal speech present Extrem General: Yes normal to inspection, No clubbing, No cyanosis and No edema Psych Appearance: grossly normal and well kempt Mental Status: mental status grossly normal Speech and movement: Normal speech and movement present Affect: normal affect Attitude: cooperative Thought process: Normal thought process present and not confabulating Thought content: Normal thought content present Insight: Fair insight present (Psych) Judgement: Fair judgement present (Psych) Results Reviewed Results Reviewed: Laboratory Tests 06/20/23 10:52 WBC 5.3 Hgb 14.5 Hct 42.6 Plt Count 318 Estimated GFR > 60 Total Bilirubin 0.6 AST 21 ALT 30 Alkaline Phosphatase 53 TSH 1.16 Assessment & Plan Assessment & Plan (1) Pre-op examination: Code(s): Z01.818 - Encounter for other preprocedural examination Category: Medical (2) 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 Code(s): Z83.719 - Family history of colon polyps, unspecified Category: Medical (4) GERD (gastroesophageal reflux disease): Code(s): K21.9 - Gastro-esophageal reflux disease without esophagitis Category: Medical (5) Upper abdominal pain: Code(s): R10.10 - Upper abdominal pain, unspecified Category: Medical (6) Abnormal echocardiogram: Comment: Mildly decreased LV EF of 50-55% and some left ventricle thickening Code(s): R93.1 - Abnormal findings on diagnostic imaging of heart and coronary circulation Category: Medical (7) Obstructive sleep apnea: Code(s): G47.33 - Obstructive sleep apnea (adult) (pediatric) Category: Medical (8) Asthma: Code(s): J45.909 - Unspecified asthma, uncomplicated Category: Medical Plan She had a fairly normal work up, her BP is now controlled on 2 meds and she also was dx with BRIDGET and she started on CPAP which is going okay. Her ROUSE's are improved as is her fatigue. Her PCP is working on medication adjustments jaret with jarocho. Her SOB is also improved. She is ready to progress to EGD/colonoscopy Because Chilaiditi syndrome? definitive study Small bowel follow through. Certainly the chest CT and the CT scan of the abdomen and pelvis did not seem to verify the proposed anatomic abnormality. She has N/V from general anesthesia no other problems. She has ongoing asthma now controlled and a new dx of BRIDGET, she has a mildly reduced EF and has had a cardiac work up. . No ID problems. There is polyps on both sides mother and father, maternal grandmother passed with abdomen full of ca of undetermined origin. 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
[2023-12-23 12:35] VITALS: BP 103/68; PULSE 93; BMI 34.5
== END 2023-12-23 13:39 | disposition home or self-care (01) ==
LOC: HO.HGI 12:19
PROVIDERS: PCP Nurse Practitioner Family; Visit Provider Nurse Practitioner
DX: Z01.818 Encounter for other preprocedural examination (principal); Z12.11 Encounter for screening for malignant neoplasm of colon; Q43.3 Congenital malformations of intestinal fixation; Z83.719 Family history of colon polyps, unspecified
CPT/HCPCS: S0285

== ENCOUNTER → 2023-12-23 12:19 | Outpatient (BNVA) | payer BC, SELFPAY | PROVIDERS: PCP Nurse Practitioner Family; Visit Provider Nurse Practitioner ==

== ENCOUNTER 2024-02-11 16:00 | Outpatient (AMB) | payer BC, SELFPAY ==
[2024-02-11 16:04] VITALS: BP 112/84; PULSE 103; O2SAT 97; BMI 36.8
--- NOTE | 2024-02-11 16:04 | MHC.OFFVIS ---
Vital Signs 02/11/24 16:04 Height 5 ft 9 in Weight 249 lb 4 oz BMI 36.8 BP 112/84 Blood Pressure Location Lt brachial Position Sitting Pulse 103 H Pulse Source Pulse Oximeter Pulse Oximetry (%) 97 Oxygen Delivery Method Room Air Intake Visit Reasons: Asthma Allergies levofloxacin [From LEVAQUIN] Allergy (Intermediate, Verified 02/11/24 16:07) RASH benzoin Allergy (Unknown, Verified 02/11/24 16:07) Unknown seasonal Allergy (Unknown, Uncoded 02/11/24 16:07) Unknown Cats Allergy (Unknown, Uncoded 02/11/24 16:07) Unknown lactose Adverse Reaction (Severe, Uncoded 02/11/24 16:07) leg cramping HPI HPI Asthma: Details: Edi is a pleasant 47 year old female, never smoker, with underlying asthma. She has been well controlled on current regimen, of Flovent, Singulair and albuterol nebulizer/MDI. Previously had trialed ICS/LABA however developed significant muscle cramping due to LABA component and has been doing well on ICS only. She reports asthma exacerbation in January without any known exposures/triggers resolving with use of nebulizer at home. She denies any visits to urgent care hospitalizations related to respiratory distress since last visit. Today she presents to review compliance report. [facility] Medical History (Updated 12/23/23 @ 13:35 by WILLIAM Bolden) Uncontrolled hypertension Chronic UTI (urinary tract infection) Palpitation Upper respiratory tract infection Sleep apnea Screening for colon cancer Viral illness Left knee pain Muscle pain Encounter for routine adult physical exam with abnormal findings Environmental allergies Cough Wheezing Pharyngitis Physical exam Kidney stone Leg pain Left adrenal mass Asthma Migraines Surgical History History of cystoscopy History of lithotripsy History of knee surgery History of lumpectomy of left breast (2007) Family History Maternal Grandmother Cancer of abdominal organ Family/Other Breast cancer, Onset Age: 30 Father Parkinson disease Squamous cell skin cancer Atrial fibrillation Mother Hypertension Social History Housing: Apartment Alcohol intake: current Alcohol intake frequency: holidays/special occasions only Patient Tobacco Use Status: Never used Tobacco e-Cigarette/Vaping Use: Never Used Second Hand Smoke Exposure: No service: No Current occupational status: employed Cognitive needs: No Hearing needs: No Vision needs: Yes Female Reproductive History Menstrual Age of Menarche: 14 Review of Systems Const Denies chills, Denies excessive sweating, Denies fever(s), Denies headache(s) and Denies night sweats Eyes Denies dry eyes, Denies irritation and Denies itchy eyes ENT Reports Normal hearing present, Denies headache(s), Denies nasal congestion, Denies nasal discharge, Denies post nasal drip and Denies sore throat Card Denies chest pain, Denies chest pain at rest, Denies chest pain with activity, Denies claudication, Denies leg edema, Denies dyspnea, Denies dyspnea on exertion, Denies orthopnea and Denies paroxysmal nocturnal dyspnea Resp Denies chest congestion, Denies cough, Denies excessive phlegm production, Denies pain on inspiration, Denies pain with cough, Denies dyspnea, Denies dyspnea on exertion, Denies stridor and Denies wheezing Musc Denies myalgias Neuro Reports Normal hearing present and Denies headache(s) Endo Denies excessive sweating Ayo/Lymph Denies lymphadenopathy Aller/Immun Denies itchy eyes, Denies seasonal rhinorrhea and Denies wheezing Physical Exam Vital Signs: Last Vital Signs Pulse 103 H 02/11/24 16:04 BP 112/84 02/11/24 16:04 Pulse Ox 97 02/11/24 16:04 Oxygen Delivery Method Room Air 02/11/24 16:04 BMI result Body Mass Index 36.8 Const General: cooperative, healthy appearing, comfortable, no acute distress, well developed and alert Nutritional Appearance: obese Orientation/consciousness: patient oriented x3 Limitations: no limitations HEENT Head: Yes normal to inspection, Yes normocephalic and Yes atraumatic Ears: hearing grossly normal bilaterally and external ears normal Eyes General: appearance normal, both eyes and all related structures Eyelids: Yes eyelids normal Sclerae: sclerae normal EOM: EOMs intact bilaterally Neck Neck: Yes normal visual inspection and Yes no lymphadenopathy Lymphatic: no lymphadenopathy noted Chest Chest palpation & inspection: normal inspection of the chest Resp Effort & Inspection: normal respiratory effort, able to speak in complete sentences, no audible wheezes, no cough, no stridor, not tachypneic, no tripod positioning and no use of accessory muscles Auscultation: clear to auscultation bilaterally Cardio Jugular venous distension: no JVD Rate: regular rate Rhythm: regular rhythm Skin Other: warm, dry General skin exam: no rashes or lesions noted Neuro General: patient oriented x3 Cranial nerves: Yes Normal hearing present Cognition (Neuro): normal cognition Gait exam (Neuro): Normal gait present Extrem General: Yes normal to inspection, Yes capillary refill normal, Yes no clubbing, cyanosis or edema and Yes no pedal edema Psych Appearance: grossly normal and well kempt Speech and movement: Normal speech and movement present and Clear speech present Affect: normal affect Attitude: cooperative Thought process: Normal thought process present Thought content: Normal thought content present Insight: Good insight present (Psych) Judgement: Good judgement present (Psych) Assessment & Plan Assessment & Plan (1) Asthma: Code(s): J45.909 - Unspecified asthma, uncomplicated Category: Medical (2) Allergic rhinitis: Code(s): J30.9 - Allergic rhinitis, unspecified Category: Medical (3) Obstructive sleep apnea: Code(s): G47.33 - Obstructive sleep apnea (adult) (pediatric) Category: Medical Plan Edi reports good control of respiratory symptoms on current regimen, advised to continue. Reviewed compliance report which revealed AHI <1, using >4 hours for 100% of the time. There was some leaking noted advised to trial different mask, she is aware she needs to contact DME to arrange. All questions were answered and patient is in agreement of plan. Will follow up in 4-6 months or sooner if needed. Coding Level of Care Code Est Pt Level 4 (55306) Diagnoses Asthma J45.909 Allergic rhinitis J30.9 Obstructive sleep apnea G47.33
== END 2024-02-11 16:36 | disposition home or self-care (01) ==
PROVIDERS: PCP Nurse Practitioner Family; Visit Provider Nurse Practitioner Family
DX: J45.909 Unspecified asthma, uncomplicated (principal); J30.9 Allergic rhinitis, unspecified; G47.33 Obstructive sleep apnea (adult) (pediatric)
CPT/HCPCS: 99214

== ENCOUNTER → 2024-02-11 16:00 | Outpatient (BNVA) | payer BC, SELFPAY | PROVIDERS: PCP Nurse Practitioner Family; Visit Provider Nurse Practitioner Family ==

== ENCOUNTER 2024-03-01 06:51 | Day surgery (SDC) | payer BC, SELFPAY ==
[2024-02-26 09:17] VITALS: BMI 35.3
[2024-03-01 07:06] VITALS: BMI 35.4
[2024-03-01 07:16] VITALS: BP 107/71; PULSE 79; RESP 15; TEMP 36.2; O2SAT 96
[2024-03-01 07:27] LABS: UPreg QC Valid YES; Urine Pregnancy NEGATIVE (NEGATIVE)
[2024-03-01] MEDS: Lactated Ringers 1,000 ML 50 ML IVCONT (07:27)
--- NOTE | 2024-03-01 07:48 | MHC.SHP ---
Pre-Procedural Eval Section A - 24 Hr Update-Section A only Date of Service: 03/01/24 Section B - Complete if H&P > 30 days Chief Complaint: screening, abdominal pain Relevant Family History (Specify if Yes): Yes Relevant Social History: None Present Medications: see Short Stay Collaborative assessment Medical History: Significant History (Chronic UTI (urinary tract infection) Palpitation Upper respiratory tract infection Sleep apnea Screening for colon cancer Viral illness Left knee pain Muscle pain Encounter for routine adult physical exam with abnormal findings Environmental allergies Cough Wheezing Pharyngitis Kidney) History of Previous Operations: Relevant previous surgery/procedure and date(s) (History of cystoscopy History of lithotripsy History of knee surgery History of lumpectomy of left breast (2007)) Allergies: Allergies Allergy/AdvReac Type Severity Reaction Status Date / Time levofloxacin [From LEVAQUIN] Allergy Intermediate RASH Verified 03/01/24 07:15 benzoin Allergy Unknown Unknown Verified 03/01/24 07:15 seasonal Allergy Unknown Unknown Uncoded 02/11/24 16:07 Cats Allergy Unknown Unknown Uncoded 02/11/24 16:07 lactose AdvReac Severe leg Uncoded 02/11/24 16:07 cramping Review of Systems Sugical H&P ROS: Negative: Constitution, Cardiovascular, Respiratory and Gastrointestinal Exam Surgical H&P Exam: Normal: Heart, Normal: Lungs, Normal: Extremities and Normal: Abdomen Plan Diagnosis/Plan: Unchanged I have reviewed the history and physical and performed a pertinent physical examination on my patient. No changes have occurred unless specified. Time Spent With Patient Time: Total time managing care of this patient today ____ minutes.
--- NOTE | 2024-03-01 08:52 | P.CONAN_ITS ---
HPI - Anesthesia Eval Consult details Narrative: 48 yo female patient for EGD, Colonoscopy [facility] Active Problems Active Problems: All Active Problems (Updated 03/01/24 @ 08:52 by Roya Roper MD) HTN (hypertension), benign (Acute) Upper abdominal pain (Acute) GERD (gastroesophageal reflux disease) (Acute) Family history of polyps in the colon (Acute) Chronic pain (Acute) Skin lesions (Acute) Nocturnal hypoxemia (Acute) Obstructive sleep apnea (Acute). Uses CPAP machine Allergic rhinitis (Acute) Hypersomnia (Acute) Abnormal echocardiogram (Acute) Chilaiditi's syndrome (Acute) SOB (shortness of breath) (Acute) Tachycardia (Acute) Pre-op examination (Acute) Microscopic hematuria (Acute) Cervical neck pain with evidence of disc disease (Acute) Adrenal mass (Acute) Nephrolithiasis (Acute) Fibroadenoma (Acute) Left breast lump (Acute) Migraines (Acute) Environmental allergies (Acute) Asthma (Acute). Stable Past Medical History Medical History Sleep apnea Palpitation Viral illness Left adrenal mass Uncontrolled hypertension Left knee pain Muscle pain Encounter for routine adult physical exam with abnormal findings Environmental allergies Cough Wheezing Screening for colon cancer Pharyngitis Asthma Physical exam Chronic UTI (urinary tract infection) Kidney stone Upper respiratory tract infection Migraines Leg pain Family History Family History Maternal Grandmother Cancer of abdominal organ Family/Other Breast cancer, Onset Age: 30 Father Parkinson disease Squamous cell skin cancer Atrial fibrillation Mother Hypertension Family history of problems with anesthesia: No Surgical History Surgical History History of cystoscopy History of lithotripsy History of knee surgery History of lumpectomy of left breast (2007) History of Problems with Anesthesia: No Social History Social History Housing: Apartment Alcohol intake: current Alcohol intake frequency: holidays/special occasions only Patient Tobacco Use Status: Never used Tobacco e-Cigarette/Vaping Use: Never Used Second Hand Smoke Exposure: No Use of substances other than those prescribed or required for medical reasons: No Are you DNR?: No Advance Directives: No Advance Directives Information Provided: Yes service: No Current occupational status: employed Cognitive needs: No Hearing needs: No Vision needs: Yes Meds Allergies Allergy/AdvReac Type Severity Reaction Status Date / Time levofloxacin [From LEVAQUIN] Allergy Intermediate RASH Verified 03/01/24 07:15 benzoin Allergy Unknown Unknown Verified 03/01/24 07:15 seasonal Allergy Unknown Unknown Uncoded 02/11/24 16:07 Cats Allergy Unknown Unknown Uncoded 02/11/24 16:07 lactose AdvReac Severe leg Uncoded 02/11/24 16:07 cramping Active Medications: Current Medications Lactated Ringer's (Lr) 1,000 mls @ 50 mls/hr IVCONT .Q20H DONNA Last Admin: 03/01/24 07:27 Dose: 50 mls/hr Home Medications ?Medication ?Instructions ?Recorded ?Confirmed ?Last Taken ?Type gabapentin 600 mg tablet 600 mg PO DAILY@1700 03/09/21 11/05/23 04/07/21 History levonorgestrel 21 mcg/24 hr (up to intrauterine 04/25/21 11/05/23 Unknown History 8 years) 52 mg intrauterine device (Mirena) nycdmmegtb-iaztamevndtms-yzmweccd 2 cap PO Q4H PRN Migraine Headache 10/12/22 11/05/23 Unknown History 50 mg-300 mg-40 mg capsule cetirizine 10 mg tablet (Zyrtec) 20 mg PO DAILY PRN Allergy Symptoms 03/12/23 11/05/23 Unknown History ondansetron HCl 4 mg tablet 4 mg PO Q8H PRN Nausea 03/01/24 Unknown History tamsulosin 0.4 mg capsule 0.4 mg PO DAILY PRN kidney stone sx 03/01/24 Unknown History Exam Height,Weight and Vital Signs: Height 5 ft 9 in Weight 108.862 kg Last Vital Signs Temp 97.2 F 03/01/24 07:16 Pulse 79 03/01/24 07:16 Resp 15 03/01/24 07:16 BP 107/71 03/01/24 07:16 Pulse Ox 96 03/01/24 07:16 O2 Del Method Room Air 03/01/24 07:16 Pertinent Lab Results Pertinent Lab Results: Laboratory Tests 03/01/24 07:10 Urine Test NEGATIVE Airway Mallampati Class: III TM Dist: >3cm Neck ROM: Full Loose/Missing/Broken Teeth: No Heart: RRR Lungs: CTAB Assessment and Plan Assessment Anesthesia Assessment: Anesthesia Plan Discussed and Chart Reviewed Final Anesthetic Review Family History of Problems with Anesthesia: No History of Problems with Anesthesia: No NPO: Yes ASA Class: III Final Preanesthetic Review: No Changes in Pt Med Stat, Meds/Allgs Chart Reviewed, Consent Obtained/Reviewed and Anes Risks/Benef Reviewed Patient Risk: Intermediate Procedure Risk: Low Assessment/Block/Sedation in SS: Assess/Block/Sedation-SS Anesthetic Plan Anesthetic Plan: TIVA Disposition: Standard PACU
--- NOTE | 2024-03-01 09:18 | P.OPN-COLO_ITS ---
Colonoscopy Operative Note Operative Note Date of Service: 03/01/24 Narrative: FLEXIBLE TRANSORAL UPPER GASTROINTESTINAL ENDOSCOPY WITH BIOPSIES AND COLONOSCOPY TILL CECUM Pre-op diagnosis: Colon cancer screening, upper abdominal pain Post-op diagnosis: Gastritis, Diverticulosis, hemorrhoids Endoscopist:? Evelyn Coker MD Anesthesia:?MAC UPPER ENDOSCOPY Consent: Indications for the procedure and potential complications of bleeding, perforation, reaction to medications and missed diagnosis were discussed with the patient and informed consent was obtained. Instrument: Olympus GIF H 190 mid size upper endoscope Monitoring: Vital signs and clinical assessment, continuous EKG monitoring, Pulse oximetry, Carbon Dioxide monitoring and blood pressure monitoring were done throughout the procedure. Procedure: The patient was placed in the left lateral decubitis position and pre-procedure medications were administered and a bite block was placed. The endoscope was inserted into the mouth and advanced under direct vision to the third part of duodenum. A careful inspection was made as the upper endoscope was withdrawn including a retroflexed examination of the proximal stomach; Findings and interventions are described below. Findings: Larynx: Normal Esophagus: GE junction at 38 cms. A 5-6 mm benign appearing nodule/edematous fold on gastric side of GE junction - biopsied. No esophagitis or Holt's. Stomach: Moderate diffuse gastric erythema - biopsies were obtained from the antrum. Grade 2 flap valve on retroflexed examination of the cardia. Duodenum: Normal bulb and descending duodenum Biopsies were obtained from descending duodenum to check for celiac sprue Intervention: Biopsies as noted above COLONOSCOPY PROCEDURE NOTE Instrument: Olympus CF H 190 L variable stiffness adult colonoscope Monitoring: Vital signs and clinical assessment, intermittent blood pressure monitoring, continuous EKG monitoring, Pulse oximetry and Carbon Dioxide monitoring were done throughout the procedure. Please see anesthesia flowsheet. Colon withdrawl time was 15 minutes. Procedure: The patient was placed in the left lateral decubitis position and pre-procedure medications were administered. After a digital rectal examination of the ano-rectum, the video colonoscope was inserted into the rectum and advanced through the colon to the cecum. The colonoscope was slowly withdrawn in a retrograde panoramic fashion and the colon mucosa was carefully examined including a retroflexed view of the rectum. Findings and interventions are described below. Procedure Difficulty: without difficulty Findings: Terminal Ileum: Not evaluated Cecum: Normal Ascending Colon: Normal Transverse Colon: Normal Descending Colon: Moderate diverticulosis Sigmoid Colon: Moderate diverticulosis Rectum: Normal Ano-rectum: Moderate internal hemorrhoids Colon preparation: Good after copious irrigation. [place] Bowel Preparation Scale Right colon; 2 Transverse colon: 2 Left colon; 2 (0 = Unprepared colon segment with mucosa not seen due to solid stool that cannot be cleared. 1 = Portion of mucosa of the colon segment seen, but other areas of the colon segment not well seen due to staining, residual stool and/or opaque liquid. 2 = Minor amount of residual staining, small fragments of stool and/or opaque liquid, but mucosa of colon segment seen well. 3 = Entire mucosa of colon segment seen well with no residual staining, small fragments of stool or opaque liquid) Impression and Post Procedure Diagnosis: Endoscopy Findings: ESOPHAGUS: Benign appearing nodule/edematous fold on gastric side of GE junction STOMACH: Moderate diffuse gastritis DUODENUM: Normal - biopsied to check for celiac sprue Colonoscopy Findings: No polyps were detected Moderate diverticulosis seen in the left colon Moderate hemorrhoids on retroflexed exam. Plan: Pt has a FU appointment on 03/16/24 with Remedios Sarkar NP. Repeat Colonoscopy in 10 years. (Pt initially stated her FH was positive for colon polyps and later she found that there actually is NO FHX of crc, she discovered this when she double checked wtih her parents and is seems she misremebered this) Above findings were reviewed with the patient and relevant handouts were given and the discharge area. BIOPSIES SHOWED: A. Small bowel, biopsy: Small intestinal mucosa with mildly increased intraepithelial lymphocytes and preserved villous architecture. See comment. B. Stomach, antrum, biopsy: Antral-type mucosa with mild chronic inactive inflammation; no Helicobacter organisms seen. C. GE junction, nodule, biopsy: - Cardiac-type mucosa with moderate chronic, focally active, inflammation; no intestinal metaplasia seen. - No squamous epithelium present
[2024-03-01 09:50] VITALS: BP 102/63; PULSE 79; RESP 20; TEMP 36.3; O2SAT 94
[2024-03-01 10:05] VITALS: BP 123/78; PULSE 79; RESP 20; TEMP 37.1; O2SAT 97
== END 2024-03-01 10:30 | disposition home or self-care (01) ==
PROVIDERS: Anesthesiology; PCP Nurse Practitioner Family; Visit Provider Internal Medicine Gastroenterology
PROC: (CPT 45380; principal; 2024-03-01 08:30)
DX: Z12.11 Encounter for screening for malignant neoplasm of colon (principal); Z83.719 Family history of colon polyps, unspecified; K57.30 Diverticulosis of large intestine without perforation or abscess without bleeding; K64.8 Other hemorrhoids; K21.9 Gastro-esophageal reflux disease without esophagitis; R10.10 Upper abdominal pain, unspecified; K29.50 Unspecified chronic gastritis without bleeding
CPT/HCPCS: 45380; 43239; 81025; 88305; 88313; 88342; J1596; J2003; J2405; J2704

== ENCOUNTER → 2024-03-01 06:51 | Outpatient (BNV) | payer BC, SELFPAY | PROVIDERS: PCP Nurse Practitioner Family; Visit Provider Internal Medicine Gastroenterology | DX: Z12.11 Encounter for screening for malignant neoplasm of colon (principal); K57.90 Diverticulosis of intestine, part unspecified, without perforation or abscess without bleeding; K64.8 Other hemorrhoids; K31.7 Polyp of stomach and duodenum; K29.70 Gastritis, unspecified, without bleeding | CPT/HCPCS: 43239; 45378 ==

== ENCOUNTER 2024-03-16 14:37 | Outpatient (AMB) | payer BC, SELFPAY ==
[2024-03-16 14:38] VITALS: BP 114/61; PULSE 101; O2SAT 93
--- NOTE | 2024-03-16 14:38 | MHC.OFFVIS ---
Vital Signs 03/16/24 14:38 Height 5 ft 9 in BMI Reason not done Patient refused/unable BP 114/61 Blood Pressure Location Lt brachial Position Sitting Pulse 101 H Pulse Source Pulse Oximeter Pulse Oximetry (%) 93 Oxygen Delivery Method Room Air Intake Visit Reasons: s/p egd/colon Intake Note: Edi presents in follow up s/p EGD and colonoscopy. CC: Patient states that she has noticed that her heart palpitations has increased, and she belches a lot after drinking any beverage. 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 Code(s): Z83.719 - Family history of colon polyps, unspecified Category: Medical (4) GERD (gastroesophageal reflux disease): Code(s): K21.9 - Gastro-esophageal reflux disease without esophagitis Category: Medical (5) Upper abdominal pain: Code(s): R10.10 - Upper abdominal pain, unspecified Category: Medical (6) Abnormal echocardiogram: Comment: Mildly decreased LV EF of 50-55% and some left ventricle thickening Code(s): R93.1 - Abnormal findings on diagnostic imaging of heart and coronary circulation Category: Medical (7) Obstructive sleep apnea: Code(s): G47.33 - Obstructive sleep apnea (adult) (pediatric) Category: Medical (8) Asthma: Code(s): J45.909 - Unspecified asthma, uncomplicated Category: Medical Plan She had a fairly normal work up, her BP is now controlled on 2 meds and she also was dx with BRIDGET and she started on CPAP which is going okay. Her ROUSE's are improved as is her fatigue. Her PCP is working on medication adjustments jaret with jarocho. Her SOB is also improved. She is ready to progress to EGD/colonoscopy Because Chilaiditi syndrome? definitive study Small bowel follow through. Certainly the chest CT and the CT scan of the abdomen and pelvis did not seem to verify the proposed anatomic abnormality. She has N/V from general anesthesia no other problems. She has ongoing asthma now controlled and a new dx of BRIDGET, she has a mildly reduced EF and has had a cardiac work up. . No ID problems. There is polyps on both sides mother and father, maternal grandmother passed with abdomen full of ca of undetermined origin. 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 A 5-6 mm benign appearing nodule/edematous fold on gastric side of GE junction - biopsied. No esophagitis or Holt's. Stomach: Moderate diffuse gastric erythema - biopsies were obtained from the antrum. Grade 2 flap valve on retroflexed examination of the cardia. Duodenum: Normal bulb and descending duodenum Biopsies were obtained from descending duodenum to check for celiac sprue Findings: Terminal Ileum: Not evaluated Cecum: Normal Ascending Colon: Normal Transverse Colon: Normal Descending Colon: Moderate diverticulosis Sigmoid Colon: Moderate diverticulosis Rectum: Normal Ano-rectum: Moderate internal hemorrhoids Impression and Post Procedure Diagnosis: Endoscopy Findings: ESOPHAGUS: STOMACH: DUODENUM: Colonoscopy Findings: No polyps were detected Moderate diverticulosis seen in the left colon Moderate hemorrhoids on retroflexed exam. Plan: Pt has a FU appointment on 03/16/24 with Remedios Sarkar NP. Repeat Colonoscopy in 5 years due to positive family hx of colon polyps. BIOPSY Received: 03/01/24 Diagnosis A. Small bowel, biopsy: Small intestinal mucosa with mildly increased intraepithelial lymphocytes and preserved villous architecture. See comment. B. Stomach, antrum, biopsy: Antral-type mucosa with mild chronic inactive inflammation; no Helicobacter organisms seen. C. GE junction, nodule, biopsy: - Cardiac-type mucosa with moderate chronic, focally active, inflammation; no intestinal metaplasia seen. - No squamous epithelium present. COMMENT: The findings in the small bowel are non-specific. The differential diagnosis is broad and includes infection (e.g. viral or H. pylori), medication/drugs (e.g. NSAIDs), gluten sensitivity/celiac disease, bacterial overgrowth, tropical sprue, immunodeficiency syndromes (e.g. IgA deficiency, CVID), autoimmune enteropathy, Crohns and collagen vascular disease, among others. Please correlate with clinical and other laboratory findings. Clinical History Pre-Op Dx: Upper abdominal pain, unspecified Post-Op Dx: Gastritis Microscopic Description A-C. Microscopic sections examined. No metaplastic changes are seen, supported by AB/PAS stains (A, B and C); no Helicobacter organisms are seen, supported by H. pylori immunostain (B).. Material Received A. Small bowel bx B. Gastric antrum bx, r/o H. pylori C. Nodule at GE junction Gross Description Received in three parts. Part A: Received in formalin labeled ?small bowel bx? are 2 saavedra-pink irregular tissue fragments measuring 0.15 and 0.25 cm, submitted in toto in a cassette labeled A. Part B: Received in formalin labeled ?gastric antrum bx, rule out H. pylori? are 2 saavedra-pink irregular tissue Patient: Edi Han Age/[facility]: 48[id number] [id number] Page 1 of 2 TODAY'S VISIT She is agreeable to starting omeprazole 20mg qd for the areas of possible irritation in the antrum and the GE jxn. Her mother has GERD and PUD so this is unsurprising to her. She found that there actually is NO FHX of crc, she discovered this when she double checked wtih her parents and is seems she mis remebered this. So the colonoscopy will be repeated in 10 years. The procedure was well tolerated. The results were explained and the patient is agreeable to the follow-up interval as stated. The bowel pattern has returned to normal. Education was provided to tell any 1st degree relatives about their findings to be sure that they are screened by age 45. Educated that they will be put on a recall list when it is time for their repeat scope but should they move out of state or away from the hospital they will need to remember along with their primary to repeat the procedure in a timely fashion to avoid any adverse complications. ROV 8 weeks, if this quells the sx will returm to PCP for ondong rx. PFSH Medical History (Updated 03/16/24 @ 15:24 by TERRANCE Bolden-C) Sleep apnea Palpitation Viral illness Left adrenal mass Uncontrolled hypertension Left knee pain Muscle pain Encounter for routine adult physical exam with abnormal findings Environmental allergies Cough Wheezing Screening for colon cancer Pharyngitis Asthma Physical exam Chronic UTI (urinary tract infection) Kidney stone Upper respiratory tract infection Migraines Leg pain Surgical History (Updated 03/16/24 @ 16:34 by TERRANCE Bolden-C) History of esophagogastroduodenoscopy (EGD) H/O colonoscopy History of cystoscopy History of lithotripsy History of knee surgery History of lumpectomy of left breast (2007) Family History Maternal Grandmother Cancer of abdominal organ Family/Other Breast cancer, Onset Age: 30 Father Parkinson disease Squamous cell skin cancer Atrial fibrillation Mother Hypertension Social History Housing: Apartment Alcohol intake: current Alcohol intake frequency: holidays/special occasions only Patient Tobacco Use Status: Never used Tobacco e-Cigarette/Vaping Use: Never Used Second Hand Smoke Exposure: No service: No Current occupational status: employed Cognitive needs: No Hearing needs: No Vision needs: Yes Female Reproductive History Menstrual Age of Menarche: 14 Review of Systems Const Denies fatigue, Denies fever(s), Denies night sweats, Denies poor appetite and Denies weight loss ENT Reports Normal hearing present, Denies dental pain, Denies dysphagia, Denies hearing loss, Denies mouth pain, Denies odynophagia, Denies throat swelling, Denies tongue swelling and Reports other (Dentition adequate) Card Reports no additional complaints Resp Reports no additional complaints GI Details: Denies abdominal pain, Denies melena, Denies bloating, Denies hematochezia, Denies constipation, Denies GI cramping, Denies dysphagia, Denies excessive flatus, Denies early satiety, Reports heartburn, Denies diarrhea, Denies nausea, Denies odynophagia, Denies vomiting and Denies hematemesis Skin/Breast Denies pruritus, Denies lesions, Denies rash and Denies jaundice Neuro Reports Normal hearing present and Denies Abnormal speech present Endo Denies fatigue Aller/Immun Denies throat swelling and Denies tongue swelling Physical Exam Vital Signs: Last Vital Signs Pulse 101 H 03/16/24 14:38 BP 114/61 03/16/24 14:38 Pulse Ox 93 03/16/24 14:38 Oxygen Delivery Method Room Air 03/16/24 14:38 Const General: cooperative, no acute distress, well developed and well groomed Nutritional Appearance: well nourished and obese Orientation/consciousness: oriented to person, oriented to place and oriented to time Limitations: No language barrier HEENT Head: Yes normocephalic and Yes atraumatic Eyes General: appearance normal, both eyes and all related structures Pupils: Equal, round and reactive pupils present Neck Neck: Yes normal visual inspection and Yes no lymphadenopathy Thyroid: Thyroid normal Resp Effort & Inspection: normal respiratory effort and able to speak in complete sentences Auscultation: clear to auscultation bilaterally Cardio Rate: regular rate Rhythm: regular rhythm Heart sounds: Normal, physiologic split S2 sound present Peripheral pulses: radial pulses present and posterior tibial pulses present GI Inspection: No distended, No Abdominal panniculus present and Yes obesity Palpation (GI): Soft to palpation, nontender, no guarding, not rigid and No hepatosplenomegaly present Percussion: Yes normal to percussion Auscultation: normal bowel sounds Rectal Exam - Female: deferred Skin General skin exam: no rashes or lesions noted, turgor normal, skin not dry, no jaundice, No spider nevi and no striae Rashes: no rashes Nails: normal Neuro General: oriented to person, oriented to place and oriented to time Cranial nerves: Yes Equal, round and reactive pupils present and Yes Normal hearing present Speech: No Abnormal speech present Extrem General: Yes normal to inspection, No clubbing, No cyanosis and No edema Psych Appearance: grossly normal and well kempt Mental Status: mental status grossly normal Speech and movement: Normal speech and movement present Affect: normal affect Attitude: cooperative Thought process: Normal thought process present and not confabulating Thought content: Normal thought content present Insight: Good insight present (Psych) Judgement: Good judgement present (Psych) Results Reviewed Results Reviewed: EGD/COLONOSCOPY 03/01/24 Findings: Larynx: Normal Esophagus: GE junction at 38 cms. A 5-6 mm benign appearing nodule/edematous fold on gastric side of GE junction - biopsied. No esophagitis or Holt's. Stomach: Moderate diffuse gastric erythema - biopsies were obtained from the antrum. Grade 2 flap valve on retroflexed examination of the cardia. Duodenum: Normal bulb and descending duodenum Biopsies were obtained from descending duodenum to check for celiac sprue Findings: Terminal Ileum: Not evaluated Cecum: Normal Ascending Colon: Normal Transverse Colon: Normal Descending Colon: Moderate diverticulosis Sigmoid Colon: Moderate diverticulosis Rectum: Normal Ano-rectum: Moderate internal hemorrhoids Impression and Post Procedure Diagnosis: Endoscopy Findings: ESOPHAGUS: STOMACH: DUODENUM: Colonoscopy Findings: No polyps were detected Moderate diverticulosis seen in the left colon Moderate hemorrhoids on retroflexed exam. Plan: Pt has a FU appointment on 03/16/24 with Remedios Sarkar NP. Repeat Colonoscopy in 5 years due to positive family hx of colon polyps. BIOPSY Received: 03/01/24 Diagnosis A. Small bowel, biopsy: Small intestinal mucosa with mildly increased intraepithelial lymphocytes and preserved villous architecture. See comment. B. Stomach, antrum, biopsy: Antral-type mucosa with mild chronic inactive inflammation; no Helicobacter organisms seen. C. GE junction, nodule, biopsy: - Cardiac-type mucosa with moderate chronic, focally active, inflammation; no intestinal metaplasia seen. - No squamous epithelium present. COMMENT: The findings in the small bowel are non-specific. The differential diagnosis is broad and includes infection (e.g. viral or H. pylori), medication/drugs (e.g. NSAIDs), gluten sensitivity/celiac disease, bacterial overgrowth, tropical sprue, immunodeficiency syndromes (e.g. IgA deficiency, CVID), autoimmune enteropathy, Crohns and collagen vascular disease, among others. Please correlate with clinical and other laboratory findings. Clinical History Pre-Op Dx: Upper abdominal pain, unspecified Post-Op Dx: Gastritis Microscopic Description A-C. Microscopic sections examined. No metaplastic changes are seen, supported by AB/PAS stains (A, B and C); no Helicobacter organisms are seen, supported by H. pylori immunostain (B).. Material Received A. Small bowel bx B. Gastric antrum bx, r/o H. pylori C. Nodule at GE junction Gross Description Received in three parts. Part A: Received in formalin labeled ?small bowel bx? are 2 saavedra-pink irregular tissue fragments measuring 0.15 and 0.25 cm, submitted in toto in a cassette labeled A. Part B: Received in formalin labeled ?gastric antrum bx, rule out H. pylori? are 2 saavedra-pink irregular tissue Patient: GuilleEdi Age/Sex: 48[id number]#: [id number] Page 1 of Assessment & Plan Assessment & Plan (1) GERD (gastroesophageal reflux disease): Code(s): K21.9 - Gastro-esophageal reflux disease without esophagitis Category: Medical (2) Upper abdominal pain: Code(s): R10.10 - Upper abdominal pain, unspecified Category: Medical Plan She is agreeable to starting omeprazole 20mg qd for the areas of possible irritation in the antrum and the GE jxn. Her mother has GERD and PUD so this is unsurprising to her. She found that there actually is NO FHX of crc, she discovered this when she double checked wtih her parents and is seems she mis remebered this. So the colonoscopy will be repeated in 10 years. The procedure was well tolerated. The results were explained and the patient is agreeable to the follow-up interval as stated. The bowel pattern has returned to normal. Education was provided to tell any 1st degree relatives about their findings to be sure that they are screened by age 45. Educated that they will be put on a recall list when it is time for their repeat scope but should they move out of state or away from the hospital they will need to remember along with their primary to repeat the procedure in a timely fashion to avoid any adverse complications. ROV 8 weeks, if this quells the sx will returm to PCP for ondong rx. Medications: New omeprazole 20 mg PO DAILY 30 caps 6RF 30 days K21.9 - Gastro-esophageal reflux disease without esophagitis, R10.10 - Upper abdominal pain, unspecified Coding Level of Care Code Est Pt Level 3 (19495) Diagnoses GERD (gastroesophageal reflux disease) K21.9 Upper abdominal pain R10.10
== END 2024-03-16 15:34 | disposition home or self-care (01) ==
PROVIDERS: PCP Nurse Practitioner Family; Visit Provider Nurse Practitioner
DX: K21.9 Gastro-esophageal reflux disease without esophagitis (principal); R10.10 Upper abdominal pain, unspecified
CPT/HCPCS: 99213

== ENCOUNTER → 2024-03-30 10:11 | Outpatient (BNVA) | payer BC, SELFPAY | PROVIDERS: PCP Nurse Practitioner Family; Visit Provider Nurse Practitioner Family ==

== ENCOUNTER 2024-04-07 09:02 | Outpatient (REF) | payer BC, SELFPAY ==
[2024-04-07 14:34] LABS: Influenza A PCR NEGATIVE (Negative); Influenza B PCR NEGATIVE (Negative); Resp Syncy Virus RNA Qual PCR NEGATIVE (Negative); SARS COV2 PCR INHOUSE NEGATIVE (Negative)
== END 2024-04-07 09:03 | disposition home or self-care (01) ==
LOC: HO.LNP 09:02
PROVIDERS: PCP Nurse Practitioner Family; Visit Provider Physician Assistant
DX: J11.1 Influenza due to unidentified influenza virus with other respiratory manifestations (principal)
CPT/HCPCS: 0241U

== ENCOUNTER 2024-05-03 12:54 | Outpatient (AMB) | payer BC, SELFPAY ==
--- NOTE | 2024-05-03 12:56 | MHC.PC.OV ---
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 Allergies levofloxacin [From LEVAQUIN] Allergy (Intermediate, Verified 04/07/24 09:22) RASH benzoin Allergy (Unknown, Verified 04/07/24 09:22) Unknown seasonal Allergy (Unknown, Uncoded 02/11/24 16:07) Unknown Cats Allergy (Unknown, Uncoded 02/11/24 16:07) Unknown lactose Adverse Reaction (Severe, Uncoded 02/11/24 16:07) leg cramping Tobacco use date assessed: 05/03/24 Dental Screening Dental Screen Date: 05/03/24 Did you have a dental visit in the last 12 months?: Yes Did you have a dental problem in the last 6 months where you did not have access to dental care?: No Was dental information given to patient?: Patient has dentist [facility] Medical History (Updated 05/03/24 @ 13:30 by DEEJAY Batxer) Palpitation Sleep apnea Viral illness Left adrenal mass Uncontrolled hypertension Left knee pain Muscle pain Encounter for routine adult physical exam with abnormal findings Environmental allergies Cough Wheezing Screening for colon cancer Pharyngitis Asthma Physical exam Chronic UTI (urinary tract infection) Kidney stone Upper respiratory tract infection Migraines Leg pain Surgical History History of esophagogastroduodenoscopy (EGD) H/O colonoscopy History of cystoscopy History of lithotripsy History of knee surgery History of lumpectomy of left breast (2007) Family History Maternal Grandmother Cancer of abdominal organ Family/Other Breast cancer, Onset Age: 30 Father Parkinson disease Squamous cell skin cancer Atrial fibrillation Mother Hypertension Social History Housing: Apartment Alcohol intake: current Alcohol intake frequency: holidays/special occasions only Patient Tobacco Use Status: Never used Tobacco e-Cigarette/Vaping Use: Never Used Second Hand Smoke Exposure: No service: No Current occupational status: employed Cognitive needs: No Hearing needs: No Vision needs: Yes Female Reproductive History Menstrual Age of Menarche: 14 Questionnaire PHQ-9 Over the last 2 weeks, how often have you been bothered by any of the following problems? 1. Little interest or pleasure in doing things: not at all 2. Feeling down, depressed, or hopeless: not at all 3. Trouble falling or staying asleep, or sleeping too much: not at all 4. Feeling tired or having little energy: not at all 5. Poor appetite or overeating: not at all 6. Feeling bad about yourself - or that you are a failure or have let yourself or your family down: not at all 7. Trouble concentrating on things, such as reading the newspaper or watching television: not at all 8. Moving or speaking so slowly that other people could have noticed. Or the opposite - being so fidgety or restless that you have been moving around a lot more than usual: not at all 9. Thoughts that you would be better off or of hurting yourself in some way: not at all Total score: 0 Depression Screening Interpretation: Negative Depression Screening Done: Yes 14796 - PHQ-9 Billing: Yes Source: Developed by Drs. Yassine Rivera, Renee Abarca, Arnaud Riojas and colleagues, with an educational flaco from [employer]. Thrive Questionnaire Date Thrive assessed: 05/03/24 I am a: Patient What is your living situation today?: I have a steady place to live Within the past 12 months, did the food you bought not last and you didn't have the money to get more?: Never true Within the past 12 months, did you worry whether your food would run out before you got money to buy more?: Never true Do you have trouble paying for medicines?: No Do you have trouble getting transportation to medical appointments?: No Do you have trouble paying your heating and electricity bill?: No Do you have trouble taking care of your child, family member or friend?: No Do you have trouble with day-to-day activities such as bathing, preparing meals, shopping, managing finances, etc.?: No Are you currently unemployed and looking for a job?: No Are you interested in more education?: No Please select the resources that you would like help with: None Currently or been in a relationship where the following occur: No concerns reported THRIVE Score: 0 AUDIT C Alcohol Use Questionnaire (AUDIT-C) 1. How often do you have a drink containing alcohol?: Monthly or less 2. How many drinks containing alcohol do you have on a typical day when you are drinking?: 1 or 2 3. How often do you have six or more drinks on one occasion?: Never Total Score: 1 Score Reviewed/Action Taken: Yes ZENAIDA-7 AMB Questionnaire ZENAIDA-7 Date ZENAIDA - 7 assessed: 05/03/24 Feeling nervous, anxious, or on edge: 0 = Not at all Not being able to stop or control worryin = Not at all Worrying too much about different things: 0 = Not at all Trouble relaxin = Not at all Being so restless that it is hard to sit still: 0 = Not at all Becoming easily annoyed or irritable: 0 = Not at all Feeling afraid as if something awful might happen: 0 = Not at all Total ZENAIDA-7 score (0-4 normal; 5-9 mild; 10-14 moderate; 15-21 severe): 0 Source: Developed by Drs. Yassine Rivera, Renee Abarca, Arnaud Riojas and colleagues, with an educational flaco from [employer]. ZENAIDA-7 Assessment Billing ZENAIDA-7 Assessment Tool: ZENAIDA-7 Assessment 75104 Physical exam (Primary Care) Vital Signs: Last Vital Signs Temp 97.9 F 05/03/24 13:00 Pulse 78 05/03/24 13:00 BP 112/70 05/03/24 13:00 Pulse Ox 95 05/03/24 13:00 Oxygen Delivery Method Room Air 05/03/24 13:00 BMI result Body Mass Index 36.8 Tobacco/Smoking Status: Tobacco use Status Tobacco use date assessed 05/03/24 05/03/24 13:04 Patient Tobacco Use Status Never used Tobacco 05/03/24 12:56 e-Cigarette/Vaping Use Never Used 05/03/24 12:56 PHQ-9: PHQ-9 Score PHQ-9: Total score 0 05/03/24 12:56 Depression Screening Interpretation: Negative Thrive Assessment: Date of Thrive Assessment Date Thrive assessed 05/03/24 05/03/24 12:56 Currently or been in a relationship where the following occur: No concerns reported Coding Level of Care Code Est Pt Level 3 (59273) Diagnoses Asthma J45.909 Palpitation R00.2 Migraines G43.909 Additional Codes ZENAIDA-7 Assessment Billing - ZENAIDA-7 Assessment Tool: ZENAIDA-7 Assessment [id number] ([id number]) PHQ-9 - 62873 - PHQ-9 Billing: Yes ([id number]) Assessment & Plan Assessment & Plan (1) Asthma: Code(s): J45.909 - Unspecified asthma, uncomplicated Category: Medical Plan: . (2) Palpitation: Code(s): R00.2 - Palpitations Category: Medical Plan: . (3) Migraines: Code(s): G43.909 - Migraine, unspecified, not intractable, without status migrainosus Category: Medical Plan .
[2024-05-03 13:00] VITALS: BP 112/70; PULSE 78; TEMP 36.6; O2SAT 95; BMI 36.8
== END 2024-05-03 13:42 | disposition home or self-care (01) ==
PROVIDERS: PCP Nurse Practitioner Family; Visit Provider Nurse Practitioner Family
DX: J45.909 Unspecified asthma, uncomplicated (principal); R00.2 Palpitations; G43.909 Migraine, unspecified, not intractable, without status migrainosus

== ENCOUNTER → 2024-05-03 12:54 | Outpatient (BNVA) | payer BC, SELFPAY | PROVIDERS: PCP Nurse Practitioner Family; Visit Provider Nurse Practitioner Family | DX: J45.909 Unspecified asthma, uncomplicated (principal); R00.2 Palpitations; G43.909 Migraine, unspecified, not intractable, without status migrainosus | CPT/HCPCS: 96127 ==

== ENCOUNTER 2024-05-24 08:17 | Outpatient (REF) | payer BC, SELFPAY ==
--- NOTE | ~2024-05-24 | US_ITS ---
CLINICAL HISTORY: N20.0 - Calculus of kidney Ultrasound kidneys. COMPARISON: US retroperitoneal dated 05/29/22 at 16:01 EDT Technique: Real time sonographic imaging, including color-flow imaging, was performed by the space sciences director. Multiple branch service representative static images were saved for review. FINDINGS: Right kidney: Cortical medullary differentiation is maintained. Nonobstructing right renal calculi at the lower pole measuring 0.3 x 0.3 x 0.4 cm and 0.5 x 0.3 x 0.4 cm. Right renal cyst at the superior pole measuring 1.0 x 0.9 x 1.1 cm, previously measured 0.5 x 0.5 x 0.6 cm. No hydronephrosis. Right kidney size: 11.5 x 4.8 x 5.7 cm Left kidney: Cortical medullary differentiation is maintained. Normal color flow by Doppler. Nonobstructing left renal calculi of the lower pole measuring 0.5 x 0.4 x 0.5 cm and 0.6 x 0.4 x 0.6 cm. No hydronephrosis. Left kidney size: 11.4 x 5.1 x 4.4 cm IMPRESSION: 1. No evidence of renal obstruction. 2. Nonobstructing bilateral renal calculi measuring up to 0.6 cm on the left and 0.5 cm on the right. This document has been electronically signed by: Rufino Caraballo MD on 05/24/2024 14:17:02
[2024-05-24 10:27] LABS: Basophils Absolute Auto 0.1 X10*3/uL (0.0-0.2); Basophils Percent Auto 0.9 % (0-2); Eosinophils Absolute Auto 0.2 X10*3/uL (0.0-0.4); Eosinophils Percent Auto 3.5 % (0-4); Hemoglobin 14.5 g/dl (12.0-16.0); Imm Gran Abs Auto 0.03 X10*3/uL (0.00-0.03); Imm Gran Pct Auto 0.5 % (0.0-0.4); Lymphocytes Absolute Auto 1.5 X10*3/uL (1.2-4.9); Lymphocytes Percent Auto 22.9 % (20-40); MANUAL DIFF FLAG SCAN; Mean Corpuscular HGB Conc 34.5 g/dl (31.0-35.0); Mean Corpuscular Hemoglobin 29.5 pg (27.0-33.0); Mean Corpuscular Volume 85.4 fL (80.0-98.0); Monocytes Absolute Auto 0.5 X10*3/uL (0.1-1.2); Monocytes Percent Auto 7.8 % (2-11); Neutrophils Absolute Auto 4.3 x10*3/uL (2.0-8.3); Neutrophils Percent Auto 64.4 % (45-73); PLT CLUMP 1; Red Blood Count 4.92 X10*6/uL (4.20-5.50); Red Cell Distribution Width 12.1 % (11.0-16.0); SCAN SMEAR FLAG 1
[2024-05-24 10:58] LABS: Alkaline Phosphatase 55 U/L (39-117); Anion Gap 12 (12-20); Aspartate Amino Transferase 30 U/L (5-31); Bilirubin Total 0.5 mg/dL (0.0-1.0); Blood Urea Nitrogen 11 mg/dL (9-16); Calcium 9.1 mg/dL (8.4-10.2); Carbon Dioxide 24 mmol/L (22-29); Chloride 109 mmol/L (96-108); Cholesterol 151 mg/dL (<200); Estimated Glomerular Filt Rate > 60; Glucose Fasting 122 mg/dL (60-99); HDL Cholesterol 33 mg/dL (>40); LDL Cholesterol Calculated 92 mg/dL (<100); Potassium 3.9 mmol/L (3.3-5.1); Sodium 141 mmol/L (135-145); Total Protein 6.6 g/dL (6.5-8.0); Triglycerides 133 mg/dL (<150)
[2024-05-24 11:05] LABS: Alanine Aminotransferase 34 U/L (0-31)
[2024-05-24 11:23] LABS: TSH reflex Free T4 1.49 uIU/mL (0.32-4.0)
[2024-05-24 12:08] LABS: Appearance Urine Clear; Color Urine Yellow; Glucose Urine UA Negative (Negative); Leukocyte Esterase Urine Small (1+) (Negative); Nitrite Urine Negative (Negative); Specific Gravity - Urine 1.025 (1.005-1.025); UMIC TRIGGER UACC YES; Urine Blood Negative (Negative); Urine Ketones Negative (Negative); Urine Protein Negative (Neg-Trace)
[2024-05-24 12:31] LABS: Mean Platelet Volume 10.4 fL (9.4-12.3); Platelet Count 278 X10*3/uL (160-400); White Blood Count 6.7 X10*3/uL (4.8-10.8)
[2024-05-24 12:32] LABS: SLIDE REVIEW VERIFIED
[2024-05-24 12:51] LABS: Bacteria Urine Trace (None Seen); Hyaline Casts Urine 0-2 /LPF (0-2); RBC Urine 0-2 /HPF (0-2); UACC Culture Trigger YES; WBC Urine 0-5 /HPF (0-5)
== END 2024-05-24 08:18 | disposition home or self-care (01) ==
LOC: HO.US 08:17
PROVIDERS: PCP Nurse Practitioner Family; Visit Provider Nurse Practitioner Family
DX: N20.0 Calculus of kidney (principal); I10 Essential (primary) hypertension; J45.909 Unspecified asthma, uncomplicated
CPT/HCPCS: 36415; 76775; 80053; 80061; 81001; 81003; 84443; 85025; 87086

== ENCOUNTER → 2024-05-24 08:20 | Outpatient (BNV) | payer BC, SELFPAY | PROVIDERS: PCP Nurse Practitioner Family; Visit Provider Radiology Diagnostic Radiology | DX: N20.0 Calculus of kidney (principal) | CPT/HCPCS: 76775 ==

== ENCOUNTER 2024-05-31 07:52 | Outpatient (AMB) | payer BC, SELFPAY ==
--- NOTE | 2024-05-31 08:06 | A.OFFVIS_ITS ---
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 Accompanied by: Self / Same As Patient Allergies levofloxacin [From LEVAQUIN] Allergy (Intermediate, Verified 05/31/24 08:46) RASH benzoin Allergy (Unknown, Verified 05/31/24 08:46) Unknown seasonal Allergy (Unknown, Uncoded 05/31/24 08:46) Unknown Cats Allergy (Unknown, Uncoded 05/31/24 08:46) Unknown lactose Adverse Reaction (Severe, Uncoded 05/31/24 08:46) leg cramping Medication List - Last Reconciled 05/31/24 by DALILA Danielle- albuterol sulfate 2.5 mg (3 mL) inhalation Q6H albuterol sulfate 90 mcg/actuation 1 puff inhalation QID PRN iduimijzsc-ttmqcxjvxloxy-qplx 50-300-40 mg 2 caps PO Q4H PRN cetirizine (Zyrtec) 20 mg PO DAILY PRN diltiazem HCl CD 180 mg PO DAILY fluticasone propionate 220 mcg/actuation 2 puffs inhalation BID gabapentin 600 mg PO DAILY@1700 ipratropium bromide 2 sprays intranasal BID ketoconazole 2% 1 appl topical BID levonorgestrel (Mirena) intrauterine losartan-hydrochlorothiazide 50-12.5 mg 1 tab PO DAILY montelukast (Singulair) 10 mg PO BEDTIME nystatin 1 appl topical BID omeprazole 20 mg PO DAILY 30 days ondansetron HCl 4 mg PO Q8H PRN prochlorperazine maleate mg PO tamsulosin 0.4 mg PO DAILY PRN tizanidine 4 mg PO BEDTIME PRN 30 days HPI Comments Details: Edi is a pleasant 48-year-old female patient of Dr. Vasquez. She has a past medical history of nephrolithiasis, left adrenal mass, asthma, and migraines. She presents to the office today for follow-up of her nephrolithiasis. In discussion with the patient today she reports to be doing and feeling well. She denies having had any bothersome urinary issues or concerns since her last office visit here. Recent renal imaging results reviewed with the patient today 05/25 no evidence of renal obstruction. Nonobstructing bilateral renal calculi measuring up to 6 mm on the left and 5 mm on the right. She discusses her longstanding history of nephrolithiasis since the age of 19. She does have a history of a left distal ureteroscopy with Dr. Jim in 01/2021. She reports having had multiple 24 hour urine collections and despite increase in fluid intake as well as diet modifications she continues with nephrolithiasis. When asked she denies urinary urgency, urinary frequency, incontinence, nocturia, hematuria, dysuria, foul smelling urine, changes to urinary stream, flank pain, fever, and or chills. She is happy with her current voiding parameters. In office urinalysis results reviewed with the patient today. She otherwise offers no other issues or concerns at this time. Plan The plan for nephrolithiasis involves maintaining high fluid intake, encouraging lemon juice in water, and monitoring urinary stone symptoms. The patient should report any changes in symptoms or concerns. Patient was informed and verbally consented to the use of an ambient scribe for clinic note documentation during this visit. Discussion Notes I discussed with the patient her ultrasound results, which show bilateral small kidney stones. The stones have remained stable with no obstruction, continuing surveillance monitoring. I emphasized the importance of sustaining high fluid intake and incorporating lemon juice, as it can aid in decreasing the likelihood of stone formation. The patient expressed understanding of these management strategies and the stability of her condition. [facility] Medical History Palpitation Sleep apnea Viral illness Left adrenal mass Uncontrolled hypertension Left knee pain Muscle pain Encounter for routine adult physical exam with abnormal findings Environmental allergies Cough Wheezing Screening for colon cancer Pharyngitis Asthma Physical exam Chronic UTI (urinary tract infection) Kidney stone Upper respiratory tract infection Migraines Leg pain Surgical History History of esophagogastroduodenoscopy (EGD) H/O colonoscopy History of cystoscopy History of lithotripsy History of knee surgery History of lumpectomy of left breast (2007) Family History Maternal Grandmother Cancer of abdominal organ Family/Other Breast cancer, Onset Age: 30 Father Parkinson disease Squamous cell skin cancer Atrial fibrillation Mother Hypertension Social History Housing: Apartment Alcohol intake: current Alcohol intake frequency: holidays/special occasions only Patient Tobacco Use Status: Never used Tobacco e-Cigarette/Vaping Use: Never Used Second Hand Smoke Exposure: No service: No Current occupational status: employed Cognitive needs: No Hearing needs: No Vision needs: Yes Female Reproductive History Menstrual Age of Menarche: 14 Review of Systems Const All systems reviewed & are unremarkable except as noted in HPI and below Physical Exam Const General: cooperative, healthy appearing, comfortable, no acute distress, well developed, alert and awake Orientation/consciousness: patient oriented x3 Limitations: no limitations HEENT Head: Yes normal to inspection, Yes normocephalic and Yes atraumatic Ears: hearing grossly normal bilaterally Eyes General: appearance normal, both eyes and all related structures Neck Neck: Yes normal visual inspection and Yes trachea midline Chest Chest palpation & inspection: normal inspection of the chest Resp Effort & Inspection: normal respiratory effort and able to speak in complete sentences Cardio Rate: regular rate GI Inspection: Yes normal to inspection General: Yes no CVA tenderness Back/Spine/Pelvis Back: no CVA tenderness Skin General skin exam: no rashes or lesions noted Neuro General: patient oriented x3 Extrem General: Yes normal to inspection Psych Appearance: grossly normal and well kempt Mental Status: mental status grossly normal Speech and movement: Normal speech and movement present and Clear speech present Affect: normal affect Attitude: cooperative Thought process: Normal thought process present Thought content: Normal thought content present Insight: Fair insight present (Psych) Judgement: Fair judgement present (Psych) Results AMB Urinalysis, Automated UA Leukoctes 0 Cade/uL Last Edit by Marla Frias on 05/31/24 08:48 UA Nitrite Last Edit by Marla Frias on 05/31/24 08:48 UA Urobilinogen 0.2 mg/dL Last Edit by Marla Frias on 05/31/24 08:48 UA Protein 15 mg/dL Last Edit by Marla Frias on 05/31/24 08:48 UA pH 6.0 Last Edit by Marla Frias on 05/31/24 08:48 UA Blood 0 Kahlil/uL Last Edit by Marla Frias on 05/31/24 08:48 UA Specific [place] 1.030 Last Edit by Marla Frias on 05/31/24 08:48 UA Ketone Negative Last Edit by Marla Frias on 05/31/24 08:48 UA Bilirubin 1 mg/dL Last Edit by Marla Frias on 05/31/24 08:48 UA Glucose 0 mg/dL Last Edit by Marla Frias on 05/31/24 08:48 Results Reviewed Results Reviewed: Laboratory Last Values Urine pH (Auto) 6.0 05/31/24 08:42 Specific [place] (Auto) 1.030 05/31/24 08:42 Urine Protein (Auto) 15 mg/dL 05/31/24 08:42 Glucose (UA)(Auto) 0 mg/dL 05/31/24 08:42 Urine Ketones (Auto) Negative 05/31/24 08:42 Urine Blood (Auto) 0 Kahlil/uL 05/31/24 08:42 Urine Bilirubin (Auto) 1 mg/dL 05/31/24 08:42 Urine Urobilinogen (Auto) 0.2 mg/dL 05/31/24 08:42 Leukocyte Esterase (Auto) 0 Cade/uL 05/31/24 08:42 Date of Service: 05/24/24 Procedure(s): US renal BI FINDINGS: Right kidney: Cortical medullary differentiation is maintained. Nonobstructing right renal calculi at the lower pole measuring 0.3 x 0.3 x 0.4 cm and 0.5 x 0.3 x 0.4 cm. Right renal cyst at the superior pole measuring 1.0 x 0.9 x 1.1 cm, previously measured 0.5 x 0.5 x 0.6 cm. No hydronephrosis. Right kidney size: 11.5 x 4.8 x 5.7 cm Left kidney: Cortical medullary differentiation is maintained. Normal color flow by Doppler. Nonobstructing left renal calculi of the lower pole measuring 0.5 x 0.4 x 0.5 cm and 0.6 x 0.4 x 0.6 cm. No hydronephrosis. Left kidney size: 11.4 x 5.1 x 4.4 cm IMPRESSION: 1. No evidence of renal obstruction. 2. Nonobstructing bilateral renal calculi measuring up to 0.6 cm on the left and 0.5 cm on the right. Assessment & Plan Assessment & Plan (1) Nephrolithiasis: Code(s): N20.0 - Calculus of kidney Category: Medical Plan In office urinalysis results with the patient today; as noted above. Recent renal imaging results reviewed the patient today; as noted above. Patient currently denies any bothersome urinary issues or concerns. She reports be happy with current voiding parameters. Discussed, educated, and stressed the importance of continuing to drink plenty of water daily. Continue vitamin B6. Continue adding 1 oz of lemon juice to water daily. Will continue with surveillance monitoring. Will obtain renal ultrasound in 6 months. Follow-up in 6 months with imaging to be completed prior; or sooner with any issues, concerns, and or questions. Orders: Orders AMB Urinalysis Automated Today Z13.9 - Encounter for screening, unspecified US renal BI 6 Months N20.0 - Calculus of kidney Patient Instructions: The patient had an opportunity to ask questions regarding the treatment plan. All questions were answered. Physical exam, labs, and imaging were discussed and reviewed in detail. As well as risks, benefits, and discussion of treatment choices. No major barriers to understanding were identified. The patient expressed understanding and agreement with the above treatment plan. The patient was made aware they should contact our office by phone for worsening of their current condition, the appearance of new symptoms, or with any questions or concerns. Compliance is encouraged with any medications and follow up testing that is ordered. It is a privilege to be allowed the opportunity to participate in? your urological care.? Again, if you have any questions or concerns If you have any questions or concerns please do not hesitate to contact me. The office is [phone]. This note is constructed using voice recognition software. While every effort has been made to ensure accuracy staff home therapy rn errors may have been included. Yours sincerely, DEEJAY Danielle Coding Level of Care Code Est Pt Level 3 (87534) Diagnoses Nephrolithiasis N20.0
== END 2024-05-31 08:22 | disposition home or self-care (01) ==
LOC: HO.HUSH 07:52
PROVIDERS: PCP Nurse Practitioner Family; Visit Provider Nurse Practitioner Family
DX: N20.0 Calculus of kidney (principal); Z13.9 Encounter for screening, unspecified
CPT/HCPCS: 99213

== ENCOUNTER → 2024-05-31 07:52 | Outpatient (BNVA) | payer BC, SELFPAY | PROVIDERS: PCP Nurse Practitioner Family; Visit Provider Nurse Practitioner Family | DX: N20.0 Calculus of kidney (principal) | CPT/HCPCS: 81003 ==

== ENCOUNTER 2024-06-09 16:09 | Outpatient (AMB) | payer BC, SELFPAY ==
[2024-06-09 16:12] VITALS: BP 142/78; PULSE 100; O2SAT 96; BMI 37.7
--- NOTE | 2024-06-09 16:12 | MHC.OFFVIS ---
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 Required: No Order Fulfillment Specialist: Order Fulfillment Specialist offered & declined Accompanied by: Self / Same As Patient Allergies levofloxacin [From LEVAQUIN] Allergy (Intermediate, Verified 06/09/24 16:16) RASH benzoin Allergy (Unknown, Verified 06/09/24 16:16) Unknown seasonal Allergy (Unknown, Uncoded 06/09/24 16:16) Unknown Cats Allergy (Unknown, Uncoded 06/09/24 16:16) Unknown lactose Adverse Reaction (Severe, Uncoded 06/09/24 16:16) leg cramping Medication List - Last Reconciled 06/09/24 by Harmony Townsend LPN albuterol sulfate 2.5 mg (3 mL) inhalation Q6H albuterol sulfate 90 mcg/actuation 1 puff inhalation QID PRN lvkptcygdz-pwxwrbckhizba-zjpu 50-300-40 mg 2 caps PO Q4H PRN cetirizine (Zyrtec) 20 mg PO DAILY PRN diltiazem HCl CD 180 mg PO DAILY fluticasone propionate 220 mcg/actuation 2 puffs inhalation BID gabapentin 600 mg PO DAILY@1700 ipratropium bromide 2 sprays intranasal BID ketoconazole 2% 1 appl topical BID levonorgestrel (Mirena) intrauterine losartan-hydrochlorothiazide 50-12.5 mg 1 tab PO DAILY montelukast (Singulair) 10 mg PO BEDTIME nystatin 1 appl topical BID omeprazole 20 mg PO DAILY 30 days ondansetron HCl 4 mg PO Q8H PRN prochlorperazine maleate mg PO tamsulosin 0.4 mg PO DAILY PRN tizanidine 4 mg PO BEDTIME PRN 30 days HPI HPI Asthma: Details: Edi is a pleasant 48 year old female, never smoker, with underlying asthma. She has been well controlled on current regimen, of Flovent, Singulair and albuterol nebulizer/MDI. Previously had trialed ICS/LABA however developed significant muscle cramping due to likely LABA component and has been doing well on ICS only. She reports URI on two occasions since the last visit requiring nebulized therapy, recovering at home with no need for prednisone. Today she presents for routine visit to review compliance report. She has been using CPAP therapy, APAP mode [id number], with good effect. She does note ongoing issues with leaking which [facility]. [facility] Medical History Palpitation Sleep apnea Viral illness Left adrenal mass Uncontrolled hypertension Left knee pain Muscle pain Encounter for routine adult physical exam with abnormal findings Environmental allergies Cough Wheezing Screening for colon cancer Pharyngitis Asthma Physical exam Chronic UTI (urinary tract infection) Kidney stone Upper respiratory tract infection Migraines Leg pain Surgical History History of esophagogastroduodenoscopy (EGD) H/O colonoscopy History of cystoscopy History of lithotripsy History of knee surgery History of lumpectomy of left breast (2007) Family History Maternal Grandmother Cancer of abdominal organ Family/Other Breast cancer, Onset Age: 30 Father Parkinson disease Squamous cell skin cancer Atrial fibrillation Mother Hypertension Social History Housing: Apartment Alcohol intake: current Alcohol intake frequency: holidays/special occasions only Patient Tobacco Use Status: Never used Tobacco e-Cigarette/Vaping Use: Never Used Second Hand Smoke Exposure: No service: No Current occupational status: employed Cognitive needs: No Hearing needs: No Vision needs: Yes Female Reproductive History Menstrual Age of Menarche: 14 Review of Systems Const Denies chills, Denies excessive sweating, Denies fever(s), Denies headache(s) and Denies night sweats Eyes Denies dry eyes, Denies irritation and Denies itchy eyes ENT Reports Normal hearing present, Denies headache(s), Denies nasal congestion, Denies nasal discharge, Denies post nasal drip and Denies sore throat Card Denies chest pain, Denies chest pain at rest, Denies chest pain with activity, Denies claudication, Denies leg edema, Denies dyspnea, Denies dyspnea on exertion, Denies orthopnea and Denies paroxysmal nocturnal dyspnea Resp Denies chest congestion, Denies cough, Denies excessive phlegm production, Denies pain on inspiration, Denies pain with cough, Denies dyspnea, Denies dyspnea on exertion, Denies stridor and Denies wheezing Musc Denies myalgias Neuro Reports Normal hearing present and Denies headache(s) Endo Denies excessive sweating Ayo/Lymph Denies lymphadenopathy Aller/Immun Denies itchy eyes, Denies seasonal rhinorrhea and Denies wheezing Physical Exam Vital Signs: Last Vital Signs Pulse 100 06/09/24 16:12 BP 142/78 H 06/09/24 16:12 Pulse Ox 96 06/09/24 16:12 Oxygen Delivery Method Room Air 06/09/24 16:12 BMI result Body Mass Index 37.7 Const General: cooperative, healthy appearing, comfortable, no acute distress, well developed and alert Nutritional Appearance: obese Orientation/consciousness: patient oriented x3 Limitations: no limitations HEENT Head: Yes normal to inspection, Yes normocephalic and Yes atraumatic Ears: hearing grossly normal bilaterally and external ears normal Eyes General: appearance normal, both eyes and all related structures Eyelids: Yes eyelids normal Sclerae: sclerae normal EOM: EOMs intact bilaterally Neck Neck: Yes normal visual inspection and Yes no lymphadenopathy Lymphatic: no lymphadenopathy noted Chest Chest palpation & inspection: normal inspection of the chest Resp Effort & Inspection: normal respiratory effort, able to speak in complete sentences, no audible wheezes, no cough, no stridor, not tachypneic, no tripod positioning and no use of accessory muscles Auscultation: clear to auscultation bilaterally Cardio Jugular venous distension: no JVD Rate: regular rate Rhythm: regular rhythm Skin Other: warm, dry General skin exam: no rashes or lesions noted Neuro General: patient oriented x3 Cranial nerves: Yes Normal hearing present Cognition (Neuro): normal cognition Gait exam (Neuro): Normal gait present Extrem General: Yes normal to inspection, Yes capillary refill normal, Yes no clubbing, cyanosis or edema and Yes no pedal edema Psych Appearance: grossly normal and well kempt Speech and movement: Normal speech and movement present and Clear speech present Affect: normal affect Attitude: cooperative Thought process: Normal thought process present Thought content: Normal thought content present Insight: Good insight present (Psych) Judgement: Good judgement present (Psych) Assessment & Plan Assessment & Plan (1) Asthma: Code(s): J45.909 - Unspecified asthma, uncomplicated Category: Medical (2) Allergic rhinitis: Code(s): J30.9 - Allergic rhinitis, unspecified Category: Medical (3) Obstructive sleep apnea: Code(s): G47.33 - Obstructive sleep apnea (adult) (pediatric) Category: Medical Plan Edi reports good control of respiratory symptoms on Flovent 220mcg 1 inhalation BID, advised to continue. She is aware if respiratory symptoms become less controlled with the Spring approaching, increase to 2 inhalations BID. Reviewed compliance report which revealed AHI <2, using >4 hours for 94% of the time. Again, there was note of leaking and is in the process of trialing a new mask. All questions were answered and patient is in agreement of plan. Will follow up in 6 months or sooner if needed. Medications: Refilled albuterol sulfate 90 mcg/actuation 1 puff inhalation QID PRN 1 ea 3RF wheezing ipratropium-albuterol 0.5 mg-3 mg(2.5 mg base)/3 mL 3 mL inhalation Q6H PRN 180 mL 0RF wheezing montelukast (Singulair) 10 mg PO BEDTIME 90 tabs 1RF Coding Level of Care Code Est Pt Level 4 (86308) Diagnoses Asthma J45.909 Allergic rhinitis J30.9 Obstructive sleep apnea G47.33
== END 2024-06-09 16:40 | disposition home or self-care (01) ==
LOC: HO.HPSW 16:09
PROVIDERS: PCP Nurse Practitioner Family; Visit Provider Nurse Practitioner Family
DX: J45.909 Unspecified asthma, uncomplicated (principal); J30.9 Allergic rhinitis, unspecified; G47.33 Obstructive sleep apnea (adult) (pediatric)
CPT/HCPCS: 99214

== ENCOUNTER 2024-06-22 14:09 | Outpatient (AMB) | payer BC, SELFPAY ==
[2024-06-22 14:24] VITALS: BP 115/72; PULSE 92; BMI 37.4
--- NOTE | 2024-06-22 14:24 | MHC.OFFVIS ---
Vital Signs 06/22/24 14:24 Height 5 ft 9 in Weight 253 lb 8.505 oz BMI 37.4 BP 115/72 Blood Pressure Location Rt brachial Position Sitting Pulse 92 Intake Visit Reasons: 3 months follow up GERD Intake Note: Patient in office today in follow up of GERD. CC: Patient states she has been doing well and denies having any new GI symptoms or concerns. 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 Accompanied by: Self / Same As Patient Allergies levofloxacin [From LEVAQUIN] Allergy (Intermediate, Verified 06/22/24 14:40) RASH benzoin Allergy (Unknown, Verified 06/22/24 14:40) Unknown seasonal Allergy (Unknown, Uncoded 06/09/24 16:16) Unknown Cats Allergy (Unknown, Uncoded 06/09/24 16:16) Unknown lactose Adverse Reaction (Severe, Uncoded 06/09/24 16:16) leg cramping HPI HPI 3 months follow up GERD: Details: Assessment & Plan (1) GERD (gastroesophageal reflux disease): Code(s): K21.9 - Gastro-esophageal reflux disease without esophagitis Category: Medical (2) Upper abdominal pain: Code(s): R10.10 - Upper abdominal pain, unspecified Category: Medical Plan She is agreeable to starting omeprazole 20mg qd for the areas of possible irritation in the antrum and the GE jxn. Her mother has GERD and PUD so this is unsurprising to her. She found that there actually is NO FHX of crc, she discovered this when she double checked wtih her parents and is seems she mis remebered this. So the colonoscopy will be repeated in 10 years. The procedure was well tolerated. The results were explained and the patient is agreeable to the follow-up interval as stated. The bowel pattern has returned to normal. Education was provided to tell any 1st degree relatives about their findings to be sure that they are screened by age 45. Educated that they will be put on a recall list when it is time for their repeat scope but should they move out of state or away from the hospital they will need to remember along with their primary to repeat the procedure in a timely fashion to avoid any adverse complications. ROV 8 weeks, if this quells the sx will return to PCP for ongoing rx. Medications: New omeprazole 20 mg PO DAILY 30 caps 6RF 30 days K21.9 - Gastro-esophageal reflux disease without esophagitis, R10.10 - Upper abdominal pain, unspecified TODAY'S VISIT SHe is doing well, but does not see any particular difference good or bad - given the endoscopy will continue but opts to have filled via PCP. rov prn PFSH Medical History Left breast lump SOB (shortness of breath) Chilaiditi's syndrome Skin lesions Nocturnal hypoxemia Influenza-like illness Pre-op examination Palpitation Sleep apnea Viral illness Left adrenal mass Uncontrolled hypertension Left knee pain Muscle pain Encounter for routine adult physical exam with abnormal findings Environmental allergies Cough Wheezing Screening for colon cancer Pharyngitis Asthma Physical exam Chronic UTI (urinary tract infection) Kidney stone Upper respiratory tract infection Migraines Leg pain Surgical History History of esophagogastroduodenoscopy (EGD) H/O colonoscopy History of cystoscopy History of lithotripsy History of knee surgery History of lumpectomy of left breast (2007) Family History Maternal Grandmother Cancer of abdominal organ Family/Other Breast cancer, Onset Age: 30 Father Parkinson disease Squamous cell skin cancer Atrial fibrillation Mother Hypertension Social History Housing: Apartment Alcohol intake: current Alcohol intake frequency: holidays/special occasions only Patient Tobacco Use Status: Never used Tobacco e-Cigarette/Vaping Use: Never Used Second Hand Smoke Exposure: No service: No Current occupational status: employed Cognitive needs: No Hearing needs: No Vision needs: Yes Female Reproductive History Menstrual Age of Menarche: 14 Review of Systems Const Denies fatigue, Denies fever(s), Denies night sweats, Denies poor appetite and Denies weight loss Eyes Reports requires corrective lenses ENT Reports Normal hearing present, Denies dental pain, Denies dysphagia, Denies hearing loss, Denies mouth pain, Denies odynophagia, Denies throat swelling, Denies tongue swelling and Reports other (Dentition adequate) GI Details: Denies abdominal pain, Denies melena, Denies bloating, Denies hematochezia, Denies constipation, Denies GI cramping, Denies dysphagia, Denies excessive flatus, Denies early satiety, Denies heartburn, Denies diarrhea, Denies nausea, Denies odynophagia, Denies vomiting and Denies hematemesis Skin/Breast Denies pruritus, Denies lesions, Denies rash and Denies jaundice Neuro Reports Normal hearing present and Denies Abnormal speech present Endo Denies fatigue Aller/Immun Denies throat swelling and Denies tongue swelling Physical Exam Vital Signs: Last Vital Signs Pulse 92 06/22/24 14:24 BP 115/72 06/22/24 14:24 BMI result Body Mass Index 37.4 Const General: cooperative, no acute distress, well developed and well groomed Nutritional Appearance: well nourished, obese and overweight Orientation/consciousness: oriented to person, oriented to place and oriented to time Limitations: No language barrier, ambulation with cane, ambulation with walker and wheelchair HEENT Head: Yes normocephalic and Yes atraumatic Eyes General: appearance normal, both eyes and all related structures Pupils: Equal, round and reactive pupils present Neck Neck: Yes normal visual inspection and Yes no lymphadenopathy Thyroid: Thyroid normal Resp Effort & Inspection: normal respiratory effort and able to speak in complete sentences Auscultation: clear to auscultation bilaterally Cardio Rate: regular rate Rhythm: regular rhythm Heart sounds: Normal, physiologic split S2 sound present Peripheral pulses: radial pulses present and posterior tibial pulses present GI Inspection: No distended and No Abdominal panniculus present Palpation (GI): Soft to palpation, nontender, no guarding, not rigid, No hepatosplenomegaly present and Hepatosplenomegaly present Percussion: Yes normal to percussion Auscultation: normal bowel sounds Rectal Exam - Female: deferred Skin General skin exam: no rashes or lesions noted, turgor normal, skin not dry, no jaundice, No spider nevi and no striae Rashes: no rashes Nails: normal Neuro General: oriented to person, oriented to place and oriented to time Cranial nerves: Yes Equal, round and reactive pupils present and Yes Normal hearing present Speech: No Abnormal speech present Extrem General: Yes normal to inspection, No clubbing, No cyanosis and No edema Psych Thought process: Normal thought process present and not confabulating Thought content: Normal thought content present Insight: Good insight present (Psych) Judgement: Good judgement present (Psych) Assessment & Plan Assessment & Plan (1) Upper abdominal pain: Code(s): R10.10 - Upper abdominal pain, unspecified Category: Medical (2) GERD (gastroesophageal reflux disease): Code(s): K21.9 - Gastro-esophageal reflux disease without esophagitis Category: Medical Plan SHe is doing well, but does not see any particular difference good or bad - given the endoscopy will continue but opts to have filled via PCP. rov prn Medications: Refilled omeprazole 20 mg PO DAILY 30 caps 6RF 30 days K21.9 - Gastro-esophageal reflux disease without esophagitis, R10.10 - Upper abdominal pain, unspecified Coding Level of Care Code Est Pt Level 3 (69806) Diagnoses Upper abdominal pain R10.10 GERD (gastroesophageal reflux disease) K21.9
== END 2024-06-22 15:22 | disposition home or self-care (01) ==
LOC: HO.HGI 14:10
PROVIDERS: PCP Nurse Practitioner Family; Visit Provider Nurse Practitioner
DX: R10.10 Upper abdominal pain, unspecified (principal); K21.9 Gastro-esophageal reflux disease without esophagitis
CPT/HCPCS: 99213

== ENCOUNTER → 2024-07-20 08:10 | Outpatient (REF) | payer BC, SELFPAY ==
--- NOTE | 2024-07-20 08:13 | CA_ITS ---
Transthoracic Echocardiogram Patient (Last, First, Middle): Edi Han E Gender: Female Date of : 1975 Age: 48 Procedure Date: 07/20/2024 Procedure Type: Transthoracic Echocardiogram Location: OP Height: 175. 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 Study Quality: Adequate ECG Rhythm: Sinus Conclusions: - The left ventricular systolic function is low normal. The visually estimated ejection fraction is between 50-55%. - No obvious valvular pathology seen on this study. - There is mild dilatation of the ascending aorta measuring 3.70 cm. Findings Left Ventricle Normal left ventricular cavity size. There is normal left ventricular wall thickness. The left ventricular systolic function is low normal. The visually estimated ejection fraction is between 50-55%. There is no evidence of regional wall motion abnormalities. Diastolic function is normal for age. Right Ventricle Normal right ventricular cavity size and systolic function. Atria The left atrium is mildly dilated. The right atrium is normal in size. Aortic Valve There is a normal trileaflet aortic valve. There is no aortic valve stenosis. There is no aortic valve regurgitation. Mitral Valve The mitral valve appears normal. There is trace mitral valve regurgitation. There is no mitral valve stenosis. Pulmonic Valve The pulmonic valve is likely normal. Tricuspid Valve There is no tricuspid valve regurgitation. Tricuspid regurgitation envelope is inadequate for calculation of right ventricular systolic pressure. Great Vessels There is mild dilatation of the ascending aorta measuring 3.70 cm. Venous The inferior vena cava is normal in size and collapses greater than 50% with inspiration. Pericardium/Pleural There is no evidence of pericardial effusion. Prior Study Comparison No significant change compared to prior study dated: 06/12/2023. Recommendations, Care & Conclusions No obvious valvular pathology seen on this study. Measurements 2D Linear Measurements IVSd: 0.98 0.6-0.9/0.6-1.0 cm LVIDd: 4.82 3.9-5.3/4.2-5.9 cm LVIDd Index: 2.16 2.4-3.2/2.2-3.1 cm/m2 LVIDs: 3.31 2.0-3.6 cm LVPWd: 0.94 0.7-1.1 cm LA Diam: 3.30 2.7-3.8/3.0-4.0 cm LAIDs Index: 1.48 1.5-2.3 cm/m2 LV Mass: 201.97 67-162/88-224 g LV Mass Index: 90.57 43-95/49-115 g/m2 LVOT Diam: 2.50 3.0+(-)1.3 cm 2D Systolic Function EF 4C: 54.70 >55% EF 2C: 59.00 >55% EF BiP: 56.90 >55% Mitral Valve MV Pk E: 0.65 MV PK A: 0.84 MV Decel Time: 233.00 E/A: 0.80 E'Lateral: 11.60 E'Medial: 7.83 E/E' Med: 8.30 E/E' Lat: 5.60 PHT: 68.00 MVA PHT: 3.24 Decel [place]: 2.77 Aortic Valve AoV Pk Gilson: 1.29 AoV Mn Gilson: 0.96 AoV VTI: 0.30 AoV Pk Grad: 7.00 Aov Mn Grad: 4.00 SIMRAN Cont.VTI: 3.53 LVOT LVOT Pk Gilson: 0.90 LVOT Mn Gilson: 0.68 LVOT VTI: 0.21 LVOT Pk Grad: 3.00 LVOT Mn Grad: 2.00 LVOT Diam: 2.50 LVOT Area: 4.91 Diastolic Function MV Pk E: 0.65 MV Pk A: 0.84 E/A: 0.80 E'Medial: 7.83 E/E' Med: 8.30 E' Laterial: 11.60 E/E' Lat: 5.60 Right Ventricle TAPSE (mm): 23.30 TVS' Gilson: 10.90 Tricuspid Valve RA Press: 3.00 Great Vessels Aorta Sinus of Valsalva: 3.80 2.0-3.5 cm Ao Asc: 3.70 2.1-3.4 cm Ao Arch: 3.00 Pulmonary Valve PV Pk Gilson: 0.75 Peak PV Grad: 2.00 Updated in Other Vendor System with Status of Final Michael Matthews MD electronically signed on 07/20/2024 1:28:36 PM with status of Final
== END ==
LOC: HO.CARD 08:10
PROVIDERS: PCP Nurse Practitioner Family; Visit Provider Nurse Practitioner Family
DX: R06.02 Shortness of breath (principal); R00.0 Tachycardia, unspecified; R93.1 Abnormal findings on diagnostic imaging of heart and coronary circulation
CPT/HCPCS: 93242; 93306

== ENCOUNTER → 2024-07-20 08:13 | Outpatient (BNV) | payer BC, SELFPAY | PROVIDERS: PCP Nurse Practitioner Family; Visit Provider Internal Medicine | DX: I51.7 Cardiomegaly (principal); I77.810 Thoracic aortic ectasia | CPT/HCPCS: 93306 ==

== ENCOUNTER 2024-08-27 08:40 | Outpatient (AMB) | payer BC, SELFPAY ==
--- NOTE | 2024-08-27 08:53 | MHC.OFFVIS ---
Vital Signs 08/27/24 08:55 Height 5 ft 9 in Weight 252 lb BMI 37.2 BP 118/62 Blood Pressure Location Lt brachial Position Sitting Pulse 90 Pulse Source Pulse Oximeter Intake Visit Reasons: 1 yr follow up Allergies levofloxacin (From LEVAQUIN) Allergy (Intermediate, Verified 06/22/24 14:40) RASH benzoin Allergy (Unknown, Verified 06/22/24 14:40) Unknown seasonal Allergy (Unknown, Uncoded 06/09/24 16:16) Unknown Cats Allergy (Unknown, Uncoded 06/09/24 16:16) Unknown lactose Adverse Reaction (Severe, Uncoded 06/09/24 16:16) leg cramping Medication List - Last Reconciled 08/27/24 by LUCA Mendiola albuterol sulfate 2.5 mg (3 mL) inhalation Q6H albuterol sulfate 90 mcg/actuation 1 puff inhalation QID PRN [id number]-[id number]-bzbb 50-300-40 mg 2 caps PO Q4H PRN cetirizine (Zyrtec) 20 mg PO DAILY PRN diltiazem HCl CD 180 mg PO DAILY fluticasone propionate 220 mcg/actuation 2 puffs inhalation BID gabapentin 600 mg PO DAILY@1700 ipratropium bromide 2 sprays intranasal BID ipratropium-albuterol 0.5 mg-3 mg(2.5 mg base)/3 mL 3 mL inhalation Q6H PRN ketoconazole 2% 1 appl topical BID levonorgestrel (Mirena) intrauterine losartan-hydrochlorothiazide 50-12.5 mg 1 tab PO DAILY montelukast (Singulair) 10 mg PO BEDTIME nystatin 1 appl topical BID omeprazole 20 mg PO DAILY 30 days ondansetron HCl 4 mg PO Q8H PRN prochlorperazine maleate 10 mg PO PRN tamsulosin 0.4 mg PO DAILY PRN tizanidine 4 mg PO BEDTIME PRN 30 days tizanidine 2 mg PO BEDTIME HPI HPI 1 yr follow up: Details: Edi is a 48-year-old female with past medical history of asthma, hypertension, PVC, mild sleep apnea with CPAP use, low normal EF who recently had echocardiogram and now presents for follow-up. Today she reports that she continues to has been feeling well overall. She will feel heart palpitations but less than prior reports. Her breathing and asthma has been stable. Complant with CPAP. She denies lightheadedness, presyncope, syncope, falls. No chest discomfort at rest or with activity. No PND, orthopnea. Does get swelling in ankles at times and is concerned about skin color changes in feet and lower legs. Reports having vein ablation years ago. Wears compression socks routinely. Wants to see vascular at [facility] [place]. Taking meds as directed. Trying to increase her physical activity but is limited by chronic issues with neck pain. [facility] Medical History (Updated 08/27/24 @ 12:44 by RILEY MendiolaC) Venous insufficiency Left breast lump SOB (shortness of breath) Chilaiditi's syndrome Skin lesions Nocturnal hypoxemia Influenza-like illness Pre-op examination Palpitation Sleep apnea Viral illness Left adrenal mass Uncontrolled hypertension Left knee pain Muscle pain Encounter for routine adult physical exam with abnormal findings Environmental allergies Cough Wheezing Screening for colon cancer Pharyngitis Asthma Physical exam Chronic UTI (urinary tract infection) Kidney stone Upper respiratory tract infection Migraines Leg pain Surgical History History of esophagogastroduodenoscopy (EGD) H/O colonoscopy History of cystoscopy History of lithotripsy History of knee surgery History of lumpectomy of left breast (2007) Family History Maternal Grandmother Cancer of abdominal organ Family/Other Breast cancer, Onset Age: 30 Father Parkinson disease Squamous cell skin cancer Atrial fibrillation Mother Hypertension Social History Housing: Apartment Alcohol intake: current Alcohol intake frequency: holidays/special occasions only Patient Tobacco Use Status: Never used Tobacco e-Cigarette/Vaping Use: Never Used Second Hand Smoke Exposure: No service: No Current occupational status: employed Cognitive needs: No Hearing needs: No Vision needs: Yes Female Reproductive History Menstrual Age of Menarche: 14 Review of Systems Const All systems reviewed & are unremarkable except as noted in HPI and below Denies weakness ENT Denies dizziness Card Denies chest pain, Denies chest pain with activity, Denies syncope, Denies rapid heart rate, Denies pedal edema, Denies edema, Denies leg edema, Denies lightheadedness, Denies palpitations, Denies dyspnea, Denies dyspnea on exertion and Denies orthopnea Resp Denies cough, Denies dyspnea and Denies dyspnea on exertion GI Denies hematochezia and Denies change in stool character Musc Denies abnormal gait, Denies muscle cramps, Denies muscle weakness, Denies numbness, Denies radiating pain into limb and Denies tingling Neuro Denies abnormal gait, Denies dizziness, Denies syncope, Denies numbness, Denies tingling and Denies weakness Endo Denies palpitations Physical Exam Vital Signs: Last Vital Signs Pulse 90 08/27/24 08:55 BP 118/62 08/27/24 08:55 BMI result Body Mass Index 37.2 Const General: cooperative, healthy appearing, comfortable and no acute distress Orientation/consciousness: patient oriented x3 Neck Neck: Yes normal visual inspection and Yes no JVD Resp Effort & Inspection: normal respiratory effort Auscultation: clear to auscultation bilaterally, no crackles, no rales, no rhonchi and no wheezes Cardio Rate: regular rate Rhythm: regular rhythm Heart sounds: S1 normal heart sound present, S2 normal heart sound present, no gallops, no murmurs and no rubs Neuro General: patient oriented x3 Extrem General: Yes normal to inspection, No no pedal edema and No calf tenderness Psych Appearance: grossly normal Mental Status: mental status grossly normal Speech and movement: Normal speech and movement present Assessment & Plan Assessment & Plan (1) Abnormal echocardiogram: Comment: Mildly decreased LV EF of 50-55% and some left ventricle thickening Code(s): R93.1 - Abnormal findings on diagnostic imaging of heart and coronary circulation Category: Medical Plan: EF still remains low normal inspite of treatment for PVCs and sleep apnea. No clear cause for this finding. For completeness with order cardiac MRI for further evaluation. Plan to call her with results once available. (2) Tachycardia: Code(s): R00.0 - Tachycardia, unspecified Category: Medical Plan: Prior Reports of intermittent heart palpitations and elevated heart rates. For her symptom of palpitation and elevated rates her PCP started metoprolol XL 25 mg daily which was changed over to diltiazem on follow-up visit. A Holter monitor was done on 05/29/2023 for 3 days which showed sinus rhythm with average heart rate 89, occasional PVCs, 1.2%, her symptoms correlated with PVCs. An echocardiogram was done on 06/12/2023 showing EF 50-55%, mild LVH, sinus of Valsalva dilated 3.8 cm, ascending aorta dilated at 3.6 cm . Her diltiazem dose was then increased due to ongoing palpitations. She does have low normal EF. For further evaluation she underwent a exercise stress test on 06/25/2023 with exercise 6.5 minutes with [id number] shortness of breath, no EKG changes of ischemia. A sleep study was done on 07/29/2023 showing mild obstructive sleep apnea with hypoxemia, lowest sat 81%. She is being treated for sleep apnea. Palpitations have lessened. Continue Diltiazem. Cardiology follow up in 1 yr, sooner if needed (3) SOB (shortness of breath): Code(s): R06.02 - Shortness of breath Category: Medical Plan: Asthma hx. Follows with pulmonology. No signs of heart failure on examination (4) Hypertension: Code(s): I10 - Essential (primary) hypertension Category: Medical Plan: BP goal < 130/80. Well controlled with losartan/ hydrochlorothiazide and diltiazem. No med changes made. (5) Venous insufficiency: Code(s): I87.2 - Venous insufficiency (chronic) (peripheral) Category: Medical Plan: Concerns about leg swelling and skin discoloration around feet and ankles. Has undergone vein ablation in past. Wants to see [facility] [place] [facility] vascular for further evaluation. Continue to use compressions socks, leg elevation, low salt diet. Plan I discussed with the patient the current management of her hypertension and PVCs, noting that no changes are necessary at this time due to effective control and infrequency, respectively. We reviewed the plan for a cardiac MRI to further evaluate her low normal ejection fraction, explaining the focus on muscle tissue. I emphasized the importance of continuing CPAP therapy for sleep apnea, which has improved her headaches. For venous insufficiency, I recommended ongoing use of compression stockings and considering a referral to a vascular specialist for further evaluation. We discussed asthma management, including the use of steroid inhalers as needed and monitoring oxygen levels at home. Orders: Orders MR cardiac morph fnct w/wo con Today R93.1 - Abnormal findings on diagnostic imaging of heart and coronary circulation Basic Metabolic Panel Today I10 - Essential (primary) hypertension Referrals Vascular Surgery Referral I87.2 - Venous insufficiency (chronic) (peripheral) Patient Instructions: - Continue current hypertension medications as prescribed. - Use CPAP machine regularly for sleep apnea. - Wear compression stockings to manage venous insufficiency. - Use steroid inhalers for asthma as needed. - Monitor oxygen levels at home if experiencing symptoms. - Follow up with a vascular specialist if symptoms of venous insufficiency persist. Patient was informed and verbally consented to the use of an ambient scribe for clinic note documentation during this visit. Visit time spent on chart review, interview, assessment, orders, documentation. Coding Level of Care Code Est Pt Level 4 (15246) Complex EM visit Add On G2211 Diagnoses Abnormal echocardiogram R93.1 Tachycardia R00.0 SOB (shortness of breath) R06.02 Hypertension I10 Venous insufficiency I87.2 Time Spent (min) 32
[2024-08-27 08:55] VITALS: BP 118/62; PULSE 90; BMI 37.2
== END 2024-08-27 09:39 | disposition home or self-care (01) ==
LOC: HO.HCS 08:41
PROVIDERS: PCP Nurse Practitioner Family; Visit Provider Nurse Practitioner Family
DX: R93.1 Abnormal findings on diagnostic imaging of heart and coronary circulation (principal); R00.0 Tachycardia, unspecified; R06.02 Shortness of breath; I10 Essential (primary) hypertension; I87.2 Venous insufficiency (chronic) (peripheral)
CPT/HCPCS: 99214

== ENCOUNTER 2024-11-08 09:38 | Outpatient (AMB) | payer BC, SELFPAY ==
--- NOTE | 2024-11-08 09:46 | AM.OFFWIN_ITS ---
Intake Vital Signs 11/08/24 09:47 Height 5 ft 9 in Weight 248 lb BMI 36.6 BP 126/80 Blood Pressure Location Rt brachial Position Sitting Pulse 89 Pulse Source Pulse Oximeter Temp 98.5 F Temp Source Oral Pulse Oximetry (%) 97 Oxygen Delivery Method Room Air Intake Visit Reasons: EP-flu symptoms Intake Note: pt presents with nasal congestion, body weakness/fatigue, dry cough, chest/rib pain from coughing- tested positive for covid at home yesterday Patient Tobacco Use Status: Never used Tobacco Allergies levofloxacin (From LEVAQUIN) Allergy (Intermediate, Verified 11/08/24 09:50) RASH benzoin Allergy (Unknown, Verified 11/08/24 09:50) Unknown seasonal Allergy (Unknown, Uncoded 06/09/24 16:16) Unknown Cats Allergy (Unknown, Uncoded 06/09/24 16:16) Unknown lactose Adverse Reaction (Severe, Uncoded 06/09/24 16:16) leg cramping Do you need a note to return to daycare/school/sports/work: Yes HPI HPI Comments History of Present Illness Details 48 y/o Female patient who presents to [facility] with c/o URI symptoms since Yesterday morning. Reports Body Aches, Nasal/chest congestion, Runny nose, Cough and headaches. She tested positive for COVID yesterday. [facility] Medical History (Updated 11/08/24 @ 10:06 by Kathi Hopkins NP) Cough COVID-19 Venous insufficiency Left breast lump SOB (shortness of breath) Chilaiditi's syndrome Skin lesions Nocturnal hypoxemia Influenza-like illness Pre-op examination Palpitation Sleep apnea Viral illness Left adrenal mass Uncontrolled hypertension Left knee pain Muscle pain Encounter for routine adult physical exam with abnormal findings Environmental allergies Wheezing Screening for colon cancer Pharyngitis Asthma Physical exam Chronic UTI (urinary tract infection) Kidney stone Upper respiratory tract infection Migraines Leg pain Surgical History History of esophagogastroduodenoscopy (EGD) H/O colonoscopy History of cystoscopy History of lithotripsy History of knee surgery History of lumpectomy of left breast (2007) Family History Maternal Grandmother Cancer of abdominal organ Family/Other Breast cancer, Onset Age: 30 Father Parkinson disease Squamous cell skin cancer Atrial fibrillation Mother Hypertension Social History Housing: Apartment Alcohol intake: current Alcohol intake frequency: holidays/special occasions only Patient Tobacco Use Status: Never used Tobacco e-Cigarette/Vaping Use: Never Used Second Hand Smoke Exposure: No service: No Current occupational status: employed Cognitive needs: No Hearing needs: No Vision needs: Yes Female Reproductive History Menstrual Age of Menarche: 14 Review of Systems Const All systems reviewed & are unremarkable except as noted in HPI and below Physical Exam Vital Signs: Last Vital Signs Temp 98.5 F 11/08/24 09:47 Pulse 89 11/08/24 09:47 BP 126/80 11/08/24 09:47 Pulse Ox 97 11/08/24 09:47 Oxygen Delivery Method Room Air 11/08/24 09:47 BMI result Body Mass Index 36.6 Const General: no acute distress Nutritional Appearance: obese Orientation/consciousness: patient oriented x3 Resp Effort & Inspection: normal respiratory effort, able to speak in complete sentences and Actively coughing Auscultation: clear to auscultation bilaterally, no crackles, no rales, no rhonchi and no wheezes Cardio Heart sounds: S1 normal heart sound present and S2 normal heart sound present Neuro General: patient oriented x3 Assessment & Plan Assessment & Plan (1) COVID-19: Code(s): U07.1 - COVID-19 Plan: Ordered Paxlovid for 5 days. No med interaction found. (2) Cough: Code(s): R05.9 - Cough, unspecified Plan: OTC cough remedies Rest and hydrate well with warm fluids. Acetaminophen for pain relief. Medications: New nirmatrelvir-ritonavir 300 mg (150 mg x 2)-100 mg (Paxlovid) Take TWO (2) 150 mg tablets of Nirmatrelvir with ONE (1) 100 mg tablet of ritonavir twice daily for 5 days. 30 ea 0RF benzonatate 200 mg (2 x 100 mg) PO BID 60 caps 0RF R05.9 - Cough, unspecified Coding Level of Care Code Est Pt Level 4 (88811) Diagnoses COVID-19 U07.1 Cough R05.9 Time Spent (min) 20
[2024-11-08 09:47] VITALS: BP 126/80; PULSE 89; TEMP 36.9; O2SAT 97; BMI 36.6
--- OUTSIDE RECORDS SUMMARY | 2024-11-08 11:01 | XMS_ITS | Clinical Summary ---
Author Organization [facility] Address [address] [place] [phone] Phone Care Team Providers Care Hearing Aid Repair Technician Name Role Phone Unknown, Unknown Primary Care Provider Fahad lable Allergies Active Allergy Reactions Criticality Noted Date Comments Levofloxacin Rash Low 02/13/2022 Medications gabapentin (NEURONTIN) 600 MG tablet TAKE 1 TABLET BY MOUTH EVERYDAY AT BEDTIME 2 Active tamsulosin (FLOMAX) 0.4 mg Cap Take 0.4 mg by mouth daily. 2 Active tiZANidine (ZANAFLEX) 4 MG capsule TAKE 1 CAPSULE ORALLY BEDTIME NEEDED FOR MUSCLE SPASTICITY FOR 30 DAYS 2 Active Active Problems Problem Noted Date Diagnosed Date Arrhythmia 12/05/2022 Assessment & Plan (12/05/2022 2:17 PM EDT): No significant symptoms of arrhythmia Localized edema 12/05/2022 Assessment & Plan (12/05/2022 2:17 PM EDT): She is starting to get ankle edema which makes me suspect a new area of reflux. Varicose veins of bilateral lower extremities with other complications 12/05/2022 Assessment & Plan (12/05/2022 2:17 PM EDT): This patient had venous ablative therapy in the past she is due for an updated venous reflux study which I have ordered for her I will see her thereafter in follow- up. Social History Tobacco Use Types Packs/Day Years Used Date Smoking Tobacco: Never Assessed Education Answer Date Recorded Are you interested in more education? Not on lucio e 06/28/2022 Are you concerned about learning? Not on file 06/28/2022 No 06/28/2022 No 06/28/2022 Digital Access Answer Date Recorded No 07/26/2022 No 07/26/2022 Reliable internet access at home? Not on file 07/26/2022 Device with a working camera? Not on file Comments Unknown Sex and Gender Information Value Date Recorded Sex Assigned at Not on file Legal Sex Female 9:26 PM EDT Gender Identity Not on file Sexual Orientation Not on file Last Filed Vital Signs Vital Sign Reading Time Taken Comments Blood Pressure 142/92 12/05/2022 2:08 PM EDT Pulse 103 12/05/2022 2:08 PM EDT Temperature 36.5 C (97.7 F) 02/13/2022 12:11 PM EST Respiratory Rate 18 02/13/2022 12:11 PM EST Oxygen Saturation 98% 12/05/2022 2:08 PM EDT Inhaled Oxygen Concentration - - Weight 103.9 kg (229 lb) 12/05/2022 2:08 PM EDT Height - - Body Mass Index - - Plan of Treatment Health Maintenance Due Date Last Done Comments Adult Td,Tdap Booster 1976 LIPID PANEL 1976 DEPRESSION SCREENING 1988 SMOKING Hx and SMOKELESS TOBACCO SCREENING 1989 HEPATITIS C SCREENING 1994 HIV ONE-TIME SCREENING (18-6 5 YEARS) 1994 PAP SMEAR 1997 MAMMOGRAM 2016 COLOGUARD 2021 COLONOSCOPY 2021 COLORECTAL CANCER SCREENING 2021 FIT TEST 2021 FOBT 2021 SIGMOIDOSCOPY 2021 VIRTUAL COLONOSCOPY 2021 INFLUENZA VACCINE (#1) 2024 12/02/2016 COVID-19 VACCINE (4 - 2024-2 6 season) 2024 01/05/2021, 06/02/2020, 05/12/2020 HEPATITIS A VACCINES Aged Out No long er eligible based on patient's age to complete this topic HIB VACCINES Aged Out No longer eligi ble based on patient's age to complete this topic MENINGOCOCCAL VACCINES (ACWY) Aged Out No longer eligible based on patient's age to complete this topic MENINGOCOCCAL VACCINES (B) Aged Out N o longer eligible based on patient's age to complete this topic PNEUMOCOCCAL VACCINES (0-49 years) Aged Out No longer eligible b ased on patient's age to complete this topic Medical Devices Not on file [place] [facility] [place] [facility] [place] [facility] [place] [facility] Care Teams Hearing Aid Repair Technician Relationship Specialty Start Date End Date Unknown, Unknown, PCP - General 12/14/22 Additional Source Comments The information contained in this document represents components of the legal health record. It is not the complete legal health record.[facility]
== END 2024-11-08 10:43 | disposition home or self-care (01) ==
PROVIDERS: PCP Nurse Practitioner Family; Visit Provider Nurse Practitioner Family
DX: U07.1 COVID-19 (principal); R05.9 Cough, unspecified

== ENCOUNTER 2024-11-23 07:58 | Outpatient (REF) | payer BC, SELFPAY ==
--- NOTE | ~2024-11-23 | US_ITS ---
CLINICAL HISTORY: N20.0 - Calculus of kidney US renal with Color Doppler Comparison: US - US RENAL BI - 05/24/24 08:26 EDT US/FL/SR - US RETROPERITONEAL COMP - 05/29/22 16:01 EDT Findings: Right kidney normal size and echotexture, 11.8 cm length. No hydronephrosis. Normal color flow. Nonobstructing caliceal stone upper pole measuring 6 x 5 x 5 mm in lower pole measuring 4 x 3 x 5 mm. No renal masses. Left kidney normal size and echotexture, 11.0 cm length. No hydronephrosis. Normal color flow. Nonobstructing caliceal stone lower pole measuring 9 x 4 x 5 mm. No renal masses. Impression: 1. Bilateral nephrolithiasis. No evidence of obstructive uropathy. This document has been electronically signed by: Isaias Cantu MD on 11/24/2024 08:46:38
[2024-11-23 09:39] LABS: Appearance Urine Clear; Glucose Urine UA Negative (Negative); PH 6.0 (5.0-9.0); UMIC TRIGGER UACC YES
[2024-11-23 09:42] LABS: UACC Culture Trigger YES
== END 2024-11-23 07:59 | disposition home or self-care (01) ==
LOC: HO.US 07:58
PROVIDERS: Absent Provider Nurse Practitioner Family; PCP Nurse Practitioner Family; Visit Provider Nurse Practitioner Family
DX: N20.0 Calculus of kidney (principal)
CPT/HCPCS: 76775; 81001; 81003; 87086; 87088; 87186

== ENCOUNTER → 2024-11-23 08:00 | Outpatient (BNV) | payer BC, SELFPAY | PROVIDERS: Absent Provider Nurse Practitioner Family; PCP Nurse Practitioner Family; Visit Provider Radiology Diagnostic Radiology | DX: N20.0 Calculus of kidney (principal) | CPT/HCPCS: 76775 ==

== ENCOUNTER 2024-11-25 13:14 | Outpatient (AMB) | payer BC, SELFPAY ==
[2024-11-25 13:41] VITALS: BMI 36.6
--- NOTE | 2024-11-25 13:41 | A.OFFVIS_ITS ---
Vital Signs 11/25/24 13:41 Height 5 ft 9 in Weight 248 lb BMI 36.6 Intake Visit Reasons: CAUL DRESSER/PCP referral for leg swelling and discoloration Intake Note: CAUL DRESSER/ Cardio Referral for LE swelling, Hx of bilateral LE ablation and Left LE micro w/ DR. Mayes and Dr. Kelly. Does have swellig in the Left LE more than the right LE. Has some cluster spider veins and discoloration. Hx of numerous knee surgeries as well on Left LE. Sliver Cutter Required: No Accompanied by: Self / Same As Patient Allergies levofloxacin (From LEVAQUIN) Allergy (Intermediate, Verified 11/25/24 13:45) RASH benzoin Allergy (Unknown, Verified 11/25/24 13:45) Unknown seasonal Allergy (Unknown, Uncoded 11/25/24 13:45) Unknown Cats Allergy (Unknown, Uncoded 11/25/24 13:45) Unknown lactose Adverse Reaction (Severe, Uncoded 11/25/24 13:45) leg cramping HPI HPI CAUL DRESSER/PCP referral for leg swelling and discoloration: Details: The patient is a 48-year-old female presenting with leg neuropathy and swelling. She reports neuropathy primarily in the left leg, with occasional symptoms in the right leg, and significant swelling in the left foot accompanied by speckling discoloration. She has a history of venous procedures, including vein stripping, and experienced an allergic reaction to benzoin applied during a previous procedure. The patient has a history of osteochondritis dissecans, which was treated with reconstructive surgery involving hardware placement in both knees during childhood. She experiences persistent tenderness and numbness in the left foot, which has been attributed to nerve damage. Her father had a history of deep vein thrombosis and was on anticoagulation therapy. The patient has undergone multiple ultrasounds and laser treatments for her venous issues. Recently, her A1c level was found to be elevated at 6.7, indicating a diagnosis of diabetes mellitus, for which she is planning a follow-up with her primary care provider. She denies any history of smoking. It has been affecting there daily activities including walking and working in ambulatory job. It is noted more so in left leg. Patient reports previous venous ablation is by Dr. Loving but was unclear on what was done Patient denies any history of DVT/ PE. Patient denies any history of phlebitis. Trial of compression includes - [id number] They now present for vascular evaluation regarding their varicose veins. [facility] Medical History (Updated 11/25/24 @ 16:01 by Milad Medina MD) Osteochondritis dissecans Cough COVID-19 Venous insufficiency Left breast lump SOB (shortness of breath) Chilaiditi's syndrome Skin lesions Nocturnal hypoxemia Influenza-like illness Pre-op examination Palpitation Sleep apnea Viral illness Left adrenal mass Uncontrolled hypertension Left knee pain Muscle pain Encounter for routine adult physical exam with abnormal findings Environmental allergies Wheezing Screening for colon cancer Pharyngitis Asthma Physical exam Chronic UTI (urinary tract infection) Kidney stone Upper respiratory tract infection Migraines Leg pain Surgical History History of esophagogastroduodenoscopy (EGD) H/O colonoscopy History of cystoscopy History of lithotripsy History of knee surgery History of lumpectomy of left breast (2007) Family History Maternal Grandmother Cancer of abdominal organ Family/Other Breast cancer, Onset Age: 30 Father Parkinson disease Squamous cell skin cancer Atrial fibrillation Mother Hypertension Social History Housing: Apartment Alcohol intake: current Alcohol intake frequency: holidays/special occasions only Patient Tobacco Use Status: Never used Tobacco e-Cigarette/Vaping Use: Never Used Second Hand Smoke Exposure: No service: No Current occupational status: employed Cognitive needs: No Hearing needs: No Vision needs: Yes Female Reproductive History Menstrual Age of Menarche: 14 Review of Systems Const Reports as per HPI ENT Reports no additional complaints Card Denies chest pain, Denies chest pain at rest and Denies chest pain with activity Resp Denies chest congestion and Denies cough GI Reports no additional complaints Musc Details: pain over varicosities, aching of lower extremities, swelling, cramping, heaviness and tiredness, itching Denies abnormal gait Skin/Breast Reports pruritus and Denies wounds Neuro Reports no additional complaints and Denies abnormal gait Psych Denies no additional complaints Physical Exam Vital Signs: BMI result Body Mass Index 36.6 Const General: cooperative, healthy appearing and comfortable Orientation/consciousness: oriented to person, oriented to place and oriented to time Neck Carotids: no bruits Chest Chest palpation & inspection: normal inspection of the chest and normal palpation of entire chest wall Resp Effort & Inspection: normal respiratory effort and able to speak in complete sentences Cardio Rate: regular rate Heart sounds: S1 normal heart sound present and S2 normal heart sound present Peripheral pulses: Peripheral pulses 2+ throughout GI Inspection: Yes normal to inspection Skin Other: +2 edema, large rope-like varicosities greater than 4 mm CEAP Classification C4 - skin color changes Ep - Etiology Primary As - superficial veins P - reflux General skin exam: dry skin Neuro General: oriented to person, oriented to place and oriented to time Extrem Right lower extremity: full ROM, normal capillary refill and edema Left lower extremity: full ROM, normal capillary refill and edema Psych Mental Status: mental status grossly normal Assessment & Plan Assessment & Plan (1) Varicose veins of left lower extremity with inflammation: Code(s): I83.12 - Varicose veins of left lower extremity with inflammation Category: Medical Plan: In short, the patient has evidence of venous insufficiency. I have discussed the pathophysiology with the patient. In addition I have provided informational material regarding venous disease to the patient. We have discu ssed conservative measures including compression, elevation, and exercise. I have also provided a handout regarding appropriate use of compression stockings and where to purchase good compression stockings as well. I have taken the liberty of ordering venous insufficiency testing with the patient. They will follow up with me after testing. The patient had an opportunity to ask questions regarding the treatment plan. All questions were answered. Imaging studies, laboratory studies and physical exam results were discussed and reviewed in detail. No major barriers to understanding were identified. The patient expressed understanding and agreement with the above treatment plan. The patient is aware they should contact our office by phone for worsening of the current condition or the appearance of new symptoms. Thank you for allowing me to participate in the vascular care of this patient. If you have any questions or concerns regarding the treatment for the above condition please do not hesitate to contact me. The office telephone contact is [phone]. This note is constructed using voice recognition software. While every effort has been made to ensure accuracy, junior database administrator errors may have been included. Thank you for allowing me to participate in the care of your patient. Yours sincerely, Milad Medina MD, FACS, R.P.V.I. Orders: Orders US venous duplex LE BI Today I83.12 - Varicose veins of left lower extremity with inflammation Coding Level of Care Code New Pt Level 4 (88746) Diagnoses Varicose veins of left lower extremity with inflammation I83.12
--- OUTSIDE RECORDS SUMMARY | 2024-11-25 17:54 | XMS_ITS | Clinical Summary ---
Author Organization [facility] Address [address] [place] [phone] Phone Care Team Providers Care Food Beverage Supervisor Name Role Phone Unknown, Unknown Primary Care [...] Medical Devices Not on file [place] [facility] [place] [facility] [place] [facility] [place] [facility] Care Teams Food Beverage Supervisor Relationship Specialty Start Date End Date Unknown, Unknown, PCP - General 12/14/22 Additional Source Comments The information contained in this document represents components of the legal health record. It is not the complete legal health record.[facility]
== END 2024-11-25 14:12 | disposition home or self-care (01) ==
LOC: HO.HVS 13:15
PROVIDERS: PCP Nurse Practitioner Family; Visit Provider Surgery Vascular Surgery
DX: I83.12 Varicose veins of left lower extremity with inflammation (principal)
CPT/HCPCS: 99204

== ENCOUNTER 2024-11-30 16:14 | Outpatient (AMB) | payer BC, SELFPAY ==
--- NOTE | 2024-11-30 16:18 | A.OFFVIS_ITS ---
Intake Visit Reasons: 6m/ US Intake Note: patient presents today for: 6mo/US urology medications: tamsulosin blood thinners: none US done: 11/24/24 Shove Up Required: No Accompanied by: Self / Same As Patient Allergies levofloxacin (From LEVAQUIN) Allergy (Intermediate, Verified 11/30/24 20:53) RASH benzoin Allergy (Unknown, Verified 11/30/24 20:53) Unknown seasonal Allergy (Unknown, Uncoded 11/30/24 20:53) Unknown Cats Allergy (Unknown, Uncoded 11/30/24 20:53) Unknown lactose Adverse Reaction (Severe, Uncoded 11/30/24 20:53) leg cramping Medication List - Last Reconciled 11/30/24 by DALILA Danielle-LISA albuterol sulfate 2.5 mg (3 mL) inhalation Q6H albuterol sulfate 90 mcg/actuation 1 puff inhalation QID PRN benzonatate 200 mg (2 x 100 mg) PO BID aqzcsrnjhd-tcdjfzwbusyqi-ujms 50-300-40 mg 2 caps PO Q4H PRN cetirizine (Zyrtec) 20 mg PO DAILY PRN diltiazem HCl CD 180 mg PO DAILY fluticasone propionate 220 mcg/actuation 2 puffs inhalation BID gabapentin 600 mg PO DAILY@1700 ipratropium bromide 2 sprays intranasal BID ipratropium-albuterol 0.5 mg-3 mg(2.5 mg base)/3 mL 3 mL inhalation Q6H PRN ketoconazole 2% 1 appl topical BID levonorgestrel (Mirena) intrauterine losartan-hydrochlorothiazide 50-12.5 mg 1 tab PO DAILY montelukast (Singulair) 10 mg PO BEDTIME nirmatrelvir-ritonavir 300 mg (150 mg x 2)-100 mg (Paxlovid) Take TWO (2) 150 mg tablets of Nirmatrelvir with ONE (1) 100 mg tablet of ritonavir twice daily for 5 days. nitrofurantoin monohyd/m-cryst 100 mg (Macrobid) 100 mg PO Q12H 7 days nystatin 1 appl topical BID omeprazole 20 mg PO DAILY 30 days ondansetron HCl 4 mg PO Q8H PRN prochlorperazine maleate 10 mg PO PRN tamsulosin 0.4 mg PO DAILY PRN tizanidine 4 mg PO BEDTIME PRN 30 days tizanidine 2 mg PO BEDTIME HPI Comments Details: Edi is a pleasant 48-year-old female patient of Dr. Vasquez. She has a past medical history of nephrolithiasis, left adrenal mass, asthma, and migraines. She presents to the office today for follow-up of her nephrolithiasis. In discussion with the patient today she reports having recently had blood work done with PCP any way was noted to be positive and is currently on antibiotic therapy (Macrobid). In review of patient's chart it appears urine culture 11/25 Enterococcus faecalis. 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 Recent renal imaging results reviewed with the patient today. Bilateral kidneys are normal in size and echotexture. No hydronephrosis noted bilaterally. Nonobstructing right calyceal stone upper pole measuring 6 mm and nonobstructing right renal calculi in the lower pole measuring 5 mm. Left kidney with nonobstructing calyceal stone lower pole measuring 9 mm. No renal masses noted bilaterally. We did discussed decrease in stone burden however it does appear stones have increased in size. However we did discussed variability in sizing with renal ultrasounds. She has had no bothersome urinary issues. She reports she was unaware of positive urine culture as she had not been experiencing any UTI like symptoms. She has had bilateral flank pain however describes these episodes as infrequent and manageable. She discusses her main concern is her injection machine operator issues at this time. We did discussed further treatment options to include ureteroscopy verses as well versus surveillance monitoring. Risks and benefits of these interventions were discussed. She reports to be drinking plenty of water daily. In office urinalysis urinalysis results reviewed with the patient today. She discusses her longstanding history of nephrolithiasis since the age of 19. She does have a history of a left distal ureteroscopy with Dr. Jim in 01/2021. She reports having had multiple 24 hour urine collections and despite increase in fluid intake as well as diet modifications she continues with nephrolithiasis. When asked she denies urinary urgency, urinary frequency, incontinence, nocturia, hematuria, dysuria, foul smelling urine, changes to urinary stream, flank pain, fever, and or chills. She is happy with her current voiding parameters. She otherwise offers no other issues or concerns at this time. [facility] Medical History Osteochondritis dissecans Cough COVID-19 Venous insufficiency Left breast lump SOB (shortness of breath) Chilaiditi's syndrome Skin lesions Nocturnal hypoxemia Influenza-like illness Pre-op examination Palpitation Sleep apnea Viral illness Left adrenal mass Uncontrolled hypertension Left knee pain Muscle pain Encounter for routine adult physical exam with abnormal findings Environmental allergies Wheezing Screening for colon cancer Pharyngitis Asthma Physical exam Chronic UTI (urinary tract infection) Kidney stone Upper respiratory tract infection Migraines Leg pain Surgical History History of esophagogastroduodenoscopy (EGD) H/O colonoscopy History of cystoscopy History of lithotripsy History of knee surgery History of lumpectomy of left breast (2007) Family History Maternal Grandmother Cancer of abdominal organ Family/Other Breast cancer, Onset Age: 30 Father Parkinson disease Squamous cell skin cancer Atrial fibrillation Mother Hypertension Social History Housing: Apartment Alcohol intake: current Alcohol intake frequency: holidays/special occasions only Patient Tobacco Use Status: Never used Tobacco e-Cigarette/Vaping Use: Never Used Second Hand Smoke Exposure: No service: No Current occupational status: employed Cognitive needs: No Hearing needs: No Vision needs: Yes Female Reproductive History Menstrual Age of Menarche: 14 Review of Systems Const All systems reviewed & are unremarkable except as noted in HPI and below Physical Exam Const General: cooperative, healthy appearing, comfortable, no acute distress, well developed, alert and awake Orientation/consciousness: patient oriented x3 Limitations: no limitations HEENT Head: Yes normal to inspection, Yes normocephalic and Yes atraumatic Ears: hearing grossly normal bilaterally Eyes General: appearance normal, both eyes and all related structures Neck Neck: Yes normal visual inspection and Yes trachea midline Chest Chest palpation & inspection: normal inspection of the chest Resp Effort & Inspection: normal respiratory effort and able to speak in complete sentences Cardio Rate: regular rate GI Inspection: Yes normal to inspection General: Yes no CVA tenderness Back/Spine/Pelvis Back: no CVA tenderness Skin General skin exam: no rashes or lesions noted Neuro General: patient oriented x3 Extrem General: Yes normal to inspection Psych Appearance: grossly normal and well kempt Mental Status: mental status grossly normal Speech and movement: Normal speech and movement present and Clear speech present Affect: normal affect Attitude: cooperative Thought process: Normal thought process present Thought content: Normal thought content present Insight: Fair insight present (Psych) Judgement: Fair judgement present (Psych) Results AMB Urinalysis, Automated UA Leukoctes 0 Cade/uL Last Edit by CLAUDIO Burt on 11/30/24 16:32 UA Nitrite Last Edit by CLAUDIO Burt on 11/30/24 16:32 UA Urobilinogen 0.2 mg/dL Last Edit by CLAUDIO Burt on 11/30/24 16:3 2 UA Protein 0 mg/dL Last Edit by CLAUDIO Burt on 11/30/24 16:32 UA pH 6.0 Last Edit by CLAUDIO Burt on 11/30/24 16:32 UA Blood 0 Kahlil/uL Last Edit by Lakisha Thompson CCM on 11/30/24 16:32 UA Specific [place] 1.020 Last Edit by CLAUDIO Burt on 11/30/24 16: 32 UA Ketone Last Edit by CLAUDIO Burt on 11/30/24 16:32 UA Bilirubin 0 mg/dL Last Edit by CLAUDIO Burt on 11/30/24 16:32 UA Glucose 0 mg/dL Last Edit by Lakisha Thompson CCM on 11/30/24 16:32 Results Reviewed Results Reviewed: Laboratory Last Values Urine pH (Auto) 6.0 11/30/24 16:31 Specific [place] (Auto) 1.020 11/30/24 16:31 Urine Protein (Auto) 0 mg/dL 11/30/24 16:31 Glucose (UA)(Auto) 0 mg/dL 11/30/24 16:31 Urine Blood (Auto) 0 Kahlil/uL 11/30/24 16:31 Urine Bilirubin (Auto) 0 mg/dL 11/30/24 16:31 Urine Urobilinogen (Auto) 0.2 mg/dL 11/30/24 16:31 Leukocyte Esterase (Auto) 0 Cade/uL 11/30/24 16:31 Date of Service: 11/23/24 Procedure(s): US renal BI Findings: Right kidney normal size and echotexture, 11.8 cm length. No hydronephrosis. Normal color flow. Nonobstructing caliceal stone upper pole measuring 6 x 5 x 5 mm in lower pole measuring 4 x 3 x 5 mm. No renal masses. Left kidney normal size and echotexture, 11.0 cm length. No hydronephrosis. Normal color flow. Nonobstructing caliceal stone lower pole measuring 9 x 4 x 5 mm. No renal masses. Impression: 1. Bilateral nephrolithiasis. No evidence of obstructive uropathy. Assessment & Plan Assessment & Plan (1) Nephrolithiasis: Code(s): N20.0 - Calculus of kidney Category: Medical (2) Urinary tract infection: Code(s): N39.0 - Urinary tract infection, site not specified Category: Medical Plan In office urinalysis results with the patient today; as noted above. Recent renal imaging results reviewed with the patient today; as noted above. We did discussed at length potential causes of nephrolithiasis to include ureteroscopy verses ESWL verses surveillance monitoring; risks and benefits of these interventions were discussed. We discussed the importance of continuing with plenty of water daily. All questions were answered. Continue adding 1 oz of lemon juice to water daily. Will obtain KUB in 3-6 months. Follow-up in 3-6 months with imaging to be completed prior; or sooner with any issues, concerns, and or questions. Orders: Orders XR KUB 3 Months N20.0 - Calculus of kidney AMB Urinalysis Automated Today Z13.9 - Encounter for screening, unspecified Medications: Discontinued nystatin Discontinued Reason: Patient Completed Course 1 appl topical BID 15 grams 0RF Patient Instructions: The patient had an opportunity to ask questions regarding the treatment plan. All questions were answered. Physical exam, labs, and imaging were discussed and reviewed in detail. As well as risks, benefits, and discussion of treatment choices. No major barriers to understanding were identified. The patient expressed understanding and agreement with the above treatment plan. The patient was made aware they should contact our office by phone for worsening of their current condition, the appearance of new symptoms, or with any questions or concerns. Compliance is encouraged with any medications and follow up testing that is ordered. It is a privilege to be allowed the opportunity to participate in? your urological care.? Again, if you have any questions or concerns If you have any questions or concerns please do not hesitate to contact me. The office is [phone]. This note is constructed using voice recognition software. While every effort has been made to ensure accuracy specimen preparation assistant errors may have been included. Yours sincerely, DEEJAY Danielle Coding Level of Care Code Est Pt Level 3 (90636) Complex EM visit Add On G2211 Diagnoses Nephrolithiasis N20.0 Urinary tract infection N39.0
--- OUTSIDE RECORDS SUMMARY | 2024-11-30 17:10 | XMS_ITS | Clinical Summary ---
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 Name Role Phone Unknown, Unknown Primary Care [...] Medical Devices Not on file Insurance [facility] Care Teams Hair Mixer Relationship Specialty Start Date End Date Unknown, Unknown, PCP - General 12/14/22 Additional Source Comments The information contained in this document represents components of the legal health record. It is not the complete legal health record.[facility]ly [facility]
== END 2024-11-30 16:53 | disposition home or self-care (01) ==
LOC: HO.HUSH 16:15
PROVIDERS: PCP Nurse Practitioner Family; Visit Provider Nurse Practitioner Family
DX: N20.0 Calculus of kidney (principal); N39.0 Urinary tract infection, site not specified; Z13.9 Encounter for screening, unspecified
CPT/HCPCS: 99213

== ENCOUNTER → 2024-11-30 16:14 | Outpatient (BNVA) | payer BC, SELFPAY | PROVIDERS: PCP Nurse Practitioner Family; Visit Provider Nurse Practitioner Family | DX: N20.0 Calculus of kidney (principal) | CPT/HCPCS: 81003 ==

== ENCOUNTER 2024-12-08 15:58 | Outpatient (AMB) | payer BC, SELFPAY ==
--- NOTE | 2024-12-08 16:01 | MHC.OFFVIS ---
Vital Signs 12/08/24 16:02 Height 5 ft 9 in Weight 249 lb BMI 36.8 BP 100/64 Blood Pressure Location Lt brachial Position Sitting Pulse 90 Pulse Source Pulse Oximeter Pulse Oximetry (%) 95 Oxygen Delivery Method Room Air Intake Visit Reasons: Asthma Allergies levofloxacin (From LEVAQUIN) Allergy (Intermediate, Verified 12/08/24 16:08) RASH benzoin Allergy (Unknown, Verified 12/08/24 16:08) Unknown seasonal Allergy (Unknown, Uncoded 12/08/24 16:08) Unknown Cats Allergy (Unknown, Uncoded 12/08/24 16:08) Unknown lactose Adverse Reaction (Severe, Uncoded 12/08/24 16:08) leg cramping HPI HPI Asthma: Details: Edi is a pleasant 48 year old female, never smoker, with underlying asthma. She reports excellent control of respiratory symptoms over the last few months rarely requiring albuterol MDI and has discontinued Flovent. She did contract COVID19 treated with Paxlovid on 11/08 and slowly recovered. At this time she feels symptoms are back to baseline. Today she presents for routine visit to review compliance report. She has been using CPAP therapy, APAP mode [id number], with improvements in daytime fatigue and nonrestorative sleep since switching to a nasal mask. [facility] Medical History (Reviewed 11/30/24 @ 21:00 by D[facility]ILA [facility] Osteochondritis dissecans Cough COVID-19 Venous insufficiency Left breast lump SOB (shortness of breath) Chilaiditi's syndrome Skin lesions Nocturnal hypoxemia Influenza-like illness Pre-op examination Palpitation Sleep apnea Viral illness Left adrenal mass Uncontrolled hypertension Left knee pain Muscle pain Encounter for routine adult physical exam with abnormal findings Environmental allergies Wheezing Screening for colon cancer Pharyngitis Asthma Physical exam Chronic UTI (urinary tract infection) Kidney stone Upper respiratory tract infection Migraines Leg pain Surgical History History of esophagogastroduodenoscopy (EGD) H/O colonoscopy History of cystoscopy History of lithotripsy History of knee surgery History of lumpectomy of left breast (2007) Family History Maternal Grandmother Cancer of abdominal organ Family/Other Breast cancer, Onset Age: 30 Father Parkinson disease Squamous cell skin cancer Atrial fibrillation Mother Hypertension Social History Housing: Apartment Alcohol intake: current Alcohol intake frequency: holidays/special occasions only Patient Tobacco Use Status: Never used Tobacco e-Cigarette/Vaping Use: Never Used Second Hand Smoke Exposure: No service: No Current occupational status: employed Cognitive needs: No Hearing needs: No Vision needs: Yes Female Reproductive History Menstrual Age of Menarche: 14 Review of Systems Const Denies chills, Denies excessive sweating, Denies fever(s), Denies headache(s) and Denies night sweats Eyes Denies dry eyes, Denies irritation and Denies itchy eyes ENT Reports Normal hearing present, Denies headache(s), Denies nasal congestion, Denies nasal discharge, Denies post nasal drip and Denies sore throat Card Denies chest pain, Denies chest pain at rest, Denies chest pain with activity, Denies claudication, Denies leg edema, Denies dyspnea, Denies dyspnea on exertion, Denies orthopnea and Denies paroxysmal nocturnal dyspnea Resp Denies chest congestion, Denies cough, Denies excessive phlegm production, Denies pain on inspiration, Denies pain with cough, Denies dyspnea, Denies dyspnea on exertion, Denies stridor and Denies wheezing Musc Denies myalgias Neuro Reports Normal hearing present and Denies headache(s) Endo Denies excessive sweating Ayo/Lymph Denies lymphadenopathy Aller/Immun Denies itchy eyes, Denies seasonal rhinorrhea and Denies wheezing Physical Exam Vital Signs: Last Vital Signs Pulse 90 12/08/24 16:02 BP 100/64 12/08/24 16:02 Pulse Ox 95 12/08/24 16:02 Oxygen Delivery Method Room Air 12/08/24 16:02 BMI result Body Mass Index 36.8 Const General: cooperative, healthy appearing, comfortable, no acute distress, well developed and alert Nutritional Appearance: obese Orientation/consciousness: patient oriented x3 Limitations: no limitations HEENT Head: Yes normal to inspection, Yes normocephalic and Yes atraumatic Ears: hearing grossly normal bilaterally and external ears normal Eyes General: appearance normal, both eyes and all related structures Eyelids: Yes eyelids normal Sclerae: sclerae normal EOM: EOMs intact bilaterally Neck Neck: Yes normal visual inspection and Yes no lymphadenopathy Lymphatic: no lymphadenopathy noted Chest Chest palpation & inspection: normal inspection of the chest Resp Effort & Inspection: normal respiratory effort, able to speak in complete sentences, no audible wheezes, no cough, no stridor, not tachypneic, no tripod positioning and no use of accessory muscles Auscultation: clear to auscultation bilaterally Cardio Jugular venous distension: no JVD Rate: regular rate Rhythm: regular rhythm Skin Other: warm, dry General skin exam: no rashes or lesions noted Neuro General: patient oriented x3 Cranial nerves: Yes Normal hearing present Cognition (Neuro): normal cognition Gait exam (Neuro): Normal gait present Extrem General: Yes normal to inspection, Yes capillary refill normal, Yes no clubbing, cyanosis or edema and Yes no pedal edema Psych Appearance: grossly normal and well kempt Speech and movement: Normal speech and movement present and Clear speech present Affect: normal affect Attitude: cooperative Thought process: Normal thought process present Thought content: Normal thought content present Insight: Good insight present (Psych) Judgement: Good judgement present (Psych) Assessment & Plan Assessment & Plan (1) Asthma: Code(s): J45.909 - Unspecified asthma, uncomplicated Category: Medical (2) Allergic rhinitis: Code(s): J30.9 - Allergic rhinitis, unspecified Category: Medical (3) Obstructive sleep apnea: Code(s): G47.33 - Obstructive sleep apnea (adult) (pediatric) Category: Medical Plan Edi reports good control of respiratory symptoms rarely requiring albuterol MDI. We did discuss restarting Flovent 220mcg if symptoms become less controlled. She is aware to call if symptoms change. Reviewed compliance report which revealed AHI 0.9, using >4 hours for 97% of the time with improvements in leaking since switching to a nasal mask. She continues to report good effect with use of CPAP therapy and is motivated to continue. All questions were answered and patient is in agreement of plan. Will follow up in 6-9 months or sooner if needed. Coding Level of Care Code Est Pt Level 4 (00451) Diagnoses Asthma J45.909 Allergic rhinitis J30.9 Obstructive sleep apnea G47.33
[2024-12-08 16:02] VITALS: BP 100/64; PULSE 90; O2SAT 95; BMI 36.8
== END 2024-12-08 16:32 | disposition home or self-care (01) ==
LOC: HO.HPSW 15:59
PROVIDERS: PCP Nurse Practitioner Family; Visit Provider Nurse Practitioner Family
DX: J45.909 Unspecified asthma, uncomplicated (principal); J30.9 Allergic rhinitis, unspecified; G47.33 Obstructive sleep apnea (adult) (pediatric)
CPT/HCPCS: 99214

== ENCOUNTER 2024-12-09 06:55 | Outpatient (REF) | payer BC, SELFPAY ==
[2024-12-09 08:20] LABS: MANUAL DIFF FLAG NO
[2024-12-09 08:33] LABS: Hematocrit 41.7 % (37.0-47.0); Hemoglobin 14.0 g/dl (12.0-16.0); Imm Gran Abs Auto 0.02 X10*3/uL (0.00-0.03); Imm Gran Pct Auto 0.3 % (0.0-0.4); Lymphocytes Absolute Auto 1.4 X10*3/uL (1.2-4.9); Mean Corpuscular HGB Conc 33.6 g/dl (31.0-35.0); Mean Corpuscular Hemoglobin 29.0 pg (27.0-33.0); Mean Corpuscular Volume 86.5 fL (80.0-98.0); NRBC Abs Auto 0.000 X10*3/uL (0.0-0.012); NRBC Pct Auto 0.0 /100WBC (0.0-0.2); Platelet Count 297 X10*3/uL (160-400); Red Blood Count 4.82 X10*6/uL (4.20-5.50); White Blood Count 7.3 X10*3/uL (4.8-10.8)
[2024-12-09 08:42] LABS: Appearance Urine Cloudy; Glucose Urine UA Negative (Negative); PH 6.0 (5.0-9.0); Specific Gravity - Urine 1.025 (1.005-1.025); UMIC TRIGGER UACC YES
[2024-12-09 08:56] LABS: UACC Culture Trigger YES
[2024-12-09 09:11] LABS: Alanine Aminotransferase 39 U/L (0-31); Albumin Level 4.4 g/dL (3.5-5.0); Alkaline Phosphatase 75 U/L (39-117); Anion Gap 9 (12-20); Aspartate Amino Transferase 32 U/L (5-31); Blood Urea Nitrogen 11 mg/dL (9-16); Calcium 9.6 mg/dL (8.4-10.2); Carbon Dioxide 27 mmol/L (22-29); Chloride 109 mmol/L (96-108); Cholesterol 163 mg/dL (<200); Estimated Glomerular Filt Rate > 60; HDL Cholesterol 33 mg/dL (>40); Potassium 4.0 mmol/L (3.3-5.1); Sodium 141 mmol/L (135-145); Total Protein 7.0 g/dL (6.5-8.0); Triglycerides 125 mg/dL (<150)
[2024-12-09 09:37] LABS: Microalbum/Creatinine Ratio Ur 8.8 ug/mg cr (<30)
== END 2024-12-09 06:56 | disposition home or self-care (01) ==
LOC: HO.LAB 06:55
PROVIDERS: PCP Nurse Practitioner Family; Visit Provider Nurse Practitioner Family
DX: E11.9 Type 2 diabetes mellitus without complications (principal); M25.562 Pain in left knee; J45.909 Unspecified asthma, uncomplicated
CPT/HCPCS: 36415; 80053; 80061; 81001; 82043; 82570; 83036; 84443; 85025; 87086

== ENCOUNTER 2024-12-09 06:55 | Outpatient (AMB) | payer BC, SELFPAY ==
--- NOTE | 2024-12-09 07:25 | A.OFFPC_ITS ---
Intake Visit Reasons: lab rewiew-AC1 level Allergies levofloxacin (From LEVAQUIN) Allergy (Intermediate, Verified 12/08/24 16:08) RASH benzoin Allergy (Unknown, Verified 12/08/24 16:08) Unknown seasonal Allergy (Unknown, Uncoded 12/08/24 16:08) Unknown Cats Allergy (Unknown, Uncoded 12/08/24 16:08) Unknown lactose Adverse Reaction (Severe, Uncoded 12/08/24 16:08) leg cramping Medication List - Last Reconciled 12/09/24 by Jose Maria Lemons, [facility] albuterol sulfate 2.5 mg (3 mL) inhalation Q6H albuterol sulfate 90 mcg/actuation 1 puff inhalation QID PRN benzonatate 200 mg (2 x 100 mg) PO BID pkfvkbbgtz-ogadowlrlkooa-lnnm 50-300-40 mg 2 caps PO Q4H PRN cetirizine (Zyrtec) 20 mg PO DAILY PRN diltiazem HCl CD 180 mg PO DAILY fluticasone propionate 220 mcg/actuation 2 puffs inhalation BID gabapentin 600 mg PO DAILY@1700 ipratropium bromide 2 sprays intranasal BID ipratropium-albuterol 0.5 mg-3 mg(2.5 mg base)/3 mL 3 mL inhalation Q6H PRN ketoconazole 2% 1 appl topical BID levonorgestrel (Mirena) intrauterine losartan-hydrochlorothiazide 50-12.5 mg 1 tab PO DAILY montelukast (Singulair) 10 mg PO BEDTIME omeprazole 20 mg PO DAILY 30 days ondansetron HCl 4 mg PO Q8H PRN prochlorperazine maleate 10 mg PO PRN tizanidine 4 mg PO BEDTIME PRN 30 days tizanidine 2 mg PO BEDTIME Tobacco use date assessed: 05/03/24 Dental Screening Dental Screen Date: 05/03/24 HPI lab rewiew-AC1 level HPI Details History of Present Illness The patient is a 48-year-old female presenting with neuropathy and diabetes management. The patient has been experiencing neuropathy in her feet, which is being managed by a neurologist. Her hemoglobin A1c was recently measured at 6.7%, indicating poor glycemic control/new onset diabetes. She is scheduled for additional laboratory tests, including a repeat A1c and microalbumin, to further assess her diabetic status. The patient also reports known retinopathy, which was identified during a recent eye examination. There is a suspicion of an autoimmune disorder, for which she is undergoing evaluation by her neurologist. The patient has chronic left knee pain, which has persisted for years. She has undergone physical therapy and x-rays, and there is a suspicion of a meniscal tear, possibly due to an incident involving a bug she tried shrugging of her leg, lifted her leg and her foot caught, approximately one year ago. An MRI is planned to further evaluate the knee condition. Review of Systems - Cardiovascular: Denies chest pain. - Respiratory: Denies dyspnea. Plan 1. Neuropathy The patient is currently under the care of a neurologist for neuropathy in her feet. Further evaluation and management are being conducted by the neurologist. 2. Retinopathy The patient has known retinopathy, identified during a recent eye examination. 3. Possible Autoimmune Disorder The patient is undergoing evaluation for a possible autoimmune disorder by her neurologist. 4. Meniscal Tear The patient reports chronic left knee pain, with a suspected meniscal tear. An MRI is planned to further assess the condition. 5. Diabetes Mellitus The patient's hemoglobin A1c was measured at 6.7%, indicating diabetes mellitus. Further laboratory tests, including a repeat A1c and microalbumin, are planned to assess her diabetic status. Medications will be initiated based on the lab results. Discussion Notes I discussed with the patient the need for further laboratory tests to assess her diabetic status, including a repeat A1c and microalbumin. We also talked about the plan to initiate medications based on the lab results. The patient is aware of the need for an MRI to evaluate her knee condition further. Patient Instructions - Schedule and complete the laboratory t ests, including fasting for the A1c and microalbumin. - Follow up with the neurologist for samm ropathy and possible autoimmune disorder evaluation. - Await MRI results for knee evaluation and follow up as scheduled. [facility] Medical History Left knee pain Osteochondritis dissecans Cough COVID-19 Venous insufficiency Left breast lump SOB (shortness of breath) Chilaiditi's syndrome Skin lesions Nocturnal hypoxemia Influenza-like illness Pre-op examination Palpitation Sleep apnea Viral illness Left adrenal mass Uncontrolled hypertension Muscle pain Encounter for routine adult physical exam with abnormal findings Environmental allergies Wheezing Screening for colon cancer Pharyngitis Asthma Physical exam Chronic UTI (urinary tract infection) Kidney stone Upper respiratory tract infection Migraines Leg pain Surgical History History of esophagogastroduodenoscopy (EGD) H/O colonoscopy History of cystoscopy History of lithotripsy History of knee surgery History of lumpectomy of left breast (2007) Family History Maternal Grandmother Cancer of abdominal organ Family/Other Breast cancer, Onset Age: 30 Father Parkinson disease Squamous cell skin cancer Atrial fibrillation Mother Hypertension Social History Housing: Apartment Alcohol intake: current Alcohol intake frequency: holidays/special occasions only Patient Tobacco Use Status: Never used Tobacco e-Cigarette/Vaping Use: Never Used Second Hand Smoke Exposure: No service: No Current occupational status: employed Cognitive needs: No Hearing needs: No Vision needs: Yes Female Reproductive History Menstrual Age of Menarche: 14 Questionnaire Thrive Questionnaire Date Thrive assessed: 04/26/24 I am a: Patient What is your living situation today?: I have a steady place to live Within the past 12 months, did the food you bought not last and you didn't have the money to get more?: Never true Within the past 12 months, did you worry whether your food would run out before you got money to buy more?: Never true Do you have trouble paying for medicines?: No Do you have trouble getting transportation to medical appointments?: No Do you have trouble paying your heating and electricity bill?: No Do you have trouble taking care of your child, family member or friend?: No Do you have trouble with day-to-day activities such as bathing, preparing meals, shopping, managing finances, etc.?: No Are you currently unemployed and looking for a job?: No Are you interested in more education?: No Please select the resources that you would like help with: None Currently or been in a relationship where the following occur: No concerns reported THRIVE Score: 0 ZENAIDA-7 AMB Questionnaire ZENAIDA-7 Date ZENAIDA - 7 assessed: 03/03/25 Source: Developed by Drs. Yassine Rivera, Renee Abarca, Arnaud Riojas and colleagues, with an educational flaco from [employer]. Physical exam (Primary Care) Tobacco/Smoking Status: Tobacco use Status Tobacco use date assessed 05/03/24 05/11/24 15:19 Patient Tobacco Use Status Never used Tobacco 11/08/24 09:52 e-Cigarette/Vaping Use Never Used 05/11/24 15:19 Thrive Assessment: Date of Thrive Assessment Date Thrive assessed 04/26/24 06/03/24 09:26 Currently or been in a relationship where the following occur: No concerns reported Telehealth Telehealth Telehealth Platform: [employer] Location of provider rendering services: practice address Location of patient: address on file Patient Identification confirmed using: Name, : Yes Telehealth method: video Patient verbally consented to treatment: Yes Patient verbally consented to billing insurance company: Yes Patient informed of any privacy concerns related to visit: Yes Minutes spent on Phone/Video with Pt.: 15 Coding Level of Care Code Tele Est Pt Level 3 (84717) Diagnoses New onset type 2 diabetes mellitus E11.9 Left knee pain M25.562 Assessment & Plan Assessment & Plan (1) New onset type 2 diabetes mellitus: Code(s): E11.9 - Type 2 diabetes mellitus without complications Category: Medical (2) Left knee pain: Code(s): M25.562 - Pain in left knee Category: Medical Plan . Orders: Orders Complete Blood Count Auto Diff Today E11.9 - Type 2 diabetes mellitus without complications UA CC w/rflx Micro + Cult Today E11.9 - Type 2 diabetes mellitus without complications MR knee LT wo con Today M25.562 - Pain in left knee TSH reflex Free T4 Today E11.9 - Type 2 diabetes mellitus without complications Comprehensive [place]. Panel Fast Today E11.9 - Type 2 diabetes mellitus without complications Lipid Panel Today E11.9 - Type 2 diabetes mellitus without complications Microalbumin, Random (w Creat) Today E11.9 - Type 2 diabetes mellitus without complications Hemoglobin A1c Today E11.9 - Type 2 diabetes mellitus without complications
== END 2024-12-09 07:56 | disposition home or self-care (01) ==
LOC: HO.HMCC 06:56
PROVIDERS: PCP Nurse Practitioner Family; Visit Provider Nurse Practitioner Family
DX: E11.9 Type 2 diabetes mellitus without complications (principal); M25.562 Pain in left knee

== ENCOUNTER 2025-01-11 10:28 | Outpatient (REF) | payer BC, SELFPAY ==
--- NOTE | ~2025-01-11 | US_ITS ---
EXAMINATION: US LOWER EXTREMITY VENOUS (REFLUX EXAM), BILATERAL CLINICAL INFORMATION: Varicose veins of the lower extremity with inflammation COMPARISON: None. TECHNIQUE: Color flow triplex imaging and compression Doppler was performed to evaluate both the deep and the superficial systems bilaterally. To evaluate the superficial system, the examination was performed in the upright position. Color-flow Doppler ultrasound and compression ultrasound were utilized. In addition, maneuvers were utilized to demonstrate reflux. FINDINGS: 1. DEEP VENOUS ULTRASOUND OF THE RIGHT LOWER EXTREMITY: Common Femoral Vein: Compressible, normal respiratory variation and augmented flow. Femoral Vein: Compressible, normal color flow and augmentation. Popliteal Vein: Compressible, normal augmentation. Deep Reflux: There is no evidence of reflux in the deep system in either the common femoral vein, superficial femoral or the popliteal vein. 2. SUPERFICIAL ULTRASOUND WITH DOPPLER OF RIGHT LOWER EXTREMITY: GREAT SAPHENOUS VEIN: Saphenofemoral Junction: 1.1 cm; Reflux: 0 ms Proximal Thigh: 0.9 cm; Reflux: 0 ms Mid Thigh: 0.5 cm; Reflux: 0 ms Distal Thigh: 0.5 cm; Reflux: 0 ms At Knee: 0.6 cm; Reflux: 0 ms Below Knee/Proximal Calf: 0.5 cm; Reflux: 0 ms Mid Calf: 0.3 cm; Reflux: 0 ms Ankle/Distal Calf: 0.3 cm; Reflux: 0 ms Lateral / Medial accessory GREAT SAPHENOUS VEIN: None documented SMALL SAPHENOUS VEIN: Drainage: thigh extension Saphenopopliteal Junction: 0.2 cm; Reflux: 0 ms Mid calf: 0.2 cm; Reflux: 0 ms Distal: 0.3 cm; Reflux: 0 ms VEIN OF GIACOMINI: Size: 0.3 cm Reflux: 0 ms PERFORATORS: Location: Greater saphenous vein, proximal calf Size: 0.3 cm Reflux: 0 ms VARICOSITIES > 3mm: Location: Great saphenous vein, proximal calf Size: 0.3 cm Reflux: 500 ms 3. DEEP VENOUS ULTRASOUND OF THE LEFT LOWER EXTREMITY: Common Femoral Vein: Compressible, normal respiratory variation and augmented flow. Femoral Vein: Compressible, normal color flow and augmentation. Popliteal Vein: Compressible, normal augmentation. Deep Reflux: There is no evidence of reflux in the deep system in either the common femoral vein, superficial femoral or the popliteal vein. 4. SUPERFICIAL ULTRASOUND WITH DOPPLER OF LEFT LOWER EXTREMITY: GREAT SAPHENOUS VEIN: Saphenofemoral Junction: 1.1 cm; Reflux: 0 ms Proximal Thigh: 0.5 cm; Reflux: 0 ms Mid Thigh: Not demonstrated Distal Thigh: 0.3 cm; Reflux: 0 ms At Knee: 0.2 cm; Reflux: 0 ms Below Knee/Proximl calf: 0.2 cm; Reflux: 0 ms Mid Calf: 0.1 cm; Reflux: 0 ms Distal Calf/Ankle: 0.3 cm; Reflux: 0 ms Lateral accessory GREAT SAPHENOUS VEIN: Saphenofemoral Junction: 0.3 cm; Reflux: 0 ms Mid Thigh: 0.2 cm; Reflux: 0 ms SMALL SAPHENOUS VEIN: Drainage: Thigh extension Saphenopopliteal Junction: 0.5 cm; Reflux: 0 ms Mid calf: 0.2 cm; Reflux: 0 ms Distal calf: 0.3 cm; Reflux: 0 ms VEIN OF GIACOMINI: Size: NA Reflux: NA PERFORATORS: None documented VARICOSITIES > 3mm: Location: None Imaged US/US venous duplex LE IMPRESSION: Right: There is mild reflux in a varicosity associated with the great saphenous vein in the proximal calf Left: No venous reflux is demonstrated. Electronically signed by: Nghia Burdick MD 01/11/2025 12:00 PM [facility]
--- OUTSIDE RECORDS SUMMARY | 2025-01-11 12:04 | XMS_ITS | Clinical Summary ---
Author Organization [facility] Address [address] [place] [phone] Phone Care Team Providers Care Supervisor [employer] Name Role Phone Unknown, Unknown Primary Care [...] on patient's age to complete this topic IPV VACCINES Aged Out No longer eligi ble [...] Medical Devices Not on file [place] [facility] [place] [facility] [place] [facility] [place] [facility] OF [facility] [place] [facility] OF [facility] Care Teams Supervisor [employer] Relationship Specialty Start Date End Date Unknown, Unknown, PCP - General 02/13/22 Additional Source Comments The information contained in this document represents components of the legal health record. It is not the complete legal health record.[facility]
== END 2025-01-11 10:29 | disposition home or self-care (01) ==
LOC: HO.US 10:28
PROVIDERS: PCP Nurse Practitioner Family; Visit Provider Surgery Vascular Surgery
DX: I83.12 Varicose veins of left lower extremity with inflammation (principal)
CPT/HCPCS: 93970

== ENCOUNTER → 2025-01-11 10:30 | Outpatient (BNV) | payer BC, SELFPAY | PROVIDERS: PCP Nurse Practitioner Family; Visit Provider Radiology Diagnostic Radiology | DX: I83.12 Varicose veins of left lower extremity with inflammation (principal) | CPT/HCPCS: 93970 ==

== ENCOUNTER 2025-01-14 07:23 | Outpatient (REF) | payer BC, SELFPAY ==
--- NOTE | ~2025-01-14 | MR_ITS ---
EXAMINATION: MR KNEE WITHOUT CONTRAST, LEFT CLINICAL INFORMATION: Chronic knee pain. Patient reports surgery plate 80s osteochondral sequence, late 90s meniscus. COMPARISON: X-ray 03/12/2023 TECHNIQUE: MRI of the knee without contrast was performed using routine sequences on a high-field scanner. FINDINGS: MENISCI: Medial Meniscus: Intrasubstance degenerative signal in the posterior horn and body. No definite tear. Lateral Meniscus: Subtle intermediate T2 signal, which contacts the undersurface of the posterior horn/body junction; this could could reflect degeneration, postsurgical changes. No definite tear is otherwise identified. LIGAMENTS: Cruciate: ACL is intact. Increased T2 signal in the PCL from mucoid degeneration or sprain. Collateral: Intact EXTENSOR MECHANISM: Intact ARTICULAR CARTILAGE/BONE: Patellofemoral Compartment: Mild arthritis. Findings include central trochlea osteophyte with chondral thinning. Medial Compartment: Postoperative changes with metallic artifact in the medial femoral condyle. Mild arthritis. Mild chondromalacia in the weightbearing femoral condyle. Lateral Compartment: No significant chondral loss. JOINT FLUID AND BURSAE: Small joint fluid. Trace Carty's cyst. Subcutaneous edema. MR/MR knee LT wo con IMPRESSION: * Lateral meniscus findings could represent degeneration, postsurgical changes. No definite tear is identified. * PCL findings from mucoid degeneration or sprain. No ligament discontinuity seen. * Mild patellofemoral and medial compartment arthritis. * Small effusion. Electronically signed by: Darion Link MD 01/14/2025 02:13 PM [facility]
--- OUTSIDE RECORDS SUMMARY | 2025-01-14 07:30 | XMS_ITS | Clinical Summary ---
Author Organization [facility] Address [address] [place] [phone] Phone Care Team Providers Care Sponsorship Manager Name Role Phone Unknown, Unknown Primary Care [...] Medical Devices Not on file [place] [facility] [place] [facility] [place] [facility] [place] [facility] [place] [facility] Care Teams Sponsorship Manager Relationship Specialty Start Date End Date Unknown, Unknown, PCP - General 02/13/22 Additional Source Comments The information contained in this document represents components of the legal health record. It is not the complete legal health record.[facility]
[2025-01-14 08:46] LABS: Appearance Urine Clear; Glucose Urine UA Negative (Negative); PH 6.0 (5.0-9.0); Specific Gravity - Urine 1.025 (1.005-1.025); UMIC TRIGGER UACC YES
[2025-01-14 09:10] LABS: Alanine Aminotransferase 39 U/L (0-31); Albumin Level 4.4 g/dL (3.5-5.0); Alkaline Phosphatase 68 U/L (39-117); Anion Gap 12 (12-20); Aspartate Amino Transferase 30 U/L (5-31); Blood Urea Nitrogen 13 mg/dL (9-16); Calcium 9.3 mg/dL (8.4-10.2); Carbon Dioxide 26 mmol/L (22-29); Chloride 107 mmol/L (96-108); Estimated Glomerular Filt Rate > 60; Potassium 3.8 mmol/L (3.3-5.1); Sodium 141 mmol/L (135-145); Total Protein 7.0 g/dL (6.5-8.0)
== END 2025-01-14 07:24 | disposition home or self-care (01) ==
LOC: HO.MRI 07:23
PROVIDERS: PCP Nurse Practitioner Family; Visit Provider Nurse Practitioner Family
DX: M25.562 Pain in left knee (principal); R31.29 Other microscopic hematuria; N39.0 Urinary tract infection, site not specified; N20.0 Calculus of kidney
CPT/HCPCS: 36415; 73721; 80053; 81001; 87086; 88112

== ENCOUNTER → 2025-01-14 07:23 | Outpatient (BNV) | payer BC, SELFPAY | PROVIDERS: PCP Nurse Practitioner Family; Visit Provider Radiology Diagnostic Ultrasound | DX: M17.12 Unilateral primary osteoarthritis, left knee (principal); M25.462 Effusion, left knee | CPT/HCPCS: 73721 ==

== ENCOUNTER 2025-02-01 14:36 | Outpatient (AMB) | payer BC, SELFPAY ==
[2025-02-01 14:43] VITALS: BP 102/70; PULSE 89; O2SAT 97; BMI 37.1
--- NOTE | 2025-02-01 14:43 | A.OFFPC_ITS ---
Vital Signs 02/01/25 14:43 Height 5 ft 9 in Weight 251 lb BMI 37.1 BP 102/70 Blood Pressure Location Lt brachial Position Sitting Pulse 89 Pulse Source Pulse Oximeter Pulse Oximetry (%) 97 Oxygen Delivery Method Room Air Intake Visit Reasons: pe Electronic Equipment Repairer Required: No Accompanied by: Self / Same As Patient Allergies levofloxacin (From LEVAQUIN) Allergy (Intermediate, Verified 02/01/25 15:17) RASH benzoin Allergy (Unknown, Verified 02/01/25 15:17) Unknown seasonal Allergy (Unknown, Uncoded 02/01/25 15:17) Unknown Cats Allergy (Unknown, Uncoded 02/01/25 15:17) Unknown lactose Adverse Reaction (Severe, Uncoded 02/01/25 15:17) leg cramping Medication List - Last Reconciled 02/01/25 by Jose Maria Lemons, COMPLIANCE MONITOR- albuterol sulfate 2.5 mg (3 mL) inhalation Q6H albuterol sulfate 90 mcg/actuation 1 puff inhalation QID PRN gxsrgrmctb-ueudxndrcnsok-mlty 50-300-40 mg 2 caps PO Q4H PRN cetirizine (Zyrtec) 20 mg PO DAILY PRN diltiazem HCl CD 180 mg PO DAILY fluticasone propionate 220 mcg/actuation 2 puffs inhalation BID gabapentin 600 mg PO DAILY@1700 ipratropium bromide 2 sprays intranasal BID ipratropium-albuterol 0.5 mg-3 mg(2.5 mg base)/3 mL 3 mL inhalation Q6H PRN ketoconazole 2% 1 appl topical BID levonorgestrel (Mirena) intrauterine losartan-hydrochlorothiazide 50-12.5 mg 1 tab PO DAILY montelukast 10 mg PO BEDTIME omeprazole 20 mg PO DAILY 30 days ondansetron HCl 4 mg PO Q8H PRN prochlorperazine maleate 10 mg PO PRN tizanidine 4 mg PO BEDTIME PRN 30 days tizanidine 2 mg PO BEDTIME Tobacco use date assessed: 02/01/25 Dental Screening Dental Screen Date: 02/01/25 Did you have a dental visit in the last 12 months?: Yes Did you have a dental problem in the last 6 months where you did not have access to dental care?: No Was dental information given to patient?: Patient has dentist HPI pe HPI Details History of Present Illness The patient is a 49 year old individual presenting for a physical exam. The patient has a history of diabetes with a recent A1c of 6.3 and up-to-date microalbumin testing. The patient is diagnosed with obesity and has an LDL of 105. The patient is scheduled for a D&C in the near future due to significant vaginal bleeding and follows with a performance improvement analyst. The patient experiences ongoing knee pain, especially in the left knee, and has undergone at least two prior knee surgeries. The patient reports neuropathy in the bilateral extremities and was recently diagnosed with carpal tunnel syndrome. The patient also has regular follow-ups with a neurologist, pmo business analyst, and guest laundry attendant. Recent CBC, liver, and kidney function labs are stable and within normal limits. Health Maintenance The patient's physical exam was benign today, with stable labs including CBC, liver, and kidney function. The patient will follow up in 6 months and continue care with specialists including cardiology and pulmonology. Social History Review of Systems - Gynecologic: Reports significant vagin al bleeding. - Musculoskeletal: Reports ongoing knee pain, especially to the left. - Neurological: Reports neuropathy in bi lateral extremities. - Extremities: Reports faint swelling in bilateral lower extremities. Physical Exam General: Cooperative, healthy appearing, comfortable, no acute distress and well developed, obese Orientation: Patient oriented x3 Limitations: No limitations Head: Normal to inspection Ears: Hearing grossly normal bilaterally Nose: Normal external nose present Face and sinus: Normal facial exam Eyes: Appearance normal, both eyes and all related structures Neck: Normal visual inspection and Yes full ROM Respiratory: Normal respiratory effort and able to speak in complete sentences. Clear to auscultation bilaterally Cardiovascular: Regular rate and rhythm. Normal S1 and S2 GI: Normal to inspection. Soft to palpation and nontender Skin: No rashes or lesions noted Neuro: Patient oriented x3, positive sensation with use of monofilament of feet, feet were intact bilaterally Extremities: Normal to inspection, faint swelling in lower extremities, trace, faint swelling to right knee. crepitus noted with flexion and extension at right knee. pain noted. Results - Labs: - A1c: 6.3 - Microalbumin: Up to date - LDL: 105 - CBC: Within normal limits - Liver and kidney function: Stable Plan 1. Abnormal Uterine Bleeding The patient reports significant vaginal bleeding and is scheduled for a D&C in the near future. The patient will continue to follow up with the performance improvement analyst. 2. Knee Pain, Left The patient will likely see an refractory specialist for ongoing left knee pain. The patient is advised to continue following up with specialists as needed (mri performed) 3. Diabetes Mellitus The patient's A1c is 6.3 and microalbumin is up to date. The patient is aware of the need for yearly eye exams. Follow-up is scheduled in 6 months. 4. Carpal Tunnel Syndrome The patient was recently diagnosed with carpal tunnel syndrome. The patient will continue to follow up with the neurologist. Discussion Notes I reviewed the patient's current health status and recent labs, including an HbA1c of 6.3 and an LDL of 105. We discussed the plan for a future D&C for significant vaginal bleeding and a potential consultation with an orthopedist for ongoing knee pain. I emphasized the importance of continued follow-up with the patient's team of specialists, including FITTER TYPE BAR AND SEGMENT, neurology, cardiology, and pulmonology. We also discussed the need for yearly eye exams as part of diabetes management. I advised a follow-up appointment in 6 months to monitor the patient's chronic conditions. Patient Instructions - Please proceed with your scheduled D a nd C for your vaginal bleeding. - Continue to follow up with your specia lists, including your neurologist, pmo business analyst, and guest laundry attendant. - You may need to see an orthopedic doct or for your ongoing knee pain. - Remember to get your eyes checked once a year due to your diabetes. - I will see you back in my office in 6 months for a follow-up visit. [facility] Medical History (Updated 02/01/25 @ 15:20 by DEEJAY Baxter) Physical exam Bilateral carpal tunnel syndrome Fatty liver Left knee pain Osteochondritis dissecans Cough COVID-19 Venous insufficiency Left breast lump SOB (shortness of breath) Chilaiditi's syndrome Skin lesions Nocturnal hypoxemia Influenza-like illness Pre-op examination Palpitation Sleep apnea Viral illness Left adrenal mass Uncontrolled hypertension Muscle pain Encounter for routine adult physical exam with abnormal findings Environmental allergies Wheezing Screening for colon cancer Pharyngitis Asthma Chronic UTI (urinary tract infection) Kidney stone Upper respiratory tract infection Migraines Leg pain Surgical History History of esophagogastroduodenoscopy (EGD) H/O colonoscopy History of cystoscopy History of lithotripsy History of knee surgery History of lumpectomy of left breast (2007) Family History Maternal Grandmother Cancer of abdominal organ Family/Other Breast cancer, Onset Age: 30 Father Parkinson disease Squamous cell skin cancer Atrial fibrillation Mother Hypertension Social History Housing: Apartment Alcohol intake: current Alcohol intake frequency: holidays/special occasions only Patient Tobacco Use Status: Never used Tobacco e-Cigarette/Vaping Use: Never Used Second Hand Smoke Exposure: No service: No Current occupational status: employed Cognitive needs: No Hearing needs: No Vision needs: Yes Female Reproductive History Menstrual Age of Menarche: 14 Questionnaire Thrive Questionnaire Date Thrive assessed: 04/26/24 I am a: Patient What is your living situation today?: I have a steady place to live Within the past 12 months, did the food you bought not last and you didn't have the money to get more?: Never true Within the past 12 months, did you worry whether your food would run out before you got money to buy more?: Never true Do you have trouble paying for medicines?: No Do you have trouble getting transportation to medical appointments?: No Do you have trouble paying your heating and electricity bill?: No Do you have trouble taking care of your child, family member or friend?: No Do you have trouble with day-to-day activities such as bathing, preparing meals, shopping, managing finances, etc.?: No Are you currently unemployed and looking for a job?: No Are you interested in more education?: No Please select the resources that you would like help with: None Currently or been in a relationship where the following occur: No concerns reported THRIVE Score: 0 ZENAIDA-7 AMB Questionnaire ZENAIDA-7 Date ZENAIDA - 7 assessed: 05/03/24 Source: Developed by Drs. Yassine Rivera, Renee Abarca, Arnaud Riojas and colleagues, with an educational flaco from [employer]. Physical exam (Primary Care) Vital Signs: Last Vital Signs Pulse 89 02/01/25 14:43 BP 102/70 02/01/25 14:43 Pulse Ox 97 02/01/25 14:43 Oxygen Delivery Method Room Air 02/01/25 14:43 BMI result Body Mass Index 37.1 Tobacco/Smoking Status: Tobacco use Status Tobacco use date assessed 02/01/25 02/01/25 14:49 Patient Tobacco Use Status Never used Tobacco 02/01/25 14:43 e-Cigarette/Vaping Use Never Used 02/01/25 14:43 Thrive Assessment: Date of Thrive Assessment Date Thrive assessed 04/26/24 02/01/25 14:43 Currently or been in a relationship where the following occur: No concerns reported Coding Level of Care Code Est Pt Level 3 (25560) Est Pt Prev Care 40-64y(89829) Diagnoses Physical exam Z00.00 Assessment & Plan Assessment & Plan (1) Physical exam: Code(s): Z00.00 - Encounter for general adult medical examination without abnormal findings Category: Medical Plan .
--- OUTSIDE RECORDS SUMMARY | 2025-02-01 16:32 | XMS_ITS | Clinical Summary ---
Author Organization [facility] Address [address] [place] [phone] Phone Care Team Providers Care Automobile Taillight Assembler Name Role Phone Unknown, Unknown Primary Care [...] Medical Devices Not on file Insurance [place] [facility] [place] [facility] [place] [facility] [place] [facility] Care Teams Automobile Taillight Assembler Relationship Specialty Start Date End Date Unknown, Unknown, PCP - General 12/14/22 Additional Source Comments The information contained in this document represents components of the legal health record. It is not the complete legal health record.[facility]
== END 2025-02-01 15:39 | disposition home or self-care (01) ==
LOC: HO.HMCC 14:37
PROVIDERS: PCP Nurse Practitioner Family; Visit Provider Nurse Practitioner Family
DX: Z00.00 Encounter for general adult medical examination without abnormal findings (principal)

== ENCOUNTER 2025-02-03 11:06 | Outpatient (AMB) | payer BC, SELFPAY ==
--- NOTE | 2025-02-03 11:08 | MHC.OFFVIS ---
Vital Signs 02/03/25 11:09 Height 5 ft 9 in Weight 251 lb BMI 37.1 Intake Visit Reasons: follow up US 01/11/25 Intake Note: follow up Vi MCINTYRE 01/11/25 for LE swelling, Left worse than the right LE. Pt states she has cramping and some neuropathy. Hx of ablations and microphlebectomy. Show Card Writer Required: No Accompanied by: Self / Same As Patient Allergies levofloxacin (From LEVAQUIN) Allergy (Intermediate, Verified 02/03/25 11:11) RASH benzoin Allergy (Unknown, Verified 02/03/25 11:11) Unknown seasonal Allergy (Unknown, Uncoded 02/03/25 11:11) Unknown Cats Allergy (Unknown, Uncoded 02/03/25 11:11) Unknown lactose Adverse Reaction (Severe, Uncoded 02/03/25 11:11) leg cramping HPI HPI follow up US 01/11/25: Details: Very pleasant 48-year-old female presents for follow-up regarding lower extremity pain and discomfort. She does have a prior history of neuropathy. She noted some discoloration. She does report a prior history of venous procedures performed by Dr. Mike León. Of note she is a pre diabetic with last hemoglobin A1c of 6.3. She now presents for follow-up with venous insufficiency testing. [facility] Medical History Physical exam Bilateral carpal tunnel syndrome Fatty liver Left knee pain Osteochondritis dissecans Cough COVID-19 Venous insufficiency Left breast lump SOB (shortness of breath) Chilaiditi's syndrome Skin lesions Nocturnal hypoxemia Influenza-like illness Pre-op examination Palpitation Sleep apnea Viral illness Left adrenal mass Uncontrolled hypertension Muscle pain Encounter for routine adult physical exam with abnormal findings Environmental allergies Wheezing Screening for colon cancer Pharyngitis Asthma Chronic UTI (urinary tract infection) Kidney stone Upper respiratory tract infection Migraines Leg pain Surgical History History of esophagogastroduodenoscopy (EGD) H/O colonoscopy History of cystoscopy History of lithotripsy History of knee surgery History of lumpectomy of left breast (2007) Family History Maternal Grandmother Cancer of abdominal organ Family/Other Breast cancer, Onset Age: 30 Father Parkinson disease Squamous cell skin cancer Atrial fibrillation Mother Hypertension Social History Housing: Apartment Alcohol intake: current Alcohol intake frequency: holidays/special occasions only Patient Tobacco Use Status: Never used Tobacco e-Cigarette/Vaping Use: Never Used Second Hand Smoke Exposure: No service: No Current occupational status: employed Cognitive needs: No Hearing needs: No Vision needs: Yes Female Reproductive History Menstrual Age of Menarche: 14 Review of Systems Const All systems reviewed & are unremarkable except as noted in HPI and below Reports no additional complaints ENT Reports Normal hearing present Card Denies chest pain, Denies chest pain at rest, Denies chest pain with activity and Denies pedal edema Resp Denies cough GI Denies abdominal pain Musc Denies abnormal gait, Denies muscle cramps and Denies radiating pain into limb Skin/Breast Denies skin ulcer and Denies wounds Neuro Reports Normal hearing present and Denies abnormal gait Psych Reports no additional complaints Physical Exam Vital Signs: BMI result Body Mass Index 37.1 Const General: cooperative, healthy appearing and comfortable Orientation/consciousness: oriented to person, oriented to place and oriented to time HEENT Head: Yes normal to inspection Neck Neck: Yes normal visual inspection Carotids: no bruits Chest Chest palpation & inspection: normal inspection of the chest Resp Effort & Inspection: normal respiratory effort and able to speak in complete sentences Auscultation: clear to auscultation bilaterally, no crackles, no rales, no rhonchi and no wheezes Cardio Rate: regular rate Rhythm: regular rhythm Heart sounds: S1 normal heart sound present and S2 normal heart sound present Bruits: no carotid bruits Peripheral pulses: Peripheral pulses 2+ throughout GI Inspection: Yes normal to inspection Skin Wounds: no wounds Hair: normal Neuro General: oriented to person, oriented to place and oriented to time Cranial nerves: Yes CN's II-XII intact bilaterally and Yes Normal hearing present Cognition (Neuro): normal cognition Motor exam (neuro): 5/5 motor strength present throughout Extrem Other: venous exam: +1 edema General: No clubbing, No cyanosis and Yes edema Psych Appearance: grossly normal Mental Status: mental status grossly normal Speech and movement: Normal speech and movement present Results Reviewed Results Reviewed: Brief summary of venous insufficiency testing is as follows: right great saphenous vein: negative right small saphenous vein: negative right accessory vein: none present left great saphenous vein: negative left small saphenous vein: negative left accessory vein: none present Please note there is no evidence of any venous aneurysms or significant tortuosity Assessment & Plan Assessment & Plan (1) Varicose veins of left lower extremity with inflammation: Code(s): I83.12 - Varicose veins of left lower extremity with inflammation Category: Medical Plan: In short patient is negative for any significant venous insufficiency. We did discuss routine conservative measures including compression elevation and exercise. In addition she does show some clinical stigmata of lymphedema. I did discuss with her should this worsen in the future happy to see her back and reassess for possible lymphedema treatment. She will follow up with us on an as-needed basis. Thank you for allowing us to assist in her care. If there are any questions or concerns please do not hesitate to contact us. Coding Level of Care Code Est Pt Level 4 (45045) Diagnoses Varicose veins of left lower extremity with inflammation I83.12
[2025-02-03 11:09] VITALS: BMI 37.1
== END 2025-02-03 11:37 | disposition home or self-care (01) ==
LOC: HO.HVS 11:07
PROVIDERS: PCP Nurse Practitioner Family; Visit Provider Surgery Vascular Surgery
DX: I83.12 Varicose veins of left lower extremity with inflammation (principal)
CPT/HCPCS: 99214

== ENCOUNTER → 2025-02-05 08:15 | Outpatient (BNV) | payer BC, SELFPAY | PROVIDERS: PCP Nurse Practitioner Family; Visit Provider Internal Medicine | DX: Z12.31 Encounter for screening mammogram for malignant neoplasm of breast (principal) | CPT/HCPCS: 77063; 77067 ==

== ENCOUNTER 2025-02-05 08:35 | Outpatient (REF) | payer BC, SELFPAY ==
--- NOTE | ~2025-02-05 | MM_ITS ---
EXAMINATION: MM SCREENING DIGITAL BREAST TOMOSYNTHESIS, BILATERAL CLINICAL INFORMATION: Screening. Asymptomatic. COMPARISON: Mammography: Comparison is made with available priors TECHNIQUE: Digital breast mammography with tomosynthesis is performed in both the craniocaudal and mediolateral oblique views along with computer-aided detection (CAD). FINDINGS: There are scattered areas of fibroglandular density. Left marker clip. There are no significant masses, abnormal calcifications, or other abnormalities. MM/MM tomosynthesis screening BI IMPRESSION: No mammographic evidence of malignancy. ASSESSMENT: BI-RADS Category 2: Benign RECOMMENDATION: Routine annual mammography screening. 1 year F/U This examination should not preclude the clinical evaluation of a suspicious palpable abnormality. This patient's information was entered into a reminder system with a target due date for their next mammogram. Electronically signed by: Vera Ceja DO 02/07/2025 04:03 PM ALISA THOMAS
--- OUTSIDE RECORDS SUMMARY | 2025-02-05 08:37 | XMS_ITS | Clinical Summary ---
Author Organization [facility] Address [address] [place] [phone] Phone Care Team Providers Care Geodetic Computator Name Role Phone Unknown, Unknown Primary Care [...] Not on file [place] [facility] [place] [facility] [place] [facility] [place] [facility] Care Teams Geodetic Computator Relationship Specialty Start Date End Date Unknown, Unknown, PCP - General 12/14/22 Additional Source Comments The information contained in this document represents components of the legal health record. It is not the complete legal health record.[facility]
== END 2025-02-05 08:36 | disposition home or self-care (01) ==
LOC: HO.MAMMO 08:35
PROVIDERS: PCP Nurse Practitioner Family; Visit Provider Midwife
DX: Z12.31 Encounter for screening mammogram for malignant neoplasm of breast (principal)
CPT/HCPCS: 77063; 77067